=== PATIENT | female | born 1945 | race Hispanic/Latino ===

== ENCOUNTER 2017-04-05 05:56 | Inpatient (IN) | payer MEDICARE ==
[2017-04-05 05:56] VITALS: BMI 33.2
--- NOTE | 2017-04-05 06:31 | ED PDOC ---
Arrival/HPI - General Chief Complaint: Psychiatric Evaluation Time Seen by Provider: 04/05/17 06:03 Historian: Patient - History of Present Illness Narrative History of Present Illness (Text): 04/05/17 06:25 Jeni Roca is a 71 year old female, whose past medical history includes schizophrenia, anxiety, and depression, who presents to the Emergency department brought in by EMS for bizarre behavior today. As per EMS, found the patient wandering outside the street outside their home behaving oddly. Patient states she was "waiting to be picked up by the police." Patient denies any suicidal ideation, homicidal ideation, fever, chills, chest pain, shortness of breath, nausea, vomiting, diarrhea, urinary symptoms, back pain, neck pain, headache, dizziness, or any other complaints. Time/Duration: Other (tonight) Symptom Onset: Gradual Symptom Course: Unchanged Activities at Onset: Light Context: Standing, Street Past Medical History - Provider Review Nursing Documentation Reviewed: Yes - Cardiac Hx Cardiac Disorders: No Hx Hypertension: No - Pulmonary Hx Tuberculosis: No - Neurological HX Cerebrovascular Accident: No Hx Seizures: No - Hematological/Oncological Hx Cancer: No - Musculoskeletal/Rheumatological Hx Arthritis: Yes (Right knee) - Genitourinary/Gynecological Hx Sexually Transmitted Diseases: No - Psychiatric Hx Depression: Yes Hx Substance Use: No - Surgical History Other/Comment: "ovary" - Anesthesia Hx Anesthesia: Yes Hx Anesthesia Reactions: No Family/Social History - Physician Review Nursing Documentation Reviewed: Yes Family/Social History: Unknown Family HX Smoking Status: Never Smoked Hx Alcohol Use: No Hx Substance Use: No Allergies/Home Meds Allergies/Adverse Reactions: Allergies phenytoin sodium [From Dilantin] Allergy (Intermediate, Verified 01/06/16 20:53) RASH phenytoin sodium extended [From Dilantin] Allergy (Intermediate, Verified 20:53) RASH Review of Systems - Physician Review All systems were reviewed & negative as marked: Yes - Review of Systems Constitutional: Normal. absent: Fevers Eyes: Normal ENT: Normal Respiratory: Normal. absent: SOB, Cough Cardiovascular: Normal. absent: Chest Pain Gastrointestinal: Normal. absent: Abdominal Pain, Diarrhea, Nausea, Vomiting Genitourinary Female: Normal. absent: Dysuria, Frequency, Hematuria, Urine Output Changes Musculoskeletal: Normal. absent: Back Pain, Neck Pain Skin: Normal. absent: Rash Neurological: Normal. absent: Headache, Dizziness Endocrine: Normal Hemo/Lymphatic: Normal Psychiatric: Other (+bizarre behavior) Physical Exam Vital Signs Reviewed: Yes Vital Signs Temp Pulse Resp BP Pulse Ox 04/05/17 06:25 98.8 F 74 18 130/81 99 Temperature: Afebrile Blood Pressure: Normal Pulse: Regular Respiratory Rate: Normal Appearance: Positive for: Well-Appearing, Non-Toxic, Comfortable Pain Distress: None Mental Status: Positive for: Alert and Oriented X 3 - Systems Exam Head: Present: Atraumatic, Normocephalic Pupils: Present: PERRL Extroacular Muscles: Present: EOMI Conjunctiva: Present: Normal Mouth: Present: Moist Mucous Membranes Neck: Present: Normal Range of Motion Respiratory/Chest: Present: Clear to Auscultation, Good Air Exchange. No: Respiratory Distress, Accessory Muscle Use Cardiovascular: Present: Regular Rate and Rhythm, Normal S1, S2. No: Murmurs Abdomen: Present: Normal Bowel Sounds. No: Tenderness, Distention, Peritoneal Signs Back: Present: Normal Inspection Upper Extremity: Present: Normal Inspection. No: Cyanosis, Edema Lower Extremity: Present: Normal Inspection. No: Edema Neurological: Present: GCS=15, CN II-XII Intact, Speech Normal Skin: Present: Warm, Dry, Normal Color. No: Rashes Psychiatric: Present: Alert, Oriented x 3, Normal Insight, Normal Concentration Medical Decision Making ED Course and Treatment: 04/05/17 06:25 Impression: 71 year old female brought in by EMS for bizarre behavior today. Plan: -- EKG -- Chest X-ray -- Labs, alcohol level -- Urinalysis, urine drug screen -- Reassess and disposition Prior Visits: Notes and results from previous visits were reviewed. On 01/06/2016, pt was seen in the Emergency department for psychiatric evaluation and admitted to the hospital. Progress Notes: 04/05/17 07:[address] Draper, pending medical clearance, PES evaluation, and final disposition. - RAD Interpretation Radiology Orders: 04/05/17 06:27 CHEST PORTABLE [RAD] Stat - Scribe Statement The provider has reviewed the documentation as recorded by the Bhargav Roman Provider Scribe Attestation: All medical record entries made by the Scribe were at my direction and personally dictated by me. I have reviewed the chart and agree that the record accurately reflects my personal performance of the history, physical exam, medical decision making, and the department course for this patient. I have also personally directed, reviewed, and agree with the discharge instructions and disposition. Disposition/Present on Arrival - Present on Arrival Any Indicators Present on Arrival: No History of DVT/PE: No History of Uncontrolled Diabetes: No Urinary Catheter: No History of Decub. Ulcer: No History Surgical Site Infection Following: None - Disposition Have Diagnosis and Disposition been Completed?: No Diagnosis: Schizophrenia Disposition Time: 07:00 Condition: STABLE Forms: [employer] (Portuguese)
--- NOTE | 2017-04-05 07:07 | ED PDOC ---
Physical Exam Vital Signs Reviewed: Yes (WNL) Vital Signs Temp Pulse Resp BP Pulse Ox 04/05/17 07:51 98.6 F 94 H 18 127/78 96 04/05/17 06:25 98.8 F 74 18 130/81 99 Temperature: Afebrile Blood Pressure: Normal Pulse: Regular Respiratory Rate: Normal Appearance: Positive for: Well-Appearing, Non-Toxic, Comfortable, Other (NAD, resting in bed, alert/awake, cooperative) Pain Distress: None Mental Status: Positive for: Alert and Oriented X 3 - Systems Exam Head: Present: Atraumatic, Normocephalic Pupils: Present: PERRL Extroacular Muscles: Present: EOMI Conjunctiva: Present: Normal Ears: Present: Normal Mouth: Present: Other (mild dry oral mucosa, fair dentitions, uvula/tongue are midline, no drooling/stridor) Pharnyx: Present: Normal Neck: Present: Normal Range of Motion, Trachea Midline. No: MIDLINE TENDERNESS Respiratory/Chest: Present: Clear to Auscultation, Good Air Exchange. No: Respiratory Distress, Accessory Muscle Use Cardiovascular: Present: Regular Rate and Rhythm, Normal S1, S2. No: Murmurs Abdomen: Present: Normal Bowel Sounds, Other (well nourished female, no focal tenderness, no jeff's sign, no mcburney's point tenderness). No: Tenderness, Distention, Peritoneal Signs Back: Present: Normal Inspection Upper Extremity: Present: Normal Inspection, Normal ROM, NORMAL PULSES, Neurovascularly Intact, Capillary Refill < 2s. No: Cyanosis, Edema Lower Extremity: Present: Normal Inspection, NORMAL PULSES, Normal ROM, Neurovascularly Intact, Capillary Refill < 2 s. No: Edema Neurological: Present: GCS=15, CN II-XII Intact, Speech Normal Skin: Present: Warm, Dry, Normal Color. No: Rashes Psychiatric: Present: Alert, Oriented x 3, Normal Concentration, Other (flat affect) Medical Decision Making ED Course and Treatment: 04/05/17 07:00 Case was signed out to me by Dr. Eagle. 71 year old female who was brought in after found the patient wandering outside the street outside their home behaving oddly. Patient is awaiting medical clearance and disposition will be provided accordingly. 04/05/17 09:32 per , pt has been non-compliant with her medications since JAN 2017; pt also had missed her Psych appointment, pt states she is afraid to leave her house; per pt's paranoid behavior is becoming more obvious over the last few weeks and he is concerned for her safety; pt also states her depression is worse and at times she doesnt want to live but no plans of actions PT IS MEDICALLY CLEARED FOR PSYCH EVAL 04/05/17 10:16 pt evaluated by PES/[employer] social media and crm at bedside, and recommended patient for inpatient psych admission with Dr Essence Sotomayor pt/family are made aware of pt's medical results agrees with admission Re-evaluation Time: 09:36 Reassessment Condition: Improving,but remains with symptoms - Lab Interpretations Lab Results: 04/05/17 06:57 04/05/17 06:57 Lab Results 04/05/17 06:57: Urine Opiates Screen Negative, Urine Methadone Screen Negative, Ur Barbiturates Screen Negative, Ur Phencyclidine Scrn Negative, Ur Amphetamines Screen Negative, U Benzodiazepines Scrn Negative, U Oth Cocaine Metabols Negative, U Cannabinoids Screen Negative 04/05/17 06:57: WBC 9.6 D, RBC 4.73, Hgb 13.5, Hct 42.5, MCV 89.9, MCH 28.5, MCHC 31.8, RDW 14.0, Plt Count 340, MPV 10.3 04/05/17 06:57: Alcohol, Quantitative < 10 04/05/17 06:57: Sodium 141, Potassium 4.1, Chloride 102, Carbon Dioxide 26, Anion Gap 17, BUN 14, Creatinine 0.6 L, Est GFR ( Amer) > 60, Est GFR ( Non-Af Amer) > 60, Random Glucose 129 H, Calcium 9.8, Total Bilirubin 0.4, AST 25, ALT 30, Alkaline Phosphatase 108, Total Protein 7.9, Albumin 4.5, Globulin 3.4, Albumin/Globulin Ratio 1.3 04/05/17 06:57: Urine Color Yellow, Urine Appearance Clear, Urine pH 6.0, Ur Specific [place] >= 1.030, Urine Protein Trace H, Urine Glucose (UA) Negative, Urine Ketones Trace H, Urine Blood Negative, Urine Nitrate Negative, Urine Bilirubin Small H, Urine Urobilinogen 0.2, Ur Leukocyte Esterase Negative, Urine RBC Negative, Urine WBC 0 - 2, Ur Epithelial Cells 6 - 8, Urine Bacteria Small I have reviewed the lab results: Yes Interpretation: All labs normal - RAD Interpretation Narrative RAD Interpretations (Text): 04/05/17 08:50 Chest X-ray: Creator : Radha Gilliam MD COMPARISON:01/06/2016. FINDINGS: LUNGS: The lungs are well inflated and clear. PLEURA: No significant pleural effusion identified, no pneumothorax apparent. CARDIOVASCULAR: Normal. OSSEOUS STRUCTURES: No significant abnormalities. VISUALIZED UPPER ABDOMEN: Normal. OTHER FINDINGS: None. IMPRESSION: No active pulmonary disease. Radiology Orders: 04/05/17 06:27 CHEST PORTABLE [RAD] Stat Copper Tapper: Radiologist - EKG Interpretation EKG Interpretation (Text): 04/05/17 09:37 Sinus tach at 105 bpm, normal axis, no ectopy, diffuse low voltage inf leads, no st-t changes, borderline EKG; no changes compare with old ekg 01/2016 Interpreted by ED Physician: Yes Type: 12 lead EKG Comparison: Similar to previous EKG - Scribe Statement The provider has reviewed the documentation as recorded by the Bhargav Mann Provider Scribe Attestation: All medical record entries made by the Scribe were at my direction and personally dictated by me. I have reviewed the chart and agree that the record accurately reflects my personal performance of the history, physical exam, medical decision making, and the department course for this patient. I have also personally directed, reviewed, and agree with the discharge instructions and disposition. Disposition/Present on Arrival - Present on Arrival Any Indicators Present on Arrival: No History of DVT/PE: No History of Uncontrolled Diabetes: No Urinary Catheter: No History of Decub. Ulcer: No History Surgical Site Infection Following: None - Disposition Have Diagnosis and Disposition been Completed?: Yes Diagnosis: Schizophrenia, Paranoid behavior, Medical clearance for psychiatric admission Disposition: HOSPITALIZED Disposition Time: 10:14 Patient Plan: Admission Patient Problems: Current Active Problems Problem Status Onset Schizophrenia Acute Paranoid behavior Acute Medical clearance for psychiatric admission Acute Condition: STABLE Forms: [employer] ([place])
[2017-04-05 07:40] LABS: HEMOGLOBIN 13.5 g/dL (12.0-16.0); MEAN CELL VOLUME 89.9 fl (80.0-105.0); MEAN CORPUSCULAR HEMOGLOBIN 28.5 pg (25.0-35.0); MEAN CORPUSCULAR HGB CONC 31.8 g/dl (31.0-37.0); MEAN PLATELET VOLUME 10.3 fl (7.0-11.0); RBC 4.73 10^6/uL (3.5-6.1); URINE BILIRUBIN SMALL (NEGATIVE); URINE BLOOD NEGATIVE (NEGATIVE); URINE GLUCOSE (UA) NEGATIVE (NEGATIVE); URINE LEUKOCYTE ESTERASE NEGATIVE Leu/uL (NEGATIVE); URINE NITRATE NEGATIVE (NEGATIVE); URINE PROTEIN TRACE mg/dL (<30 mg/dL); URINE UROBILINOGEN 0.2 E.U./dL (<1 E.U./dL); WHITE BLOOD COUNT 9.6 10^3/ul (4.5-11.0)
[2017-04-05 07:42] LABS: URINE APPEARANCE CLEAR (CLEAR); URINE COLOR YELLOW (YELLOW)
[2017-04-05 07:53] LABS: URINE BACTERIA SMALL (NEG); URINE RBC NEGATIVE /hpf (0-2); URINE WBC 0 - 2 /hpf (0-6)
[2017-04-05 08:07] LABS: ALB/GLOB RATIO 1.3 (1.1-1.8); ALBUMIN 4.5 g/dL (3.0-4.8); ALT/SGPT 30 U/L (7-56); AST/SGOT 25 U/L (14-36); BLOOD UREA NITROGEN 14 mg/dL (7-21); CALCIUM 9.8 mg/dL (8.4-10.5); GFR AFRICAN-AMERICAN > 60; GFR NON-AFRICAN AMERICAN > 60
[2017-04-05 08:25] LABS: BARBITURATES, UR NEGATIVE (NEGATIVE)
[2017-04-05 08:31] LABS: BENZODIAZEPINES, UR NEGATIVE (NEGATIVE); OPIATES, UR NEGATIVE (NEGATIVE); PHENCYCLIDINE, UR NEGATIVE (NEGATIVE)
--- NOTE | 2017-04-05 08:51 | RAD ---
HISTORY: medical clearance COMPARISON: 01/06/2016. FINDINGS: LUNGS: The lungs are well inflated and clear. PLEURA: No significant pleural effusion identified, no pneumothorax apparent. CARDIOVASCULAR: Normal. OSSEOUS STRUCTURES: No significant abnormalities. VISUALIZED UPPER ABDOMEN: Normal. OTHER FINDINGS: None. IMPRESSION: No active pulmonary disease.
--- NOTE | 2017-04-05 09:43 | CARD ---
APPROVED REPORT EKG Measurement Heart [id number] <Conclusion> Sinus tachycardia Otherwise normal ECG
[2017-04-05] MEDS ORDERED: Alum-Mag Hydrox-Simethicone Susp (30 mL) PO PRN (14:16)
[2017-04-05] MEDS ORDERED: Magnesium Hydroxide Susp 30 ml UD PO PRN (14:16)
--- NOTE | 2017-04-05 15:07 | PCM.BM ---
<Michelle Alvarez - Last Filed: 04/05/17 15:04> Treatment Plan Problems - Problems identified on initial assessmt MEDICATION NON ADHERENCE Date Initiated: 04/05/17 Time Initiated: 15:00 Assessment reference: NA Status: Active Priority: 1 ALTERED THOUGHT PROCESS Date Initiated: 04/05/17 Time Initiated: 15:00 Assessment reference: NA Status: Active Priority: 2 SOCIAL ISOLATION Date Initiated: 04/05/17 Time Initiated: 15:00 Assessment reference: NA Status: Active Priority: 3 Treatment assets and liabiliti Patient Assests: adapts well, cooperative, ADL independent, good support system , negotiates basic needs, good past tx response, cognitively intact - Milieu Protocol Maintain good personal hygiene: daily Encourage regular showers, every shift Remind patient to perform daily oral care, every shift Assist patient to perform ADL's Maintain personal safety: every shift Educate patient to report safety concerns to staff, every shift Monitor environment for contraband/sharps Medication safety: Monitor for expected outcome, potential side effects: every shift, Assess barriers to learning: every shift, Assess readiness for medication education: every shift Discharge/Continuing Care - Education Needs Education Needs: Patient Medication, Patient Diagnosis/Disease Process, Patient Coping Skills, Patient Anger Management skills, Patient Placement options, Patient Community resources, Patient Activities of Daily Living, Patient Pain, Patient Nutrition, Patient Uses of Medical Equipment, Patient Health Practices/ Safety, Patient Personal Hygiene/Grooming, Patient Aftercare Safety Plan - Discharge Discharge Criteria: Tolerates medication w/o severe side effects, Free of paranoid thoughts, Free of agitation, Normal sleep pattern, Ability to care for self, Reduction of target symptoms Discharge to:: Home <Damaris Stewart - Last Filed: 04/06/17 14:28> Family Contact Family involvement: Family/SO is involved Family contact: Patient agrees to contact, Patient declines to allow family contact at present - Outside Agency Dr. Ball Care involvment: Not involved <Essence Mulligan - Last Filed: 04/06/17 17:04> - Diagnosis (1) Schizophrenia Status: Acute Interventions: 04/06/17 17:03 Psychoeducation/psychotherapy Psychopharmacology/adjustment of medications as needed/ monitoring possible side effects Evaluate pt on daily basis Compliance with medications and follow up appointments Long acting medication if pt is noncompliant with pill form Suicide and homicide risk assessment and prevention, coping strategies, safety plan Relapse prevention Reduction of symptoms Improve functional status Possible assertive community treatment Cognitive behavioral therapy Family involvement Possible social skill training as outpatient
--- NOTE | 2017-04-06 03:45 | CON ---
DATE: HISTORY OF PRESENT ILLNESS: I know Jeni very well from the office and for many years. She comes into the emergency room and ends up in the psych floor. I am having a consult for bizarre behavior on the outpatient, wandering in streets, waiting to be picked up by the police. No suicidal or homicidal thoughts. PAST MEDICAL HISTORY: She has had a past medical history of schizophrenia, anxiety, depression. She has had right knee arthritis, ovarian surgery. FAMILY HISTORY: No known family history. SOCIAL HISTORY: Never smoked, no drugs, no alcohol. ALLERGIES: SHE IS ALLERGIC TO PHENYTOIN. REVIEW OF SYSTEMS: No acute vision or hearing changes. No sore throat, no shortness of breath, no cough. She was having a sore throat and a little bit of a cough but not productive. No nausea, vomiting, constipation, or diarrhea. No chest pain. No palpitations. No problems urinating. No back pain. No rashes or ulcers. No headaches or dizziness. No swelling, but there is bizarre behavior that she is presenting with. PHYSICAL EXAMINATION GENERAL: Alert and oriented x3. Right now, talking to me well. She is telling me she has a sore throat. VITAL SIGNS: She has 98.8 temp, 74 pulse, 18 respiratory rate, 130/81 blood pressure, 99% O2 saturation on room air. HEENT: She is atraumatic and normocephalic. Extraocular muscles intact. Pupils are reactive to light and accommodation. Throat is moist. Throat is red. NECK: Supple. HEART: Regular rate. LUNGS: Clear to auscultation. ABDOMEN: Soft, nontender. Positive bowel sounds. No guarding, rebound, or CVA tenderness. EXTREMITIES: Have no edema. NEURO: GCS is 15. Cranial nerves II through XII grossly intact. She could smile. She could close her eyes tight. She could stick her out tongue midline. She could put her arms over her head. Not anxious. SKIN: Warm and dry. No apparent rashes or ulcers. LYMPH: Thyroid midline. No appreciable palpable lymphadenopathy. She had tests done. She has a negative urine drug screen, trace urine, small bacteria. Sodium 141, potassium 4.1, BUN 14, creatinine 0.64, GFR is greater than 60, sugar is 129, calcium is 9.8, total bilirubin is 0.4, AST is 25, ALT is 30, alkaline phosphatase is 108, total protein is 7.9, albumin is 4.5, globulin is 3.4. White count is 9.6, hemoglobin 13.5, hematocrit 42.5, platelets of 340. Chest x-ray, no active disease. EKG with sinus tachycardia. She was given amoxicillin 500 mg 3 times a day. We are going to check a hemoglobin A1c for the one high blood pressure. She is here for bizarre behavior, schizophrenia. I will watch closely with you medically. Manolo tMz DO
[2017-04-06 07:12] LABS: HEMOGLOBIN 13.4 g/dL (12.0-16.0); MEAN CELL VOLUME 89.6 fl (80.0-105.0); MEAN CORPUSCULAR HEMOGLOBIN 28.3 pg (25.0-35.0); MEAN CORPUSCULAR HGB CONC 31.6 g/dl (31.0-37.0); MEAN PLATELET VOLUME 10.2 fl (7.0-11.0); RBC 4.73 10^6/uL (3.5-6.1); RED CELL DISTRIBUTION WIDTH 14.2 % (11.5-14.5); WHITE BLOOD COUNT 7.6 10^3/ul (4.5-11.0)
[2017-04-06 07:34] LABS: FREE T4 1.21 ng/dL (0.78-2.19)
[2017-04-06 07:50] LABS: LDL CHOLESTEROL 112 mg/dL (0-129)
[2017-04-06 07:58] LABS: ALB/GLOB RATIO 1.2 (1.1-1.8); ALT/SGPT 27 U/L (7-56); AST/SGOT 19 U/L (14-36); BLOOD UREA NITROGEN 12 mg/dL (7-21); CALCIUM 9.3 mg/dL (8.4-10.5); GFR AFRICAN-AMERICAN > 60; GFR NON-AFRICAN AMERICAN > 60; HDL CHOLESTEROL 44 mg/dL (29-60)
--- NOTE | 2017-04-06 10:24 | PN ---
DATE: SUBJECTIVE: She is sitting on bed to chair. She seems to be doing better today, mentally may be a little bit. She is asking for medications. She has not tried the Tylenol yet for arthritis pain, so will try that first. She is on amoxicillin for an upper respiratory infection. MEDICATIONS: She is on amoxicillin, Desyrel, Klonopin, Maalox, milk of magnesia, Prozac, Risperdal, Thorazine, and Tylenol. PHYSICAL EXAMINATION: VITAL SIGNS: She has temperature 98.6, pulse 105, blood pressure 142/65, respiratory rate 22, and O2 saturation 100% on room air. HEENT: Head is atraumatic and normocephalic. HEART: Regular rate. LUNGS: Clear to auscultation. GASTROINTESTINAL: Abdomen is soft. She is eating well. EXTREMITIES: No edema. LABORATORY DATA: She has a white count of 7.6, hemoglobin 13.4, hematocrit 42.4 with a 337 platelets. Sodium 142, potassium is 4.5, BUN 12, and creatinine 0.6. GFR is greater than 60, sugar is 124, calcium is 9.3. Total bilirubin is 0.4, AST is 19, ALT is 27, alkaline phosphatase 96, total protein 7.2, albumin is 4, and globulin 3.3. Cholesterol is 193. TSH is 0.95. Urine was small and toxicology was negative. ASSESSMENT AND PLAN: We will continue with treatment and care as per Psychiatry. Chest x-ray shows no active disease. We will watch her very closely. She will get some Tylenol. she is here for behavior, upper respiratory infection, schizophrenia, high blood sugars, and arthritis. Manolo Mtz DO OSMAN
--- NOTE | 2017-04-06 17:02 | PCM.PSYCH ---
Initial Psychiatric Evaluation - Initial Psychiatric Evaluation Type of Admission: Voluntary Legal Status: Capacity (patient has capacity to sign consent for treatment) Chief Complaint (in patient's own words): "I communicate with Chandler Kang in a very special way, if I will tell you, you will think that I am nuts" Patient's Reaction to Hospitalization: pt was admitted to the psych unit for evaluation of disorganized thoughts and behavior, was not able to function History of Present Illness and Precipitating Events: of note, pt was seen at the morning time, but due to the busy schedule and administrative duties, note was postponed to this time. Shortly pt is 71 year old female, with reporte h/o schizophrenia, four previous psych admissions, most recent was about a year ago to this unit, currently under care of , pt has h/o noncompliance with medications and f/u appts, was admitted to the psychiatric inpatient unit for disorganized thoughts and behavior, pt was not sleeping for the past two nights, pt was wondering on streets, pt also was feeling anxious because pt had impression that police is going to arrest her (pt denied h/o arrests, denied committed any crime), pt also was depressed, was not able to function, was noncompliant with her medications and follow up appts, last appt with psychiatrist was in January 2017. Pt was brought in by her because of disorganized and risky behavior. Pt needs further evaluation and stabilization, observation medication resumption and titration. Pt was seen at the morning, and later on at treatment team, poor personal hygiene, pt wears baggy clothes, long, uncombed, ortega, greasy hair pulled up to the fragile ponytail, fare ADLs. pt presented to be guarded, pt is delusional abut famous leahy Chandler Kang, pt was saying "last time you said I was delusional, but it is true...", pt said that she communicates with him "in a very special way, if I will tell you, you will think that I am nuts". pt refused to give any information at this time, from the previous interaction with pt, pt needs some time to opened up. pt seems to have good report with this conventional mortgage underwriter, willing to discuss the medications, acknowledged that she needs to be on medications, but not for psychosis but for "depression, I was feeling very sad inside" was also was not able to function, had poor appetite and sleep. from the last admission pt had dangerous behavior, was running towards random cars for find a Chandler Jorge Luis. pt reported that she was feeling more anxious, she was worried abut her health, abut future, also had impression that she will be arrested by police, even though pt did not commit any crime. pt said she was not taking her medications as prescribed and she did not see her psychiatrist since January, when was asked why, pt said she was afraid to leave the house. no manic symptoms were elicited. pt denied using drugs, denied smoking. Past psych h/o: four hospitalizations, first was five years ago for depression to [facility], most recent was about a year ago for psychosis in this unit. pt also had h/o involuntary admission to [facility], pt denied h/o suicidal attempts. Family h/o: denied. Social: pt lives in with , h/o working at [employer] for 22 years , was retired. medical issues: arthritis r knee, chest pain due to anxiety pt gave permission to speak to her Trip Roca [phone], spoke to briefly yesterday, collaterals obtained, but no information disclosed, back then pt did not have consent, today pt said that this conventional mortgage underwriter could disclose info about her to her . pt was not taking meds, was refusing to leave the house, med list from January: Risperdal consta 25mg IM q2 weeks last dose was in January Risperdal 2mg po amhs Prozac 30mg po daily Trazodone 100mg po hs goals for treatment: "I want to feel wonderful". pt does not have access to guns. 04/06/17 06:30 04/06/17 06:30 Lab Results 04/06/17 06:30: Hemoglobin A1c 6.2 04/06/17 06:30: WBC 7.6 D, RBC 4.73, Hgb 13.4, Hct 42.4, MCV 89.6, MCH 28.3, MCHC 31.6, RDW 14.2, Plt Count 337, MPV 10.2 04/06/17 06:30: Sodium 142, Potassium 4.5, Chloride 106, Carbon Dioxide 26, Anion Gap 15, BUN 12, Creatinine 0.6 L, Est GFR ( Amer) > 60, Est GFR ( Non-Af Amer) > 60, Random Glucose 124 H, Calcium 9.3, Total Bilirubin 0.4, AST 19, ALT 27, Alkaline Phosphatase 96, Total Protein 7.2, Albumin 4.0, Globulin 3.3, Albumin/Globulin Ratio 1.2, Triglycerides 118, Cholesterol 193, LDL Cholesterol Direct 112, HDL Cholesterol 44 04/06/17 06:30: Free T4 1.21, TSH 3rd Generation 0.95 04/05/17 06:57: Urine Opiates Screen Negative, Urine Methadone Screen Negative, Ur Barbiturates Screen Negative, Ur Phencyclidine Scrn Negative, Ur Amphetamines Screen Negative, U Benzodiazepines Scrn Negative, U Oth Cocaine Metabols Negative, U Cannabinoids Screen Negative 04/05/17 06:57: WBC 9.6 D, RBC 4.73, Hgb 13.5, Hct 42.5, MCV 89.9, MCH 28.5, MCHC 31.8, RDW 14.0, Plt Count 340, MPV 10.3 04/05/17 06:57: Alcohol, Quantitative < 10 04/05/17 06:57: Sodium 141, Potassium 4.1, Chloride 102, Carbon Dioxide 26, Anion Gap 17, BUN 14, Creatinine 0.6 L, Est GFR ( Amer) > 60, Est GFR ( Non-Af Amer) > 60, Random Glucose 129 H, Calcium 9.8, Total Bilirubin 0.4, AST 25, ALT 30, Alkaline Phosphatase 108, Total Protein 7.9, Albumin 4.5, Globulin 3.4, Albumin/Globulin Ratio 1.3 04/05/17 06:57: Urine Color Yellow, Urine Appearance Clear, Urine pH 6.0, Ur Specific [place] >= 1.030, Urine Protein Trace H, Urine Glucose (UA) Negative, Urine Ketones Trace H, Urine Blood Negative, Urine Nitrate Negative, Urine Bilirubin Small H, Urine Urobilinogen 0.2, Ur Leukocyte Esterase Negative, Urine RBC Negative, Urine WBC 0 - 2, Ur Epithelial Cells 6 - 8, Urine Bacteria Small Vital Signs Temp Pulse Resp BP Pulse Ox 04/06/17 07:17 98.6 F 105 H 22 142/65 04/05/17 16:00 116 H 178/84 H 04/05/17 12:32 98.8 F 104 H 140/78 04/05/17 11:00 98.6 F 103 H 19 130/75 100 04/05/17 07:51 98.6 F 94 H 18 127/78 96 04/05/17 06:25 98.8 F 74 18 130/81 99 Current Medications: Active Medications Generic Name Dose Route Start Last Admin Trade Name Freq PRN Reason Stop Dose Admin Acetaminophen 650 mg 04/05/17 14:16 Tylenol 325mg Tab PO Q4 PRN Pain, Mild (1-3) Al Hydrox/Mg Hydrox/Simethicone 30 ml 04/05/17 14:16 Maalox Plus 30 Ml PO DAILY PRN Upset Stomach Amoxicillin 500 mg 04/05/17 17:00 04/06/17 13:04 Amoxil 500 Mg Cap PO 500 mg Q8 WHITNEY Administration Protocol Chlorpromazine 25 mg 04/05/17 14:40 Thorazine PO TID PRN Agitation Protocol Chlorpromazine 25 mg 04/05/17 14:42 Thorazine IM TID PRN Agitation Protocol Clonazepam 0.5 mg 04/05/17 14:39 Klonopin PO BID PRN Anxiety Protocol Fluoxetine HCl 20 mg 04/05/17 14:30 04/06/17 08:52 Prozac PO 20 mg DAILY WHITNEY Administration Magnesium Hydroxide 30 ml 04/05/17 14:16 Milk Of Magnesia PO DAILY PRN Constipation Risperidone 1 mg 04/05/17 16:00 04/06/17 09:07 Risperdal Tab PO 1 mg BID WHITNEY Administration Protocol Risperidone 1 mg 04/05/17 22:00 04/05/17 21:34 Risperdal Tab PO 1 mg HS WHITNEY Administration Protocol Trazodone HCl 50 mg 04/05/17 22:00 04/05/17 21:33 Desyrel PO 50 mg HS WHITNEY Administration Past Psychiatric History - Past Psychiatric History Previous Treatment History: Inpatient Prior Professional Help: see HPI Prior Psychiatric Treatment: see HPI At what hospital: see HPI Duration: see HPI Nature of Treatment: see HPI Explanation of prior treatment: see HPI History of Abuse: denied History of Family Illness: denied Pertinent Medical Hx (Current Medical&Sleep Prob, Allergies): Allergies Allergy/AdvReac Type Severity Reaction Status Date / Time phenytoin sodium Allergy Intermediate RASH Verified 04/05/17 14:44 [From Dilantin] phenytoin sodium extended Allergy Intermediate RASH Verified 01/06/16 20:53 [From Dilantin] FLUoxetine [Fluoxetine HCl] 20 mg PO DAILY #14 cap 01/22/16 FLUoxetine [Prozac] 10 mg PO DAILY #14 cap 01/22/16 Fluticasone Nasal [Flonase] 1 actuation NS DAILY #1 spr 01/22/16 traZODone [Desyrel] 50 mg PO HS #14 tab 01/22/16 Risperidone [RisperDAL Consta] 25 mg INJ Q30D 04/05/17 Risperidone [Risperdal] 2 mg PO BID 04/05/17 Review of Systems - Review of Systems Systems not reviewed;Unavailable: Acuity of Condition - EENT Eyes: As Per HPI Ears: As Per HPI Nose/Mouth/Throat: As Per HPI - Breasts Breasts: As Per HPI - Cardiovascular Cardiovascular: As Per HPI - Respiratory Respiratory: As Per HPI - Gastrointestinal Gastrointestinal: As Per HPI - Genitourinary Genitourinary: As Per HPI - Reproductive: Female Reproductive:Female: As Per HPI - Menstruation Menstruation: As Per HPI - Musculoskeletal Musculoskeletal: As Par HPI - Integumentary Integumentary: As Per HPI - Neurological Neurological: As Per HPI - Psychiatric Psychiatric: As Per HPI - Endocrine Endocrine: As Per HPI - Hematologic/Lymphatic Hematologic: As Per HPI Mental Status Examination - Personal Presentation Personal Presentation: Looks older than stated age - Affect Affect: Other (inapropriate, at times giggling) - Motor Activity Motor Activity: Psychomotor Retardation - Reliability in Providing Information Reliability in Providing Information: Poor, due to alteration in thoughts, Poor , due to altered mood, Poor, due to cognitve impairment - Speech Speech: Disorganized, Tangential - Mood Mood: Depressed - Formal Thought Process Formal Thought Process: Delusions, Paranoia - Hallucinations/Delusions Delusions: Persecution - Obsessions/Compulsions Obsessions: Yes (pt is obsessed with famous signer) Compulsions: None - Cognitive Functions Orientation: Person, Place Sensorium: Alert Attention/Concentration: Easily distracted Abstract Thinking: [place] Estimate of Intelligence: Average Judgement: Intact, as evidence by: Insight regarding need for hospitalization - Risk Risk: Self-mutilation (dangerous behavior), Diminished functioning - Strength & Assets Inventory Strength & Assets Inventory: Cooperative - Limitations Limitations: Other (chronic noncompliance with meds and f/u appts) DSM 5 DX - DSM 5 DSM 5 Diagnosis: schizophrenia r/o schizoaffective disorder - Recommended/Plan of Treatment Treatment Recommendations and Plan of Treatment: Milieu/structure/supportive therapy FLUoxetine 20 mg PO DAILY will be resumed for depression traZODone [Desyrel] 50 mg PO HS prn for insomnia/depression seroquel 100mg po hs for psychosis risperdal pt did not want to continued pt is not interested to have injectable form of meds will educate pt more about injectable form of meds Medical consult was called SW consultation for discharge plan and social issues Family involvement, pt gave consent for pt's involvement Follow up on labs Will monitor closely Pt was educated about risk/benefits and alternatives of medications, coping strategies (safety plan, suicide prevention), relapse prevention, importance of follow up with psychiatrist and therapist, stay away from drugs/alcohol/smoking Projected ELOS: 10days Prognosis: guarded Discharge Plan and Discharge Criteria: Pt will be not depressed or manic, will be more hopeful, will be not psychotic or anxious, will be not having thoughts of harming self or others, will be tolerating medications well, will not have major side effects, will be able to function, will not pose threat to self or others. - Smoking Cessation Smoking Cessation Initiated: No Reason for not providing: pt denies smoking
--- NOTE | 2017-04-07 12:02 | PN ---
DATE: SUBJECTIVE: I saw Jeni in the breakfast room this morning. She is doing well, slept well. She told me, she is having some back pain. We discussed meds. We are going to give her Lidoderm patch. She tells me she is doing a little bit better with the sore throat and a cold. MEDICATIONS: She is on amoxicillin, Desyrel, Klonopin, Maalox, milk of magnesia, Prozac, Risperdal, Thorazine, and I gave her Lidoderm patch, and she has Tylenol. PHYSICAL EXAMINATION: VITAL SIGNS: Temperature 97.1, 86 pulse, 144/70 blood pressure, and 20 respiratory rate. HEENT: Head is atraumatic and normocephalic. Throat is moist. NECK: Supple. HEART: Regular rate. LUNGS: Decreased breath sounds, but clear to auscultation. ABDOMEN: Soft. EXTREMITIES: No edema. Mild mid back pain, lower back pain she wants a patch for it that will help her. LABORATORY DATA: Last labs on , CBC was very good so was the SMA 20. She had 124 blood sugar with hemoglobin A1c of 6.2. She is prediabetic ASSESSMENT AND PLAN: Overall, I think she is doing a little better. She has a lot of issues. She had bizarre behavior, upper respiratory infection, schizophrenia, high blood sugar, arthritis, and back pain. I added the Lidoderm patch. I am hoping that it will give her some relief. I encouraged her to participate with the groups and take the medications and eat well. Manolo Mtz DO MTDD
[2017-04-07] MEDS: Lidocaine 5% Patch TD SCH (12:07)
--- NOTE | 2017-04-07 14:07 | PCM.PYCHPN ---
Psychiatric Progress Note - Psychiatric Progress Note Patient seen today, length of contact: 30min Patient Chief Complaint: "I am very depressed..." Problems Identified/Issues Discussed: Suicide/ homicide prevention, past psychiatric h/o, current psychiatric symptoms , medical problems, risk/benefits and alternatives of medications, medications compliance, coping strategies, substance abuse h/o, relapse prevention, importance of follow up with psychiatrist and therapist, discharge plan. Medical Problems: obesity pharyngitis, pt is on abx Diagnostic Results: 04/06/17 06:30 04/06/17 06:30 Lab Results 04/06/17 06:30: Hemoglobin A1c 6.2 04/06/17 06:30: WBC 7.6 D, RBC 4.73, Hgb 13.4, Hct 42.4, MCV 89.6, MCH 28.3, MCHC 31.6, RDW 14.2, Plt Count 337, MPV 10.2 04/06/17 06:30: Sodium 142, Potassium 4.5, Chloride 106, Carbon Dioxide 26, Anion Gap 15, BUN 12, Creatinine 0.6 L, Est GFR ( Amer) > 60, Est GFR ( Non-Af Amer) > 60, Random Glucose 124 H, Calcium 9.3, Total Bilirubin 0.4, AST 19, ALT 27, Alkaline Phosphatase 96, Total Protein 7.2, Albumin 4.0, Globulin 3.3, Albumin/Globulin Ratio 1.2, Triglycerides 118, Cholesterol 193, LDL Cholesterol Direct 112, HDL Cholesterol 44 04/06/17 06:30: Free T4 1.21, TSH 3rd Generation 0.95 04/06/17 06:30: RPR Nonreactive 04/05/17 06:57: Urine Opiates Screen Negative, Urine Methadone Screen Negative, Ur Barbiturates Screen Negative, Ur Phencyclidine Scrn Negative, Ur Amphetamines Screen Negative, U Benzodiazepines Scrn Negative, U Oth Cocaine Metabols Negative, U Cannabinoids Screen Negative 04/05/17 06:57: WBC 9.6 D, RBC 4.73, Hgb 13.5, Hct 42.5, MCV 89.9, MCH 28.5, MCHC 31.8, RDW 14.0, Plt Count 340, MPV 10.3 04/05/17 06:57: Alcohol, Quantitative < 10 04/05/17 06:57: Sodium 141, Potassium 4.1, Chloride 102, Carbon Dioxide 26, Anion Gap 17, BUN 14, Creatinine 0.6 L, Est GFR ( Amer) > 60, Est GFR ( Non-Af Amer) > 60, Random Glucose 129 H, Calcium 9.8, Total Bilirubin 0.4, AST 25, ALT 30, Alkaline Phosphatase 108, Total Protein 7.9, Albumin 4.5, Globulin 3.4, Albumin/Globulin Ratio 1.3 04/05/17 06:57: Urine Color Yellow, Urine Appearance Clear, Urine pH 6.0, Ur Specific [place] >= 1.030, Urine Protein Trace H, Urine Glucose (UA) Negative, Urine Ketones Trace H, Urine Blood Negative, Urine Nitrate Negative, Urine Bilirubin Small H, Urine Urobilinogen 0.2, Ur Leukocyte Esterase Negative, Urine RBC Negative, Urine WBC 0 - 2, Ur Epithelial Cells 6 - 8, Urine Bacteria Small Vital Signs Temp Pulse Resp BP Pulse Ox 04/07/17 07:15 97.1 F L 86 20 144/70 04/06/17 16:00 103 H 126/77 04/06/17 07:17 98.6 F 105 H 22 142/65 04/05/17 16:00 116 H 178/84 H 04/05/17 12:32 98.8 F 104 H 140/78 04/05/17 11:00 98.6 F 103 H 19 130/75 100 04/05/17 07:51 98.6 F 94 H 18 127/78 96 04/05/17 06:25 98.8 F 74 18 130/81 99 DSM 5 Symptoms Update: Shortly pt is 71 year old female, with reported h/o schizophrenia, four previous psych admissions, most recent was about a year ago to this unit, currently under care of , pt has h/o noncompliance with medications and f/u appts, was admitted to the psychiatric inpatient unit for disorganized thoughts and behavior, pt was not sleeping for the past two nights, pt was wondering on streets, pt also was feeling anxious because pt had impression that police is going to arrest her (pt denied h/o arrests, denied committed any crime), pt also was depressed, was not able to function, was noncompliant with her medications and follow up appts, last appt with psychiatrist was in January 2017. Pt was brought in by her because of disorganized and risky behavior. Pt needs further evaluation and stabilization, observation medication resumption and titration. Pt was seen at the morning with PLANNING DIVISION SUPERINTENDENT in pt's room, hygiene is improving, took a shower, pt still oddly related, at times smiles inappropriately, pt has concrete thought process, keep repeating she is "very depressed" and keep smiling, pt still presented to be guarded has erotomanic delusions that famous leahy Chandler Kang is in love with her and they have relationships, but did not want to disclose the way they communicate "you would think that I am a nuts". pt was paranoid that police is after her prior to come to the hospital, but now pt reported to feel comfortable in the unit. pt tolerated medications well, no side effects observed or reported, AIMS 0, no EPS. Impression: schizophrenia delusion erotomanic Medication Change: Yes (risperdal was increased) Medical Record Reviewed: Yes Consults ordered or reviewed: medical consult appreciated Mental Status Examination - Cognitive Function Orientation: Person, Place Memory: Impaired Attention: Poor Concentration: Poor Association: Loose Fund of Knowledge: WNL - Mood Mood: Depressed - Affect Affect: Other (inapropriate, at times giggling, smiling inappropriately) - Speech Speech: Appropriate (underproductive) - Formal Thought Process Formal Thought Process: Delusions, Paranoia - Suicidal Ideation Suicidal Ideation: No - Homicidal Ideation Homicidal Ideation: No Goal/Treatment Plan - Goal/Treatment Plan Need for Continued Stay: Remain at risks for inpatient hospitalization, Severe depression anxiety, Discharge may exacerbated symptoms, Severe functional impairment Progress Toward Problem(s) and Goals/Treatment Plan: Milieu/structure/supportive therapy FLUoxetine 20 mg PO DAILY resumed for depression, with the plan to increase it tomorrow traZODone [Desyrel] 50 mg PO HS prn for insomnia/depression correction to my previous note, pt did not want to be on seroquel, but riseprdal pt was resumed on risperdal 1mg po tid, today was increased to 2mg po bid for psychosis pt is not interested to have injectable form of meds, pt was educated about injectable form of Risperdal, but pt said "I do not like needles" Medical consult was called, pt is on abx for pharyngitis SW consultation for discharge plan and social issues Family involvement, pt gave consent for pt's involvement Follow up on labs Will monitor closely Pt was educated about risk/benefits and alternatives of medications, coping strategies (safety plan, suicide prevention), relapse prevention, importance of follow up with psychiatrist and therapist, stay away from drugs/alcohol/smoking Estimated Date of D/C: 04/15/17 (will monitor closely')
[2017-04-08] MEDS: Lidocaine 5% Patch TD SCH (08:34)
--- NOTE | 2017-04-08 10:35 | PCM.PYCHPN ---
Psychiatric Progress Note - Psychiatric Progress Note Patient seen today, length of contact: 25 min Patient Chief Complaint: "depressed, the same" Problems Identified/Issues Discussed: I reviewed assessment and recent notes. Patient was seen at bedside. She appears unkempt and preoccupied. Reports that she remains depressed and denies any improvement in symptoms. She is guarded and oddly related but superficially cooperative. Affect is constricted and flat. She denies hallucinations and she is not responding to internal stimuli. Delusions were not elicited though Dr. Mulligan's progress note indicates that patient remains fixated on Faustino Jorge Luis. Patient denies issues with her medications, specifically denies side effects, new discomfort or pain. Continues to complain of b/l leg and lower back pain, symptoms which she reported discussing with medicine on the unit. Staff notes indicate that patient has been in control. Visible on the unit and attends groups. Mostly keeps to herself but willing to interact with others when prompted. There were no behavioral issues overnight. 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 Medication Change: Yes (risperdal was increased) Medical Record Reviewed: Yes Mental Status Examination - Cognitive Function Orientation: Person, Place Memory: Impaired Attention: Poor Concentration: Poor Association: Loose Fund of Knowledge: WNL - Mood Mood: Depressed - Affect Affect: Other (inapropriate, at times giggling, smiling inappropriately) - Speech Speech: Appropriate (underproductive) - Formal Thought Process Formal Thought Process: Delusions, Paranoia - Suicidal Ideation Suicidal Ideation: No - Homicidal Ideation Homicidal Ideation: No Goal/Treatment Plan - Goal/Treatment Plan Need for Continued Stay: Remain at risks for inpatient hospitalization, Severe depression anxiety, Discharge may exacerbated symptoms, Severe functional impairment Progress Toward Problem(s) and Goals/Treatment Plan: * c/w current tx and plan * No new labs thus far * Vitals reviewed and noted below: 04/06/17 04/06/17 04/07/17 07:17 16:00 07:15 Temperature 98.6 F 97.1 F L Pulse Rate 105 H 103 H 86 Respiratory 22 20 Rate Blood Pressure 142/65 126/77 144/70 04/07/17 16:00 Temperature Pulse Rate 107 H Respiratory Rate Blood Pressure 127/69 Estimated Date of D/C: 04/15/17 (will monitor closely')
--- NOTE | 2017-04-08 15:01 | PN ---
DATE: SUBJECTIVE: I saw her on the psych unit in her room, she was sleeping quietly, she woke up and she said she is having back pain and waiting for the Lidoderm patch to be placed. MEDICATIONS: She is on amoxicillin for upper respiratory infection, Desyrel, Klonopin, Lidoderm patch also placed this morning, milk of magnesia, Prozac, Risperdal, Thorazine, and Tylenol. PHYSICAL EXAMINATION: VITAL SIGNS: Temperature 97.2, 101 pulse, 160/74 blood pressure, and 21 respiratory rate. HEENT: Head is atraumatic, normocephalic. HEART: Regular rate. LUNGS: Clear to auscultation. ABDOMEN: Soft. EXTREMITIES: No edema. She can move, she can walk, she is having some back pain, hopefully the medicines will help her. LABORATORY DATA: Labs from the 3rd were very good. ASSESSMENT AND PLAN: We will continue as per Psychiatry. She had interesting diagnosis. She has bizarre behavior, schizophrenia, arthritis, and back pain, upper respiratory tract infection. Hopefully, the patch will help her back. We will continue with aggressive treatment and care as per Psychiatry. Manolo Mtz DO MTDD
[2017-04-09] MEDS: Lidocaine 5% Patch TD SCH (09:17)
[2017-04-09] MEDS ORDERED: Menthol/Methyl Salicylate Ointment(1 oz) TOP PRN (14:08)
--- NOTE | 2017-04-09 20:11 | PN ---
DATE: SUBJECTIVE: I saw Jeni in her room, resting comfortably in bed. She is telling me that her knees are now bothering her and the Lidoderm patch is helping her low back. So, she want something for the knees. I discussed with pharmacy, we will put her on analgesic balm that will help both knees, they can do that 4 times a day. She is also getting amoxycillin for upper respiratory infection, Desyrel, Klonopin, Lidoderm patch for low back, Maalox, milk of magnesia, Prozac, Risperdal, Thorazine, and Tylenol. PHYSICAL EXAMINATION: VITAL SIGNS: 97.2 temperature, 90 pulse, 144/68 blood pressure and 20 respiratory rate. HEENT: Head is atraumatic and normocephalic. HEART: Regular rate. LUNGS: Clear to auscultation. ABDOMEN: Soft. EXTREMITIES: No edema. The reason but it is bothering her. We will try the balm. LABORATORY DATA: She has 7.6 white count, 30.4 hemoglobin and 377 platelets. Sodium 142, potassium 4.5, BUN is 12.8, creatinine 0.6, GFR greater than 60 and sugar is 124. Hemoglobin A1c was 6.2, calcium is 9.3. Total bili is 0.4, AST is 19, ALT 27, alk phos 96, total protein 7.2, albumin 4, globulin 3.3 and TSH is 0.95. ASSESSMENT AND PLAN: I think she is improving mentally overall. She is here for bizarre behavior. I have not seen anything which has been in also knee arthritis, schizophrenia, low back pain, upper respiratory infection, and arthritis. I also had a long discussion with her who I know well and he is happy because she is improving. We will continue doing as per Psychiatry. Manolo Mtz DO MTDD
[2017-04-10] MEDS: Lidocaine 5% Patch TD SCH (09:05)
--- NOTE | 2017-04-10 09:22 | PCM.PYCHPN ---
Psychiatric Progress Note - Psychiatric Progress Note Patient seen today, length of contact: 25 min Patient Chief Complaint: "depressed" Problems Identified/Issues Discussed: I reviewed recent notes and patient was seen at bedside. She still appears unkempt and preoccupied. Oriented x3. Reports that she remains depressed and denies any improvement in symptoms. Feels a little hopeless and has little energy. She is guarded and oddly related but superficially cooperative. Responses are brief and affect is constricted and flat. She denies hallucinations and she is not responding to internal stimuli. Delusions were not elicited though Dr. Mulligan's progress note indicates that patient remained fixated on Faustino Jorge Luis. Patient denies issues with her medications except for the side effect of dry mouth. Continues to complain of b/l leg and lower back pain-unchanged, symptoms which she reported discussing with medicine on the unit. Staff notes indicate that patient has been in control. Visible on the unit and attends groups. Mostly keeps to herself but willing to interact with others when prompted. There were no behavioral issues overnight. 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 Medication Change: Yes (risperdal was increased) Medical Record Reviewed: Yes Mental Status Examination - Cognitive Function Orientation: Person, Place Memory: Impaired Attention: Poor Concentration: Poor Association: Loose Fund of Knowledge: WNL - Mood Mood: Depressed - Affect Affect: Constricted, Other (oddly related) - Speech Speech: Appropriate (underproductive) - Formal Thought Process Formal Thought Process: Delusions, Paranoia - Suicidal Ideation Suicidal Ideation: No - Homicidal Ideation Homicidal Ideation: No Goal/Treatment Plan - Goal/Treatment Plan Need for Continued Stay: Remain at risks for inpatient hospitalization, Severe depression anxiety, Discharge may exacerbated symptoms, Severe functional impairment Progress Toward Problem(s) and Goals/Treatment Plan: * c/w current tx and plan * Appreciate f/u by Dr. Mtz on 04/08/17 * No new labs thus far * Vitals reviewed and noted below: Selected Entries 04/07/17 04/07/17 04/08/17 07:15 16:00 07:18 Temperature 97.1 F L 97.2 F L Pulse Rate 86 107 H 101 H Respiratory 20 20 Rate Blood Pressure 144/70 127/69 160/74 H 04/08/17 07:25 Temperature 97.2 F L Pulse Rate 101 H Respiratory 21 Rate Blood Pressure 160/74 H Estimated Date of D/C: 04/15/17 (will monitor closely')
--- NOTE | 2017-04-10 09:23 | PCM.PYCHPN ---
Psychiatric Progress Note - Psychiatric Progress Note Patient seen today, length of contact: 25 min Patient Chief Complaint: "depressed" Problems Identified/Issues Discussed: I reviewed recent notes and patient was seen at bedside. She still appears unkempt and preoccupied. Oriented x3. Reports that she remains depressed and a little hopeless. She has little energy and remains guarded but superficially cooperative. Responses are brief and affect is constricted and flat. She denies hallucinations and she is not responding to internal stimuli. Delusions were not elicited though progress notes last week indicate that patient remained fixated on Faustino Jorge Luis. Patient denies issues with her medications except for the side effect of dry mouth. Continues to complain of b/l leg and lower back pain-unchanged, symptoms which she reported discussing with medicine and nursing on the unit. Staff notes indicate that patient has been in control. Visible on the unit and attends groups. Mostly keeps to herself but willing to interact with others when prompted. There were no behavioral issues over the weekend. 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 Medication Change: Yes (risperdal was increased) Medical Record Reviewed: Yes Mental Status Examination - Cognitive Function Orientation: Person, Place Memory: Impaired Attention: Poor Concentration: Poor Association: Loose Fund of Knowledge: WNL - Mood Mood: Depressed - Affect Affect: Constricted, Other (oddly related) - Speech Speech: Appropriate (underproductive) - Formal Thought Process Formal Thought Process: Delusions, Paranoia - Suicidal Ideation Suicidal Ideation: No - Homicidal Ideation Homicidal Ideation: No Goal/Treatment Plan - Goal/Treatment Plan Need for Continued Stay: Remain at risks for inpatient hospitalization, Severe depression anxiety, Discharge may exacerbated symptoms, Severe functional impairment Progress Toward Problem(s) and Goals/Treatment Plan: * c/w current tx and plan * Appreciate f/u by Dr. Mtz on 04/08/17 & 04/09/17 * No new weekend labs thus far * Vitals reviewed and noted below: 04/08/17 04/08/17 04/09/17 07:18 07:25 07:00 Temperature 97.2 F L 97.2 F L 97.2 F L Pulse Rate 101 H 101 H 90 Respiratory 20 21 20 Rate Blood Pressure 160/74 H 160/74 H 144/68 Estimated Date of D/C: 04/15/17 (will monitor closely')
--- NOTE | 2017-04-10 11:46 | PN ---
DATE: SUBJECTIVE: I saw Jeni in the Psychiatric Unit. She is comfortable, but she is now telling me that she needs a pill for the arthritis and that the patch and the creams are not helping. MEDICATIONS: She took Advil at home. I will give her some ibuprofen or Motrin 200 mg q.6 hours p.r.n. She is also on Augmentin, which is helping her upper respiratory infection. Desyrel, Klonopin, Lidoderm patch, ibuprofen, Prozac, Risperdal, and Thorazine. PHYSICAL EXAMINATION: GENERAL: She is walking in the halls nicely. She is eating well and going to the bathroom well. Some knee and joints pains could be from the weather, but it is arthritis for her. She is 71 years old and I have known her for years. VITAL SIGNS: She has vital signs of 97.2 temperature, 90 pulse, 144/68 blood pressure, and 20 respiratory rate. HEENT: Head is atraumatic, normocephalic. Throat is moist. NECK: Supple. HEART: Regular rate. LUNGS: Clear to auscultation. ABDOMEN: Soft, nontender, and positive bowel sounds. EXTREMITIES: No edema. I am not really clearly much of the knees for arthritis, but she tells me it hurts her, I will give her some Advil. She has analgesic balm. She has Lidoderm patch for the low back arthritis. LABORATORY DATA: Last labs on 04/06/2017, CBC was good. Chemistry was very good. Urine was small bacteria. Toxicology was negative. RPR was nonreactive. ASSESSMENT AND PLAN: She is being seen by Psychiatry. We will continue with aggressive treatment and care. She is here for knee arthritis, bizarre behavior, schizophrenia, low back pain, upper respiratory infection, which is improving, and arthritis. I will add ibuprofen 200 mg q.6 hours as needed and she will let me know tomorrow if she needs anything else. As per Psychiatry, we will follow. Manolo Mtz DO
[2017-04-11] MEDS: Lidocaine 5% Patch TD SCH (08:04)
--- NOTE | 2017-04-11 09:02 | PN ---
DATE: SUBJECTIVE: I saw her resting comfortably in bed. She slept fairly well last night. She is doing little bit better with her medications for arthritis and pain. MEDICATIONS: She is on amoxicillin for upper respiratory infection, which is improving; Bengay for the knee; Desyrel, Klonopin, Lidoderm for the low back; Maalox, milk of magnesia, Motrin for the joint pains and arthritis; Prozac, Risperdal, Thorazine, and Tylenol. PHYSICAL EXAMINATION: VITAL SIGNS: Temperature 98.2, pulse 111 down to 90 pulse, blood pressure 127/69, and respiratory rate 16. HEENT: Head is atraumatic and normocephalic. HEART: Regular rate. LUNGS: Clear to auscultation. ABDOMEN: Soft. EXTREMITIES: No edema. joint pain, so we will keep an eye on that. LABORATORY DATA: Last labs on 04/06/2017, the CBC was good. SMA-20 was good with a sugar of 124. Urine is small. ASSESSMENT AND PLAN: Overall, she is doing I think fairly well. She is being seen by Psychiatry and we are following her treatment. She comes in with bizarre behavior, osteoarthritis of the knees, low back pain, which has been chronic, upper respiratory infection, and schizophrenia. I encouraged her to walk, eat her breakfast, take to the medications. We will continue with aggressive treatment and care on Jeni Roca. We will follow. Manolo Mtz DO MTDD
--- NOTE | 2017-04-11 17:09 | PCM.PYCHPN ---
Psychiatric Progress Note - Psychiatric Progress Note Patient seen today, length of contact: 30 minutes Patient Chief Complaint: "I m just depressed" Problems Identified/Issues Discussed: Suicide/ homicide prevention, past psychiatric h/o, current psychiatric symptoms , medical problems, risk/benefits and alternatives of medications, medications compliance, coping strategies, substance abuse h/o, relapse prevention, importance of follow up with psychiatrist and therapist, discharge plan. Medical Problems: obesity pharyngitis, pt is on abx Diagnostic Results: 04/06/17 06:30 04/06/17 06:30 Lab Results 04/06/17 06:30: Hemoglobin A1c 6.2 04/06/17 06:30: WBC 7.6 D, RBC 4.73, Hgb 13.4, Hct 42.4, MCV 89.6, MCH 28.3, MCHC 31.6, RDW 14.2, Plt Count 337, MPV 10.2 04/06/17 06:30: Sodium 142, Potassium 4.5, Chloride 106, Carbon Dioxide 26, Anion Gap 15, BUN 12, Creatinine 0.6 L, Est GFR ( Amer) > 60, Est GFR ( Non-Af Amer) > 60, Random Glucose 124 H, Calcium 9.3, Total Bilirubin 0.4, AST 19, ALT 27, Alkaline Phosphatase 96, Total Protein 7.2, Albumin 4.0, Globulin 3.3, Albumin/Globulin Ratio 1.2, Triglycerides 118, Cholesterol 193, LDL Cholesterol Direct 112, HDL Cholesterol 44 04/06/17 06:30: Free T4 1.21, TSH 3rd Generation 0.95 04/06/17 06:30: RPR Nonreactive 04/05/17 06:57: Urine Opiates Screen Negative, Urine Methadone Screen Negative, Ur Barbiturates Screen Negative, Ur Phencyclidine Scrn Negative, Ur Amphetamines Screen Negative, U Benzodiazepines Scrn Negative, U Oth Cocaine Metabols Negative, U Cannabinoids Screen Negative 04/05/17 06:57: WBC 9.6 D, RBC 4.73, Hgb 13.5, Hct 42.5, MCV 89.9, MCH 28.5, MCHC 31.8, RDW 14.0, Plt Count 340, MPV 10.3 04/05/17 06:57: Alcohol, Quantitative < 10 04/05/17 06:57: Sodium 141, Potassium 4.1, Chloride 102, Carbon Dioxide 26, Anion Gap 17, BUN 14, Creatinine 0.6 L, Est GFR ( Amer) > 60, Est GFR ( Non-Af Amer) > 60, Random Glucose 129 H, Calcium 9.8, Total Bilirubin 0.4, AST 25, ALT 30, Alkaline Phosphatase 108, Total Protein 7.9, Albumin 4.5, Globulin 3.4, Albumin/Globulin Ratio 1.3 04/05/17 06:57: Urine Color Yellow, Urine Appearance Clear, Urine pH 6.0, Ur Specific [place] >= 1.030, Urine Protein Trace H, Urine Glucose (UA) Negative, Urine Ketones Trace H, Urine Blood Negative, Urine Nitrate Negative, Urine Bilirubin Small H, Urine Urobilinogen 0.2, Ur Leukocyte Esterase Negative, Urine RBC Negative, Urine WBC 0 - 2, Ur Epithelial Cells 6 - 8, Urine Bacteria Small Vital Signs Temp Pulse Resp BP Pulse Ox 04/07/17 07:15 97.1 F L 86 20 144/70 04/06/17 16:00 103 H 126/77 04/06/17 07:17 98.6 F 105 H 22 142/65 04/05/17 16:00 116 H 178/84 H 04/05/17 12:32 98.8 F 104 H 140/78 04/05/17 11:00 98.6 F 103 H 19 130/75 100 04/05/17 07:51 98.6 F 94 H 18 127/78 96 04/05/17 06:25 98.8 F 74 18 130/81 99 Temp Pulse Resp BP Pulse Ox 98.2 F 111 H 16 144/92 H 100 04/11/17 06:52 04/11/17 06:52 04/11/17 06:52 04/11/17 06:52 04/05/17 11:00 DSM 5 Symptoms Update: Shortly pt is 71 year old female, with reported h/o schizophrenia, four previous psych admissions, most recent was about a year ago to this unit, currently under care of , pt has h/o noncompliance with medications and f/u appts, was admitted to the psychiatric inpatient unit for disorganized thoughts and behavior, pt was not sleeping for the past two nights, pt was wondering on streets, pt also was feeling anxious because pt had impression that police is going to arrest her (pt denied h/o arrests, denied committed any crime), pt also was depressed, was not able to function, was noncompliant with her medications and follow up appts, last appt with psychiatrist was in January 2017. Pt was brought in by her because of disorganized and risky behavior. Pt needs further evaluation and stabilization, observation medication resumption and titration. Pt was seen at the morning at the dining area, poor personal hygiene, a lot of stains on her clothing, greasy, uncombed long hair, flat affect, poverty of speech and thoughts. pt has concrete thought process, keep repeating she is "very depressed" and keep smiling, pt still presented to be guarded has erotomanic delusions that famous lehay Chandler Kang is in love with her and they have relationships, but did not want to disclose the way they communicate "you would think that I am a nuts". pt was paranoid that police is after her prior to come to the hospital, but now pt reported to feel comfortable in the unit. pt tolerated medications well, no side effects observed or reported, AIMS 0, no EPS. Impression: schizophrenia delusion erotomanic Medication Change: Yes (Prozac was increased) Medical Record Reviewed: Yes Consults ordered or reviewed: medical consult appreciated see notes for more detailed information Mental Status Examination - Cognitive Function Orientation: Person, Place Memory: Impaired Attention: Poor Concentration: Poor Association: Loose Fund of Knowledge: WNL - Mood Mood: Depressed - Affect Affect: Constricted, Other (oddly related) - Speech Speech: Appropriate (underproductive) - Formal Thought Process Formal Thought Process: Delusions, Paranoia - Suicidal Ideation Suicidal Ideation: No - Homicidal Ideation Homicidal Ideation: No Goal/Treatment Plan - Goal/Treatment Plan Need for Continued Stay: Remain at risks for inpatient hospitalization, Severe depression anxiety, Discharge may exacerbated symptoms, Severe functional impairment Progress Toward Problem(s) and Goals/Treatment Plan: Milieu/structure/supportive therapy FLUoxetine 30 mg PO DAILY resumed for depression, with the plan to increase it tomorrow traZODone [Desyrel] 50 mg PO HS prn for insomnia/depression risperdal 2mg po bid for psychosis pt is not interested to have injectable form of meds, pt was educated about injectable form of Risperdal, but pt said "I do not like needles" Medical consult was called, pt is on abx for pharyngitis SW consultation for discharge plan and social issues Family involvement, pt gave consent for pt's involvement Follow up on labs Will monitor closely Pt was educated about risk/benefits and alternatives of medications, coping strategies (safety plan, suicide prevention), relapse prevention, importance of follow up with psychiatrist and therapist, stay away from drugs/alcohol/smoking Estimated Date of D/C: 04/15/17 (will monitor closely')
[2017-04-12] MEDS: Lidocaine 5% Patch TD SCH (08:56)
--- NOTE | 2017-04-12 11:42 | PN ---
SUBJECTIVE: I saw her resting comfortably in the psychiatric unit. She slept well last night. She is in good spirits. She has no complaints this morning. MEDICATIONS: She is on amoxicillin, Bengay, Desyrel, Klonopin, Lidoderm patch, Maalox, milk of magnesia, Motrin Prozac, Risperdal, Thorazine, and Tylenol. PHYSICAL EXAMINATION VITAL SIGNS: She has 98.7 temp, 110 pulse down to 96 pulse, 124/72 blood pressure, and 20 respiratory rate. HEENT: Head is atraumatic, normocephalic. Throat is moist. NECK: Supple. HEART: Regular rate. LUNGS: Decreased breath sounds, but clear to auscultation. ABDOMEN: Soft, nontender, positive bowel sounds. EXTREMITIES: No edema. LABORATORY DATA: She has worked fairly well. Last labs on the , CBC was good. SMA-20 was good. ASSESSMENT AND PLAN: She has been seen by psychiatry. She is slowly improving. She has osteoarthritis of the knees, low back pain, joint pain. She has bizarre behavior, schizophrenia. She has an upper respiratory infection and arthritis; overall she is improving some. Continue with aggressive treatment and care as per psychiatry. Manolo Mtz DO
--- NOTE | 2017-04-12 16:19 | PCM.PYCHPN ---
Psychiatric Progress Note - Psychiatric Progress Note Patient seen today, length of contact: 30 minutes Patient Chief Complaint: "My life will be good and bad, bad is because I will be arrested by police, they are harassing me, I did not commit a crime or something but I know for sure I will be arrested, I don't want to tell you about good thing what might happened....." Problems Identified/Issues Discussed: Suicide/ homicide prevention, past psychiatric h/o, current psychiatric symptoms , medical problems, risk/benefits and alternatives of medications, medications compliance, coping strategies, substance abuse h/o, relapse prevention, importance of follow up with psychiatrist and therapist, discharge plan. Medical Problems: obesity pharyngitis, pt is on abx Diagnostic Results: 04/06/17 06:30 04/06/17 06:30 Lab Results 04/06/17 06:30: Hemoglobin A1c 6.2 04/06/17 06:30: WBC 7.6 D, RBC 4.73, Hgb 13.4, Hct 42.4, MCV 89.6, MCH 28.3, MCHC 31.6, RDW 14.2, Plt Count 337, MPV 10.2 04/06/17 06:30: Sodium 142, Potassium 4.5, Chloride 106, Carbon Dioxide 26, Anion Gap 15, BUN 12, Creatinine 0.6 L, Est GFR ( Amer) > 60, Est GFR ( Non-Af Amer) > 60, Random Glucose 124 H, Calcium 9.3, Total Bilirubin 0.4, AST 19, ALT 27, Alkaline Phosphatase 96, Total Protein 7.2, Albumin 4.0, Globulin 3.3, Albumin/Globulin Ratio 1.2, Triglycerides 118, Cholesterol 193, LDL Cholesterol Direct 112, HDL Cholesterol 44 04/06/17 06:30: Free T4 1.21, TSH 3rd Generation 0.95 04/06/17 06:30: RPR Nonreactive 04/05/17 06:57: Urine Opiates Screen Negative, Urine Methadone Screen Negative, Ur Barbiturates Screen Negative, Ur Phencyclidine Scrn Negative, Ur Amphetamines Screen Negative, U Benzodiazepines Scrn Negative, U Oth Cocaine Metabols Negative, U Cannabinoids Screen Negative 04/05/17 06:57: WBC 9.6 D, RBC 4.73, Hgb 13.5, Hct 42.5, MCV 89.9, MCH 28.5, MCHC 31.8, RDW 14.0, Plt Count 340, MPV 10.3 04/05/17 06:57: Alcohol, Quantitative < 10 04/05/17 06:57: Sodium 141, Potassium 4.1, Chloride 102, Carbon Dioxide 26, Anion Gap 17, BUN 14, Creatinine 0.6 L, Est GFR ( Amer) > 60, Est GFR ( Non-Af Amer) > 60, Random Glucose 129 H, Calcium 9.8, Total Bilirubin 0.4, AST 25, ALT 30, Alkaline Phosphatase 108, Total Protein 7.9, Albumin 4.5, Globulin 3.4, Albumin/Globulin Ratio 1.3 04/05/17 06:57: Urine Color Yellow, Urine Appearance Clear, Urine pH 6.0, Ur Specific [place] >= 1.030, Urine Protein Trace H, Urine Glucose (UA) Negative, Urine Ketones Trace H, Urine Blood Negative, Urine Nitrate Negative, Urine Bilirubin Small H, Urine Urobilinogen 0.2, Ur Leukocyte Esterase Negative, Urine RBC Negative, Urine WBC 0 - 2, Ur Epithelial Cells 6 - 8, Urine Bacteria Small Vital Signs Temp Pulse Resp BP Pulse Ox 04/07/17 07:15 97.1 F L 86 20 144/70 04/06/17 16:00 103 H 126/77 04/06/17 07:17 98.6 F 105 H 22 142/65 04/05/17 16:00 116 H 178/84 H 04/05/17 12:32 98.8 F 104 H 140/78 04/05/17 11:00 98.6 F 103 H 19 130/75 100 04/05/17 07:51 98.6 F 94 H 18 127/78 96 04/05/17 06:25 98.8 F 74 18 130/81 99 Temp Pulse Resp BP Pulse Ox 98.2 F 111 H 16 144/92 H 100 04/11/17 06:52 04/11/17 06:52 04/11/17 06:52 04/11/17 06:52 04/05/17 11:00 DSM 5 Symptoms Update: Shortly pt is 71 year old female, with reported h/o schizophrenia, four previous psych admissions, most recent was about a year ago to this unit, currently under care of , pt has h/o noncompliance with medications and f/u appts, was admitted to the psychiatric inpatient unit for disorganized thoughts and behavior, pt was not sleeping for the past two nights, pt was wondering on streets, pt also was feeling anxious because pt had impression that police is going to arrest her (pt denied h/o arrests, denied committed any crime), pt also was depressed, was not able to function, was noncompliant with her medications and follow up appts, last appt with psychiatrist was in January 2017. Pt was brought in by her because of disorganized and risky behavior. Pt needs further evaluation and stabilization, observation medication resumption and titration. Pt was seen at the morning at the dining area, poor personal hygiene, a lot of stains on her clothing, greasy, uncombed long hair, flat affect, poverty of speech and thoughts. today pt presented to be more talkative, said that she was harassed by police and pt will be arrested after discharge, no evidence for that , pt is psychotic, delusional, paranoid. pt willing to increase meds, pt was offered zyprexa, "I feel more comfortable on risperdal. pt still has erotomanic delusions about Chandler Kang. pt tolerated medications well, no side effects observed or reported, AIMS 0, no EPS. Impression: schizophrenia delusion erotomanic Medication Change: Yes (risperdal was increased 2mg po tid) Medical Record Reviewed: Yes Consults ordered or reviewed: medical consult appreciated see notes for more detailed information Mental Status Examination - Cognitive Function Orientation: Person, Place Memory: Impaired Attention: Poor Concentration: Poor Association: Loose Fund of Knowledge: WNL - Mood Mood: Depressed - Affect Affect: Constricted, Other (oddly related) - Speech Speech: Appropriate (underproductive) - Formal Thought Process Formal Thought Process: Delusions, Paranoia - Suicidal Ideation Suicidal Ideation: No - Homicidal Ideation Homicidal Ideation: No Goal/Treatment Plan - Goal/Treatment Plan Need for Continued Stay: Remain at risks for inpatient hospitalization, Severe depression anxiety, Discharge may exacerbated symptoms, Severe functional impairment Progress Toward Problem(s) and Goals/Treatment Plan: Milieu/structure/supportive therapy FLUoxetine 30 mg PO DAILY resumed for depression, with the plan to increase it tomorrow traZODone [Desyrel] 50 mg PO HS prn for insomnia/depression risperdal 2mg po bid and HS for psychosis pt is not interested to have injectable form of meds, pt was educated about injectable form of Risperdal, but pt said "I do not like needles" Medical consult was called, pt is on abx for pharyngitis SW consultation for discharge plan and social issues Family involvement, pt gave consent for pt's involvement Follow up on labs Will monitor closely Pt was educated about risk/benefits and alternatives of medications, coping strategies (safety plan, suicide prevention), relapse prevention, importance of follow up with psychiatrist and therapist, stay away from drugs/alcohol/smoking Estimated Date of D/C: 04/15/17 (will monitor closely')
[2017-04-13] MEDS: Lidocaine 5% Patch TD SCH (08:52)
--- NOTE | 2017-04-13 11:57 | PN ---
DATE: SUBJECTIVE: I saw Jeni resting in bed. She slept well. She is telling me she feels very depressed, but she is trying to get better. She is eating some. No more complaints of arthritis pain. MEDICATIONS: She is on amoxicillin, most of the upper extremity infection is definitely improving, Bengay, Desyrel, Klonopin, Lidoderm patch, Maalox, milk of magnesia, Motrin, Prozac, Risperdal, Thorazine, and Tylenol. PHYSICAL EXAMINATION: VITAL SIGNS: She has a 97.7 temperature, 95 pulse, 146/70 blood pressure, and 20 respiratory rate. HEENT: Head is atraumatic, normocephalic. Throat is moist. NECK: Supple. HEART: Regular rate. LUNGS: Clear to auscultation. ABDOMEN: Soft. EXTREMITIES: No edema. ASSESSMENT AND PLAN: She is comfortable at this time. We will continue with aggressive treatment by Psychiatry and medication changes. I encouraged her to participate, eat the food to the best she can. Jeni Singh with knee osteoarthritis, bizarre behavior, schizophrenia, low back pain, arthritis, and urinary tract infection. Manolo Mtz DO
--- NOTE | 2017-04-13 15:25 | PCM.PYCHPN ---
Psychiatric Progress Note - Psychiatric Progress Note Patient seen today, length of contact: 30 minutes Patient Chief Complaint: "I know I will be arrested" Problems Identified/Issues Discussed: Suicide/ homicide prevention, past psychiatric h/o, current psychiatric symptoms , medical problems, risk/benefits and alternatives of medications, medications compliance, coping strategies, substance abuse h/o, relapse prevention, importance of follow up with psychiatrist and therapist, discharge plan. Medical Problems: obesity pharyngitis, pt is on abx Diagnostic Results: 04/06/17 06:30 04/06/17 06:30 Lab Results 04/06/17 06:30: Hemoglobin A1c 6.2 04/06/17 06:30: WBC 7.6 D, RBC 4.73, Hgb 13.4, Hct 42.4, MCV 89.6, MCH 28.3, MCHC 31.6, RDW 14.2, Plt Count 337, MPV 10.2 04/06/17 06:30: Sodium 142, Potassium 4.5, Chloride 106, Carbon Dioxide 26, Anion Gap 15, BUN 12, Creatinine 0.6 L, Est GFR ( Amer) > 60, Est GFR ( Non-Af Amer) > 60, Random Glucose 124 H, Calcium 9.3, Total Bilirubin 0.4, AST 19, ALT 27, Alkaline Phosphatase 96, Total Protein 7.2, Albumin 4.0, Globulin 3.3, Albumin/Globulin Ratio 1.2, Triglycerides 118, Cholesterol 193, LDL Cholesterol Direct 112, HDL Cholesterol 44 04/06/17 06:30: Free T4 1.21, TSH 3rd Generation 0.95 04/06/17 06:30: RPR Nonreactive 04/05/17 06:57: Urine Opiates Screen Negative, Urine Methadone Screen Negative, Ur Barbiturates Screen Negative, Ur Phencyclidine Scrn Negative, Ur Amphetamines Screen Negative, U Benzodiazepines Scrn Negative, U Oth Cocaine Metabols Negative, U Cannabinoids Screen Negative 04/05/17 06:57: WBC 9.6 D, RBC 4.73, Hgb 13.5, Hct 42.5, MCV 89.9, MCH 28.5, MCHC 31.8, RDW 14.0, Plt Count 340, MPV 10.3 04/05/17 06:57: Alcohol, Quantitative < 10 04/05/17 06:57: Sodium 141, Potassium 4.1, Chloride 102, Carbon Dioxide 26, Anion Gap 17, BUN 14, Creatinine 0.6 L, Est GFR ( Amer) > 60, Est GFR ( Non-Af Amer) > 60, Random Glucose 129 H, Calcium 9.8, Total Bilirubin 0.4, AST 25, ALT 30, Alkaline Phosphatase 108, Total Protein 7.9, Albumin 4.5, Globulin 3.4, Albumin/Globulin Ratio 1.3 04/05/17 06:57: Urine Color Yellow, Urine Appearance Clear, Urine pH 6.0, Ur Specific [place] >= 1.030, Urine Protein Trace H, Urine Glucose (UA) Negative, Urine Ketones Trace H, Urine Blood Negative, Urine Nitrate Negative, Urine Bilirubin Small H, Urine Urobilinogen 0.2, Ur Leukocyte Esterase Negative, Urine RBC Negative, Urine WBC 0 - 2, Ur Epithelial Cells 6 - 8, Urine Bacteria Small Vital Signs Temp Pulse Resp BP Pulse Ox 04/07/17 07:15 97.1 F L 86 20 144/70 04/06/17 16:00 103 H 126/77 04/06/17 07:17 98.6 F 105 H 22 142/65 04/05/17 16:00 116 H 178/84 H 04/05/17 12:32 98.8 F 104 H 140/78 04/05/17 11:00 98.6 F 103 H 19 130/75 100 04/05/17 07:51 98.6 F 94 H 18 127/78 96 04/05/17 06:25 98.8 F 74 18 130/81 99 Temp Pulse Resp BP Pulse Ox 98.2 F 111 H 16 144/92 H 100 04/11/17 06:52 04/11/17 06:52 04/11/17 06:52 04/11/17 06:52 04/05/17 11:00 DSM 5 Symptoms Update: Shortly pt is 71 year old female, with reported h/o schizophrenia, four previous psych admissions, most recent was about a year ago to this unit, currently under care of , pt has h/o noncompliance with medications and f/u appts, was admitted to the psychiatric inpatient unit for disorganized thoughts and behavior, pt was not sleeping for the past two nights, pt was wondering on streets, pt also was feeling anxious because pt had impression that police is going to arrest her (pt denied h/o arrests, denied committed any crime), pt also was depressed, was not able to function, was noncompliant with her medications and follow up appts, last appt with psychiatrist was in January 2017. Pt was brought in by her because of disorganized and risky behavior. Pt needs further evaluation and stabilization, observation medication resumption and titration. Pt was seen at the morning at the treatment team meeting, poor personal hygiene , a lot of stains on her clothing, greasy, uncombed long hair, flat affect, poverty of speech and thoughts. pt still convinced that she will be arrested without any obvious reasons, pt does not want to be on any other medication than risperdal, "I am not giving my permission to change medications", will keep educating pt. pt is still psychotic, delusional, paranoid. pt still has erotomanic delusions about Chandler Kang. pt tolerated medications well, no side effects observed or reported, AIMS 0, no EPS. pt does not have any behavioral disturbances, compliant with meds, visible in the unit. Impression: schizophrenia delusion erotomanic Medication Change: Yes (risperdal was increased 2mg po tid yesterday) Medical Record Reviewed: Yes Consults ordered or reviewed: medical consult appreciated see notes for more detailed information Mental Status Examination - Cognitive Function Orientation: Person, Place Memory: Impaired Attention: Poor Concentration: Poor Association: Loose Fund of Knowledge: WNL - Mood Mood: Depressed - Affect Affect: Constricted, Other (oddly related) - Speech Speech: Appropriate (underproductive) - Formal Thought Process Formal Thought Process: Delusions, Paranoia - Suicidal Ideation Suicidal Ideation: No - Homicidal Ideation Homicidal Ideation: No Goal/Treatment Plan - Goal/Treatment Plan Need for Continued Stay: Remain at risks for inpatient hospitalization, Severe depression anxiety, Discharge may exacerbated symptoms, Severe functional impairment Progress Toward Problem(s) and Goals/Treatment Plan: Milieu/structure/supportive therapy FLUoxetine 30 mg PO DAILY resumed for depression, with the plan to increase it tomorrow traZODone [Desyrel] 50 mg PO HS prn for insomnia/depression risperdal 2mg po tid and HS for psychosis pt is not interested to have injectable form of meds, pt was educated about injectable form of Risperdal, but pt said "I do not like needles" Medical consult was called, pt is on abx for pharyngitis SW consultation for discharge plan and social issues Family involvement, pt gave consent for pt's involvement Follow up on labs Will monitor closely Pt was educated about risk/benefits and alternatives of medications, coping strategies (safety plan, suicide prevention), relapse prevention, importance of follow up with psychiatrist and therapist, stay away from drugs/alcohol/smoking Estimated Date of D/C: 04/20/17 (will monitor closely')
--- NOTE | 2017-04-13 16:24 | PCM.BM ---
<Bentley Armstrong - Last Filed: 04/13/17 16:24> Treatment Plan Problems - Problems identified on initial assessmt MEDICATION NON ADHERENCE Date Initiated: 04/05/17 Time Initiated: 15:00 Assessment reference: NA Status: Active Priority: 1 ALTERED THOUGHT PROCESS Date Initiated: 04/05/17 Time Initiated: 15:00 Assessment reference: NA Status: Active Priority: 2 SOCIAL ISOLATION Date Initiated: 04/05/17 Time Initiated: 15:00 Assessment reference: NA Status: Active Priority: 3 Treatment assets and liabiliti Patient Assests: adapts well, cooperative, ADL independent, good support system , negotiates basic needs, good past tx response, cognitively intact - Milieu Protocol Maintain good personal hygiene: daily Encourage regular showers, every shift Remind patient to perform daily oral care, every shift Assist patient to perform ADL's Maintain personal safety: every shift Educate patient to report safety concerns to staff, every shift Monitor environment for contraband/sharps Medication safety: Monitor for expected outcome, potential side effects: every shift, Assess barriers to learning: every shift, Assess readiness for medication education: every shift Milieu Narrative: Milieu/structure/supportive therapy FLUoxetine 30 mg PO DAILY resumed for depression, with the plan to increase it tomorrow traZODone [Desyrel] 50 mg PO HS prn for insomnia/depression risperdal 2mg po tid and HS for psychosis pt is not interested to have injectable form of meds, pt was educated about injectable form of Risperdal, but pt said "I do not like needles" Medical consult was called, pt is on abx for pharyngitis SW consultation for discharge plan and social issues Family involvement, pt gave consent for pt's involvement Follow up on labs Will monitor closely Pt was educated about risk/benefits and alternatives of medications, coping strategies (safety plan, suicide prevention), relapse prevention, importance of follow up with psychiatrist and therapist, stay away from drugs/alcohol/smoking Family Contact Family involvement: Family/SO is involved Family contact: Patient agrees to contact, Patient declines to allow family contact at present - Outside Agency Dr. Ball Care involvment: Not involved Discharge/Continuing Care - Education Needs Education Needs: Patient Medication, Patient Diagnosis/Disease Process, Patient Coping Skills, Patient Anger Management skills, Patient Placement options, Patient Community resources, Patient Activities of Daily Living, Patient Pain, Patient Nutrition, Patient Uses of Medical Equipment, Patient Health Practices/ Safety, Patient Personal Hygiene/Grooming, Patient Aftercare Safety Plan - Discharge Discharge Criteria: Tolerates medication w/o severe side effects, Free of paranoid thoughts, Free of agitation, Normal sleep pattern, Ability to care for self, Reduction of target symptoms Discharge to:: Home - Treatment Team Participation Patient/Family/SO Statement: Milieu/structure/supportive therapy FLUoxetine 30 mg PO DAILY resumed for depression, with the plan to increase it tomorrow traZODone [Desyrel] 50 mg PO HS prn for insomnia/depression risperdal 2mg po tid and HS for psychosis pt is not interested to have injectable form of meds, pt was educated about injectable form of Risperdal, but pt said "I do not like needles" Medical consult was called, pt is on abx for pharyngitis SW consultation for discharge plan and social issues Family involvement, pt gave consent for pt's involvement Follow up on labs Will monitor closely Pt was educated about risk/benefits and alternatives of medications, coping strategies (safety plan, suicide prevention), relapse prevention, importance of follow up with psychiatrist and therapist, stay away from drugs/alcohol/smoking Treatment Plan Review - Problem MEDICATION NON ADHERENCE Time Initiated: 15:00 ALTERED THOUGHT PROCESS Time Initiated: 15:00 SOCIAL ISOLATION Time Initiated: 15:00 <Essence Mulligan - Last Filed: 04/14/17 16:00> - Diagnosis (1) Schizophrenia Status: Acute Interventions: 04/14/17 16:00 minimal improvement pt wants to be on risperdal only compliant with meds might benefit from injectable form, but refused no SI/HI family meeting next week with pt's <Damaris Stewart - Last Filed: 04/15/17 17:32>
[2017-04-14] MEDS: Lidocaine 5% Patch TD SCH (09:39)
--- NOTE | 2017-04-14 13:46 | PN ---
DATE: SUBJECTIVE: I saw her resting comfortably in bed. She slept well. She is in good spirits. She is eating. She is on amoxicillin, Bengay, Desyrel, Klonopin, Lidoderm, Maalox, milk of magnesia, Motrin, Prozac, Risperdal, Thorazine. She has no complaints to me this morning. No back pain. No knee pain. PHYSICAL EXAMINATION: VITAL SIGNS: She has a 98 temperature, 87 pulse, 137/56 blood pressure, and 20 respiratory rate. HEENT: Head is atraumatic and normocephalic. HEART: Regular rate. LUNGS: Clear to auscultation. ABDOMEN: Soft. EXTREMITIES: No edema. PLAN: For the most part, she is fairly stable. I don't know how much, she is improving overall with her thoughts, but medically I think she is as good as we are going to get her and we will see how she improves psychologically. I will continue to follow her. Manolo Mtz DO
--- NOTE | 2017-04-14 16:12 | PCM.PYCHPN ---
Psychiatric Progress Note - Psychiatric Progress Note Patient seen today, length of contact: 30 minutes Patient Chief Complaint: "I am alright, I think I am better" Problems Identified/Issues Discussed: Suicide/ homicide prevention, past psychiatric h/o, current psychiatric symptoms , medical problems, risk/benefits and alternatives of medications, medications compliance, coping strategies, substance abuse h/o, relapse prevention, importance of follow up with psychiatrist and therapist, discharge plan. Medical Problems: obesity pharyngitis, pt is on abx Diagnostic Results: 04/06/17 06:30 04/06/17 06:30 Lab Results 04/06/17 06:30: Hemoglobin A1c 6.2 04/06/17 06:30: WBC 7.6 D, RBC 4.73, Hgb 13.4, Hct 42.4, MCV 89.6, MCH 28.3, MCHC 31.6, RDW 14.2, Plt Count 337, MPV 10.2 04/06/17 06:30: Sodium 142, Potassium 4.5, Chloride 106, Carbon Dioxide 26, Anion Gap 15, BUN 12, Creatinine 0.6 L, Est GFR ( Amer) > 60, Est GFR ( Non-Af Amer) > 60, Random Glucose 124 H, Calcium 9.3, Total Bilirubin 0.4, AST 19, ALT 27, Alkaline Phosphatase 96, Total Protein 7.2, Albumin 4.0, Globulin 3.3, Albumin/Globulin Ratio 1.2, Triglycerides 118, Cholesterol 193, LDL Cholesterol Direct 112, HDL Cholesterol 44 04/06/17 06:30: Free T4 1.21, TSH 3rd Generation 0.95 04/06/17 06:30: RPR Nonreactive 04/05/17 06:57: Urine Opiates Screen Negative, Urine Methadone Screen Negative, Ur Barbiturates Screen Negative, Ur Phencyclidine Scrn Negative, Ur Amphetamines Screen Negative, U Benzodiazepines Scrn Negative, U Oth Cocaine Metabols Negative, U Cannabinoids Screen Negative 04/05/17 06:57: WBC 9.6 D, RBC 4.73, Hgb 13.5, Hct 42.5, MCV 89.9, MCH 28.5, MCHC 31.8, RDW 14.0, Plt Count 340, MPV 10.3 04/05/17 06:57: Alcohol, Quantitative < 10 04/05/17 06:57: Sodium 141, Potassium 4.1, Chloride 102, Carbon Dioxide 26, Anion Gap 17, BUN 14, Creatinine 0.6 L, Est GFR ( Amer) > 60, Est GFR ( Non-Af Amer) > 60, Random Glucose 129 H, Calcium 9.8, Total Bilirubin 0.4, AST 25, ALT 30, Alkaline Phosphatase 108, Total Protein 7.9, Albumin 4.5, Globulin 3.4, Albumin/Globulin Ratio 1.3 04/05/17 06:57: Urine Color Yellow, Urine Appearance Clear, Urine pH 6.0, Ur Specific [place] >= 1.030, Urine Protein Trace H, Urine Glucose (UA) Negative, Urine Ketones Trace H, Urine Blood Negative, Urine Nitrate Negative, Urine Bilirubin Small H, Urine Urobilinogen 0.2, Ur Leukocyte Esterase Negative, Urine RBC Negative, Urine WBC 0 - 2, Ur Epithelial Cells 6 - 8, Urine Bacteria Small Vital Signs Temp Pulse Resp BP Pulse Ox 04/07/17 07:15 97.1 F L 86 20 144/70 04/06/17 16:00 103 H 126/77 04/06/17 07:17 98.6 F 105 H 22 142/65 04/05/17 16:00 116 H 178/84 H 04/05/17 12:32 98.8 F 104 H 140/78 04/05/17 11:00 98.6 F 103 H 19 130/75 100 04/05/17 07:51 98.6 F 94 H 18 127/78 96 04/05/17 06:25 98.8 F 74 18 130/81 99 Temp Pulse Resp BP Pulse Ox 98.2 F 111 H 16 144/92 H 100 04/11/17 06:52 04/11/17 06:52 04/11/17 06:52 04/11/17 06:52 04/05/17 11:00 Temp Pulse Resp BP Pulse Ox 98.0 F 87 20 137/56 L 100 04/14/17 07:12 04/14/17 07:12 04/14/17 07:12 04/14/17 07:12 04/05/17 11:00 DSM 5 Symptoms Update: Shortly pt is 71 year old female, with reported h/o schizophrenia, four previous psych admissions, most recent was about a year ago to this unit, currently under care of , pt has h/o noncompliance with medications and f/u appts, was admitted to the psychiatric inpatient unit for disorganized thoughts and behavior, pt was not sleeping for the past two nights, pt was wondering on streets, pt also was feeling anxious because pt had impression that police is going to arrest her (pt denied h/o arrests, denied committed any crime), pt also was depressed, was not able to function, was noncompliant with her medications and follow up appts, last appt with psychiatrist was in January 2017. Pt was brought in by her because of disorganized and risky behavior. Pt needs further evaluation and stabilization, observation medication resumption and titration. Pt was seen at the morning next to the nursing station, pt said "I think I feel better", pt said that she does not feel that police is after her, but as per pt' s who visited pt yesterday, pt still presented to be psychotic, pt still has delusional perception, when ever pt hears word "beautiful" either on TV or radio pt percept as a signal to go outside and meet with famous signer Chandler Kang. pt's was concerned about safety. meeting will take place next week in the unit. pt is still psychotic, delusional, paranoid. pt still has erotomanic delusions about Chandler Kang. pt tolerated medications well, no side effects observed or reported, AIMS 0, no EPS. pt does not have any behavioral disturbances, compliant with meds, visible in the unit. Impression: schizophrenia delusion erotomanic Medication Change: Yes (risperdal was increased 3mg po hs) Medical Record Reviewed: Yes Consults ordered or reviewed: medical consult appreciated see notes for more detailed information Mental Status Examination - Cognitive Function Orientation: Person, Place Memory: Impaired Attention: Poor (some improvement) Concentration: Poor (some improvement) Association: Loose Fund of Knowledge: WNL - Mood Mood: Depressed - Affect Affect: Constricted, Other (oddly related) - Speech Speech: Appropriate (underproductive) - Formal Thought Process Formal Thought Process: Delusions, Paranoia - Suicidal Ideation Suicidal Ideation: No - Homicidal Ideation Homicidal Ideation: No Goal/Treatment Plan - Goal/Treatment Plan Need for Continued Stay: Remain at risks for inpatient hospitalization, Severe depression anxiety, Discharge may exacerbated symptoms, Severe functional impairment Progress Toward Problem(s) and Goals/Treatment Plan: Milieu/structure/supportive therapy FLUoxetine 30 mg PO DAILY resumed for depression, with the plan to increase it tomorrow traZODone [Desyrel] 50 mg PO HS prn for insomnia/depression risperdal 2mg po bid and 3mg HS for psychosis pt is not interested to have injectable form of meds, pt was educated about injectable form of Risperdal, but pt said "I do not like needles" Medical consult was called, pt is on abx for pharyngitis SW consultation for discharge plan and social issues Family involvement, pt gave consent for pt's involvement Follow up on labs Will monitor closely Pt was educated about risk/benefits and alternatives of medications, coping strategies (safety plan, suicide prevention), relapse prevention, importance of follow up with psychiatrist and therapist, stay away from drugs/alcohol/smoking Estimated Date of D/C: 04/20/17 (will monitor closely')
[2017-04-15] MEDS: Lidocaine 5% Patch TD SCH (07:57)
--- NOTE | 2017-04-15 14:09 | PN ---
DATE: 04/15/2017 She is sitting comfortably in the chair. She is doing much better. She is eating well. She is participating. No complaints. She is on amoxicillin, Bengay, Desyrel, Klonopin, Lidoderm, Maalox, milk of magnesia, Motrin, Prozac, Risperdal, Thorazine, and Tylenol. PHYSICAL EXAMINATION: VITAL SIGNS: 98 temp, 97 pulse, 126/79 blood pressure, 20 respiratory rate. HEENT: Head is atraumatic, normocephalic. Throat is moist. NECK: Supple. HEART: Regular rate. LUNGS: Clear to auscultation. ABDOMEN: Soft, nontender. Positive bowel sounds. EXTREMITIES: No edema. No complaints of pain. ASSESSMENT AND PLAN: We will continue as per Psychiatry. She has knee osteoarthritis, bizarre behavior, schizophrenia, low back pain, upper respiratory infection, arthritis. Continue with aggressive treatment and care as per Psychiatry. Manolo Mtz DO
--- NOTE | 2017-04-15 16:58 | PCM.PYCHPN ---
Psychiatric Progress Note - Psychiatric Progress Note Patient seen today, length of contact: 30 minutes Patient Chief Complaint: "I thought about police, now I feel that they are not after me, if I would commit a crime, police could easily find me, but they did not come to look for me..." Problems Identified/Issues Discussed: Suicide/ homicide prevention, past psychiatric h/o, current psychiatric symptoms , medical problems, risk/benefits and alternatives of medications, medications compliance, coping strategies, substance abuse h/o, relapse prevention, importance of follow up with psychiatrist and therapist, discharge plan. Medical Problems: obesity pharyngitis, pt is on abx Diagnostic Results: 04/06/17 06:30 04/06/17 06:30 Lab Results 04/06/17 06:30: Hemoglobin A1c 6.2 04/06/17 06:30: WBC 7.6 D, RBC 4.73, Hgb 13.4, Hct 42.4, MCV 89.6, MCH 28.3, MCHC 31.6, RDW 14.2, Plt Count 337, MPV 10.2 04/06/17 06:30: Sodium 142, Potassium 4.5, Chloride 106, Carbon Dioxide 26, Anion Gap 15, BUN 12, Creatinine 0.6 L, Est GFR ( Amer) > 60, Est GFR ( Non-Af Amer) > 60, Random Glucose 124 H, Calcium 9.3, Total Bilirubin 0.4, AST 19, ALT 27, Alkaline Phosphatase 96, Total Protein 7.2, Albumin 4.0, Globulin 3.3, Albumin/Globulin Ratio 1.2, Triglycerides 118, Cholesterol 193, LDL Cholesterol Direct 112, HDL Cholesterol 44 04/06/17 06:30: Free T4 1.21, TSH 3rd Generation 0.95 04/06/17 06:30: RPR Nonreactive 04/05/17 06:57: Urine Opiates Screen Negative, Urine Methadone Screen Negative, Ur Barbiturates Screen Negative, Ur Phencyclidine Scrn Negative, Ur Amphetamines Screen Negative, U Benzodiazepines Scrn Negative, U Oth Cocaine Metabols Negative, U Cannabinoids Screen Negative 04/05/17 06:57: WBC 9.6 D, RBC 4.73, Hgb 13.5, Hct 42.5, MCV 89.9, MCH 28.5, MCHC 31.8, RDW 14.0, Plt Count 340, MPV 10.3 04/05/17 06:57: Alcohol, Quantitative < 10 04/05/17 06:57: Sodium 141, Potassium 4.1, Chloride 102, Carbon Dioxide 26, Anion Gap 17, BUN 14, Creatinine 0.6 L, Est GFR ( Amer) > 60, Est GFR ( Non-Af Amer) > 60, Random Glucose 129 H, Calcium 9.8, Total Bilirubin 0.4, AST 25, ALT 30, Alkaline Phosphatase 108, Total Protein 7.9, Albumin 4.5, Globulin 3.4, Albumin/Globulin Ratio 1.3 04/05/17 06:57: Urine Color Yellow, Urine Appearance Clear, Urine pH 6.0, Ur Specific [place] >= 1.030, Urine Protein Trace H, Urine Glucose (UA) Negative, Urine Ketones Trace H, Urine Blood Negative, Urine Nitrate Negative, Urine Bilirubin Small H, Urine Urobilinogen 0.2, Ur Leukocyte Esterase Negative, Urine RBC Negative, Urine WBC 0 - 2, Ur Epithelial Cells 6 - 8, Urine Bacteria Small Vital Signs Temp Pulse Resp BP Pulse Ox 04/07/17 07:15 97.1 F L 86 20 144/70 04/06/17 16:00 103 H 126/77 04/06/17 07:17 98.6 F 105 H 22 142/65 04/05/17 16:00 116 H 178/84 H 04/05/17 12:32 98.8 F 104 H 140/78 04/05/17 11:00 98.6 F 103 H 19 130/75 100 04/05/17 07:51 98.6 F 94 H 18 127/78 96 04/05/17 06:25 98.8 F 74 18 130/81 99 Temp Pulse Resp BP Pulse Ox 98.2 F 111 H 16 144/92 H 100 04/11/17 06:52 04/11/17 06:52 04/11/17 06:52 04/11/17 06:52 04/05/17 11:00 Temp Pulse Resp BP Pulse Ox 98.0 F 87 20 137/56 L 100 04/14/17 07:12 04/14/17 07:12 04/14/17 07:12 04/14/17 07:12 04/05/17 11:00 DSM 5 Symptoms Update: Shortly pt is 71 year old female, with reported h/o schizophrenia, four previous psych admissions, most recent was about a year ago to this unit, currently under care of , pt has h/o noncompliance with medications and f/u appts, was admitted to the psychiatric inpatient unit for disorganized thoughts and behavior, pt was not sleeping for the past two nights, pt was wondering on streets, pt also was feeling anxious because pt had impression that police is going to arrest her (pt denied h/o arrests, denied committed any crime), pt also was depressed, was not able to function, was noncompliant with her medications and follow up appts, last appt with psychiatrist was in January 2017. Pt was brought in by her because of disorganized and risky behavior. Pt needs further evaluation and stabilization, observation medication resumption and titration. Pt was seen today at the TV area. pt presented to be better, said that she does not feel she will be arrested, when was asked about that change, pt said "I thought about it, if I would commit a crime, police could easily find me, but they did not come to look for me...", pt was educated about psychosis, about importance to be on medications, pt was very receptive. pt still delusional about Chandler Kang, when ever pt hears word "beautiful" either on TV or radio pt percept as a signal to go outside and meet with famous signer Chandler Kang. pt's was concerned about safety. meeting will take place next week in the unit. pt tolerated medications well, no side effects observed or reported, AIMS 0, no EPS. , pt c/o anxiety, add small dose of klonopin and increase prozac. pt does not have any behavioral disturbances, compliant with meds, visible in the unit. Impression: schizophrenia delusion erotomanic Medication Change: Yes (klonopin added, prozac increased) Medical Record Reviewed: Yes Consults ordered or reviewed: medical consult appreciated see notes for more detailed information Mental Status Examination - Cognitive Function Orientation: Person, Place Memory: Impaired Attention: Poor (some improvement) Concentration: Poor (some improvement) Association: Loose Fund of Knowledge: WNL - Mood Mood: Depressed - Affect Affect: Constricted, Other (oddly related) - Speech Speech: Appropriate (underproductive) - Formal Thought Process Formal Thought Process: Delusions (less), Paranoia (less) - Suicidal Ideation Suicidal Ideation: No - Homicidal Ideation Homicidal Ideation: No Goal/Treatment Plan - Goal/Treatment Plan Need for Continued Stay: Remain at risks for inpatient hospitalization, Severe depression anxiety, Discharge may exacerbated symptoms, Severe functional impairment Progress Toward Problem(s) and Goals/Treatment Plan: Milieu/structure/supportive therapy FLUoxetine 40 mg PO DAILY resumed for depression klonopin bid 0.125mg for anxiety traZODone [Desyrel] 50 mg PO HS prn for insomnia/depression risperdal 2mg po bid and 3mg HS for psychosis pt is not interested to have injectable form of meds, pt was educated about injectable form of Risperdal, but pt said "I do not like needles" Medical consult was called, pt is on abx for pharyngitis SW consultation for discharge plan and social issues Family involvement, pt gave consent for pt's involvement Follow up on labs Will monitor closely Pt was educated about risk/benefits and alternatives of medications, coping strategies (safety plan, suicide prevention), relapse prevention, importance of follow up with psychiatrist and therapist, stay away from drugs/alcohol/smoking Estimated Date of D/C: 04/20/17 (will monitor closely')
--- NOTE | 2017-04-16 07:15 | PN ---
DATE: SUBJECTIVE: I saw mark on her bed. She has slept well. She is in good spirits. She is trying to do well in groups. She tells me she is feeling better mentally. She is here for knee osteoarthritis, back pain, schizophrenia and bizarre behavior, upper respiratory infection. She is on amoxycillin, Bengay, Desyrel, Klonopin, Lidoderm, Maalox, milk of magnesia, Motrin, Prozac, Risperdal, Thorazine. PHYSICAL EXAMINATION: VITAL SIGNS: 98 temps, 87 pulse, 126/79 blood pressure, 20 respiratory rate. HEENT: Head is atraumatic, normocephalic. HEART: Regular rate. LUNGS: Clear to auscultation. ABDOMEN: Soft. EXTREMITIES: No edema. ASSESSMENT AND PLAN: Overall, I do think she is starting to improve. We will continue as per Psychiatry. We will follow. Encouragement on groups and diet and medications. Manolo Mtz DO
[2017-04-16] MEDS: clonazePAM 0.125 mg Disinteg Tab PO SCH ×2 (08:00→16:28)
--- NOTE | 2017-04-16 09:26 | PCM.PYCHPN ---
Psychiatric Progress Note - Psychiatric Progress Note Patient seen today, length of contact: 25 minutes Patient Chief Complaint: depressed but has been feeling better Problems Identified/Issues Discussed: I reviewed recent notes and patient was seen on the hallway. She still appears unkempt and preoccupied. She doesn't remember me from our prior interviews though she remains oriented x3. Reports that she is depressed but has been feeling better, anxiety is improving. Slept well last night. Responses are brief and affect is constricted but more reactive than last weekend. She denies hallucinations and she is not responding to internal stimuli. Delusions were not elicited. Patient denies issues with her medications today, feels they are beneficial. Staff notes indicate that patient has been in control. Visible on the unit and attends groups but still appears to have low motivation and interest in activities. Mostly keeps to herself but willing to interact with others when prompted. There were no behavioral issues overnight. 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 Medication Change: Yes (klonopin added, prozac increased) Medical Record Reviewed: Yes Mental Status Examination - Cognitive Function Orientation: Person, Place Memory: Impaired Attention: Poor (some improvement) Concentration: Poor (some improvement) Association: Loose Fund of Knowledge: WNL - Mood Mood: Depressed (depressed but has been feeling better) - Affect Affect: Constricted, Other (more reactive and related than last weekend) - Speech Speech: Appropriate (underproductive) - Formal Thought Process Formal Thought Process: Delusions (none elicited today), Paranoia (less) - Suicidal Ideation Suicidal Ideation: No - Homicidal Ideation Homicidal Ideation: No Goal/Treatment Plan - Goal/Treatment Plan Need for Continued Stay: Remain at risks for inpatient hospitalization, Severe depression anxiety, Discharge may exacerbated symptoms, Severe functional impairment Progress Toward Problem(s) and Goals/Treatment Plan: * c/w current tx and plan * No new weekend labs thus far * Vitals reviewed and noted below: Selected Entries 04/14/17 04/14/17 07:12 16:00 Temperature 98.0 F Pulse Rate 87 97 H Respiratory 20 Rate Blood Pressure 137/56 L 126/79 Estimated Date of D/C: 04/20/17 (will monitor closely')
[2017-04-16] MEDS: Lidocaine 5% Patch TD SCH (09:28)
[2017-04-17] MEDS: clonazePAM 0.125 mg Disinteg Tab PO SCH ×2 (07:59→17:34)
[2017-04-17] MEDS: Lidocaine 5% Patch TD SCH (09:03)
--- NOTE | 2017-04-17 09:04 | PCM.PYCHPN ---
Psychiatric Progress Note - Psychiatric Progress Note Patient seen today, length of contact: 25 minutes Patient Chief Complaint: "I am hopeful...I guess" Problems Identified/Issues Discussed: I reviewed recent notes and patient was interviewed in her room. She still appears unkempt and preoccupied. She remembers me from our interview yesterday but not from prior weekends. She is oriented x3. Reports that she remains depressed but has been feeling better, anxiety is improving. When asked about hope, she responds "I am hopeful...I guess". Patient slept well again last night. Responses are brief and affect is constricted but more reactive than last weekend. She denies hallucinations and she is not responding to internal stimuli. Delusions were not elicited. Patient denies issues with her medications today, feels they are beneficial. Staff notes indicate that patient has been in control and can be pleasant. Visible on the unit and attends groups but still appears to have low motivation and interest in activities. Mostly keeps to herself but willing to interact with others when prompted. There were no behavioral issues over the weekend. 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 Medication Change: Yes (klonopin added, prozac increased) Medical Record Reviewed: Yes Mental Status Examination - Cognitive Function Orientation: Person, Place Memory: Impaired Attention: Poor (some improvement) Concentration: Poor (some improvement) Association: Loose Fund of Knowledge: WNL - Mood Mood: Depressed ( "I am hopeful...I guess") - Affect Affect: Constricted, Other (more reactive and related than last weekend) - Speech Speech: Appropriate (underproductive) - Formal Thought Process Formal Thought Process: Delusions (none elicited today), Paranoia (less) - Suicidal Ideation Suicidal Ideation: No - Homicidal Ideation Homicidal Ideation: No Goal/Treatment Plan - Goal/Treatment Plan Need for Continued Stay: Remain at risks for inpatient hospitalization, Severe depression anxiety, Discharge may exacerbated symptoms, Severe functional impairment Progress Toward Problem(s) and Goals/Treatment Plan: * c/w current tx and plan * Appreciate f/u by Dr. Mtz on 04/16/17 * No new weekend labs thus far * Vitals reviewed and noted below: 04/14/17 04/14/17 04/16/17 07:12 16:00 08:18 Temperature 98.0 F 97.2 F L Pulse Rate 87 97 H Respiratory 20 Rate Blood Pressure 137/56 L 126/79 04/16/17 08:41 Temperature 98.3 F Pulse Rate 116 H Respiratory 20 Rate Blood Pressure 118/70 Estimated Date of D/C: 04/20/17 (will monitor closely')
--- NOTE | 2017-04-17 16:03 | PN ---
DATE: SUBJECTIVE: I saw Jeni sitting out of bed to chair. She was sleeping in the chair. She is comfortable though. No acute distress. She is eating, she is participating and feeling better. She is on amoxicillin for an upper respiratory infection, Bengay, Desyrel, Klonopin, Lidoderm, Maalox, milk of magnesia, Motrin for arthritis pains, Prozac, Risperdal, Thorazine. PHYSICAL EXAMINATION VITAL SIGNS: Temp 97.2 , 88 pulse, 131/77 blood pressure, 20 respiratory rate. HEENT: Head is atraumatic, normocephalic. HEART: Regular rate. LUNGS: Clear to auscultation. ABDOMEN: Soft. EXTREMITIES: No edema. ASSESSMENT AND PLAN: Overall, patient is doing fairly well. She is to continue following psychiatry treatment and plan, participate in groups, eat food, and encouraged to follow directions. She has severe depression, anxiety, severe functional impairment, arthritis pain, bizarre behavior, urinary tract infections, schizophrenia, back pain and knee pain. Manolo Mtz DO
[2017-04-18] MEDS: clonazePAM 0.125 mg Disinteg Tab PO SCH ×2 (08:58→17:16)
[2017-04-18] MEDS: Lidocaine 5% Patch TD SCH (09:00)
--- NOTE | 2017-04-18 11:32 | PN ---
DATE: SUBJECTIVE: I saw her in the Psychiatric Unit. She slept well. She is comfortable. She is on amoxicillin, Bengay, Desyrel, Klonopin, Lidoderm, Maalox, milk of magnesia, Motrin, Prozac, risperidone, and Thorazine. PHYSICAL EXAMINATION: VITAL SIGNS: She has 97.9 temperature, 79 pulse, 136/92 and 131/77 blood pressure and 20 respiratory rate. HEENT: Head is atraumatic and normocephalic. CARDIOVASCULAR: Heart is regular rate. LUNGS: Clear to auscultation. GASTROINTESTINAL: Abdomen is soft. EXTREMITIES: No edema. No true complaints this time. ASSESSMENT AND PLAN: She is on no medications at this time for her blood pressure as the highest it has been mostly with an I asked her to eat a low-salt diet. I will order labs for tomorrow. We will continue with aggressive treatment and care for her as per Psychiatry. She has had multiple issues, knee arthritis, back pain, schizophrenia, bizarre behavior, and upper respiratory infection. I do think she is slowly improving. We will recheck her labs tomorrow. Manolo Mtz DO [email or web address]
--- NOTE | 2017-04-18 14:54 | PCM.PYCHPN ---
Psychiatric Progress Note - Psychiatric Progress Note Patient seen today, length of contact: 30min Patient Chief Complaint: "I am better" Problems Identified/Issues Discussed: Suicide/ homicide prevention, past psychiatric h/o, current psychiatric symptoms , medical problems, risk/benefits and alternatives of medications, medications compliance, coping strategies, substance abuse h/o, relapse prevention, importance of follow up with psychiatrist and therapist, discharge plan. Medical Problems: obesity pharyngitis, pt is on abx Diagnostic Results: 04/06/17 06:30 04/06/17 06:30 Lab Results 04/06/17 06:30: Hemoglobin A1c 6.2 04/06/17 06:30: WBC 7.6 D, RBC 4.73, Hgb 13.4, Hct 42.4, MCV 89.6, MCH 28.3, MCHC 31.6, RDW 14.2, Plt Count 337, MPV 10.2 04/06/17 06:30: Sodium 142, Potassium 4.5, Chloride 106, Carbon Dioxide 26, Anion Gap 15, BUN 12, Creatinine 0.6 L, Est GFR ( Amer) > 60, Est GFR ( Non-Af Amer) > 60, Random Glucose 124 H, Calcium 9.3, Total Bilirubin 0.4, AST 19, ALT 27, Alkaline Phosphatase 96, Total Protein 7.2, Albumin 4.0, Globulin 3.3, Albumin/Globulin Ratio 1.2, Triglycerides 118, Cholesterol 193, LDL Cholesterol Direct 112, HDL Cholesterol 44 04/06/17 06:30: Free T4 1.21, TSH 3rd Generation 0.95 04/06/17 06:30: RPR Nonreactive 04/05/17 06:57: Urine Opiates Screen Negative, Urine Methadone Screen Negative, Ur Barbiturates Screen Negative, Ur Phencyclidine Scrn Negative, Ur Amphetamines Screen Negative, U Benzodiazepines Scrn Negative, U Oth Cocaine Metabols Negative, U Cannabinoids Screen Negative 04/05/17 06:57: WBC 9.6 D, RBC 4.73, Hgb 13.5, Hct 42.5, MCV 89.9, MCH 28.5, MCHC 31.8, RDW 14.0, Plt Count 340, MPV 10.3 04/05/17 06:57: Alcohol, Quantitative < 10 04/05/17 06:57: Sodium 141, Potassium 4.1, Chloride 102, Carbon Dioxide 26, Anion Gap 17, BUN 14, Creatinine 0.6 L, Est GFR ( Amer) > 60, Est GFR ( Non-Af Amer) > 60, Random Glucose 129 H, Calcium 9.8, Total Bilirubin 0.4, AST 25, ALT 30, Alkaline Phosphatase 108, Total Protein 7.9, Albumin 4.5, Globulin 3.4, Albumin/Globulin Ratio 1.3 04/05/17 06:57: Urine Color Yellow, Urine Appearance Clear, Urine pH 6.0, Ur Specific [place] >= 1.030, Urine Protein Trace H, Urine Glucose (UA) Negative, Urine Ketones Trace H, Urine Blood Negative, Urine Nitrate Negative, Urine Bilirubin Small H, Urine Urobilinogen 0.2, Ur Leukocyte Esterase Negative, Urine RBC Negative, Urine WBC 0 - 2, Ur Epithelial Cells 6 - 8, Urine Bacteria Small Vital Signs Temp Pulse Resp BP Pulse Ox 04/07/17 07:15 97.1 F L 86 20 144/70 04/06/17 16:00 103 H 126/77 04/06/17 07:17 98.6 F 105 H 22 142/65 04/05/17 16:00 116 H 178/84 H 04/05/17 12:32 98.8 F 104 H 140/78 04/05/17 11:00 98.6 F 103 H 19 130/75 100 04/05/17 07:51 98.6 F 94 H 18 127/78 96 04/05/17 06:25 98.8 F 74 18 130/81 99 Temp Pulse Resp BP Pulse Ox 98.2 F 111 H 16 144/92 H 100 04/11/17 06:52 04/11/17 06:52 04/11/17 06:52 04/11/17 06:52 04/05/17 11:00 Temp Pulse Resp BP Pulse Ox 98.0 F 87 20 137/56 L 100 04/14/17 07:12 04/14/17 07:12 04/14/17 07:12 04/14/17 07:12 04/05/17 11:00 DSM 5 Symptoms Update: Shortly pt is 71 year old female, with reported h/o schizophrenia, four previous psych admissions, most recent was about a year ago to this unit, currently under care of , pt has h/o noncompliance with medications and f/u appts, was admitted to the psychiatric inpatient unit for disorganized thoughts and behavior, pt was not sleeping for the past two nights, pt was wondering on streets, pt also was feeling anxious because pt had impression that police is going to arrest her (pt denied h/o arrests, denied committed any crime), pt also was depressed, was not able to function, was noncompliant with her medications and follow up appts, last appt with psychiatrist was in January 2017. Pt was brought in by her because of disorganized and risky behavior. Pt needs further evaluation and stabilization, observation medication resumption and titration. Pt was seen today at the TV area. pt presented to be better, said that she does not feel she will be arrested, when was asked about that change, pt said "I thought about it, if I would commit a crime, police could easily find me, but they did not come to look for me...", pt was educated about psychosis, about importance to be on medications, pt was very receptive. pt still delusional about [place] Kang, but now is somewhat better, pt said that she does not communicate with him. pt's was concerned about safety. meeting will take place tomorrow, pt pt tolerated medications well, no side effects observed or reported, AIMS 0, no EPS. , pt c/o anxiety, add small dose of klonopin and increase prozac. pt does not have any behavioral disturbances, compliant with meds, visible in the unit. Impression: schizophrenia delusion erotomanic Medication Change: No Medical Record Reviewed: Yes Consults ordered or reviewed: medical consult appreciated see notes for more detailed information Mental Status Examination - Cognitive Function Orientation: Person, Place Memory: Impaired Attention: Poor (some improvement) Concentration: Poor (some improvement) Association: Loose Fund of Knowledge: WNL - Mood Mood: Depressed ( "I am hopeful...I guess") - Affect Affect: Constricted, Other (more reactive and related than last weekend) - Speech Speech: Appropriate (underproductive) - Formal Thought Process Formal Thought Process: Delusions (none elicited today), Paranoia (less) - Suicidal Ideation Suicidal Ideation: No - Homicidal Ideation Homicidal Ideation: No Goal/Treatment Plan - Goal/Treatment Plan Need for Continued Stay: Remain at risks for inpatient hospitalization, Severe depression anxiety, Discharge may exacerbated symptoms, Severe functional impairment Progress Toward Problem(s) and Goals/Treatment Plan: Milieu/structure/supportive therapy FLUoxetine 40 mg PO DAILY resumed for depression klonopin bid 0.125mg for anxiety traZODone [Desyrel] 50 mg PO HS prn for insomnia/depression risperdal 2mg po bid and 3mg HS for psychosis pt is not interested to have injectable form of meds, pt was educated about injectable form of Risperdal, but pt said "I do not like needles" Medical consult was called, pt is on abx for pharyngitis SW consultation for discharge plan and social issues Family involvement, pt gave consent for pt's involvement Follow up on labs Will monitor closely Pt was educated about risk/benefits and alternatives of medications, coping strategies (safety plan, suicide prevention), relapse prevention, importance of follow up with psychiatrist and therapist, stay away from drugs/alcohol/smoking Estimated Date of D/C: 04/20/17 (will monitor closely')
[2017-04-19 08:27] LABS: MEAN CELL VOLUME 90.6 fl (80.0-105.0); MEAN CORPUSCULAR HEMOGLOBIN 28.1 pg (25.0-35.0); MEAN PLATELET VOLUME 9.9 fl (7.0-11.0); RBC 4.06 10^6/uL (3.5-6.1)
[2017-04-19 08:32] LABS: HEMOGLOBIN 11.4 g/dL (12.0-16.0)
[2017-04-19 08:46] LABS: ALB/GLOB RATIO 1.2 (1.1-1.8); ALBUMIN 3.5 g/dL (3.0-4.8); ALT/SGPT 31 U/L (7-56); AST/SGOT 20 U/L (14-36); BLOOD UREA NITROGEN 19 mg/dL (7-21); GFR AFRICAN-AMERICAN > 60; GFR NON-AFRICAN AMERICAN > 60
[2017-04-19] MEDS: clonazePAM 0.125 mg Disinteg Tab PO SCH ×2 (09:40→17:47)
[2017-04-19] MEDS: Lidocaine 5% Patch TD SCH (09:41)
--- NOTE | 2017-04-19 12:56 | PN ---
DATE: SUBJECTIVE: I saw her resting in bed. She slept fairly well last night. No complaints to tell me this morning. She is trying in groups. She has no new complaints to me. She was here with knee pain from osteoarthritis, back pain, bizarre behavior, schizophrenia and URI. MEDICATIONS: She is on amoxicillin, Bengay, Desyrel, Klonopin, Lidoderm, Maalox, milk of magnesia, Motrin, Prozac, Risperdal, Thorazine. PHYSICAL EXAMINATION: VITAL SIGNS: Temperature 97.8, 100 pulse, 148/67 blood pressure, 18 respiratory rate. HEENT: Head is atraumatic, normocephalic. HEART: Regular rate. LUNGS: Clear to auscultation. ABDOMEN: Soft, obese. EXTREMITIES: No edema. LABORATORY DATA: She had a 10 white count, 11.4 hemoglobin, 36.8 hematocrit, with 320 platelets. Sodium 139, potassium 4.5, BUN 19, creatinine 0.6, GFR greater than 60, sugar is 94, calcium is 9, hemoglobin A1c is 6.2, total bilirubin 0.3, AST is 20, ALT is 31, alkaline phosphatase 86, total protein 6.3, albumin is 3.5. ASSESSMENT AND PLAN: I discussed this with her, encouraged to go in groups, take the medications, eat well. I will see her tomorrow. I do think she is improved. Manolo Mtz DO
--- NOTE | 2017-04-19 14:32 | PCM.PYCHPN ---
Psychiatric Progress Note - Psychiatric Progress Note Patient seen today, length of contact: 30min Patient Chief Complaint: "I do not want to be on any injections, I promise to take my medications, my house is in surveillance, I don't know why" Problems Identified/Issues Discussed: Suicide/ homicide prevention, past psychiatric h/o, current psychiatric symptoms , medical problems, risk/benefits and alternatives of medications, medications compliance, coping strategies, substance abuse h/o, relapse prevention, importance of follow up with psychiatrist and therapist, discharge plan. Medical Problems: obesity pharyngitis, pt is on abx Diagnostic Results: 04/06/17 06:30 04/06/17 06:30 Lab Results 04/06/17 06:30: Hemoglobin A1c 6.2 04/06/17 06:30: WBC 7.6 D, RBC 4.73, Hgb 13.4, Hct 42.4, MCV 89.6, MCH 28.3, MCHC 31.6, RDW 14.2, Plt Count 337, MPV 10.2 04/06/17 06:30: Sodium 142, Potassium 4.5, Chloride 106, Carbon Dioxide 26, Anion Gap 15, BUN 12, Creatinine 0.6 L, Est GFR ( Amer) > 60, Est GFR ( Non-Af Amer) > 60, Random Glucose 124 H, Calcium 9.3, Total Bilirubin 0.4, AST 19, ALT 27, Alkaline Phosphatase 96, Total Protein 7.2, Albumin 4.0, Globulin 3.3, Albumin/Globulin Ratio 1.2, Triglycerides 118, Cholesterol 193, LDL Cholesterol Direct 112, HDL Cholesterol 44 04/06/17 06:30: Free T4 1.21, TSH 3rd Generation 0.95 04/06/17 06:30: RPR Nonreactive 04/05/17 06:57: Urine Opiates Screen Negative, Urine Methadone Screen Negative, Ur Barbiturates Screen Negative, Ur Phencyclidine Scrn Negative, Ur Amphetamines Screen Negative, U Benzodiazepines Scrn Negative, U Oth Cocaine Metabols Negative, U Cannabinoids Screen Negative 04/05/17 06:57: WBC 9.6 D, RBC 4.73, Hgb 13.5, Hct 42.5, MCV 89.9, MCH 28.5, MCHC 31.8, RDW 14.0, Plt Count 340, MPV 10.3 04/05/17 06:57: Alcohol, Quantitative < 10 04/05/17 06:57: Sodium 141, Potassium 4.1, Chloride 102, Carbon Dioxide 26, Anion Gap 17, BUN 14, Creatinine 0.6 L, Est GFR ( Amer) > 60, Est GFR ( Non-Af Amer) > 60, Random Glucose 129 H, Calcium 9.8, Total Bilirubin 0.4, AST 25, ALT 30, Alkaline Phosphatase 108, Total Protein 7.9, Albumin 4.5, Globulin 3.4, Albumin/Globulin Ratio 1.3 04/05/17 06:57: Urine Color Yellow, Urine Appearance Clear, Urine pH 6.0, Ur Specific [place] >= 1.030, Urine Protein Trace H, Urine Glucose (UA) Negative, Urine Ketones Trace H, Urine Blood Negative, Urine Nitrate Negative, Urine Bilirubin Small H, Urine Urobilinogen 0.2, Ur Leukocyte Esterase Negative, Urine RBC Negative, Urine WBC 0 - 2, Ur Epithelial Cells 6 - 8, Urine Bacteria Small Vital Signs Temp Pulse Resp BP Pulse Ox 04/07/17 07:15 97.1 F L 86 20 144/70 04/06/17 16:00 103 H 126/77 04/06/17 07:17 98.6 F 105 H 22 142/65 04/05/17 16:00 116 H 178/84 H 04/05/17 12:32 98.8 F 104 H 140/78 04/05/17 11:00 98.6 F 103 H 19 130/75 100 04/05/17 07:51 98.6 F 94 H 18 127/78 96 04/05/17 06:25 98.8 F 74 18 130/81 99 Temp Pulse Resp BP Pulse Ox 98.2 F 111 H 16 144/92 H 100 04/11/17 06:52 04/11/17 06:52 04/11/17 06:52 04/11/17 06:52 04/05/17 11:00 Temp Pulse Resp BP Pulse Ox 98.0 F 87 20 137/56 L 100 04/14/17 07:12 04/14/17 07:12 04/14/17 07:12 04/14/17 07:12 04/05/17 11:00 Temp Pulse Resp BP Pulse Ox 97.8 F 100 H 18 148/67 100 04/19/17 07:02 04/19/17 07:02 04/19/17 07:02 04/19/17 07:02 04/05/17 11:00 DSM 5 Symptoms Update: Shortly pt is 71 year old female, with reported h/o schizophrenia, four previous psych admissions, most recent was about a year ago to this unit, currently under care of , pt has h/o noncompliance with medications and f/u appts, was admitted to the psychiatric inpatient unit for disorganized thoughts and behavior, pt was not sleeping for the past two nights, pt was wondering on streets, pt also was feeling anxious because pt had impression that police is going to arrest her (pt denied h/o arrests, denied committed any crime), pt also was depressed, was not able to function, was noncompliant with her medications and follow up appts, last appt with psychiatrist was in January 2017. Pt was brought in by her because of disorganized and risky behavior. Pt needs further evaluation and stabilization, observation medication resumption and titration. Pt was seen today at the family meeting with pt's . pt's expressed his highest concerns about pt's noncompliance with meds in the past, option of IM of Risperdal consta discussed, but pt was not willing to have Consta, pt said she will be compliant with medications, pt willing to go to outpatient program, option for family sessions discussed, pt was willing to have it. Pt's sounded to be overwhelmed, said that he is willing to have a family therapy, pt reluctantly agreed. over the meeting pt's reported pt is "presents better", at the same time during the conversation pt said that their house is under surveillance "I don't know why, I just have a feelings", pt also said that she is going to [place] "I just know it, I know it for sure". pt was oriented to the reality. will increase Risperdal. all questions asked, but pt's was concentrating on his "life like a prisoner", then pt's said to pt "your stupid ideas about surveillance, your stupid brother brought it to your attention", got offended by this ticket writer when was redirected. overall meeting was productive, but intense. from this ticket writer opinion pt might benefit from: IOP program, but pt refused injectable form of meds, Pt refused, but willing to take meds by mouth family therapy, pt and her agreed. pt tolerated medications well, no side effects observed or reported, AIMS 0, no EPS. , pt c/o anxiety, add small dose of klonopin and increase prozac. pt does not have any behavioral disturbances, compliant with meds, visible in the unit. Impression: schizophrenia delusion erotomanic Medication Change: Yes (risperdal increased) Medical Record Reviewed: Yes Consults ordered or reviewed: medical consult appreciated see notes for more detailed information Mental Status Examination - Cognitive Function Orientation: Person, Place Memory: Impaired Attention: Poor (some improvement) Concentration: Poor (some improvement) Association: Loose Fund of Knowledge: WNL - Mood Mood: Depressed ( "I am hopeful...I guess") - Affect Affect: Constricted, Other (more reactive and related than last weekend) - Speech Speech: Appropriate (underproductive) - Formal Thought Process Formal Thought Process: Delusions ("my house is under surveiliance, I don't know why..."), Paranoia (less) - Suicidal Ideation Suicidal Ideation: No - Homicidal Ideation Homicidal Ideation: No Goal/Treatment Plan - Goal/Treatment Plan Need for Continued Stay: Remain at risks for inpatient hospitalization, Severe depression anxiety, Discharge may exacerbated symptoms, Severe functional impairment Progress Toward Problem(s) and Goals/Treatment Plan: Milieu/structure/supportive therapy FLUoxetine 40 mg PO DAILY resumed for depression klonopin bid 0.125mg for anxiety traZODone [Desyrel] 50 mg PO HS prn for insomnia/depression risperdal 3mg po bid and 3mg HS for psychosis pt is not interested to have injectable form of meds, pt was educated about injectable form of Risperdal, but pt said "I do not like needles" Medical consult was called, pt is on abx for pharyngitis SW consultation for discharge plan and social issues Family involvement, pt gave consent for pt's involvement Follow up on labs Will monitor closely Pt was educated about risk/benefits and alternatives of medications, coping strategies (safety plan, suicide prevention), relapse prevention, importance of follow up with psychiatrist and therapist, stay away from drugs/alcohol/smoking Estimated Date of D/C: 04/26/17 (will monitor closely')
[2017-04-20 08:13] LABS: BASO # 0.04 K/mm3 (0.0-2.0); BASO % 0.4 % (0.0-3.0); EOS # 0.3 (0.0-0.7); EOS % 2.8 % (1.5-5.0); GRAN # 6.15 (1.4-6.5); GRAN % 66.4 % (50.0-68.0); HEMOGLOBIN 13.1 g/dL (12.0-16.0); LYMPH # 2.2 (1.2-3.4); LYMPH % 23.7 % (22.0-35.0); MEAN CORPUSCULAR HEMOGLOBIN 28.1 pg (25.0-35.0); MEAN CORPUSCULAR HGB CONC 30.9 g/dl (31.0-37.0); MONO # 0.6 (0.1-0.6); MONO % 6.7 % (1.0-6.0); RBC 4.66 10^6/uL (3.5-6.1); RED CELL DISTRIBUTION WIDTH 14.1 % (11.5-14.5); WHITE BLOOD COUNT 9.3 10^3/ul (4.5-11.0)
--- NOTE | 2017-04-20 08:47 | PN ---
DATE: SUBJECTIVE: I saw Ms. Ngo walking in her room this morning. She is comfortable. She slept fairly well. She is trying to get better. MEDICATIONS: She is taking the medications. She is on amoxicillin, Bengay, Desyrel, Klonopin, Lidoderm, Maalox, milk of magnesia, Motrin, Prozac, Risperdal, Thorazine, Tylenol. PHYSICAL EXAMINATION: VITAL SIGNS: She has a 97.9 temperature, 82 pulse, 132/93 blood pressure 132/75 blood pressure, 20 respiratory rate. HEENT: Head is atraumatic, normocephalic. HEART: Regular rate. LUNGS: Clear to auscultation. ABDOMEN: Soft, obese, nontender. EXTREMITIES: No edema. LABORATORY DATA: She has a 10 white count, 11.4 hemoglobin, 320 platelets on the 16th. 139 sodium, potassium 4.5, BUN 90, creatinine 0.6, GFR is greater than 60, sugar is 94, AST is 20, ALT is 31, alkaline phosphatase is 86. ASSESSMENT AND PLAN: She did well. She is being seen by Psychiatry. She had multiple issues, knee osteoarthritis, back pain, bizarre behavior, upper respiratory infection, schizophrenia. As per Psychiatry, will continue to follow, encourage her to participate in groups and eat the food, take the medicines and I will follow. Manolo Mtz DO
[2017-04-20 08:58] LABS: ALBUMIN 3.9 g/dL (3.0-4.8)
[2017-04-20 08:59] LABS: ALB/GLOB RATIO 1.2 (1.1-1.8)
[2017-04-20 09:00] LABS: ALT/SGPT 28 U/L (7-56); AST/SGOT 26 U/L (14-36); BLOOD UREA NITROGEN 12 mg/dL (7-21); CALCIUM 9.3 mg/dL (8.4-10.5); GFR AFRICAN-AMERICAN > 60; GFR NON-AFRICAN AMERICAN > 60
[2017-04-20] MEDS: clonazePAM 0.125 mg Disinteg Tab PO SCH ×2 (09:21→18:08)
[2017-04-20] MEDS: Lidocaine 5% Patch TD SCH (09:22)
--- NOTE | 2017-04-20 14:26 | PCM.BM ---
<Kal Khan - Last Filed: 04/20/17 14:25> Treatment Plan Problems - Problems identified on initial assessmt MEDICATION NON ADHERENCE Date Initiated: 04/05/17 Time Initiated: 15:00 Assessment reference: NA Status: Active Priority: 1 ALTERED THOUGHT PROCESS Date Initiated: 04/05/17 Time Initiated: 15:00 Assessment reference: NA Status: Active Priority: 2 SOCIAL ISOLATION Date Initiated: 04/05/17 Time Initiated: 15:00 Assessment reference: NA Status: Active Priority: 3 Treatment assets and liabiliti Patient Assests: adapts well, cooperative, ADL independent, good support system , negotiates basic needs, good past tx response, cognitively intact - Milieu Protocol Maintain good personal hygiene: daily Encourage regular showers, every shift Remind patient to perform daily oral care, every shift Assist patient to perform ADL's Maintain personal safety: every shift Educate patient to report safety concerns to staff, every shift Monitor environment for contraband/sharps Medication safety: Monitor for expected outcome, potential side effects: every shift, Assess barriers to learning: every shift, Assess readiness for medication education: every shift Milieu Narrative: Milieu/structure/supportive therapy FLUoxetine 40 mg PO DAILY resumed for depression klonopin bid 0.125mg for anxiety traZODone [Desyrel] 50 mg PO HS prn for insomnia/depression risperdal 3mg po bid and 3mg HS for psychosis pt is not interested to have injectable form of meds, pt was educated about injectable form of Risperdal, but pt said "I do not like needles" Medical consult was called, pt is on abx for pharyngitis SW consultation for discharge plan and social issues Family involvement, pt gave consent for pt's involvement Follow up on labs Will monitor closely Pt was educated about risk/benefits and alternatives of medications, coping strategies (safety plan, suicide prevention), relapse prevention, importance of follow up with psychiatrist and therapist, stay away from drugs/alcohol/smoking Family Contact Family involvement: Family/SO is involved Family contact: Patient agrees to contact, Patient declines to allow family contact at present - Outside Agency Dr. Ball Care involvment: Not involved Discharge/Continuing Care - Education Needs Education Needs: Patient Medication, Patient Diagnosis/Disease Process, Patient Coping Skills, Patient Anger Management skills, Patient Placement options, Patient Community resources, Patient Activities of Daily Living, Patient Pain, Patient Nutrition, Patient Uses of Medical Equipment, Patient Health Practices/ Safety, Patient Personal Hygiene/Grooming, Patient Aftercare Safety Plan - Discharge Discharge Criteria: Tolerates medication w/o severe side effects, Free of paranoid thoughts, Free of agitation, Normal sleep pattern, Ability to care for self, Reduction of target symptoms Discharge to:: Home - Treatment Team Participation Patient/Family/SO Statement: Milieu/structure/supportive therapy FLUoxetine 40 mg PO DAILY resumed for depression klonopin bid 0.125mg for anxiety traZODone [Desyrel] 50 mg PO HS prn for insomnia/depression risperdal 3mg po bid and 3mg HS for psychosis pt is not interested to have injectable form of meds, pt was educated about injectable form of Risperdal, but pt said "I do not like needles" Medical consult was called, pt is on abx for pharyngitis SW consultation for discharge plan and social issues Family involvement, pt gave consent for pt's involvement Follow up on labs Will monitor closely Pt was educated about risk/benefits and alternatives of medications, coping strategies (safety plan, suicide prevention), relapse prevention, importance of follow up with psychiatrist and therapist, stay away from drugs/alcohol/smoking Treatment Plan Review - Problem MEDICATION NON ADHERENCE Time Initiated: 15:00 ALTERED THOUGHT PROCESS Time Initiated: 15:00 SOCIAL ISOLATION Time Initiated: 15:00 <Essence Mulligan A - Last Filed: 04/20/17 16:33> - Diagnosis (1) Schizophrenia Status: Acute Interventions: 04/20/17 16:31 pt is improving minimally pt still psychotic, delusional pt does not want to take any other meds other than Risperdal pt is not aggressive or agitated pt does not want to be on consta pt's family involved
--- NOTE | 2017-04-20 16:47 | PCM.PYCHPN ---
Psychiatric Progress Note - Psychiatric Progress Note Patient seen today, length of contact: 30min Patient Chief Complaint: "I do not want to be on any injections, TV is sending me messages, my house is in surveillance, I don't know why" Problems Identified/Issues Discussed: Suicide/ homicide prevention, past psychiatric h/o, current psychiatric symptoms , medical problems, risk/benefits and alternatives of medications, medications compliance, coping strategies, substance abuse h/o, relapse prevention, importance of follow up with psychiatrist and therapist, discharge plan. Medical Problems: obesity pharyngitis, pt is on abx Diagnostic Results: 04/06/17 06:30 04/06/17 06:30 Lab Results 04/06/17 06:30: Hemoglobin A1c 6.2 04/06/17 06:30: WBC 7.6 D, RBC 4.73, Hgb 13.4, Hct 42.4, MCV 89.6, MCH 28.3, MCHC 31.6, RDW 14.2, Plt Count 337, MPV 10.2 04/06/17 06:30: Sodium 142, Potassium 4.5, Chloride 106, Carbon Dioxide 26, Anion Gap 15, BUN 12, Creatinine 0.6 L, Est GFR ( Amer) > 60, Est GFR ( Non-Af Amer) > 60, Random Glucose 124 H, Calcium 9.3, Total Bilirubin 0.4, AST 19, ALT 27, Alkaline Phosphatase 96, Total Protein 7.2, Albumin 4.0, Globulin 3.3, Albumin/Globulin Ratio 1.2, Triglycerides 118, Cholesterol 193, LDL Cholesterol Direct 112, HDL Cholesterol 44 04/06/17 06:30: Free T4 1.21, TSH 3rd Generation 0.95 04/06/17 06:30: RPR Nonreactive 04/05/17 06:57: Urine Opiates Screen Negative, Urine Methadone Screen Negative, Ur Barbiturates Screen Negative, Ur Phencyclidine Scrn Negative, Ur Amphetamines Screen Negative, U Benzodiazepines Scrn Negative, U Oth Cocaine Metabols Negative, U Cannabinoids Screen Negative 04/05/17 06:57: WBC 9.6 D, RBC 4.73, Hgb 13.5, Hct 42.5, MCV 89.9, MCH 28.5, MCHC 31.8, RDW 14.0, Plt Count 340, MPV 10.3 04/05/17 06:57: Alcohol, Quantitative < 10 04/05/17 06:57: Sodium 141, Potassium 4.1, Chloride 102, Carbon Dioxide 26, Anion Gap 17, BUN 14, Creatinine 0.6 L, Est GFR ( Amer) > 60, Est GFR ( Non-Af Amer) > 60, Random Glucose 129 H, Calcium 9.8, Total Bilirubin 0.4, AST 25, ALT 30, Alkaline Phosphatase 108, Total Protein 7.9, Albumin 4.5, Globulin 3.4, Albumin/Globulin Ratio 1.3 04/05/17 06:57: Urine Color Yellow, Urine Appearance Clear, Urine pH 6.0, Ur Specific [place] >= 1.030, Urine Protein Trace H, Urine Glucose (UA) Negative, Urine Ketones Trace H, Urine Blood Negative, Urine Nitrate Negative, Urine Bilirubin Small H, Urine Urobilinogen 0.2, Ur Leukocyte Esterase Negative, Urine RBC Negative, Urine WBC 0 - 2, Ur Epithelial Cells 6 - 8, Urine Bacteria Small Vital Signs Temp Pulse Resp BP Pulse Ox 04/07/17 07:15 97.1 F L 86 20 144/70 04/06/17 16:00 103 H 126/77 04/06/17 07:17 98.6 F 105 H 22 142/65 04/05/17 16:00 116 H 178/84 H 04/05/17 12:32 98.8 F 104 H 140/78 04/05/17 11:00 98.6 F 103 H 19 130/75 100 04/05/17 07:51 98.6 F 94 H 18 127/78 96 04/05/17 06:25 98.8 F 74 18 130/81 99 Temp Pulse Resp BP Pulse Ox 98.2 F 111 H 16 144/92 H 100 04/11/17 06:52 04/11/17 06:52 04/11/17 06:52 04/11/17 06:52 04/05/17 11:00 Temp Pulse Resp BP Pulse Ox 98.0 F 87 20 137/56 L 100 04/14/17 07:12 04/14/17 07:12 04/14/17 07:12 04/14/17 07:12 04/05/17 11:00 Temp Pulse Resp BP Pulse Ox 97.8 F 100 H 18 148/67 100 04/19/17 07:02 04/19/17 07:02 04/19/17 07:02 04/19/17 07:02 04/05/17 11:00 DSM 5 Symptoms Update: Shortly pt is 71 year old female, with reported h/o schizophrenia, four previous psych admissions, most recent was about a year ago to this unit, currently under care of , pt has h/o noncompliance with medications and f/u appts, was admitted to the psychiatric inpatient unit for disorganized thoughts and behavior, pt was not sleeping for the past two nights, pt was wondering on streets, pt also was feeling anxious because pt had impression that police is going to arrest her (pt denied h/o arrests, denied committed any crime), pt also was depressed, was not able to function, was noncompliant with her medications and follow up appts, last appt with psychiatrist was in January 2017. Pt was brought in by her because of disorganized and risky behavior. Pt needs further evaluation and stabilization, observation medication resumption and titration. pt was seen at tx team meeting, pt said she was hiding her true feelings that TV is sending messages to her, pt also said she hid that she still feels that police is going to arrest her, pt also said that her house under surveillance. pt has poor insight, has no explanation or evidence for that, pt said "I just feel it", pt was educated about psychotic, reality testing, when pt was asked what is the reason why she was withholding info, pt said "you would think I am schizophrenic, but I am not". poor personal hygiene, pt said that she does not feel comfortable to take a shower in the unit. from this singer songwriter opinion pt might benefit from: IOP program, but pt refused injectable form of meds, Pt refused, but willing to take meds by mouth family therapy, pt and her agreed. pt was educated about other meds, but pt said "I don't want to try any other medications, you can increase my risperdal, it is calming me down". pt tolerated medications well, no side effects observed or reported, AIMS 0, no EPS. , pt c/o anxiety, add small dose of klonopin and increase prozac. pt does not have any behavioral disturbances, compliant with meds, visible in the unit. Impression: schizophrenia delusion erotomanic Medication Change: Yes (risperdal increased, cogentin added) Medical Record Reviewed: Yes Mental Status Examination - Cognitive Function Orientation: Person, Place Memory: Impaired Attention: Poor (some improvement) Concentration: Poor (some improvement) Association: Loose Fund of Knowledge: WNL - Mood Mood: Depressed ( "I am hopeful...I guess") - Affect Affect: Constricted, Other (more reactive and related than last weekend) - Speech Speech: Appropriate (underproductive) - Formal Thought Process Formal Thought Process: Delusions (TV sending messages, my house under survelliance), Paranoia (pt was guarded and withholding info) - Suicidal Ideation Suicidal Ideation: No - Homicidal Ideation Homicidal Ideation: No Goal/Treatment Plan - Goal/Treatment Plan Need for Continued Stay: Remain at risks for inpatient hospitalization, Severe depression anxiety, Discharge may exacerbated symptoms, Severe functional impairment Progress Toward Problem(s) and Goals/Treatment Plan: Milieu/structure/supportive therapy FLUoxetine 40 mg PO DAILY resumed for depression klonopin bid 0.125mg for anxiety traZODone [Desyrel] 50 mg PO HS prn for insomnia/depression risperdal 3mg po bid and 4mg HS for psychosis cogentin 0.5mg po amhs for EPS pt is not interested to have injectable form of meds, pt was educated about injectable form of Risperdal, but pt said "I do not like needles" Medical team will follow pt SW consultation for discharge plan and social issues Family involvement, pt gave consent for pt's involvement family meeting took place 04/19/17 Follow up on labs Will monitor closely Pt was educated about risk/benefits and alternatives of medications, coping strategies (safety plan, suicide prevention), relapse prevention, importance of follow up with psychiatrist and therapist, stay away from drugs/alcohol/smoking Estimated Date of D/C: 04/26/17 (will monitor closely')
[2017-04-21] MEDS: clonazePAM 0.125 mg Disinteg Tab PO SCH ×2 (10:19→16:44)
[2017-04-21] MEDS: Lidocaine 5% Patch TD SCH (10:22)
--- NOTE | 2017-04-21 12:26 | PN ---
DATE: SUBJECTIVE: She is resting comfortably in bed. She slept fairly well. She is on Bengay, Cogentin, Desyrel, Klonopin, Lidoderm, Maalox, milk of magnesia, Motrin, Prozac, Risperdal, Thorazine. She is eating well. She is walking fairly well. She does get back pain from time to time. PHYSICAL EXAMINATION: VITAL SIGNS: She has 97.2 temperature, 86 pulse, 131/69 blood pressure, 20 respiratory rate. HEENT: Head is atraumatic, normocephalic. HEART: Regular rate. LUNGS: Clear to auscultation. ABDOMEN: Soft, nontender. Positive bowel sounds. EXTREMITIES: No edema. LABORATORY DATA: She has 9.3 white count, 30.1 hemoglobin, 42.4 hematocrit with 339 platelets. 140 sodium, potassium 4.4, BUN is 12, creatinine 0.5, GFR is greater than 60, sugars 104, calcium is 9.3, total bili is 0.3, AST is 26, ALT is 28, alk phos 103, total protein 7.2. TSH is 0.95. ASSESSMENT AND PLAN: We will continue with aggressive treatment and care. She is here for multiple reasons. She has osteoarthritis of the knee, low-back pain which has been chronic, schizophrenia, bizarre behavior and upper respiratory infection which is resolved. Manolo Mtz DO
--- NOTE | 2017-04-21 16:31 | PCM.PYCHPN ---
Psychiatric Progress Note - Psychiatric Progress Note Patient seen today, length of contact: 30min Patient Chief Complaint: "you sound logical, may be you are right, but I am not sure..." Problems Identified/Issues Discussed: Suicide/ homicide prevention, past psychiatric h/o, current psychiatric symptoms , medical problems, risk/benefits and alternatives of medications, medications compliance, coping strategies, substance abuse h/o, relapse prevention, importance of follow up with psychiatrist and therapist, discharge plan. Medical Problems: obesity pharyngitis, pt was on abx, was d/c 04/20/17 Diagnostic Results: 04/06/17 06:30 04/06/17 06:30 Lab Results 04/06/17 06:30: Hemoglobin A1c 6.2 04/06/17 06:30: WBC 7.6 D, RBC 4.73, Hgb 13.4, Hct 42.4, MCV 89.6, MCH 28.3, MCHC 31.6, RDW 14.2, Plt Count 337, MPV 10.2 04/06/17 06:30: Sodium 142, Potassium 4.5, Chloride 106, Carbon Dioxide 26, Anion Gap 15, BUN 12, Creatinine 0.6 L, Est GFR ( Amer) > 60, Est GFR ( Non-Af Amer) > 60, Random Glucose 124 H, Calcium 9.3, Total Bilirubin 0.4, AST 19, ALT 27, Alkaline Phosphatase 96, Total Protein 7.2, Albumin 4.0, Globulin 3.3, Albumin/Globulin Ratio 1.2, Triglycerides 118, Cholesterol 193, LDL Cholesterol Direct 112, HDL Cholesterol 44 04/06/17 06:30: Free T4 1.21, TSH 3rd Generation 0.95 04/06/17 06:30: RPR Nonreactive 04/05/17 06:57: Urine Opiates Screen Negative, Urine Methadone Screen Negative, Ur Barbiturates Screen Negative, Ur Phencyclidine Scrn Negative, Ur Amphetamines Screen Negative, U Benzodiazepines Scrn Negative, U Oth Cocaine Metabols Negative, U Cannabinoids Screen Negative 04/05/17 06:57: WBC 9.6 D, RBC 4.73, Hgb 13.5, Hct 42.5, MCV 89.9, MCH 28.5, MCHC 31.8, RDW 14.0, Plt Count 340, MPV 10.3 04/05/17 06:57: Alcohol, Quantitative < 10 04/05/17 06:57: Sodium 141, Potassium 4.1, Chloride 102, Carbon Dioxide 26, Anion Gap 17, BUN 14, Creatinine 0.6 L, Est GFR ( Amer) > 60, Est GFR ( Non-Af Amer) > 60, Random Glucose 129 H, Calcium 9.8, Total Bilirubin 0.4, AST 25, ALT 30, Alkaline Phosphatase 108, Total Protein 7.9, Albumin 4.5, Globulin 3.4, Albumin/Globulin Ratio 1.3 04/05/17 06:57: Urine Color Yellow, Urine Appearance Clear, Urine pH 6.0, Ur Specific [place] >= 1.030, Urine Protein Trace H, Urine Glucose (UA) Negative, Urine Ketones Trace H, Urine Blood Negative, Urine Nitrate Negative, Urine Bilirubin Small H, Urine Urobilinogen 0.2, Ur Leukocyte Esterase Negative, Urine RBC Negative, Urine WBC 0 - 2, Ur Epithelial Cells 6 - 8, Urine Bacteria Small Vital Signs Temp Pulse Resp BP Pulse Ox 04/07/17 07:15 97.1 F L 86 20 144/70 04/06/17 16:00 103 H 126/77 04/06/17 07:17 98.6 F 105 H 22 142/65 04/05/17 16:00 116 H 178/84 H 04/05/17 12:32 98.8 F 104 H 140/78 04/05/17 11:00 98.6 F 103 H 19 130/75 100 04/05/17 07:51 98.6 F 94 H 18 127/78 96 04/05/17 06:25 98.8 F 74 18 130/81 99 Temp Pulse Resp BP Pulse Ox 98.2 F 111 H 16 144/92 H 100 04/11/17 06:52 04/11/17 06:52 04/11/17 06:52 04/11/17 06:52 04/05/17 11:00 Temp Pulse Resp BP Pulse Ox 98.0 F 87 20 137/56 L 100 04/14/17 07:12 04/14/17 07:12 04/14/17 07:12 04/14/17 07:12 04/05/17 11:00 Temp Pulse Resp BP Pulse Ox 97.8 F 100 H 18 148/67 100 04/19/17 07:02 04/19/17 07:02 04/19/17 07:02 04/19/17 07:02 04/05/17 11:00 Temp Pulse Resp BP Pulse Ox 97.2 F L 86 20 131/69 100 04/21/17 07:40 04/21/17 07:40 04/21/17 07:40 04/21/17 07:40 04/05/17 11:00 DSM 5 Symptoms Update: Shortly pt is 71 year old female, with reported h/o schizophrenia, four previous psych admissions, most recent was about a year ago to this unit, currently under care of , pt has h/o noncompliance with medications and f/u appts, was admitted to the psychiatric inpatient unit for disorganized thoughts and behavior, pt was not sleeping for the past two nights, pt was wondering on streets, pt also was feeling anxious because pt had impression that police is going to arrest her (pt denied h/o arrests, denied committed any crime), pt also was depressed, was not able to function, was noncompliant with her medications and follow up appts, last appt with psychiatrist was in January 2017. Pt was brought in by her because of disorganized and risky behavior. Pt needs further evaluation and stabilization, observation medication resumption and titration. pt was seen in her room, this abstract writer spent more than 40min of talking to the pt and educating pt about psychosis, pt was receptive, pt said "you sound logical...", then pt said "if you sound logical, it means you are logical but I am not", then pt smiled and said that "most likely you are right because I have no reasonable explanations for my feelings...". pt was offered to change risperdal for zyprexa or clozaril, pt said that she likes risperdal because it "is calming me", pt said that she received messages from TV yesterday "it was negative that I am worthy", pt was given assignment for reality testing. from this abstract writer opinion pt might benefit from: IOP program, but pt refused injectable form of meds, Pt refused, but willing to take meds by mouth family therapy, pt and her agreed. pt tolerated medications well, no side effects observed or reported, AIMS 0, no EPS. pt does not have any behavioral disturbances, compliant with meds, visible in the unit. Impression: schizophrenia delusion erotomanic Medication Change: No Medical Record Reviewed: Yes Consults ordered or reviewed: medical consult appreciated see notes for more detailed information Mental Status Examination - Cognitive Function Orientation: Person, Place Memory: Impaired Attention: Poor (some improvement) Concentration: Poor (some improvement) Association: Loose Fund of Knowledge: WNL - Mood Mood: Depressed ( "I am hopeful...I guess") - Affect Affect: Constricted, Other (more reactive and related than last weekend) - Speech Speech: Appropriate (underproductive) - Formal Thought Process Formal Thought Process: Delusions (TV sending messages, my house under survelliance), Paranoia (pt was guarded and withholding info) - Suicidal Ideation Suicidal Ideation: No - Homicidal Ideation Homicidal Ideation: No Goal/Treatment Plan - Goal/Treatment Plan Need for Continued Stay: Remain at risks for inpatient hospitalization, Severe depression anxiety, Discharge may exacerbated symptoms, Severe functional impairment Progress Toward Problem(s) and Goals/Treatment Plan: Milieu/structure/supportive therapy FLUoxetine 40 mg PO DAILY resumed for depression klonopin bid 0.125mg for anxiety traZODone [Desyrel] 50 mg PO HS prn for insomnia/depression risperdal 3mg po bid and 4mg HS for psychosis cogentin 0.5mg po amhs for EPS pt is not interested to have injectable form of meds, pt was educated about injectable form of Risperdal, but pt said "I do not like needles" Medical team will follow pt SW consultation for discharge plan and social issues Family involvement, pt gave consent for pt's involvement family meeting took place 04/19/17 Follow up on labs Will monitor closely Pt was educated about risk/benefits and alternatives of medications, coping strategies (safety plan, suicide prevention), relapse prevention, importance of follow up with psychiatrist and therapist, stay away from drugs/alcohol/smoking Estimated Date of D/C: 04/26/17 (will monitor closely')
[2017-04-22 07:58] LABS: BASO # 0.04 K/mm3 (0.0-2.0); BASO % 0.4 % (0.0-3.0); EOS # 0.1 (0.0-0.7); EOS % 1.3 % (1.5-5.0); GRAN # 7.39 (1.4-6.5); GRAN % 74.4 % (50.0-68.0); HEMOGLOBIN 12.8 g/dL (12.0-16.0); LYMPH # 1.7 (1.2-3.4); LYMPH % 16.7 % (22.0-35.0); MEAN CELL VOLUME 90.4 fl (80.0-105.0); MEAN CORPUSCULAR HEMOGLOBIN 28.5 pg (25.0-35.0); MEAN CORPUSCULAR HGB CONC 31.5 g/dl (31.0-37.0); MEAN PLATELET VOLUME 10.1 fl (7.0-11.0); MONO # 0.7 (0.1-0.6); MONO % 7.2 % (1.0-6.0); RBC 4.49 10^6/uL (3.5-6.1); RED CELL DISTRIBUTION WIDTH 13.9 % (11.5-14.5); WHITE BLOOD COUNT 9.9 10^3/ul (4.5-11.0)
[2017-04-22] MEDS: clonazePAM 0.125 mg Disinteg Tab PO SCH ×2 (09:25→16:41)
[2017-04-22] MEDS: Lidocaine 5% Patch TD SCH (09:26)
[2017-04-22] MEDS ORDERED: Promethazine DM 6.25 mg-15 mg/5 ml Syrup PO PRN ×2 (10:00→10:05)
--- NOTE | 2017-04-22 12:48 | PN ---
DATE: SUBJECTIVE: I saw her in her room today. She is coughing and congested. She did do well after being on some penicillin and now it is back and it is worse she tells me. She is also on Bengay, Cogentin, Desyrel, Klonopin, Lidoderm, milk of magnesia, Maalox, Motrin, Prozac, Risperdal, Thorazine, I added Phenergan DM and Zithromax this time. PHYSICAL EXAMINATION: VITAL SIGNS: 97.2 temperature, 86 pulse, 131/69 blood pressure, 20 respiratory rate. HEENT: Head is atraumatic, normocephalic. Throat is mildly red. NECK: Supple. HEART: Regular rate. LUNGS: Decreased breath sounds from congestion, changes with cough, it sounds like she started an upper respiratory infection, worse when I last time I heard her a week ago. ABDOMEN: Soft. EXTREMITIES: No edema. She is complaining of back pain from time to time. LABORATORY DATA: She has 9.9 white count, 12.8 hemoglobin, 40.6 hematocrit with 323 platelets. 140 sodium, potassium 4.4, BUN is 12, creatinine 0.5, GFR is greater than 60, sugar is 104, calcium is 9.3, total bili is 0.3, AST is 26, ALT is 28, alk phos 103, total protein 7.2. Thyroid was good at 0.95. ASSESSMENT AND PLAN: So she is sick again with an upper respiratory infection. I put her on Z-Jun and Phenergan DM. She also has other issues going on, arthritis, low back pain, schizophrenia, bizarre behavior. As per Psychiatry, she needs to follow up. Went over the meds and labs with her. Manolo Mtz DO
--- NOTE | 2017-04-22 14:10 | PCM.PYCHPN ---
Psychiatric Progress Note - Psychiatric Progress Note Patient seen today, length of contact: 30min Patient Chief Complaint: "I forgot about your assignment..." Problems Identified/Issues Discussed: Suicide/ homicide prevention, past psychiatric h/o, current psychiatric symptoms , medical problems, risk/benefits and alternatives of medications, medications compliance, coping strategies, substance abuse h/o, relapse prevention, importance of follow up with psychiatrist and therapist, discharge plan. Medical Problems: obesity pharyngitis, pt was on abx, was d/c 04/20/17 Diagnostic Results: 04/06/17 06:30 04/06/17 06:30 Lab Results 04/06/17 06:30: Hemoglobin A1c 6.2 04/06/17 06:30: WBC 7.6 D, RBC 4.73, Hgb 13.4, Hct 42.4, MCV 89.6, MCH 28.3, MCHC 31.6, RDW 14.2, Plt Count 337, MPV 10.2 04/06/17 06:30: Sodium 142, Potassium 4.5, Chloride 106, Carbon Dioxide 26, Anion Gap 15, BUN 12, Creatinine 0.6 L, Est GFR ( Amer) > 60, Est GFR ( Non-Af Amer) > 60, Random Glucose 124 H, Calcium 9.3, Total Bilirubin 0.4, AST 19, ALT 27, Alkaline Phosphatase 96, Total Protein 7.2, Albumin 4.0, Globulin 3.3, Albumin/Globulin Ratio 1.2, Triglycerides 118, Cholesterol 193, LDL Cholesterol Direct 112, HDL Cholesterol 44 04/06/17 06:30: Free T4 1.21, TSH 3rd Generation 0.95 04/06/17 06:30: RPR Nonreactive 04/05/17 06:57: Urine Opiates Screen Negative, Urine Methadone Screen Negative, Ur Barbiturates Screen Negative, Ur Phencyclidine Scrn Negative, Ur Amphetamines Screen Negative, U Benzodiazepines Scrn Negative, U Oth Cocaine Metabols Negative, U Cannabinoids Screen Negative 04/05/17 06:57: WBC 9.6 D, RBC 4.73, Hgb 13.5, Hct 42.5, MCV 89.9, MCH 28.5, MCHC 31.8, RDW 14.0, Plt Count 340, MPV 10.3 04/05/17 06:57: Alcohol, Quantitative < 10 01/02/18 06:57: Sodium 141, Potassium 4.1, Chloride 102, Carbon Dioxide 26, Anion Gap 17, BUN 14, Creatinine 0.6 L, Est GFR ( Amer) > 60, Est GFR ( Non-Af Amer) > 60, Random Glucose 129 H, Calcium 9.8, Total Bilirubin 0.4, AST 25, ALT 30, Alkaline Phosphatase 108, Total Protein 7.9, Albumin 4.5, Globulin 3.4, Albumin/Globulin Ratio 1.3 04/05/17 06:57: Urine Color Yellow, Urine Appearance Clear, Urine pH 6.0, Ur Specific [place] >= 1.030, Urine Protein Trace H, Urine Glucose (UA) Negative, Urine Ketones Trace H, Urine Blood Negative, Urine Nitrate Negative, Urine Bilirubin Small H, Urine Urobilinogen 0.2, Ur Leukocyte Esterase Negative, Urine RBC Negative, Urine WBC 0 - 2, Ur Epithelial Cells 6 - 8, Urine Bacteria Small Vital Signs Temp Pulse Resp BP Pulse Ox 04/07/17 07:15 97.1 F L 86 20 144/70 04/06/17 16:00 103 H 126/77 04/06/17 07:17 98.6 F 105 H 22 142/65 04/05/17 16:00 116 H 178/84 H 04/05/17 12:32 98.8 F 104 H 140/78 04/05/17 11:00 98.6 F 103 H 19 130/75 100 04/05/17 07:51 98.6 F 94 H 18 127/78 96 04/05/17 06:25 98.8 F 74 18 130/81 99 Temp Pulse Resp BP Pulse Ox 98.2 F 111 H 16 144/92 H 100 04/11/17 06:52 04/11/17 06:52 04/11/17 06:52 04/11/17 06:52 04/05/17 11:00 Temp Pulse Resp BP Pulse Ox 98.0 F 87 20 137/56 L 100 04/14/17 07:12 04/14/17 07:12 04/14/17 07:12 04/14/17 07:12 04/05/17 11:00 Temp Pulse Resp BP Pulse Ox 97.8 F 100 H 18 148/67 100 04/19/17 07:02 04/19/17 07:02 04/19/17 07:02 04/19/17 07:02 04/05/17 11:00 Temp Pulse Resp BP Pulse Ox 97.2 F L 86 20 131/69 100 04/21/17 07:40 04/21/17 07:40 04/21/17 07:40 04/21/17 07:40 04/05/17 11:00 Temp Pulse Resp BP Pulse Ox 97.2 F L 103 H 20 130/70 100 04/21/17 07:40 04/21/17 16:00 04/21/17 07:40 04/21/17 16:00 04/05/17 11:00 DSM 5 Symptoms Update: Shortly pt is 71 year old female, with reported h/o schizophrenia, four previous psych admissions, most recent was about a year ago to this unit, currently under care of , pt has h/o noncompliance with medications and f/u appts, was admitted to the psychiatric inpatient unit for disorganized thoughts and behavior, pt was not sleeping for the past two nights, pt was wondering on streets, pt also was feeling anxious because pt had impression that police is going to arrest her (pt denied h/o arrests, denied committed any crime), pt also was depressed, was not able to function, was noncompliant with her medications and follow up appts, last appt with psychiatrist was in January 2017. Pt was brought in by her because of disorganized and risky behavior. Pt needs further evaluation and stabilization, observation medication resumption and titration. pt was seen at the TV room, pt is low profile, pt is superficially cooperative, pt said she forgot about her assignments, pt said that TV was not sending her messages anymore, pt also said "I feel the same", pt has tendency of withholding information, giving answers what staff and this contract technical writer might like "what is the point of telling you the truth?, you would think that I am crazy... ". pt still has erotomanic delusions, pt also paranoid about police, pt also does not take a shower because pt feels there are cameras in the unit. from this contract technical writer opinion pt might benefit from: IOP program, but pt refused injectable form of meds, Pt refused, but willing to take meds by mouth family therapy, pt and her agreed. pt tolerated medications well, no side effects observed or reported, AIMS 0, no EPS. pt does not have any behavioral disturbances, compliant with meds, visible in the unit. Impression: schizophrenia erotomanic delusions Medication Change: Yes (risperdal incrased) Medical Record Reviewed: Yes Consults ordered or reviewed: medical consult appreciated see notes for more detailed information Mental Status Examination - Cognitive Function Orientation: Person, Place Memory: Impaired Attention: Poor (some improvement) Concentration: Poor (some improvement) Association: Loose Fund of Knowledge: WNL - Mood Mood: Depressed ( "I am hopeful...I guess") - Affect Affect: Constricted, Other (more reactive and related than last weekend) - Speech Speech: Appropriate (underproductive) - Formal Thought Process Formal Thought Process: Delusions (TV sending messages, my house under survelliance), Paranoia (pt was guarded and withholding info) - Suicidal Ideation Suicidal Ideation: No - Homicidal Ideation Homicidal Ideation: No Goal/Treatment Plan - Goal/Treatment Plan Need for Continued Stay: Remain at risks for inpatient hospitalization, Severe depression anxiety, Discharge may exacerbated symptoms, Severe functional impairment Progress Toward Problem(s) and Goals/Treatment Plan: Milieu/structure/supportive therapy FLUoxetine 40 mg PO DAILY resumed for depression klonopin bid 0.125mg for anxiety traZODone [Desyrel] 50 mg PO HS prn for insomnia/depression risperdal 3mg po am 4mg at 4pm and 4mg HS for psychosis cogentin 0.5mg po amhs for EPS pt is not interested to have injectable form of meds, pt was educated about injectable form of Risperdal, but pt said "I do not like needles" Medical team will follow pt SW consultation for discharge plan and social issues Family involvement, pt gave consent for pt's involvement, family meeting took place 04/19/17 Follow up on labs Will monitor closely Pt was educated about risk/benefits and alternatives of medications, coping strategies (safety plan, suicide prevention), relapse prevention, importance of follow up with psychiatrist and therapist, stay away from drugs/alcohol/smoking Estimated Date of D/C: 04/26/17 (will monitor closely')
[2017-04-23] MEDS: clonazePAM 0.125 mg Disinteg Tab PO SCH ×2 (08:47→15:58)
[2017-04-23] MEDS: Lidocaine 5% Patch TD SCH (08:47)
--- NOTE | 2017-04-23 09:06 | PCM.PYCHPN ---
Psychiatric Progress Note - Psychiatric Progress Note Patient seen today, length of contact: 25 min Patient Chief Complaint: "feeling all right just tired and sleepy". Problems Identified/Issues Discussed: I reviewed recent notes and patient was seen at bedside. She still appears unkempt and preoccupied. She vaguely remembers me from our prior interviews though she remains oriented x3. Reports that she is "feeling all right just tired and sleepy". Slept well last night and was heard loudly snoring by this inspector automatic typewriter. Responses are brief and consistent. Her affect is constricted. She denies hallucinations and she is not responding to internal stimuli. Delusions were not elicited. Patient denies issues with her medications or any new discomfort or pain. Staff notes indicate that patient has been in control. Visible on the unit and attends groups but still appears to have low motivation and interest in activities. Mostly keeps to herself but willing to interact with others when prompted. There were no behavioral issues overnight. 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 Medication Change: Yes (risperdal incrased) Medical Record Reviewed: Yes Mental Status Examination - Cognitive Function Orientation: Person, Place Memory: Impaired Attention: Poor (some improvement) Concentration: Poor (some improvement) Association: Loose Fund of Knowledge: WNL - Mood Mood: Depressed ( "feeling all right just tired and sleepy".) - Affect Affect: Constricted, Other (more reactive and related than last weekend) - Speech Speech: Appropriate (underproductive) - Formal Thought Process Formal Thought Process: Delusions (TV sending messages, my house under survelliance), Paranoia (pt was guarded and withholding info) - Suicidal Ideation Suicidal Ideation: No - Homicidal Ideation Homicidal Ideation: No Goal/Treatment Plan - Goal/Treatment Plan Need for Continued Stay: Remain at risks for inpatient hospitalization, Severe depression anxiety, Discharge may exacerbated symptoms, Severe functional impairment Progress Toward Problem(s) and Goals/Treatment Plan: * c/w current tx and plan * No new weekend labs thus far * Vitals reviewed and noted below: 04/21/17 04/21/17 04/22/17 07:40 16:00 18:25 Temperature 97.2 F L Pulse Rate 86 103 H 107 H Respiratory 20 Rate Blood Pressure 131/69 130/70 144/71 Estimated Date of D/C: 04/26/17 (will monitor closely')
--- NOTE | 2017-04-23 17:25 | PN ---
DATE: SUBJECTIVE: I saw Jeni resting comfortably in her room. She just got out of the shower. She feels refreshed. No complaints at this time, but at times, she has had back pain. She does feel little bit better when she got there. She is on Bengay, Cogentin, Desyrel, Klonopin, Lidoderm, Maalox, milk of magnesia, Motrin, Phenergan, Prozac, Risperdal, Thorazine, Tylenol, and Zithromax, and the cough is also starting to improve. OBJECTIVE: VITAL SIGNS: She is 97.9 temperature, 94 pulse, 111/62 blood pressure, 20 respiratory rate. HEAD: Atraumatic, normocephalic. HEART: Regular rate. THROAT: Moist. NECK: Supple. LUNGS: Decreased breath sounds, but clear to auscultation. No wheezes, no rhonchi, no rales. ABDOMEN: Soft. EXTREMITIES: No edema. MEDICATIONS: She is currently on Bengay, Cogentin, Desyrel, Klonopin, Lidoderm, Maalox, milk of magnesia, Motrin, Phenergan DM, Prozac, Risperdal, Thorazine, and Tylenol. LABORATORY DATA: She also had lab work as a 9.9 white count, 12.8 hemoglobin, and 323 platelets, 140 sodium, potassium 4.4, BUN 12, creatinine 0.5, GFR is greater than 60, calcium is 9.3, total bili is 0.3, AST is 26, ALT is 28, alk phos 103. As per Psychiatry, continue aggressive treatment and care on this young lady, Jeni Roca. She had some arthritis pains, low back pain, pursestring infection, bizarre behavior, schizophrenia. We will follow. Manolo Mtz DO MTDD
--- NOTE | 2017-04-24 09:02 | PCM.PYCHPN ---
Psychiatric Progress Note - Psychiatric Progress Note Patient seen today, length of contact: 25 min Patient Chief Complaint: "depressed and tired". Problems Identified/Issues Discussed: I reviewed recent notes and patient was seen at bedside. She still appears unkempt and preoccupied. Reports that she is still depressed and tired. Slept well last night and was heard loudly snoring again by this marketing copywriter. Responses are brief and consistent. Her affect is constricted and withdrawn. She denies hallucinations and she is not responding to internal stimuli. Delusions were not elicited. Patient denies issues with her medications or any new discomfort or pain. Staff notes indicate that patient has been in control. Visible on the unit and attends groups but still appears to have slowed reactions, low motivation and interest in activities. Mostly keeps to herself but willing to interact with others when prompted. There were no behavioral issues overnight. 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 Medication Change: Yes (risperdal incrased) Medical Record Reviewed: Yes Mental Status Examination - Cognitive Function Orientation: Person, Place Memory: Impaired Attention: Poor (some improvement) Concentration: Poor (some improvement) Association: Loose Fund of Knowledge: WNL - Mood Mood: Depressed ("depressed and tired") - Affect Affect: Constricted, Other (more reactive and related than last weekend) - Speech Speech: Appropriate (underproductive) - Formal Thought Process Formal Thought Process: Delusions (TV sending messages, my house under survelliance), Paranoia (pt was guarded and withholding info) - Suicidal Ideation Suicidal Ideation: No - Homicidal Ideation Homicidal Ideation: No Goal/Treatment Plan - Goal/Treatment Plan Need for Continued Stay: Remain at risks for inpatient hospitalization, Severe depression anxiety, Discharge may exacerbated symptoms, Severe functional impairment Progress Toward Problem(s) and Goals/Treatment Plan: * c/w current tx and plan * Appreciate f/u by Dr. Mtz on 04/23/17 * No new weekend labs * Vitals reviewed and noted below: 04/23/17 04/23/17 07:17 16:00 Temperature 97.9 F Pulse Rate 94 H 90 Respiratory 20 Rate Blood Pressure 111/62 114/61 Estimated Date of D/C: 04/26/17 (will monitor closely')
[2017-04-24] MEDS: clonazePAM 0.125 mg Disinteg Tab PO SCH ×2 (09:48→16:02)
[2017-04-24] MEDS: Lidocaine 5% Patch TD SCH (09:48)
--- NOTE | 2017-04-24 19:43 | PN ---
DATE: SUBJECTIVE: I saw her resting comfortably in bed. She is sleeping well. She had her breakfast well. She is in good spirits. MEDICATIONS: She is on Bengay, Cogentin, Desyrel, Klonopin, Lidoderm, Maalox, milk of magnesia, Motrin, Phenergan, Prozac, Risperdal, Thorazine, Tylenol and Zithromax. Overall, I do think she is improving a little bit. Medically she does have a cold, but I think that is slowly improving. She has knee arthritis, low back pain, bizarre behavior, schizophrenia. PHYSICAL EXAMINATION VITAL SIGNS: 97.9 temperature and 90 pulse, 114/61 blood pressure and 20 respiratory rate. HEENT: Head is atraumatic and normocephalic. HEART: Regular rate. LUNGS: Clear to auscultation. ABDOMEN: Soft and obese. EXTREMITIES: No edema. LABORATORY DATA: She has a 9.9 white count, 12.8 hemoglobin and 323 platelets. An 140 sodium, potassium 4.4, BUN is 12, creatinine 0.5, GFR is greater than 60, sugar is 104, calcium is 9.3, total bili is 0.3, AST is 26, ALT is 20 and alk phos 103. ASSESSMENT AND PLAN: As per Psychiatry, continue with aggressive treatment and care, encourage her to go to groups and take the medication and hopefully the she is little bit better with the Z-Jun. Thank you and we will follow. Manolo Mtz DO MTDD
[2017-04-25 07:04] VITALS: O2SAT 95
[2017-04-25] MEDS: Lidocaine 5% Patch TD SCH (09:23)
[2017-04-25] MEDS: clonazePAM 0.125 mg Disinteg Tab PO SCH ×2 (09:23→15:16)
--- NOTE | 2017-04-25 10:52 | PN ---
DATE: SUBJECTIVE: I saw Jeni in the Psychiatric Floor. She slept very well last night. She has no complaints this morning. She is just waking up. She has an appetite and she is in fair spirits. MEDICATIONS: She is on Bengay, Cogentin, Desyrel, Klonopin, Lidoderm, Maalox, milk of magnesia, Motrin, Phenergan DM, Prozac, Risperdal, Thorazine, Tylenol, and Zithromax. She was not congested and she was breathing well. PHYSICAL EXAMINATION: VITAL SIGNS: She has a 98.3 temperature, 85 pulse, 135/67 blood pressure, 18 respiratory rate, and 95% O2 saturation on room air. HEENT: Head is atraumatic, normocephalic. HEART: Regular rate. LUNGS: Clear to auscultation. ABDOMEN: Soft and obese. EXTREMITIES: No edema. LABORATORY DATA: Last labs on the 04/22/2017, CBC was good. SMA-20 was good. Continue with aggressive treatment and care as per Psychiatry. She has arthritis of the knees, low back pain, upper respiratory infection borderline, bizarre behavior, and schizophrenia. Manolo Mtz DO
--- NOTE | 2017-04-25 15:47 | PCM.PYCHPN ---
Psychiatric Progress Note - Psychiatric Progress Note Patient seen today, length of contact: 30min Patient Chief Complaint: "I am ramon okay..." Problems Identified/Issues Discussed: Suicide/ homicide prevention, past psychiatric h/o, current psychiatric symptoms , medical problems, risk/benefits and alternatives of medications, medications compliance, coping strategies, substance abuse h/o, relapse prevention, importance of follow up with psychiatrist and therapist, discharge plan. Medical Problems: obesity pharyngitis, pt was on abx, was d/c 04/20/17 pt was started on abx again for cough and sorethroat Diagnostic Results: 04/06/17 06:30 04/06/17 06:30 Lab Results 04/06/17 06:30: Hemoglobin A1c 6.2 04/06/17 06:30: WBC 7.6 D, RBC 4.73, Hgb 13.4, Hct 42.4, MCV 89.6, MCH 28.3, MCHC 31.6, RDW 14.2, Plt Count 337, MPV 10.2 04/06/17 06:30: Sodium 142, Potassium 4.5, Chloride 106, Carbon Dioxide 26, Anion Gap 15, BUN 12, Creatinine 0.6 L, Est GFR ( Amer) > 60, Est GFR ( Non-Af Amer) > 60, Random Glucose 124 H, Calcium 9.3, Total Bilirubin 0.4, AST 19, ALT 27, Alkaline Phosphatase 96, Total Protein 7.2, Albumin 4.0, Globulin 3.3, Albumin/Globulin Ratio 1.2, Triglycerides 118, Cholesterol 193, LDL Cholesterol Direct 112, HDL Cholesterol 44 04/06/17 06:30: Free T4 1.21, TSH 3rd Generation 0.95 04/06/17 06:30: RPR Nonreactive 04/05/17 06:57: Urine Opiates Screen Negative, Urine Methadone Screen Negative, Ur Barbiturates Screen Negative, Ur Phencyclidine Scrn Negative, Ur Amphetamines Screen Negative, U Benzodiazepines Scrn Negative, U Oth Cocaine Metabols Negative, U Cannabinoids Screen Negative 04/05/17 06:57: WBC 9.6 D, RBC 4.73, Hgb 13.5, Hct 42.5, MCV 89.9, MCH 28.5, MCHC 31.8, RDW 14.0, Plt Count 340, MPV 10.3 04/05/17 06:57: Alcohol, Quantitative < 10 04/05/17 06:57: Sodium 141, Potassium 4.1, Chloride 102, Carbon Dioxide 26, Anion Gap 17, BUN 14, Creatinine 0.6 L, Est GFR ( Amer) > 60, Est GFR ( Non-Af Amer) > 60, Random Glucose 129 H, Calcium 9.8, Total Bilirubin 0.4, AST 25, ALT 30, Alkaline Phosphatase 108, Total Protein 7.9, Albumin 4.5, Globulin 3.4, Albumin/Globulin Ratio 1.3 04/05/17 06:57: Urine Color Yellow, Urine Appearance Clear, Urine pH 6.0, Ur Specific [place] >= 1.030, Urine Protein Trace H, Urine Glucose (UA) Negative, Urine Ketones Trace H, Urine Blood Negative, Urine Nitrate Negative, Urine Bilirubin Small H, Urine Urobilinogen 0.2, Ur Leukocyte Esterase Negative, Urine RBC Negative, Urine WBC 0 - 2, Ur Epithelial Cells 6 - 8, Urine Bacteria Small Vital Signs Temp Pulse Resp BP Pulse Ox 04/07/17 07:15 97.1 F L 86 20 144/70 04/06/17 16:00 103 H 126/77 04/06/17 07:17 98.6 F 105 H 22 142/65 04/05/17 16:00 116 H 178/84 H 04/05/17 12:32 98.8 F 104 H 140/78 04/05/17 11:00 98.6 F 103 H 19 130/75 100 04/05/17 07:51 98.6 F 94 H 18 127/78 96 04/05/17 06:25 98.8 F 74 18 130/81 99 Temp Pulse Resp BP Pulse Ox 98.2 F 111 H 16 144/92 H 100 04/11/17 06:52 04/11/17 06:52 04/11/17 06:52 04/11/17 06:52 04/05/17 11:00 Temp Pulse Resp BP Pulse Ox 98.0 F 87 20 137/56 L 100 04/14/17 07:12 04/14/17 07:12 04/14/17 07:12 04/14/17 07:12 04/05/17 11:00 Temp Pulse Resp BP Pulse Ox 97.8 F 100 H 18 148/67 100 04/19/17 07:02 04/19/17 07:02 04/19/17 07:02 04/19/17 07:02 04/05/17 11:00 Temp Pulse Resp BP Pulse Ox 97.2 F L 86 20 131/69 100 04/21/17 07:40 04/21/17 07:40 04/21/17 07:40 04/21/17 07:40 04/05/17 11:00 Temp Pulse Resp BP Pulse Ox 97.2 F L 103 H 20 130/70 100 04/21/17 07:40 04/21/17 16:00 04/21/17 07:40 04/21/17 16:00 04/05/17 11:00 Temp Pulse Resp BP Pulse Ox 98.3 F 85 18 135/67 95 04/25/17 07:03 04/25/17 07:03 04/25/17 07:03 04/25/17 07:03 04/25/17 07:03 DSM 5 Symptoms Update: Shortly pt is 71 year old female, with reported h/o schizophrenia, four previous psych admissions, most recent was about a year ago to this unit, currently under care of , pt has h/o noncompliance with medications and f/u appts, was admitted to the psychiatric inpatient unit for disorganized thoughts and behavior, pt was not sleeping for the past two nights, pt was wondering on streets, pt also was feeling anxious because pt had impression that police is going to arrest her (pt denied h/o arrests, denied committed any crime), pt also was depressed, was not able to function, was noncompliant with her medications and follow up appts, last appt with psychiatrist was in January 2017. Pt was brought in by her because of disorganized and risky behavior. Pt needs further evaluation and stabilization, observation medication resumption and titration. pt was seen in her room, pt is low profile, pt is superficially cooperative, disengaged, withdrawn, smiling, giving only one word answer. pt said she feels sleepy, did not want to talk much today. pt tolerates meds well, no side effects observed or reported, AIMS 0, no EPS. as per staff over the weekend pt seems to be happy to see her and pt was smiling and enjoying his visit. from this data analyst report writer opinion pt might benefit from: this data analyst report writer thinks that pt might benefit from supervised setting like [facility], will d/w pt's . IOP program, but pt refused injectable form of meds, Pt refused, but willing to take meds by mouth family therapy, pt and her agreed. pt tolerated medications well, no side effects observed or reported, AIMS 0, no EPS. pt does not have any behavioral disturbances, compliant with meds, visible in the unit. Impression: schizophrenia erotomanic delusions Medication Change: No Medical Record Reviewed: Yes Consults ordered or reviewed: medical consult/follow up appreciated see notes for more detailed information Mental Status Examination - Cognitive Function Orientation: Person, Place Memory: Impaired Attention: Poor (some improvement) Concentration: Poor (some improvement) Association: Loose Fund of Knowledge: WNL - Mood Mood: Depressed ("depressed and tired") - Affect Affect: Constricted, Other (more reactive and related than last weekend) - Speech Speech: Appropriate (underproductive) - Formal Thought Process Formal Thought Process: Delusions (TV sending messages, my house under survelliance), Paranoia (pt was guarded and withholding info) - Suicidal Ideation Suicidal Ideation: No - Homicidal Ideation Homicidal Ideation: No Goal/Treatment Plan - Goal/Treatment Plan Need for Continued Stay: Remain at risks for inpatient hospitalization, Severe depression anxiety, Discharge may exacerbated symptoms, Severe functional impairment Progress Toward Problem(s) and Goals/Treatment Plan: Milieu/structure/supportive therapy FLUoxetine 40 mg PO DAILY resumed for depression klonopin bid 0.125mg for anxiety traZODone [Desyrel] 50 mg PO HS prn for insomnia/depression risperdal 3mg po am 4mg at 4pm and 4mg HS for psychosis cogentin 0.5mg po amhs for EPS pt is not interested to have injectable form of meds, pt was educated about injectable form of Risperdal, but pt said "I do not like needles" Medical team will follow pt SW consultation for discharge plan and social issues Family involvement, pt gave consent for pt's involvement, family meeting took place 04/19/17 ? NH or assisted living Follow up on labs Will monitor closely Pt was educated about risk/benefits and alternatives of medications, coping strategies (safety plan, suicide prevention), relapse prevention, importance of follow up with psychiatrist and therapist, stay away from drugs/alcohol/smoking Estimated Date of D/C: 04/28/17 (will monitor closely')
[2017-04-26 07:27] VITALS: RESP 20
[2017-04-26] MEDS: Lidocaine 5% Patch TD SCH (08:58)
[2017-04-26] MEDS: clonazePAM 0.125 mg Disinteg Tab PO SCH ×2 (08:59→18:16)
--- NOTE | 2017-04-26 15:28 | PCM.PYCHPN ---
Psychiatric Progress Note - Psychiatric Progress Note Patient seen today, length of contact: 30min Patient Chief Complaint: "I DO NOT WANT TO BE ON INJECTION...". Problems Identified/Issues Discussed: Suicide/ homicide prevention, past psychiatric h/o, current psychiatric symptoms , medical problems, risk/benefits and alternatives of medications, medications compliance, coping strategies, substance abuse h/o, relapse prevention, importance of follow up with psychiatrist and therapist, discharge plan. Medical Problems: obesity pharyngitis, pt was on abx, was d/c 04/20/17 pt was started on abx again for cough and sorethroat Diagnostic Results: 04/06/17 06:30 04/06/17 06:30 Lab Results 04/06/17 06:30: Hemoglobin A1c 6.2 04/06/17 06:30: WBC 7.6 D, RBC 4.73, Hgb 13.4, Hct 42.4, MCV 89.6, MCH 28.3, MCHC 31.6, RDW 14.2, Plt Count 337, MPV 10.2 04/06/17 06:30: Sodium 142, Potassium 4.5, Chloride 106, Carbon Dioxide 26, Anion Gap 15, BUN 12, Creatinine 0.6 L, Est GFR ( Amer) > 60, Est GFR ( Non-Af Amer) > 60, Random Glucose 124 H, Calcium 9.3, Total Bilirubin 0.4, AST 19, ALT 27, Alkaline Phosphatase 96, Total Protein 7.2, Albumin 4.0, Globulin 3.3, Albumin/Globulin Ratio 1.2, Triglycerides 118, Cholesterol 193, LDL Cholesterol Direct 112, HDL Cholesterol 44 04/06/17 06:30: Free T4 1.21, TSH 3rd Generation 0.95 04/06/17 06:30: RPR Nonreactive 04/05/17 06:57: Urine Opiates Screen Negative, Urine Methadone Screen Negative, Ur Barbiturates Screen Negative, Ur Phencyclidine Scrn Negative, Ur Amphetamines Screen Negative, U Benzodiazepines Scrn Negative, U Oth Cocaine Metabols Negative, U Cannabinoids Screen Negative 04/05/17 06:57: WBC 9.6 D, RBC 4.73, Hgb 13.5, Hct 42.5, MCV 89.9, MCH 28.5, MCHC 31.8, RDW 14.0, Plt Count 340, MPV 10.3 04/05/17 06:57: Alcohol, Quantitative < 10 04/05/17 06:57: Sodium 141, Potassium 4.1, Chloride 102, Carbon Dioxide 26, Anion Gap 17, BUN 14, Creatinine 0.6 L, Est GFR ( Amer) > 60, Est GFR ( Non-Af Amer) > 60, Random Glucose 129 H, Calcium 9.8, Total Bilirubin 0.4, AST 25, ALT 30, Alkaline Phosphatase 108, Total Protein 7.9, Albumin 4.5, Globulin 3.4, Albumin/Globulin Ratio 1.3 04/05/17 06:57: Urine Color Yellow, Urine Appearance Clear, Urine pH 6.0, Ur Specific [place] >= 1.030, Urine Protein Trace H, Urine Glucose (UA) Negative, Urine Ketones Trace H, Urine Blood Negative, Urine Nitrate Negative, Urine Bilirubin Small H, Urine Urobilinogen 0.2, Ur Leukocyte Esterase Negative, Urine RBC Negative, Urine WBC 0 - 2, Ur Epithelial Cells 6 - 8, Urine Bacteria Small Vital Signs Temp Pulse Resp BP Pulse Ox 04/07/17 07:15 97.1 F L 86 20 144/70 04/06/17 16:00 103 H 126/77 04/06/17 07:17 98.6 F 105 H 22 142/65 04/05/17 16:00 116 H 178/84 H 04/05/17 12:32 98.8 F 104 H 140/78 04/05/17 11:00 98.6 F 103 H 19 130/75 100 04/05/17 07:51 98.6 F 94 H 18 127/78 96 04/05/17 06:25 98.8 F 74 18 130/81 99 Temp Pulse Resp BP Pulse Ox 98.2 F 111 H 16 144/92 H 100 04/11/17 06:52 04/11/17 06:52 04/11/17 06:52 04/11/17 06:52 04/05/17 11:00 Temp Pulse Resp BP Pulse Ox 98.0 F 87 20 137/56 L 100 04/14/17 07:12 04/14/17 07:12 04/14/17 07:12 04/14/17 07:12 04/05/17 11:00 Temp Pulse Resp BP Pulse Ox 97.8 F 100 H 18 148/67 100 04/19/17 07:02 04/19/17 07:02 04/19/17 07:02 04/19/17 07:02 04/05/17 11:00 Temp Pulse Resp BP Pulse Ox 97.2 F L 86 20 131/69 100 04/21/17 07:40 04/21/17 07:40 04/21/17 07:40 04/21/17 07:40 04/05/17 11:00 Temp Pulse Resp BP Pulse Ox 97.2 F L 103 H 20 130/70 100 04/21/17 07:40 04/21/17 16:00 04/21/17 07:40 04/21/17 16:00 04/05/17 11:00 Temp Pulse Resp BP Pulse Ox 98.3 F 85 18 135/67 95 04/25/17 07:03 04/25/17 07:03 04/25/17 07:03 04/25/17 07:03 04/25/17 07:03 DSM 5 Symptoms Update: Shortly pt is 71 year old female, with reported h/o schizophrenia, four previous psych admissions, most recent was about a year ago to this unit, currently under care of , pt has h/o noncompliance with medications and f/u appts, was admitted to the psychiatric inpatient unit for disorganized thoughts and behavior, pt was not sleeping for the past two nights, pt was wondering on streets, pt also was feeling anxious because pt had impression that police is going to arrest her (pt denied h/o arrests, denied committed any crime), pt also was depressed, was not able to function, was noncompliant with her medications and follow up appts, last appt with psychiatrist was in January 2017. Pt was brought in by her because of disorganized and risky behavior. Pt needs further evaluation and stabilization, observation medication resumption and titration. pt was seen at the dinning area with medical students. as per staff report pt took a shower seems to be in good mood and has a bright affect. during the conversation pt presented to be mildly irritable and annoyed with all questions. Obviously hygiene is much better, pt washed her hair, wears clean clothes. pt said that she is doing "okay, I guess", pt said "overall I am much calmer". pt said that she does not feel she might be arrested by police because "it does not make sense". pt said that she is not sure if her house is under surveillance (it is improvement, before pt was convinced that it is true) , when was asked what made that change pt said that "I am not there, I don't know". pt acknowledged that her behavior to go outside in the middle of the night was "irrational and very dangerous", pt assured this automatic typewriter inspector that it will not happen again, when was asked if pt still believes that she will Faustino Vilchis pt said "it is closer to nonexistence..." when was asked why pt said " it is not happening it is not true fact". pt was educated about psychosis, importance to be on meds, pt is willing to continue on meds but "I DO NOT WANT TO BE ON INJECTION...". SW contacted pt's and as per "Jeni is doing better but she has old delusions about singer Faustino Kang" (chronic erotomanic delusions) from this automatic typewriter inspector opinion pt might benefit from: this automatic typewriter inspector thinks that pt might benefit from supervised setting like [facility], will d/w pt's . IOP program, but pt refused injectable form of meds, Pt refused, but willing to take meds by mouth family therapy, pt and her agreed during the tx team meeting, but today pt refused to go. pt tolerated medications well, no side effects observed or reported, AIMS 0, no EPS. pt does not have any behavioral disturbances, compliant with meds, visible in the unit, took a shower. Impression: schizophrenia erotomanic delusions Medication Change: Yes (cogentin incrased, riseprdal maximized) Medical Record Reviewed: Yes Consults ordered or reviewed: medical consult/follow up appreciated see notes for more detailed information Mental Status Examination - Cognitive Function Orientation: Person, Place Memory: Impaired Attention: Poor (some improvement) Concentration: Poor (some improvement) Association: Loose Fund of Knowledge: WNL - Mood Mood: Depressed ("I am better") - Affect Affect: Constricted (but more reactive), Other - Speech Speech: Appropriate (underproductive) - Formal Thought Process Formal Thought Process: Delusions (erotomanic delusions about famous singer Faustino Kang), Paranoia (guarded) - Suicidal Ideation Suicidal Ideation: No - Homicidal Ideation Homicidal Ideation: No Goal/Treatment Plan - Goal/Treatment Plan Need for Continued Stay: Remain at risks for inpatient hospitalization, Severe depression anxiety, Discharge may exacerbated symptoms, Severe functional impairment Progress Toward Problem(s) and Goals/Treatment Plan: Milieu/structure/supportive therapy FLUoxetine 40 mg PO DAILY resumed for depression klonopin bid 0.125mg for anxiety traZODone [Desyrel] 50 mg PO HS prn for insomnia/depression risperdal 4mg po am 4mg at 4pm and 4mg HS for psychosis cogentin 1mg po amhs for EPS pt is not interested to have injectable form of meds, pt was educated about injectable form of Risperdal, but pt said "I do not like needles" Medical team will follow pt SW consultation for discharge plan and social issues Family involvement, pt gave consent for pt's involvement, family meeting took place 04/19/17 ? NH or assisted living Follow up on labs Will monitor closely Pt was educated about risk/benefits and alternatives of medications, coping strategies (safety plan, suicide prevention), relapse prevention, importance of follow up with psychiatrist and therapist, stay away from drugs/alcohol/smoking Estimated Date of D/C: 04/28/17 (will monitor closely')
--- NOTE | 2017-04-26 19:53 | PN ---
DATE: SUBJECTIVE: I saw her in the psychiatric floor. She is telling me that she is urinating while she is sleeping. She has not done that before, it is very possible she is having urinary tract infection. She is eating better. He is trying to participate. MEDICATIONS: She is on Bengay, Cogentin, Desyrel, Klonopin, Lidoderm, Maalox, milk of magnesia, Motrin, Phenergan DM, Prozac, Risperdal, Thorazine, Tylenol and Zithromax. OBJECTIVE: VITAL SIGNS: Temperature 98.2, 120 pulse down to 85 pulse, 116/64 blood pressure, 20 respiratory rate, 95% sat on room air. HEENT: Head is atraumatic, normocephalic. Throat is moist. NECK: Supple. HEART: Regular rate. LUNGS: Clear to auscultation with decreased breath sounds. ABDOMEN: Soft, nontender. Positive bowel sounds. No guarding, no rebound, no CVA tenderness. She is mildly obese. BACK: No back pain. No pressure on the bladder to cause urination. EXTREMITIES: Legs have no edema. IMPRESSION AND PLAN: She is telling me she has been urinating while she is sleeping and that is new for her. Last labs on the 04/22/2017 and repeat labs for tomorrow. Also we will do urinalysis, culture and sensitivity. Her last urine with small bacteria. She has been on Zithromax. We are going to continue with the medications. I encourage her to participate in groups who will do urine and a blood test. She might need antibiotics . Manolo Mtz DO MTDMelanie
[2017-04-27 08:12] LABS: HEMOGLOBIN 11.4 g/dL (12.0-16.0); MEAN CELL VOLUME 89.2 fl (80.0-105.0); MEAN CORPUSCULAR HEMOGLOBIN 28.1 pg (25.0-35.0); MEAN CORPUSCULAR HGB CONC 31.5 g/dl (31.0-37.0); MEAN PLATELET VOLUME 9.7 fl (7.0-11.0); RBC 4.06 10^6/uL (3.5-6.1); RED CELL DISTRIBUTION WIDTH 13.9 % (11.5-14.5); WHITE BLOOD COUNT 6.2 10^3/ul (4.5-11.0)
[2017-04-27 08:34] LABS: ALB/GLOB RATIO 1.1 (1.1-1.8); ALBUMIN 3.4 g/dL (3.0-4.8); ALT/SGPT 29 U/L (7-56); AST/SGOT 17 U/L (14-36); BLOOD UREA NITROGEN 11 mg/dL (7-21); GFR AFRICAN-AMERICAN > 60; GFR NON-AFRICAN AMERICAN > 60
[2017-04-27] MEDS: clonazePAM 0.125 mg Disinteg Tab PO SCH ×2 (10:08→17:42)
[2017-04-27] MEDS: Lidocaine 5% Patch TD SCH (10:10)
--- NOTE | 2017-04-27 13:41 | PN ---
DATE: 04/27/2017 SUBJECTIVE: I saw her this morning resting in bed. She tells me again that she urinated in middle of the night, so three nights in a row she has been losing control of her urine, I ordered UAC and that has not been done yet, I ordered it again. I talked to the nurses, otherwise, she is doing fairly well. MEDICATIONS: She is on Bengay, Cogentin, Desyrel, Klonopin, Lidoderm, Maalox, milk of magnesia, Motrin, Phenergan, Prozac, Risperdal, Thorazine, Tylenol, and Zithromax. PHYSICAL EXAMINATION: VITAL SIGNS: Temperature 97.4, 89 pulse, 135/79 blood pressure, 20 respiratory rate, and 95% O2 sat on room air. HEENT: Head is atraumatic, normocephalic. HEART: Regular rate. LUNGS: Clear to auscultation. ABDOMEN: Soft and nontender. Positive bowel sounds. EXTREMITIES: No edema. LABORATORY DATA: She has 6.2 white count, 11.4 hemoglobin, and 36.2 hematocrit with 330 platelets. Sodium 141, potassium 4.1, BUN 11, creatinine 0.6, GFR is greater than 60, sugar is 91, calcium is 9, total bilirubin is 0.3, AST is 17, ALT is 29, alkaline phosphatase is 82, and total protein is 6.5. Ordered labs, waiting for another urine to be done, I ordered it again. ASSESSMENT AND PLAN: I encouraged that we are going to find that she might need an antibiotic. We will see how she does. Continue with aggressive treatment and care as per Psychiatry and the back pain, arthritis pain are also bad at this time. is improving. She has bizarre behavior and schizophrenia. Manolo Mtz DO MTDMelanie
--- NOTE | 2017-04-27 15:18 | PCM.PYCHPN ---
Psychiatric Progress Note - Psychiatric Progress Note Patient seen today, length of contact: 30min Patient Chief Complaint: "I am better" Problems Identified/Issues Discussed: Suicide/ homicide prevention, past psychiatric h/o, current psychiatric symptoms , medical problems, risk/benefits and alternatives of medications, medications compliance, coping strategies, substance abuse h/o, relapse prevention, importance of follow up with psychiatrist and therapist, discharge plan. Medical Problems: obesity pharyngitis, pt was on abx, was d/c 04/20/17 pt was started on abx again for cough and sorethroat Diagnostic Results: 04/06/17 06:30 04/06/17 06:30 Lab Results 04/06/17 06:30: Hemoglobin A1c 6.2 04/06/17 06:30: WBC 7.6 D, RBC 4.73, Hgb 13.4, Hct 42.4, MCV 89.6, MCH 28.3, MCHC 31.6, RDW 14.2, Plt Count 337, MPV 10.2 04/06/17 06:30: Sodium 142, Potassium 4.5, Chloride 106, Carbon Dioxide 26, Anion Gap 15, BUN 12, Creatinine 0.6 L, Est GFR ( Amer) > 60, Est GFR ( Non-Af Amer) > 60, Random Glucose 124 H, Calcium 9.3, Total Bilirubin 0.4, AST 19, ALT 27, Alkaline Phosphatase 96, Total Protein 7.2, Albumin 4.0, Globulin 3.3, Albumin/Globulin Ratio 1.2, Triglycerides 118, Cholesterol 193, LDL Cholesterol Direct 112, HDL Cholesterol 44 04/06/17 06:30: Free T4 1.21, TSH 3rd Generation 0.95 04/06/17 06:30: RPR Nonreactive 04/05/17 06:57: Urine Opiates Screen Negative, Urine Methadone Screen Negative, Ur Barbiturates Screen Negative, Ur Phencyclidine Scrn Negative, Ur Amphetamines Screen Negative, U Benzodiazepines Scrn Negative, U Oth Cocaine Metabols Negative, U Cannabinoids Screen Negative 04/05/17 06:57: WBC 9.6 D, RBC 4.73, Hgb 13.5, Hct 42.5, MCV 89.9, MCH 28.5, MCHC 31.8, RDW 14.0, Plt Count 340, MPV 10.3 04/05/17 06:57: Alcohol, Quantitative < 10 04/05/17 06:57: Sodium 141, Potassium 4.1, Chloride 102, Carbon Dioxide 26, Anion Gap 17, BUN 14, Creatinine 0.6 L, Est GFR ( Amer) > 60, Est GFR ( Non-Af Amer) > 60, Random Glucose 129 H, Calcium 9.8, Total Bilirubin 0.4, AST 25, ALT 30, Alkaline Phosphatase 108, Total Protein 7.9, Albumin 4.5, Globulin 3.4, Albumin/Globulin Ratio 1.3 04/05/17 06:57: Urine Color Yellow, Urine Appearance Clear, Urine pH 6.0, Ur Specific [place] >= 1.030, Urine Protein Trace H, Urine Glucose (UA) Negative, Urine Ketones Trace H, Urine Blood Negative, Urine Nitrate Negative, Urine Bilirubin Small H, Urine Urobilinogen 0.2, Ur Leukocyte Esterase Negative, Urine RBC Negative, Urine WBC 0 - 2, Ur Epithelial Cells 6 - 8, Urine Bacteria Small Vital Signs Temp Pulse Resp BP Pulse Ox 04/07/17 07:15 97.1 F L 86 20 144/70 04/06/17 16:00 103 H 126/77 04/06/17 07:17 98.6 F 105 H 22 142/65 04/05/17 16:00 116 H 178/84 H 04/05/17 12:32 98.8 F 104 H 140/78 04/05/17 11:00 98.6 F 103 H 19 130/75 100 04/05/17 07:51 98.6 F 94 H 18 127/78 96 04/05/17 06:25 98.8 F 74 18 130/81 99 Temp Pulse Resp BP Pulse Ox 98.2 F 111 H 16 144/92 H 100 04/11/17 06:52 04/11/17 06:52 04/11/17 06:52 04/11/17 06:52 04/05/17 11:00 Temp Pulse Resp BP Pulse Ox 98.0 F 87 20 137/56 L 100 04/14/17 07:12 04/14/17 07:12 04/14/17 07:12 04/14/17 07:12 04/05/17 11:00 Temp Pulse Resp BP Pulse Ox 97.8 F 100 H 18 148/67 100 04/19/17 07:02 04/19/17 07:02 04/19/17 07:02 04/19/17 07:02 04/05/17 11:00 Temp Pulse Resp BP Pulse Ox 97.2 F L 86 20 131/69 100 04/21/17 07:40 04/21/17 07:40 04/21/17 07:40 04/21/17 07:40 04/05/17 11:00 Temp Pulse Resp BP Pulse Ox 97.2 F L 103 H 20 130/70 100 04/21/17 07:40 04/21/17 16:00 04/21/17 07:40 04/21/17 16:00 04/05/17 11:00 Temp Pulse Resp BP Pulse Ox 98.3 F 85 18 135/67 95 04/25/17 07:03 04/25/17 07:03 04/25/17 07:03 04/25/17 07:03 04/25/17 07:03 DSM 5 Symptoms Update: Shortly pt is 71 year old female, with reported h/o schizophrenia, four previous psych admissions, most recent was about a year ago to this unit, currently under care of , pt has h/o noncompliance with medications and f/u appts, was admitted to the psychiatric inpatient unit for disorganized thoughts and behavior, pt was not sleeping for the past two nights, pt was wondering on streets, pt also was feeling anxious because pt had impression that police is going to arrest her (pt denied h/o arrests, denied committed any crime), pt also was depressed, was not able to function, was noncompliant with her medications and follow up appts, last appt with psychiatrist was in January 2017. Pt was brought in by her because of disorganized and risky behavior. Pt needs further evaluation and stabilization, observation medication resumption and titration. pt was seen at the dinning area with medical students. as per staff report pt took a shower seems to be in good mood and has a bright affect. pt deems improving, pt compliant with medications. pt scheduled for d/c tomorrow. pt has chronic delusions, but pt is not acting on them, less psychotic, less paranoid, not fixated on Faustino Kang. SW contacted pt's and as per "Jeni is doing better but she has old delusions about leahy Faustino Jorge Luis" (chronic erotomanic delusions) from this specification writer opinion pt might benefit from: this specification writer thinks that pt might benefit from supervised setting like [facility] facility, will d/w pt's . IOP program, but pt refused injectable form of meds, Pt refused, but willing to take meds by mouth family therapy, pt and her agreed during the tx team meeting, but today pt refused to go. pt tolerated medications well, no side effects observed or reported, AIMS 0, no EPS. pt does not have any behavioral disturbances, compliant with meds, more visible in the unit, socializing with pts. Impression: schizophrenia erotomanic delusions Medication Change: Yes (cogentin incrased, riseprdal maximized) Medical Record Reviewed: Yes Mental Status Examination - Cognitive Function Orientation: Person, Place Memory: Impaired Attention: Poor (improvement) Concentration: Poor (improvement) Association: Loose Fund of Knowledge: WNL - Mood Mood: Depressed ("I am better") - Affect Affect: Constricted (but more reactive), Other - Speech Speech: Appropriate (underproductive) - Formal Thought Process Formal Thought Process: Delusions (erotomanic delusions about famous singer Faustino Kang), Paranoia (guarded) - Suicidal Ideation Suicidal Ideation: No - Homicidal Ideation Homicidal Ideation: No Goal/Treatment Plan - Goal/Treatment Plan Need for Continued Stay: Remain at risks for inpatient hospitalization, Severe depression anxiety, Discharge may exacerbated symptoms, Severe functional impairment Progress Toward Problem(s) and Goals/Treatment Plan: Milieu/structure/supportive therapy FLUoxetine 40 mg PO DAILY resumed for depression klonopin bid 0.125mg for anxiety traZODone [Desyrel] 50 mg PO HS prn for insomnia/depression risperdal 4mg po am 4mg at 4pm and 4mg HS for psychosis cogentin 1mg po amhs for EPS pt is not interested to have injectable form of meds, pt was educated about injectable form of Risperdal, but pt said "I do not like needles" Medical team will follow pt SW consultation for discharge plan and social issues Family involvement, pt gave consent for pt's involvement, family meeting took place 04/19/17 ? NH or assisted living Follow up on labs Will monitor closely Pt was educated about risk/benefits and alternatives of medications, coping strategies (safety plan, suicide prevention), relapse prevention, importance of follow up with psychiatrist and therapist, stay away from drugs/alcohol/smoking Estimated Date of D/C: 04/28/17 (will monitor closely')
[2017-04-28 07:41] VITALS: BP 118/88; PULSE 84; TEMP 98.2
[2017-04-28] MEDS: clonazePAM 0.125 mg Disinteg Tab PO SCH (09:01)
[2017-04-28] MEDS: Lidocaine 5% Patch TD SCH (09:02)
--- NOTE | 2017-04-28 10:06 | PN ---
DATE: SUBJECTIVE: I saw her resting comfortably in bed. She slept very well. She has no complaints, getting ready for breakfast. MEDICATIONS: She is on [place], Cogentin, Desyrel, Klonopin, Lidoderm, Maalox, milk of magnesia, Motrin, Phenergan DM, Prozac, Risperdal, Thorazine, Tylenol and Zithromax. PHYSICAL EXAMINATION: VITAL SIGNS: She has a 98.2 temperature, 84 pulse, 118/88 blood pressure, 20 respiratory rate. HEENT: Head is atraumatic, normocephalic. HEART: Regular rate. LUNGS: Clear to auscultation. ABDOMEN: Soft. EXTREMITIES: No edema. LABORATORY DATA: She has blood work done on , the CBC was good. Chemistry on the was good. ASSESSMENT AND PLAN: She is being seen by Psychiatry. I encouraged her to participate in groups, take her medication and as per Psychiatry, she has multiple issues, arthritis, low back pain, upper respiratory infection which I think has improved. She has bizarre behavior, schizophrenia and bed wetting. Awaiting for UA and C&S to come back. Manolo Mtz DO
--- NOTE | 2017-04-29 11:59 | PCM.PYCHDC ---
Mental Status Examination - Mental Status Examination Orientation: Person, Place, Situation, Time Memory: Intact Mood: Neutral Affect: Constricted (but reactive, mood congruent) Speech: Soft Attention: Poor (much better) Concentration: Poor (much better) Association: Loose (chronic, but much better) Fund of Knowledge: WNL Formal Thought Process: Delusions (erotomanic delusions about famous leahy, pt feels that her house under survelliance, but it is chronic) Description of patient's judgement and insight: Pt has improved insight into mental and medical illness, pt was compliant with medications and unit rules and regulations, pt was going to groups, was calm, cooperative, socially appropriate, no behavioral incidents, no agitation, no aggression. Psychotic Thoughts and Behaviors: pt has chronic erotomanic delusions abut Faustino Vilchis, but much improved, pt has impression that her house under surveillance but improved and pt said "it is not bothering me so much" Suicidal Ideation: No Current Homicidal Ideation?: No Plan: pt adamantly denied thoughts of harming self or others denied intent or plan. Discharge Summary - Discharge Note Reason for Hospitalization: pt was admitted to the psych unit for evaluation of disorganized thoughts and behavior, was not able to function Psychiatric History (includes Medical, Family, Personal Hx): see HPI Laboratory Data: 04/27/17 07:45 04/27/17 07:45 Lab Results 04/27/17 07:45: Sodium 141, Potassium 4.1, Chloride 103, Carbon Dioxide 30, Anion Gap 12, BUN 11, Creatinine 0.6 L, Est GFR ( Amer) > 60, Est GFR ( Non-Af Amer) > 60, Random Glucose 91, Calcium 9.0, Total Bilirubin 0.3, AST 17, ALT 29, Alkaline Phosphatase 82, Total Protein 6.5, Albumin 3.4, Globulin 3.1, Albumin/Globulin Ratio 1.1 04/27/17 07:45: WBC 6.2 D, RBC 4.06, Hgb 11.4 L, Hct 36.2, MCV 89.2, MCH 28.1, MCHC 31.5, RDW 13.9, Plt Count 330, MPV 9.7 04/22/17 07:30: WBC 9.9, RBC 4.49, Hgb 12.8, Hct 40.6, MCV 90.4, MCH 28.5, MCHC 31.5, RDW 13.9, Plt Count 323, MPV 10.1, Gran % 74.4 H, Lymph % (Auto) 16.7 L, Cocke % (Auto) 7.2 H, Eos % (Auto) 1.3 L, Baso % (Auto) 0.4, Gran # 7.39 H, Lymph # 1.7, Cocke # 0.7 H, Eos # 0.1, Baso # 0.04 04/20/17 07:30: Sodium 140, Potassium 4.4, Chloride 101, Carbon Dioxide 28, Anion Gap 15, BUN 12, Creatinine 0.5 L, Est GFR ( Amer) > 60, Est GFR ( Non-Af Amer) > 60, Random Glucose 104, Calcium 9.3, Total Bilirubin 0.3, AST 26 , ALT 28, Alkaline Phosphatase 103, Total Protein 7.2, Albumin 3.9, Globulin 3.3 , Albumin/Globulin Ratio 1.2 04/20/17 07:30: WBC 9.3, RBC 4.66, Hgb 13.1, Hct 42.4, MCV 91.0, MCH 28.1, MCHC 30.9 L, RDW 14.1, Plt Count 339, MPV 10.0, Gran % 66.4, Lymph % (Auto) 23.7, Cocke % (Auto) 6.7 H, Eos % (Auto) 2.8, Baso % (Auto) 0.4, Gran # 6.15, Lymph # 2.2, Cocke # 0.6, Eos # 0.3, Baso # 0.04 04/19/17 08:00: Sodium 139, Potassium 4.5, Chloride 101, Carbon Dioxide 30, Anion Gap 12, BUN 19, Creatinine 0.6 L, Est GFR ( Amer) > 60, Est GFR ( Non-Af Amer) > 60, Random Glucose 94, Calcium 9.0, Total Bilirubin 0.3, AST 20, ALT 31, Alkaline Phosphatase 86, Total Protein 6.3, Albumin 3.5, Globulin 2.9, Albumin/Globulin Ratio 1.2 04/19/17 08:00: WBC 10.0 D, RBC 4.06, Hgb 11.4 L D, Hct 36.8, MCV 90.6, MCH 28.1, MCHC 31.0, RDW 14.0, Plt Count 320, MPV 9.9 04/06/17 06:30: Hemoglobin A1c 6.2 04/06/17 06:30: WBC 7.6 D, RBC 4.73, Hgb 13.4, Hct 42.4, MCV 89.6, MCH 28.3, MCHC 31.6, RDW 14.2, Plt Count 337, MPV 10.2 04/06/17 06:30: Sodium 142, Potassium 4.5, Chloride 106, Carbon Dioxide 26, Anion Gap 15, BUN 12, Creatinine 0.6 L, Est GFR ( Amer) > 60, Est GFR ( Non-Af Amer) > 60, Random Glucose 124 H, Calcium 9.3, Total Bilirubin 0.4, AST 19, ALT 27, Alkaline Phosphatase 96, Total Protein 7.2, Albumin 4.0, Globulin 3.3, Albumin/Globulin Ratio 1.2, Triglycerides 118, Cholesterol 193, LDL Cholesterol Direct 112, HDL Cholesterol 44 04/06/17 06:30: Free T4 1.21, TSH 3rd Generation 0.95 04/06/17 06:30: RPR Nonreactive 04/05/17 06:57: Urine Opiates Screen Negative, Urine Methadone Screen Negative, Ur Barbiturates Screen Negative, Ur Phencyclidine Scrn Negative, Ur Amphetamines Screen Negative, U Benzodiazepines Scrn Negative, U Oth Cocaine Metabols Negative, U Cannabinoids Screen Negative 04/05/17 06:57: WBC 9.6 D, RBC 4.73, Hgb 13.5, Hct 42.5, MCV 89.9, MCH 28.5, MCHC 31.8, RDW 14.0, Plt Count 340, MPV 10.3 04/05/17 06:57: Alcohol, Quantitative < 10 04/05/17 06:57: Sodium 141, Potassium 4.1, Chloride 102, Carbon Dioxide 26, Anion Gap 17, BUN 14, Creatinine 0.6 L, Est GFR ( Amer) > 60, Est GFR ( Non-Af Amer) > 60, Random Glucose 129 H, Calcium 9.8, Total Bilirubin 0.4, AST 25, ALT 30, Alkaline Phosphatase 108, Total Protein 7.9, Albumin 4.5, Globulin 3.4, Albumin/Globulin Ratio 1.3 04/05/17 06:57: Urine Color Yellow, Urine Appearance Clear, Urine pH 6.0, Ur Specific Clyo >= 1.030, Urine Protein Trace H, Urine Glucose (UA) Negative, Urine Ketones Trace H, Urine Blood Negative, Urine Nitrate Negative, Urine Bilirubin Small H, Urine Urobilinogen 0.2, Ur Leukocyte Esterase Negative, Urine RBC Negative, Urine WBC 0 - 2, Ur Epithelial Cells 6 - 8, Urine Bacteria Small Vital Signs Temp Pulse Resp BP Pulse Ox 04/28/17 07:40 98.2 F 84 20 118/88 04/27/17 16:00 77 126/70 04/27/17 07:32 97.4 F L 89 20 135/79 04/26/17 16:00 85 121/64 04/26/17 07:26 98.2 F 120 H 20 116/64 04/25/17 07:03 98.3 F 85 18 135/67 95 04/23/17 16:00 90 114/61 04/23/17 07:17 97.9 F 94 H 20 111/62 04/22/17 18:25 107 H 144/71 04/21/17 16:00 103 H 130/70 04/21/17 07:40 97.2 F L 86 20 131/69 04/20/17 16:13 86 140/78 04/20/17 07:41 97.9 F 82 20 132/93 H 04/19/17 15:55 98 H 132/75 04/19/17 07:02 97.8 F 100 H 18 148/67 04/18/17 06:57 97.9 F 79 20 136/92 H 04/17/17 07:39 97.2 F L 88 20 131/77 04/16/17 08:41 98.3 F 116 H 20 118/70 04/16/17 08:18 97.2 F L 04/14/17 16:00 97 H 126/79 04/14/17 07:12 98.0 F 87 20 137/56 L 04/13/17 07:31 97.7 F 95 H 20 146/73 04/12/17 16:00 90 128/79 04/12/17 11:15 97.2 F L 04/12/17 07:11 98.7 F 110 H 20 124/72 04/11/17 15:00 96 H 129/61 04/11/17 06:52 98.2 F 111 H 16 144/92 H 04/09/17 07:00 97.2 F L 90 20 144/68 04/08/17 07:25 97.2 F L 101 H 21 160/74 H 04/08/17 07:18 97.2 F L 101 H 20 160/74 H 04/07/17 16:00 107 H 127/69 04/07/17 07:15 97.1 F L 86 20 144/70 04/06/17 16:00 103 H 126/77 04/06/17 07:17 98.6 F 105 H 22 142/65 04/05/17 16:00 116 H 178/84 H 04/05/17 12:32 98.8 F 104 H 140/78 04/05/17 11:00 98.6 F 103 H 19 130/75 100 04/05/17 07:51 98.6 F 94 H 18 127/78 96 04/05/17 06:25 98.8 F 74 18 130/81 99 Consultations:: List each consultation separately and include: 1. Reason for request. 2. Findings. 3. Follow-up Consultations: medical consult/follow up appreciated see notes for more detailed information Summary of Hospital Course include:: 1. Description of specific treatment plan utilized for patients during their course of treatmen. 2. Summarize the time- course for resolution of acute symptoms and/or regressed behaviors. 3. Describe issues identified and worked on during hospitalization. 4. Describe medication utilized. 5. Describe medical problems identified and treated. 6. Reassessment of suicide risk Summary of Hospital Course: Shortly pt is 71 year old female, with reporte h/o schizophrenia, four previous psych admissions, most recent was about a year ago to this unit, currently under care of , pt has h/o noncompliance with medications and f/u appts, was admitted to the psychiatric inpatient unit for disorganized thoughts and behavior, pt was not sleeping for the past two nights, pt was wondering on streets, pt also was feeling anxious because pt had impression that police is going to arrest her (pt denied h/o arrests, denied committed any crime), pt also was depressed, was not able to function, was noncompliant with her medications and follow up appts, last appt with psychiatrist was in January 2017. Pt was brought in by her because of disorganized and risky behavior. Pt needs further evaluation and stabilization, observation medication resumption and titration. Pt was seen at the morning, and later on at treatment team, poor personal hygiene, pt wears baggy clothes, long, uncombed, ortega, greasy hair pulled up to the fragile ponytail, fare ADLs. pt presented to be guarded, pt is delusional abut famous leahy Faustino Kang, pt was saying "last time you said I was delusional, but it is true...", pt said that she communicates with him "in a very special way, if I will tell you, you will think that I am nuts". pt refused to give any information at this time, from the previous interaction with pt, pt needs some time to opened up. pt seems to have good report with this automobile service writer, willing to discuss the medications, acknowledged that she needs to be on medications, but not for psychosis but for "depression, I was feeling very sad inside" was also was not able to function, had poor appetite and sleep. from the last admission pt had dangerous behavior, was running towards random cars for find a Chandler Jorge Luis. pt reported that she was feeling more anxious, she was worried abut her health, abut future, also had impression that she will be arrested by police, even though pt did not commit any crime. pt said she was not taking her medications as prescribed and she did not see her psychiatrist since January, when was asked why, pt said she was afraid to leave the house. no manic symptoms were elicited. pt denied using drugs, denied smoking. Past psych h/o: four hospitalizations, first was five years ago for depression to [facility], most recent was about a year ago for psychosis in this unit. pt also had h/o involuntary admission to [facility], pt denied h/o suicidal attempts. Family h/o: denied. Social: pt lives in with , h/o working at [employer] for 22 years , was retired. medical issues: arthritis r knee, chest pain due to anxiety pt gave permission to speak to her Trip Roca [phone], spoke to briefly yesterday, collaterals obtained, but no information disclosed, back then pt did not have consent, today pt said that this automobile service writer could disclose info about her to her . pt was not taking meds, was refusing to leave the house, med list from January: Risperdal consta 25mg IM q2 weeks last dose was in January Risperdal 2mg po amhs Prozac 30mg po daily Trazodone 100mg po hs goals for treatment: "I want to feel wonderful". pt does not have access to guns. 04/06/17 06:30 04/06/17 06:30 Lab Results 04/06/17 06:30: Hemoglobin A1c 6.2 04/06/17 06:30: WBC 7.6 D, RBC 4.73, Hgb 13.4, Hct 42.4, MCV 89.6, MCH 28.3, MCHC 31.6, RDW 14.2, Plt Count 337, MPV 10.2 04/06/17 06:30: Sodium 142, Potassium 4.5, Chloride 106, Carbon Dioxide 26, Anion Gap 15, BUN 12, Creatinine 0.6 L, Est GFR ( Amer) > 60, Est GFR ( Non-Af Amer) > 60, Random Glucose 124 H, Calcium 9.3, Total Bilirubin 0.4, AST 19, ALT 27, Alkaline Phosphatase 96, Total Protein 7.2, Albumin 4.0, Globulin 3.3, Albumin/Globulin Ratio 1.2, Triglycerides 118, Cholesterol 193, LDL Cholesterol Direct 112, HDL Cholesterol 44 04/06/17 06:30: Free T4 1.21, TSH 3rd Generation 0.95 04/05/17 06:57: Urine Opiates Screen Negative, Urine Methadone Screen Negative, Ur Barbiturates Screen Negative, Ur Phencyclidine Scrn Negative, Ur Amphetamines Screen Negative, U Benzodiazepines Scrn Negative, U Oth Cocaine Metabols Negative, U Cannabinoids Screen Negative 04/05/17 06:57: WBC 9.6 D, RBC 4.73, Hgb 13.5, Hct 42.5, MCV 89.9, MCH 28.5, MCHC 31.8, RDW 14.0, Plt Count 340, MPV 10.3 04/05/17 06:57: Alcohol, Quantitative < 10 04/05/17 06:57: Sodium 141, Potassium 4.1, Chloride 102, Carbon Dioxide 26, Anion Gap 17, BUN 14, Creatinine 0.6 L, Est GFR ( Amer) > 60, Est GFR ( Non-Af Amer) > 60, Random Glucose 129 H, Calcium 9.8, Total Bilirubin 0.4, AST 25, ALT 30, Alkaline Phosphatase 108, Total Protein 7.9, Albumin 4.5, Globulin 3.4, Albumin/Globulin Ratio 1.3 04/05/17 06:57: Urine Color Yellow, Urine Appearance Clear, Urine pH 6.0, Ur Specific Clyo >= 1.030, Urine Protein Trace H, Urine Glucose (UA) Negative, Urine Ketones Trace H, Urine Blood Negative, Urine Nitrate Negative, Urine Bilirubin Small H, Urine Urobilinogen 0.2, Ur Leukocyte Esterase Negative, Urine RBC Negative, Urine WBC 0 - 2, Ur Epithelial Cells 6 - 8, Urine Bacteria Small Vital Signs Temp Pulse Resp BP Pulse Ox 04/06/17 07:17 98.6 F 105 H 22 142/65 04/05/17 16:00 116 H 178/84 H 04/05/17 12:32 98.8 F 104 H 140/78 04/05/17 11:00 98.6 F 103 H 19 130/75 100 04/05/17 07:51 98.6 F 94 H 18 127/78 96 04/05/17 06:25 98.8 F 74 18 130/81 99 during this hospitalization pt was not willing to start any new medications, pt was willing to continue ONLY on risperdal and prozac which were slowly titrated: pt was stabilized on the following meds: FLUoxetine 40 mg PO DAILY for depression and anxiety klonopin bid 0.125mg for anxiety traZODone [Desyrel] 50 mg PO HS prn for insomnia/depression risperdal 4mg po am 4mg at 4pm and 4mg HS for psychosis cogentin 1mg po amhs for EPS pt is not interested to have injectable form of meds, pt was educated about injectable form of Risperdal, but pt said "I do not like needles" family meeting took place with pt's Chanelle Monroy during meeting discussed: IOP program, but pt refused injectable form of meds, Pt refused, but willing to take meds by mouth family therapy, pt and her agreed during the tx team meeting, initially pt agreed but later on does not want to this automobile service writer thinks that pt might benefit from supervised setting like [facility] living facility, discussed with , dialog initiated pt's seems to be unsatisfied, was concentrating on his problems, at times was telling pt that she has "stupid ideas", was upset when was redirected. Pt denied any abuse from his side. at the beginning of this admission pt refused to take a shower, refused to participate in groups, but by the end, pt was taking shower, was participating in groups, was more visible in the unit. pt tolerated medications well, no side effects observed or reported, AIMS 0, no EPS. pt was seen by medical team for pharyngitis, had two courses of antibiotics, felt better, see medical team notes for more information. overall pt improved: pt does not feel that she will Faustino Kang "it is close to nonexistence" pt acknowledged her dangerous behavior to go outside in the middle of the night looking for Faustino Kang, "I know it is dangerous, I do not feel urge to go in anyway, what is this for?, I will never him". pt also feels that police is not after her "it is not bothering me, moreover I didn't commit a crime, if they wanted to arrest me, they know where I live". pt reached maximum effect from acute psychiatric unit, this time pt deems ready for discharge: At the time of the discharge pt denied been depressed, denied thoughts of harming self or others, denied psychotic symptoms, and pt does not appeared to be psychotic, denied been anxious, pt is not in imminent danger to self or others, will be following up at Dr. Ball at [facility]. information about follow up appointment, time and address provided to the pt, it is patient responsibility to follow up with outpatient clinic, PMD as well as specialists (see SW note for more detailed information). In case pt will need to obtain results of studies pending at discharge pt was provided with contact information of Psychiatric Inpatient unit [phone] as well as Medical Record Department [phone]. pt is not smoking or using drugs. pt was provided with prescriptions for all of medications (please see medication reconciliation form) Pt was educated about safety plan in case of worsening of symptoms or in case of suicidal or homicidal ideation call 911 or go to the nearest ER, also was educated to take meds as prescribed and stay away from drugs, pt verbalized understanding. - Diagnosis (1) Delusional disorder, erotomanic type, continuous Status: Chronic Priority: High - Final Diagnosis (DSM 5) Condition upon Discharge: IMPROVED Disposition: HOME/ ROUTINE Follow-up Treatment Plan: At the time of the discharge pt denied been depressed, denied thoughts of harming self or others, denied psychotic symptoms, and pt does not appeared to be psychotic, denied been anxious, pt is not in imminent danger to self or others, will be following up at Dr. Ball at [facility]. information about follow up appointment, time and address provided to the pt, it is patient responsibility to follow up with outpatient clinic, PMD as well as specialists (see SW note for more detailed information). In case pt will need to obtain results of studies pending at discharge pt was provided with contact information of Psychiatric Inpatient unit [phone] as well as Medical Record Department [phone]. pt is not smoking or using drugs. pt was provided with prescriptions for all of medications (please see medication reconciliation form) Pt was educated about safety plan in case of worsening of symptoms or in case of suicidal or homicidal ideation call 911 or go to the nearest ER, also was educated to take meds as prescribed and stay away from drugs, pt verbalized understanding. Prescriptions/Medication Reconciliation: Benztropine [Cogentin] 1 mg PO AMHS #30 tab clonazePAM [klonopin Wafers] 0.125 mg PO BID #30 odt Fluoxetine HCl [Prozac] 40 mg PO DAILY #14 capsule risperiDONE [RisperDAL Tab] 4 mg PO TID #45 tab traZODone [Desyrel] 50 mg PO HS #14 tab - Smoking Cessation Smoking Cessation Medication prescribed: No Reason for not providing: pt does not smoke - Antipsychotic Medications Pt discharged on 2 or more routine antipsychotic medications: No
== END 2017-04-28 14:24 | disposition home or self-care (01) | DRG 885 ==
LOC: ED 05:56 → ERH 10:14 → PSYC 12:06
PROVIDERS: ADMIT Psychiatry & Neurology Psychiatry; ATTEND Psychiatry & Neurology Psychiatry
DX: F20.9 Schizophrenia, unspecified (principal); F22 Delusional disorders; N39.0 Urinary tract infection, site not specified; J02.9 Acute pharyngitis, unspecified; F41.9 Anxiety disorder, unspecified; F32.9 Major depressive disorder, single episode, unspecified; M17.0 Bilateral primary osteoarthritis of knee; M54.5 Low back pain; N39.44 Nocturnal enuresis; E66.9 Obesity, unspecified; F52.8 Other sexual dysfunction not due to a substance or known physiological condition; Z91.14 Patient's other noncompliance with medication regimen; Z68.33 Body mass index [BMI] 33.0-33.9, adult

== ENCOUNTER 2018-01-04 20:38 | Inpatient (IN) | payer MEDICARE ==
[2018-01-04 21:01] VITALS: BMI 32.6
[2018-01-04 22:13] LABS: PH,URINE 6.5 (4.7-8.0); URINE BILIRUBIN NEGATIVE (NEGATIVE); URINE BLOOD NEGATIVE (NEGATIVE); URINE GLUCOSE (UA) NEGATIVE (NEGATIVE); URINE LEUKOCYTE ESTERASE NEGATIVE Leu/uL (NEGATIVE); URINE PROTEIN NEGATIVE mg/dL (<30 mg/dL); URINE UROBILINOGEN 0.2 E.U./dL (<1 E.U./dL)
[2018-01-04 22:14] LABS: BASO # 0.03 K/mm3 (0.0-2.0); BASO % 0.3 % (0.0-3.0); EOS # 0.2 (0.0-0.7); EOS % 1.5 % (1.5-5.0); GRAN # 7.81 (1.4-6.5); HEMOGLOBIN 11.8 g/dL (12.0-16.0); LYMPH # 2.2 (1.2-3.4); LYMPH % 19.8 % (22.0-35.0); MEAN CELL VOLUME 89.8 fl (80.0-105.0); MEAN CORPUSCULAR HEMOGLOBIN 28.6 pg (25.0-35.0); MEAN CORPUSCULAR HGB CONC 31.9 g/dl (31.0-37.0); MONO # 0.8 (0.1-0.6); MONO % 7.4 % (1.0-6.0); RBC 4.12 10^6/uL (3.5-6.1); RED CELL DISTRIBUTION WIDTH 13.9 % (11.5-14.5)
[2018-01-04 22:15] LABS: URINE APPEARANCE CLEAR (CLEAR); URINE COLOR STRAW (YELLOW)
[2018-01-04 22:23] LABS: ACETAMINOPHEN < 10.0 ug/ml (10.0-20.0); ALB/GLOB RATIO 1.4 (1.1-1.8); ALBUMIN 3.8 g/dL (3.0-4.8); ALT/SGPT 20 U/L (7-56); AST/SGOT 17 U/L (14-36); BLOOD UREA NITROGEN 13 mg/dL (7-21); CALCIUM 8.8 mg/dL (8.4-10.5); GFR NON-AFRICAN AMERICAN > 60; SALICYLATE < 1 mg/dL (2.0-20.0)
[2018-01-04 22:39] LABS: BARBITURATES, UR NEGATIVE (NEGATIVE); BENZODIAZEPINES, UR NEGATIVE (NEGATIVE); OPIATES, UR NEGATIVE (NEGATIVE); PHENCYCLIDINE, UR NEGATIVE (NEGATIVE)
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
[2018-01-05 01:49] VITALS: O2SAT 100
[2018-01-05] MEDS ORDERED: Magnesium Hydroxide Susp 30 ml UD PO PRN (02:18)
[2018-01-05] MEDS ORDERED: Alum-Mag Hydrox-Simethicone Susp (30 mL) PO PRN (02:18)
--- NOTE | 2018-01-05 02:51 | PCM.BM ---
<Olu Hart - Last Filed: 01/05/18 02:48> Treatment Plan Problems - Problems identified on initial assessmt Anxiety Date Initiated: 01/05/18 Time Initiated: 02:00 Assessment reference: NA Status: Active Priority: 1 Delusions Date Initiated: 01/05/18 Time Initiated: 02:00 Assessment reference: NA Status: Active Priority: 2 Social Isolation Date Initiated: 01/05/18 Time Initiated: 02:00 Assessment reference: NA Status: Active Priority: 3 Ineffective Coping Date Initiated: 01/05/18 Time Initiated: 02:00 Assessment reference: NA Status: Active Priority: 4 Altered Sleep Patterns Date Initiated: 01/05/18 Time Initiated: 02:00 Assessment reference: NA Status: Active Priority: 5 Treatment assets and liabiliti Patient Assests: adapts well, cooperative, ADL independent, good support system, negotiates basic needs Patient Liabilities: other (paranoia/delusions) - Milieu Protocol Maintain good personal hygiene: daily Encourage regular showers, daily Remind patient to perform daily oral care, daily Assist patient to perform ADL's Conduct patient checks and document Observation sheet: Q15 minutes Maintain personal safety: every shift Educate patient to report safety concerns to staff, every shift Monitor environment for contraband/sharps Medication safety: Monitor for expected outcome, potential side effects: every shift, Assess barriers to learning: every shift, Assess readiness for medication education: every shift Discharge/Continuing Care - Education Needs Education Needs: Family Medication, Family Diagnosis/Disease Process, Family Coping Skills, Family Health Practices/Safety, Patient Medication, Patient Diagnosis/Disease Process, Patient Coping Skills, Patient Health Practices/Safety - Discharge Discharge Criteria: Free of paranoid thoughts, Normal sleep pattern <Essence Mulligan - Last Filed: 01/05/18 08:30> - Diagnosis (1) Delusional disorder, erotomanic type, continuous Status: Chronic Interventions: 01/05/18 08:30 Psychoeducation/psychotherapy Psychopharmacology/adjustment of medications as needed/ monitoring possible side effects Evaluate pt on daily basis Compliance with medications and follow up appointments Long acting medication if pt is noncompliant with pill form Suicide and homicide risk assessment and prevention, coping strategies, safety plan Relapse prevention Reduction of symptoms Improve functional status Possible assertive community treatment Cognitive behavioral therapy Family involvement Possible social skill training as outpatient <Sharon Andino - Last Filed: 01/06/18 16:35> Family Contact - Outside Agency Dr. Ball Care involvment: Information-sharing Agency contact name: Dr. Ball at [facility]
[2018-01-05 08:06] LABS: GLUCOSE,FASTING 100 mg/dL (65-110); HDL CHOLESTEROL 51 mg/dL (29-60)
[2018-01-05 08:16] LABS: LDL CHOLESTEROL 56 mg/dL (0-129)
--- NOTE | 2018-01-05 08:47 | RAD ---
Date of service: 01/05/2018 HISTORY: clear COMPARISON: 10/12/2017 FINDINGS: LUNGS: The lungs are clear. PLEURA: No significant pleural effusion identified, no pneumothorax apparent. CARDIOVASCULAR: Normal. OSSEOUS STRUCTURES: No significant abnormalities. VISUALIZED UPPER ABDOMEN: Normal. OTHER FINDINGS: None. IMPRESSION: No active pulmonary disease.
--- NOTE | 2018-01-05 15:21 | PCM.PSYCH ---
Initial Psychiatric Evaluation - Initial Psychiatric Evaluation Type of Admission: Voluntary Legal Status: Capacity (patient has capacity to sign consent for treatment) Chief Complaint (in patient's own words): "I was afraid to be arrested, I note that they did not commit the crime, but steal I was afraid that police is after me" Patient's Reaction to Hospitalization: patient was hospitalized for evaluation and stabilization of paranoia, delusions, inability to function, patient was not leaving the house for past 3 months. History of Present Illness and Precipitating Events: Shortly pt is 72 year old female, with reported h/o schizophrenia v/s delusional disorder, five previous psych admissions, most recent was 04/05/2017 to this unit, currently under care of , pt has h/o noncompliance with medications and f/u appts, but this time claimed that she was compliant, was admitted to the psychiatric inpatient unit for disorganized thoughts and behavior, paranoia, feeling that police is going to arrest her, even thought pt did not commit a crime pt was feeling unease and anxious as a result for the past week pt became very depressed, unable to function, requested her to bring her to the hospital. even though that patient was compliant with the medications and follow-up appointment (pt has scheduled appt for today 01/05/18, but could not wait), obviously patient failed outpatient treatment and pt requires further evaluation and stabilization, medication adjustment and titrat ion, observation. Pt was seen at the morning at the treatment team room, poor personal hygiene, seems lost a lot of weight, pt wears baggy clothes, long, uncombed, ortega, greasy hair, flat affect, dirty eyeglasses, long/dirty nails, fair ADLs. pt presented to be guarded, patient presented to be paranoid, patient said that she was afraid that she will be arrested by police, patient knows that she did not commit the crime but could not control her paranoia, patient reported that she is monitored by cameras which are implanted into her apartment, patient reported that she was feeling that people are talking about her, patient reported that she is afraid that olice will arrest her and place her in long term, patient reported that she also has feelings that herthoughts are stolen from her as well as somebody is inserting foreign thoughts into her mind. 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 pt reported that she was feeling more anxious, she was worried abut her health, about future. pt said she was compliant with meds and f/u appts. no manic symptoms were elicited. pt denied using drugs, denied smoking. Past psych h/o: five hospitalizations, first was six years ago for depression to [facility], most recent was 04/2017 for psychosis in this unit. pt also had [place] [facility] [place] pt denied h/o suicidal attempts. Family h/o: denied. Social: pt lives in with , h/o working at [employer] for 22 years, was retired. medical issues: arthritis r knee, pt c/o hands numbness. pt gave permission to speak to her Trip Roca [phone], will call for collaterals. Prozac 40 mg daily field in December 18 Risperdal 2 mg twice a day filled in December 08 Trazodone 50 mg at the nighttime filled in December 06 Benztropine 1 mg twice a day filled in August 1999 donepezil 10 mg daily as per staff pt said that she was not seeing her psychiatrist for three months because pt was afraid to leave the house. 01/04/18 22:07 01/04/18 22:07 Lab Results 01/05/18 07:45: TSH 3rd Generation 1.35 01/05/18 07:45: Fasting Glucose 100, Triglycerides 76, Cholesterol 131, LDL Cholesterol Direct 56, HDL Cholesterol 51 01/04/18 22:07: Alcohol, Quantitative < 10 01/04/18 22:07: Salicylates < 1 L, Acetaminophen < 10.0 L 01/04/18 22:07: Urine Opiates Screen Negative, Urine Methadone Screen Negative, Ur Barbiturates Screen Negative, Ur Phencyclidine Scrn Negative, Ur Amphetamines Screen Negative, U Benzodiazepines Scrn Negative, U Oth Cocaine Metabols Negative, U Cannabinoids Screen Negative 01/04/18 22:07: Sodium 137, Potassium 4.1, Chloride 100, Carbon Dioxide 29, Anio n Gap 12, BUN 13, Creatinine 0.6 L, Est GFR ( Amer) > 60, Est GFR (Non-Af Amer) > 60, Random Glucose 112 H, Calcium 8.8, Magnesium 2.0, Total Bilirubin 0.3, AST 17, ALT 20, Alkaline Phosphatase 76, Total Protein 6.5, Albumin 3.8, Globulin 2.8, Albumin/Globulin Ratio 1.4 01/04/18 22:07: Urine Color Straw, Urine Appearance Clear, Urine pH 6.5, Ur Specific [place] <= 1.005, Urine Protein Negative, Urine Glucose (UA) Negative, Urine Ketones Negative, Urine Blood Negative, Urine Nitrate Negative, Urine Bilirubin Negative, Urine Urobilinogen 0.2, Ur Leukocyte Esterase Negative 01/04/18 22:07: WBC 11.0 D, RBC 4.12, Hgb 11.8 L, Hct 37.0, MCV 89.8, MCH 28.6, MCHC 31.9, RDW 13.9, Plt Count 269, MPV 10.0, Gran % 71.0 H, Lymph % (Auto) 19.8 L, [place] % (Auto) 7.4 H, Eos % (Auto) 1.5, Baso % (Auto) 0.3, Gran # 7.81 H, Lymph # (Auto) 2.2, [place] # (Auto) 0.8 H, Eos # (Auto) 0.2, Baso # (Auto) 0.03 Vital Signs Temp Pulse Resp BP Pulse Ox 01/05/18 07:18 97.1 F L 80 20 156/79 H 01/05/18 01:38 97.9 F 74 18 136/71 01/05/18 01:15 85 18 128/74 100 01/04/18 21:08 98.1 F 88 18 124/76 95 Current Medications: Active Medications Generic Name Dose Route Start Last Admin Trade Name Freq PRN Reason Stop Dose Admin Acetaminophen 650 mg 01/05/18 02:18 Tylenol 325mg Tab PO Q4 PRN Pain, moderate (4-7) Al Hydrox/Mg Hydrox/Simethicone 30 ml 01/05/18 02:18 Maalox Plus 30 Ml PO DAILY PRN Upset Stomach Atorvastatin Calcium 20 mg 01/05/18 08:00 Lipitor PO DAILY WHITNEY Fluoxetine HCl 40 mg 01/05/18 08:00 Prozac PO DAILY WHITNEY Magnesium Hydroxide 30 ml 01/05/18 02:18 Milk Of Magnesia PO DAILY PRN Constipation Risperidone 2 mg 01/05/18 10:00 Risperdal Tab PO [facility] Protocol Trazodone HCl 50 mg 01/05/18 02:00 01/05/18 02:04 Desyrel PO 50 mg HS WHITNEY Administration Past Psychiatric History - Past Psychiatric History Previous Treatment History: Inpatient Prior Professional Help: see HPI Prior Psychiatric Treatment: see HPI At what hospital: see HPI Duration: see HPI Nature of Treatment: see HPI Explanation of prior treatment: see HPI History of Abuse: see HPI History of ETOH/Drug Use: denied using drugs denied smoking cigarettes, denied alcohol consumption History of Family Illness: unknown Pertinent Medical Hx (Current Medical&Sleep Prob, Allergies): Allergies Allergy/AdvReac Type Severity Reaction Status Date / Time phenytoin sodium Allergy Intermediate RASH Verified 01/05/18 01:55 [From Dilantin] phenytoin sodium extended Allergy Intermediate RASH Verified 01/05/18 01:55 [From Dilantin] Fluoxetine HCl [Prozac] 40 mg PO DAILY #14 capsule 04/27/17 traZODone [Desyrel] 50 mg PO HS #14 tab 04/27/17 Atorvastatin [Lipitor] 1 tab PO DAILY 01/04/18 Pregabalin [Lyrica] 50 mg PO BID 01/04/18 risperiDONE [RisperDAL Tab] 2 mg PO BID 01/04/18 Review of Systems - Review of Systems Systems not reviewed;Unavailable: Acuity of Condition - EENT Eyes: As Per HPI Ears: As Per HPI Nose/Mouth/Throat: As Per HPI - Breasts Breasts: As Per HPI - Cardiovascular Cardiovascular: As Per HPI - Respiratory Respiratory: As Per HPI - Gastrointestinal Gastrointestinal: As Per HPI - Genitourinary Genitourinary: As Per HPI - Reproductive: Female Reproductive:Female: As Per HPI - Menstruation Menstruation: As Per HPI - Musculoskeletal Musculoskeletal: As Par HPI - Integumentary Integumentary: As Per HPI - Neurological Neurological: As Per HPI - Psychiatric Psychiatric: As Per HPI - Endocrine Endocrine: As Per HPI - Hematologic/Lymphatic Hematologic: As Per HPI Mental Status Examination - Personal Presentation Personal Presentation: Looks older than stated age - Affect Affect: Constricted, Flat - Motor Activity Motor Activity: Psychomotor Retardation - Reliability in Providing Information Reliability in Providing Information: Fair - Speech Speech: Disorganized - Mood Mood: Depressed, Anxious - Formal Thought Process Formal Thought Process: Hallucinations, Delusions, Paranoia, Loosening of associations, Circumstantial, Thought Broadcasting - Hallucinations/Delusions Delusions: Persecution - Obsessions/Compulsions Obsessions: None Compulsions: None - Cognitive Functions Orientation: Person, Place, Situation Sensorium: Alert Attention/Concentration: Easily distracted Abstract Thinking: [place] Estimate of Intelligence: Average Judgement: Intact, as evidence by: Insight regarding need for hospitalization - Risk Risk: Self-mutilation, Diminished functioning - Strength & Assets Inventory Strength & Assets Inventory: Family support, Cooperative, Other (elatively good physical health, no drugs involved) - Limitations Limitations: Other (history of noncompliance, severe symptoms) DSM 5 DX - DSM 5 DSM 5 Diagnosis: schizophrenia as per history Delusional disorder - Recommended/Plan of Treatment Treatment Recommendations and Plan of Treatment: Milieu/structure/supportive therapy Medical consult will be called Patient complained of left knee arthritis we'll pull orthopedists consultation Patient complain of numbness in her upper extremities will call for neurology c onsultation consultation for discharge plan and social issues Med management prozac 40 mg daily for depression and anxiety Trazodone 50 mg at the nighttime for insomnia and depression Risperdal 2 mg twice a day for mood stabilization and psychosis Off note patient has been on Risperdal Consta in the past Family involvement Follow up on labs Will monitor closely Pt was educated about risk/benefits and alternatives of medications, coping strategies (safety plan, suicide prevention), relapse prevention, importance of follow up with psychiatrist and therapist, stay away from drugs/alcohol/smoking Projected ELOS: 10 days Prognosis: guarded Discharge Plan and Discharge Criteria: Pt will be not depressed or manic, will be more hopeful, will be not psychotic or anxious, will be not having thoughts of harming self or others, will be tolerating medications well, will not have major side effects, will be able to function, will not pose threat to self or others. - Smoking Cessation Smoking Cessation Initiated: No Reason for not providing: denied smoking
--- NOTE | 2018-01-05 16:07 | CARD ---
APPROVED REPORT Date of service: 01/04/2018 EKG Measurement Heart [id number] <Conclusion> Normal sinus rhythm Normal ECG
--- NOTE | 2018-01-05 20:12 | CON ---
DATE: 01/05/2018 HISTORY OF PRESENT ILLNESS: I know Jeni very well from the office and also from seeing her in the psychiatric floor for multiple other times she has been there. She is a 72-year-old white female who presents with complaints of anxiety, depression for about a month. Her brings her in. He kind of takes care of her, but got very worse over the past week. She is compliant with the medication that is just not working. She has a psychiatrist appointment for tomorrow, but they could not wait and she also has a history of high cholesterol, schizophrenia, anxiety, depression. She has arthritis of the right knee. She had surgery of an ovary. FAMILY HISTORY: Unknown. SOCIAL HISTORY: No smoking, no drinking, no drugs. ALLERGIES: PHENYTOIN. MEDICATIONS: She is on Lipitor, Lyrica, and Risperdal. REVIEW OF SYSTEMS: No acute vision or hearing changes. No sore throat. No shortness of breath or cough. No chest pain or palpitations. No nausea, vomiting, constipation, or diarrhea. No problems urinating. No skin issues. No numbness or tingling. She is very anxious and depressed, very worried. PHYSICAL EXAMINATION: VITAL SIGNS: She has a 98.1 temperature, 88 pulse, 18 respiratory rate, 124/76 blood pressure, 95% O2 sat on room air. GENERAL: She is well-appearing, nontoxic, little bit stressed. HEENT: Head is atraumatic and normocephalic. Extraocular muscles are intact. Pupils are equal and reactive to light. Throat is moist. NECK: Supple. HEART: Regular rate. Normal S1 and S2. LUNGS: Decreased breath sounds, but clear to auscultation bilaterally. No wheezes, no rhonchi, no rales. ABDOMEN: Soft and nontender. Positive bowel sounds. No guarding, no rebound, no CVA tenderness. EXTREMITIES: No edema. She moves all four extremities. NEUROLOGIC: GCS is 15. Cranial nerves II through XII grossly intact. Normal speech. Tongue is midline. She could close her eyes tight. She could follow my finger with an H sign. She could put her arms over her head. No apparent neurological issues. SKIN: Warm and dry. No apparent rashes or ulcers. NODES: Thyroid midline. No palpable or appreciable lymphadenopathy. LABORATORY DATA: She had multiple tests done. Chest x-ray was okay. She has a urine drug screen which is okay. She had a urine test which is okay. She has a sodium 137, potassium of 4.1. BUN 13, creatinine 0.6. GFR is greater than 60. Sugar is 112. Calcium is 8.8, magnesium of 2. Total bilirubin is 0.3, AST is 17, ALT is 20, alkaline phosphatase 76. Total protein 6.5, albumin 3.8, globulin 2.8. Triglycerides 76, cholesterol is 131, LDL is 56, HDL 51. TSH is 1.35. White count is 11, hemoglobin of 11.8, hematocrit 37, and platelets of 269. IMPRESSION AND PLAN: We will check her labs tomorrow. We will continue with her regular medications. She is on Aricept, Cogentin, Desyrel, Lipitor, Milk of Magnesia, Maalox, Prozac, Risperdal, Tylenol; and as per Psychiatry, I will follow medically and hopefully, she will get better quickly. She is here for anxiety, depression, and schizophrenia. Thank you very much for allowing me to participate in her care. Manolo Mtz DO
--- NOTE | 2018-01-05 21:34 | CON ---
DATE: 01/05/2018 NEUROLOGY CONSULTATION CHIEF COMPLAINT: Evaluation for paraesthesia, tingling and numbness in both arms, especially the left hand and feet. Dr. Aburto, Sr. as an outpatient for neuropathy and cognitive impairment. HISTORY OF PRESENT ILLNESS: This is a 72-year-old woman with history of hyperlipidemia, schizophrenia, presenting with the complaints of anxiety and depression, worsening for the past few months, found wandering around but denies any hallucinations, is currently in Psychiatric Department, undergoing medical management for underlying depression, anxiety. She does have this cognitive impairment, does complain of tingling, numbness ongoing in the arms, especially in the left hand as well as the feet. She was on Lyrica in the past but has not taken Lyrica for a while but it did help in the past. No focal neurological deficits at this time. He is wandering around without any difficulties. PAST MEDICAL HISTORY: As above. SOCIAL HISTORY: No illicit drug use, smoking, or EtOH abuse. ALLERGIES: ALLERGIC TO PHENYTOIN AND PHENYTOIN SODIUM EXTENDED RELEASE. MEDICATIONS: Reviewed by nurses' reconciliation sheet. FAMILY HISTORY: Noncontributory. REVIEW OF SYSTEMS: Fourteen-point review of systems is negative except as per the HPI. LABORATORY DATA: Fasting glucose is 100. PHYSICAL EXAMINATION: VITAL SIGNS: Temperature 97.9, pulse rate of 74, blood pressure 136/71, respiratory rate of 18, O2 saturation 100% by room air. GENERAL: Patient is sitting up in bed, in no acute distress. HEENT: Atraumatic, normocephalic. PERRLA. Extraocular muscles intact. NECK: Supple. No JVD. No adenopathy noted. LUNGS: Clear to auscultation. No adventitious sounds. HEART: S1, S2. Normal rate and rhythm. No murmurs, rubs, or gallops. ABDOMEN: Soft, nontender and nondistended. Bowel sounds are present. EXTREMITIES: No clubbing. No cyanosis. Peripheral pulses 2+ felt bilaterally. NEUROLOGIC: The patient has very flat affect, tangential speech and anxious. Otherwise speech is fluent without any errors. Patient is alert and oriented to person, place, month, and year. Cranial nerves II through XII intact. Motor: Moves all extremities equally. No pronator drift seen. Sensory: Light touch, pinprick, proprioception, and vibration are intact. DTRs are 2+ throughout and 1 at both knees and ankles. Coordination: [id number] intact. No dysmetria noted. Gait is slightly wide-based but not off balance. IMPRESSION AND PLAN: Paresthesias in the extremities, mostly in the feet as well as left arm, could be secondary to underlying peripheral neuropathy and she has some mild cognitive impairment, is on Aricept. At this time, we would recommended: 1. To continue with adjustment of her medications for her psychiatric depression, anxiety, and schizophrenia. 2. We will place her on Lyrica 50 mg p.o. b.i.d. for neuropathic relief and could follow up as an outpatient with Dr. Aburto, . for possible further repeat EMG to see the extent of neuropathy that she does have. At this time, she is clinically stable. Thank you for this consult. Fredi Aburto MD
[2018-01-06 07:58] LABS: HEMOGLOBIN 13.1 g/dL (12.0-16.0); MEAN CELL VOLUME 90.4 fl (80.0-105.0); MEAN CORPUSCULAR HEMOGLOBIN 28.7 pg (25.0-35.0); MEAN CORPUSCULAR HGB CONC 31.8 g/dl (31.0-37.0); MEAN PLATELET VOLUME 10.2 fl (7.0-11.0); RBC 4.56 10^6/uL (3.5-6.1); RED CELL DISTRIBUTION WIDTH 13.9 % (11.5-14.5); WHITE BLOOD COUNT 8.8 10^3/ul (4.5-11.0)
[2018-01-06 08:10] LABS: ALB/GLOB RATIO 1.3 (1.1-1.8); ALBUMIN 3.6 g/dL (3.0-4.8); ALT/SGPT 20 U/L (7-56); AST/SGOT 16 U/L (14-36); BLOOD UREA NITROGEN 14 mg/dL (7-21); GFR NON-AFRICAN AMERICAN > 60
--- NOTE | 2018-01-06 14:45 | PCM.PYCHPN ---
Psychiatric Progress Note - Psychiatric Progress Note Patient seen today, length of contact: 30 minutes Patient Chief Complaint: "I was afraid to be arrested, I know that I did not commit the crime, but still I was afraid that police is after me, yes, I was little confused, I was looking for Faustino Alejandro" Problems Identified/Issues Discussed: Suicide/ homicide prevention, past psychiatric h/o, current psychiatric symptoms, medical problems, risk/benefits and alternatives of medications, medications compliance, coping strategies, substance abuse h/o, relapse prevention, importance of follow up with psychiatrist and therapist, discharge plan. Medical Problems: history of arthritis, numbness in her upper extremities, dyslipidemia, HT, obesity Diagnostic Results: 01/06/18 07:40 01/06/18 07:40 Lab Results 01/06/18 07:40: Sodium 139, Potassium 4.6, Chloride 103, Carbon Dioxide 31, Anion Gap 10, BUN 14, Creatinine 0.7, Est GFR ( Amer) > 60, Est GFR (Non- Af Amer) > 60, Random Glucose 107, Calcium 9.0, Total Bilirubin 0.3, AST 16, ALT 20, Alkaline Phosphatase 65, Total Protein 6.4, Albumin 3.6, Globulin 2.8, Albumin/Globulin Ratio 1.3 01/06/18 07:40: WBC 8.8, RBC 4.56, Hgb 13.1, Hct 41.2, MCV 90.4, MCH 28.7, MCHC 31.8, RDW 13.9, Plt Count 266, MPV 10.2 01/05/18 07:45: RPR Nonreactive 01/05/18 07:45: TSH 3rd Generation 1.35 01/05/18 07:45: Fasting Glucose 100, Triglycerides 76, Cholesterol 131, LDL Cholesterol Direct 56, HDL Cholesterol 51 01/04/18 22:07: Alcohol, Quantitative < 10 01/04/18 22:07: Salicylates < 1 L, Acetaminophen < 10.0 L 01/04/18 22:07: Urine Opiates Screen Negative, Urine Methadone Screen Negative, Ur Barbiturates Screen Negative, Ur Phencyclidine Scrn Negative, Ur Amphetamines Screen Negative, U Benzodiazepines Scrn Negative, U Oth Cocaine Metabols Negative, U Cannabinoids Screen Negative 01/04/18 22:07: Sodium 137, Potassium 4.1, Chloride 100, Carbon Dioxide 29, An ion Gap 12, BUN 13, Creatinine 0.6 L, Est GFR ( Amer) > 60, Est GFR (Non- Af Amer) > 60, Random Glucose 112 H, Calcium 8.8, Magnesium 2.0, Total Bilirubin 0.3, AST 17, ALT 20, Alkaline Phosphatase 76, Total Protein 6.5, Albumin 3.8, Globulin 2.8, Albumin/Globulin Ratio 1.4 01/04/18 22:07: Urine Color Straw, Urine Appearance Clear, Urine pH 6.5, Ur Specific [place] <= 1.005, Urine Protein Negative, Urine Glucose (UA) Negative, Urine Ketones Negative, Urine Blood Negative, Urine Nitrate Negative, Urine Bilirubin Negative, Urine Urobilinogen 0.2, Ur Leukocyte Esterase Negative 01/04/18 22:07: WBC 11.0 D, RBC 4.12, Hgb 11.8 L, Hct 37.0, MCV 89.8, MCH 28.6, MCHC 31.9, RDW 13.9, Plt Count 269, MPV 10.0, Gran % 71.0 H, Lymph % (Auto) 19.8 L, [place] % (Auto) 7.4 H, Eos % (Auto) 1.5, Baso % (Auto) 0.3, Gran # 7.81 H, Lymph # (Auto) 2.2, [place] # (Auto) 0.8 H, Eos # (Auto) 0.2, Baso # (Auto) 0.03 Vital Signs Temp Pulse Resp BP Pulse Ox 01/06/18 07:15 97.8 F 91 H 20 122/73 01/05/18 15:00 89 131/68 01/05/18 07:18 97.1 F L 80 20 156/79 H 01/05/18 01:38 97.9 F 74 18 136/71 01/05/18 01:15 85 18 128/74 100 01/04/18 21:08 98.1 F 88 18 124/76 95 DSM 5 Symptoms Update: Shortly pt is 72 year old female, with reported h/o schizophrenia v/s delusional disorder, five previous psych admissions, most recent was 04/05/2017 to this unit, currently under care of , pt has h/o noncompliance with medications and f/u appts, but this time claimed that she was compliant, was admitted to the psychiatric inpatient unit for disorganized thoughts and behavior, paranoia, feeling that police is going to arrest her, even thought pt did not commit a crime pt was feeling unease and anxious as a result for the past week pt became very depressed, unable to function, requested her to bring her to the hospital. even though that patient was compliant with the medications and follow-up appointment (pt has scheduled appt for today 01/05/18, but could not wait), obviously patient failed outpatient treatment and pt requires further evaluation and stabilization, medication adjustment and titration, observation. Pt was seen at the morning at the treatment team, poor personal hygiene, pt wears baggy clothes, long, uncombed, ortega, greasy hair, flat affect, dirty eyeglasses, long/dirty nails, poor ADLs. staff patient was trying to find the exit from the unit, in order to go to police station to meet with Faustino Kang, patient still present to be psychotic, confused, disorganized. patient reported that she was compliant with the medications, patient reported that she missed her appointment with psychiatrist for past 3 months because she was afraid that she might be arrested, as per patient her Trip asked to call in for her prescriptions. pt was on risperdal 2mg po bid and no Risperdal consta, as per pharmacy report patient was prescribed Risperdal Consta 25 mg every [address] Jaramillo, last filled in January 2017. patient does not want to change her medications, but agreed to increase the dose of Risperdal. So far patient tolerates medications well, no side effects observed or reported, aims 0, no EPS. Impression: Schizophrenia Delusional disorder. Medication Change: Yes (Risperdal increased) Medical Record Reviewed: Yes Consults ordered or reviewed: history of arthritis, (ortho) is on vacation, will see pt next week Patient complain off numbness in her upper extremities, patient was seen by Dr. Aburto, Lyrica was started Patient also was seen by PMD Mental Status Examination - Cognitive Function Orientation: Person, Place, Situation Memory: Impaired Attention: Poor Concentration: Poor Association: Loose Fund of Knowledge: Poor - Mood Mood: Depressed, Anxious - Affect Affect: Constricted, Flat - Formal Thought Process Formal Thought Process: Hallucinations, Delusions (erotomanic delusions), Paranoia, Loosening of associations, Circumstantial, Thought Broadcasting - Homicidal Ideation Homicidal Ideation: No Goal/Treatment Plan - Goal/Treatment Plan Need for Continued Stay: Remain at risks for inpatient hospitalization, Severe depression anxiety, Discharge may exacerbated symptoms, Severe functional impairment Progress Toward Problem(s) and Goals/Treatment Plan: Milieu/structure/supportive therapy Medical consult will be called Patient complained of left knee arthritis we'll pull orthopedists consultation Patient complain of numbness in her upper extremities will call for neurology consultation SW consultation for discharge plan and social issues Med management prozac 40 mg daily for depression and anxiety Trazodone 50 mg at the nighttime for insomnia and depression Risperdal 2 mg twice a day for mood stabilization and psychosis Off note patient has been on Risperdal Consta in the past Family involvement, pt's usually very involved, will discuss NH placement options Follow up on labs Will monitor closely Pt was educated about risk/benefits and alternatives of medications, coping strategies (safety plan, suicide prevention), relapse prevention, importance of follow up with psychiatrist and therapist, stay away from drugs/alcohol/smoking Estimated Date of D/C: 01/13/18
--- NOTE | 2018-01-06 19:33 | PN ---
DATE: 01/06/2018 SUBJECTIVE: I saw her in the psychiatric floor in the room, lying in bed. She slept fairly well. She is currently on Aricept, Cogentin, Desyrel, Klonopin, Lipitor, Lyrica, Maalox, milk of magnesia, Prozac, Risperdal and Tylenol. So presently, she tells that she urinated on herself and she feels uncomfortable. PHYSICAL EXAMINATION VITAL SIGNS: 97.8 temperature, 91 pulse, 122/73 blood pressure, 20 respiratory rate, 100% O2 sat on room air. GENERAL: She is alert. She is not feeling well, she tells me. HEENT: Head: Atraumatic, normocephalic. HEART: Regular rate. LUNGS: Decreased breath sounds, but clear. ABDOMEN: Soft, nontender. Positive bowel sounds. EXTREMITIES: No edema. LABORATORY DATA: RPR is nonreactive. Toxicology was negative. The urine in the first one was completely clear. Chemistry; 139 sodium, potassium 4.6, BUN 40, creatinine 0.7, GFR is greater than 60. Sugar is 107, calcium is 9, total bili is 0.3, AST is 16, ALT is 20, alkaline phosphatase 65, total protein 6.4, albumin 3.6, triglycerides is 76, cholesterol is 131, TSH is 1.35 and the white count is 8.8, hemoglobin of 13.1, hematocrit of 41.2, platelets of 266. ASSESSMENT AND PLAN: I am going to repeat a urinalysis and culture and sensitivity just to make sure I am not missing anything on the urine. EKG was normal sinus rhythm. Dr. Aburto was consulted, neurologist. Continue with same medications, no change. Chest x-ray was no active disease. Lyrica was added and we will see how she does. We will follow. Make sure she is not having any urinary tract infection. Manolo Mtz DO
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
--- NOTE | 2018-01-07 13:32 | PCM.PYCHPN ---
Psychiatric Progress Note - Psychiatric Progress Note Patient seen today, length of contact: 30 minutes Patient Chief Complaint: "I am fine, little sleepy" Problems Identified/Issues Discussed: Suicide/ homicide prevention, past psychiatric h/o, current psychiatric symptoms , medical problems, risk/benefits and alternatives of medications, medications compliance, coping strategies, substance abuse h/o, relapse prevention, importance of follow up with psychiatrist and therapist, discharge plan. Medical Problems: history of arthritis, numbness in her upper extremities, dyslipidemia, HT, obesity Diagnostic Results: 01/06/18 07:40 01/06/18 07:40 Lab Results 01/06/18 07:40: Sodium 139, Potassium 4.6, Chloride 103, Carbon Dioxide 31, Anion Gap 10, BUN 14, Creatinine 0.7, Est GFR ( Amer) > 60, Est GFR (Non- Af Amer) > 60, Random Glucose 107, Calcium 9.0, Total Bilirubin 0.3, AST 16, ALT 20, Alkaline Phosphatase 65, Total Protein 6.4, Albumin 3.6, Globulin 2.8, Albumin/Globulin Ratio 1.3 01/06/18 07:40: WBC 8.8, RBC 4.56, Hgb 13.1, Hct 41.2, MCV 90.4, MCH 28.7, MCHC 31.8, RDW 13.9, Plt Count 266, MPV 10.2 01/05/18 07:45: RPR Nonreactive 01/05/18 07:45: TSH 3rd Generation 1.35 01/05/18 07:45: Fasting Glucose 100, Triglycerides 76, Cholesterol 131, LDL Cholesterol Direct 56, HDL Cholesterol 51 01/04/18 22:07: Alcohol, Quantitative < 10 01/04/18 22:07: Salicylates < 1 L, Acetaminophen < 10.0 L 01/04/18 22:07: Urine Opiates Screen Negative, Urine Methadone Screen Negative, Ur Barbiturates Screen Negative, Ur Phencyclidine Scrn Negative, Ur Amphetamines Screen Negative, U Benzodiazepines Scrn Negative, U Oth Cocaine Metabols Negative, U Cannabinoids Screen Negative 01/04/18 22:07: Sodium 137, Potassium 4.1, Chloride 100, Carbon Dioxide 29, Anion Gap 12, BUN 13, Creatinine 0.6 L, Est GFR ( Amer) > 60, Est GFR (Non-Af Amer) > 60, Random Glucose 112 H, Calcium 8.8, Magnesium 2.0, Total Bilirubin 0.3, AST 17, ALT 20, Alkaline Phosphatase 76, Total Protein 6.5, Albumin 3.8, Globulin 2.8, Albumin/Globulin Ratio 1.4 01/04/18 22:07: Urine Color Straw, Urine Appearance Clear, Urine pH 6.5, Ur Specific [place] <= 1.005, Urine Protein Negative, Urine Glucose (UA) Negative, Urine Ketones Negative, Urine Blood Negative, Urine Nitrate Negative, Urine Bilirubin Negative, Urine Urobilinogen 0.2, Ur Leukocyte Esterase Negative 01/04/18 22:07: WBC 11.0 D, RBC 4.12, Hgb 11.8 L, Hct 37.0, MCV 89.8, MCH 28.6, MCHC 31.9, RDW 13.9, Plt Count 269, MPV 10.0, Gran % 71.0 H, Lymph % (Auto) 19.8 L, [place] % (Auto) 7.4 H, Eos % (Auto) 1.5, Baso % (Auto) 0.3, Gran # 7.81 H, Lymph # (Auto) 2.2, [place] # (Auto) 0.8 H, Eos # (Auto) 0.2, Baso # (Auto) 0.03 Vital Signs Temp Pulse Resp BP Pulse Ox 01/06/18 07:15 97.8 F 91 H 20 122/73 01/05/18 15:00 89 131/68 01/05/18 07:18 97.1 F L 80 20 156/79 H 01/05/18 01:38 97.9 F 74 18 136/71 01/05/18 01:15 85 18 128/74 100 01/04/18 21:08 98.1 F 88 18 124/76 95 Temp Pulse Resp BP Pulse Ox 97.6 F 63 18 124/68 100 01/07/18 07:14 01/07/18 07:14 01/07/18 07:14 01/07/18 07:14 01/05/18 01:15 DSM 5 Symptoms Update: Shortly pt is 72 year old female, with reported h/o schizophrenia v/s delusional disorder, five previous psych admissions, most recent was 04/05/2017 to this unit, currently under care of , pt has h/o noncompliance with medications and f/u appts, but this time claimed that she was compliant, was admitted to the psychiatric inpatient unit for disorganized thoughts and behavior, paranoia, feeling that police is going to arrest her, even thought pt did not commit a crime pt was feeling unease and anxious as a result for the past week pt became very depressed, unable to function, requested her to bring her to the hospital. even though that patient was compliant with the medications and follow-up appointment (pt has scheduled appt for today 01/05/18, but could not wait), obviously patient failed outpatient treatment and pt requires further evaluation and stabilization, medication adjustment and titration, observation. Pt was seen in her room today, presented sleepy. pt still delusional, afraid that police is going to arrest her, but more comfortable and less anxious. pt took shower today, but hygiene is still far from being good. SW discussed d/c plan with pt's , discussed option of NH placement. yesterday staff reported patient was trying to find the exit from the unit, in order to go to police station to meet with Faustino Kang, patient still present to be psychotic, confused, disorganized. patient does not want to change her medications, but agreed to increase the dose of Risperdal, which was increased yesterday. So far patient tolerates medications well, no side effects observed or reported, aims 0, no EPS. Impression: Schizophrenia Delusional disorder. Medication Change: Yes (Risperdal increased) Medical Record Reviewed: Yes Consults ordered or reviewed: history of arthritis, (ortho) is on vacation, will see pt next week Patient complain off numbness in her upper extremities, patient was seen by Dr. Aburto, Lyrica was started Patient also was seen by PMD Mental Status Examination - Cognitive Function Orientation: Person, Place, Situation Memory: Impaired Attention: Poor Concentration: Poor Association: Loose Fund of Knowledge: Poor - Mood Mood: Depressed, Anxious - Affect Affect: Constricted, Flat - Formal Thought Process Formal Thought Process: Hallucinations, Delusions (erotomanic delusions), Paranoia, Loosening of associations, Circumstantial, Thought Broadcasting - Homicidal Ideation Homicidal Ideation: No Goal/Treatment Plan - Goal/Treatment Plan Need for Continued Stay: Remain at risks for inpatient hospitalization, Severe depression anxiety, Discharge may exacerbated symptoms, Severe functional impairment Progress Toward Problem(s) and Goals/Treatment Plan: Milieu/structure/supportive therapy Medical consult will be called Patient complained of left knee arthritis we'll pull orthopedists consultation Patient complain of numbness in her upper extremities will call for neurology consultation SW consultation for discharge plan and social issues Med management prozac 40 mg daily for depression and anxiety Trazodone 50 mg at the nighttime for insomnia and depression Risperdal 2 mg twice a day and night timefor mood stabilization and psychosis Off note patient has been on Risperdal Consta in the past Family involvement, pt's usually very involved, will discuss NH placement options Follow up on labs Will monitor closely Pt was educated about risk/benefits and alternatives of medications, coping strategies (safety plan, suicide prevention), relapse prevention, importance of follow up with psychiatrist and therapist, stay away from drugs/alcohol/smoking Estimated Date of D/C: 01/13/18
[2018-01-07 20:01] LABS: URINE BILIRUBIN NEGATIVE (NEGATIVE); URINE BLOOD NEGATIVE (NEGATIVE); URINE GLUCOSE (UA) NEGATIVE (NEGATIVE); URINE LEUKOCYTE ESTERASE TRACE Leu/uL (NEGATIVE); URINE PROTEIN NEGATIVE mg/dL (<30 mg/dL); URINE UROBILINOGEN 0.2 E.U./dL (<1 E.U./dL)
[2018-01-07 20:02] LABS: URINE APPEARANCE CLEAR (CLEAR); URINE COLOR LIGHT YELLOW (YELLOW)
[2018-01-07 20:05] LABS: URINE BACTERIA MOD (NEG); URINE RBC 0 - 2 /hpf (0-2)
--- NOTE | 2018-01-08 12:28 | PCM.PYCHPN ---
Psychiatric Progress Note - Psychiatric Progress Note Patient seen today, length of contact: 30 minutes Patient Chief Complaint: "I am fine, little sleepy" Problems Identified/Issues Discussed: Suicide/ homicide prevention, past psychiatric h/o, current psychiatric symptoms , medical problems, risk/benefits and alternatives of medications, medications compliance, coping strategies, substance abuse h/o, relapse prevention, importance of follow up with psychiatrist and therapist, discharge plan. Medical Problems: history of arthritis, numbness in her upper extremities, dyslipidemia, HT, obesity Diagnostic Results: 01/06/18 07:40 01/06/18 07:40 Lab Results 01/06/18 07:40: Sodium 139, Potassium 4.6, Chloride 103, Carbon Dioxide 31, Anion Gap 10, BUN 14, Creatinine 0.7, Est GFR ( Amer) > 60, Est GFR (Non- Af Amer) > 60, Random Glucose 107, Calcium 9.0, Total Bilirubin 0.3, AST 16, ALT 20, Alkaline Phosphatase 65, Total Protein 6.4, Albumin 3.6, Globulin 2.8, Albumin/Globulin Ratio 1.3 01/06/18 07:40: WBC 8.8, RBC 4.56, Hgb 13.1, Hct 41.2, MCV 90.4, MCH 28.7, MCHC 31.8, RDW 13.9, Plt Count 266, MPV 10.2 01/05/18 07:45: RPR Nonreactive 01/05/18 07:45: TSH 3rd Generation 1.35 01/05/18 07:45: Fasting Glucose 100, Triglycerides 76, Cholesterol 131, LDL Cholesterol Direct 56, HDL Cholesterol 51 01/04/18 22:07: Alcohol, Quantitative < 10 01/04/18 22:07: Salicylates < 1 L, Acetaminophen < 10.0 L 01/04/18 22:07: Urine Opiates Screen Negative, Urine Methadone Screen Negative, Ur Barbiturates Screen Negative, Ur Phencyclidine Scrn Negative, Ur Amphetamines Screen Negative, U Benzodiazepines Scrn Negative, U Oth Cocaine Metabols Negative, U Cannabinoids Screen Negative 01/04/18 22:07: Sodium 137, Potassium 4.1, Chloride 100, Carbon Dioxide 29, Anion Gap 12, BUN 13, Creatinine 0.6 L, Est GFR ( Amer) > 60, Est GFR (Non-Af Amer) > 60, Random Glucose 112 H, Calcium 8.8, Magnesium 2.0, Total Bilirubin 0.3, AST 17, ALT 20, Alkaline Phosphatase 76, Total Protein 6.5, Albumin 3.8, Globulin 2.8, Albumin/Globulin Ratio 1.4 01/04/18 22:07: Urine Color Straw, Urine Appearance Clear, Urine pH 6.5, Ur Specific [place] <= 1.005, Urine Protein Negative, Urine Glucose (UA) Negative, Urine Ketones Negative, Urine Blood Negative, Urine Nitrate Negative, Urine Bilirubin Negative, Urine Urobilinogen 0.2, Ur Leukocyte Esterase Negative 01/04/18 22:07: WBC 11.0 D, RBC 4.12, Hgb 11.8 L, Hct 37.0, MCV 89.8, MCH 28.6, MCHC 31.9, RDW 13.9, Plt Count 269, MPV 10.0, Gran % 71.0 H, Lymph % (Auto) 19.8 L, [place] % (Auto) 7.4 H, Eos % (Auto) 1.5, Baso % (Auto) 0.3, Gran # 7.81 H, Lymph # (Auto) 2.2, [place] # (Auto) 0.8 H, Eos # (Auto) 0.2, Baso # (Auto) 0.03 Vital Signs Temp Pulse Resp BP Pulse Ox 01/06/18 07:15 97.8 F 91 H 20 122/73 01/05/18 15:00 89 131/68 01/05/18 07:18 97.1 F L 80 20 156/79 H 01/05/18 01:38 97.9 F 74 18 136/71 01/05/18 01:15 85 18 128/74 100 01/04/18 21:08 98.1 F 88 18 124/76 95 Temp Pulse Resp BP Pulse Ox 97.6 F 63 18 124/68 100 01/07/18 07:14 01/07/18 07:14 01/07/18 07:14 01/07/18 07:14 01/05/18 01:15 DSM 5 Symptoms Update: Shortly pt is 72 year old female, with reported h/o schizophrenia v/s delusional disorder, five previous psych admissions, most recent was 04/05/2017 to this unit, currently under care of , pt has h/o noncompliance with medications and f/u appts, but this time claimed that she was compliant, was admitted to the psychiatric inpatient unit for disorganized thoughts and behavior, paranoia, feeling that police is going to arrest her, even thought pt did not commit a crime pt was feeling unease and anxious as a result for the past week pt became very depressed, unable to function, requested her to bring her to the hospital. even though that patient was compliant with the medications and follow-up appointment (pt has scheduled appt for today 01/05/18, but could not wait), obviously patient failed outpatient treatment and pt requires further evaluation and stabilization, medication adjustment and titration, observation. 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 patient still delusional, afraid that police is going to arrest her, still has at the morning delusions about Faustino Kang. but more comfortable and less anxious. pt took shower today, but hygiene is still far from being good. SW discussed d/c plan with pt's , discussed option of NH placement. So far patient tolerates medications well, no side effects observed or reported, aims 0, no EPS. Impression: Schizophrenia Delusional disorder. Medication Change: Yes (Klonopin decreased) Medical Record Reviewed: Yes Consults ordered or reviewed: history of arthritis, (ortho) is on vacation, will see pt next week Patient complain off numbness in her upper extremities, patient was seen by Dr. Aburto, Lyrica was started Patient also was seen by PMD Mental Status Examination - Cognitive Function Orientation: Person, Place, Situation Memory: Impaired Attention: Poor Concentration: Poor Association: Loose Fund of Knowledge: Poor - Mood Mood: Depressed, Anxious - Affect Affect: Constricted, Flat - Formal Thought Process Formal Thought Process: Hallucinations, Delusions (erotomanic delusions), Paranoia, Loosening of associations, Circumstantial, Thought Broadcasting - Homicidal Ideation Homicidal Ideation: No Goal/Treatment Plan - Goal/Treatment Plan Need for Continued Stay: Remain at risks for inpatient hospitalization, Severe depression anxiety, Discharge may exacerbated symptoms, Severe functional imp airment Progress Toward Problem(s) and Goals/Treatment Plan: Milieu/structure/supportive therapy Medical consult will be called Patient complained of left knee arthritis we'll pull orthopedists consultation Patient complain of numbness in her upper extremities will call for neurology consultation consultation for discharge plan and social issues Med management prozac 40 mg daily for depression and anxiety Klonopin 0.25 mg at the morning time at the nighttime for anxiety Trazodone 50 mg at the nighttime for insomnia and depression Risperdal 2 mg twice a day and night timefor mood stabilization and psychosis Off note patient has been on Risperdal Consta in the past Family involvement, pt's usually very involved, will discuss NH placement options Follow up on labs Will monitor closely Pt was educated about risk/benefits and alternatives of medications, coping strategies (safety plan, suicide prevention), relapse prevention, importance of follow up with psychiatrist and therapist, stay away from drugs/alcohol/smoking Estimated Date of D/C: 01/13/18
--- NOTE | 2018-01-09 22:35 | CP.PCM.PCO ---
<Teo Guan - Last Filed: 01/09/18 22:32> Physician Communication Note - Physician Communication Note Physician Communication Note: patient with chills and green sputum. recommend Z- halina Assessment & Plan - Assessment and Plan (Free Text) Assessment: Patient complaining of sore throat, congestion and yellow sputum production. First dose of Azithromycin to be administered tomorrow. If PMD feels patient may benefit from a course of this antibiotic, then would recommend 4 days of 250 mg with daily probiotic. Supportive care also with Duonebs q6h PRN. With Macrolides, QTc should be monitored. Case reviewed and discussed with attending physician, Dr. Imani Slade - Date & Time Date: 01/09/18 Time: 22:35 <Imani Slade R - Last Filed: 01/10/18 07:44> Attending/Attestation - Attestation I have personally seen and examined this patient.: Yes I have fully participated in the care of the patient.: Yes I have reviewed all pertinent clinical information: Yes Notes (Text): Agree with above. Discussed with Dr. Mtz. Patient to be seen by Dr. Mtz.
--- NOTE | 2018-01-10 02:10 | PN ---
DATE: 01/09/[address] Essence Mulligan. Chart reviewed and case discussed with Nursing. The patient is a 72-year-old white female with reported prior history of schizophrenia that has included the delusional thinking. The patient reportedly has 5 prior psychiatric admissions, the most recently having been this past 04/2017 at [facility]. She is currently under the care of Dr. Arrington in [place]. She has a history of medication noncompliance and with followup appointments. She was admitted in a disorganized state with paranoid ideation, feeling that the police were going to arrest her even though she did not commit crime. This was being too much anxiety and for the past week depression such that she could not function. She had requested to her that he bring her to the hospital. In the hospital, she has been isolating herself. She is still having delusions that the police are out to arrest her and has some delusion about the actor, Horacio Kang. She has, however, appeared to be less anxious. She has a history of arthritis and is under the care of Dr. Hal Aguilar. The patient appears to be alert, with a constricted affect, complains of feeling tired. She has been refusing her Klonopin, claiming it makes her dizzy. Her gait is steady and her performance of ADLs as fear. She is currently denying suicidal or homicidal ideation or auditory visual hallucinations. She is being maintained on Aricept 10 mg at bedtime, Cogentin 1 mg in the morning and at bedtime, trazodone 50 mg at bedtime, Klonopin 0.25 mg in morning and at bedtime, along with Lipitor 20 mg daily, Lyrica 50 mg b.i.d., Prozac 40 mg daily, Risperdal 2 mg b.i.d. and at bedtime and Zithromax 500 mg daily. Laboratory results were reviewed. Blood pressure 121/92, pulse 68, temperature 97.8, respiratory rate 19. Juan R Brar MD/ PhD
--- NOTE | 2018-01-10 11:29 | PN ---
DATE: 01/10/2018 SUBJECTIVE: I saw her in the Psychiatric floor. She is now with a upper respiratory infection, coughing, little sore throat. She is on Aricept, Cogentin, Desyrel, Klonopin, Lipitor, Lyrica, Maalox, milk of magnesia, Prozac, Risperdal, Tylenol and she had one dose of Zithromax yesterday. I will continue that. PHYSICAL EXAMINATION: VITAL SIGNS: She has a 98.2 temperature, 78 pulse, 138/68 blood pressure, 16 respiratory rate. HEENT: Head: Atraumatic, normocephalic. Throat is dry, mildly red. No cervical lymphadenopathy. HEART: Regular rate. LUNGS: Decreased breath sounds with congestion, mild changes with cough and clears. ABDOMEN: Soft, nontender. Positive bowel sounds. EXTREMITIES: No edema. LABORATORY DATA: She has a 8.8 white count on the 5th, 13.1 hemoglobin, 266 platelets. Sodium 139 on the 5th, 4.6 potassium, BUN 40, creatinine 0.7. GFR is greater than 60. I am going to do a blood test tomorrow to make sure we are not missing anything. She also had a UTI. Hopefully, the Zithromax will help that too. We will continue with aggressive treatment and care. She has no symptoms of urinary tract infection at this time. We will continue with aggressive treatment and care in the Psychiatric unit on Jeni Roca who has a URI. She has schizophrenia, bipolar. Manolo Mtz DO
--- NOTE | 2018-01-10 15:35 | PCM.PYCHPN ---
Psychiatric Progress Note - Psychiatric Progress Note Patient seen today, length of contact: 30 minutes Patient Chief Complaint: "I am fine, I am alright" Problems Identified/Issues Discussed: Suicide/ homicide prevention, past psychiatric h/o, current psychiatric symptoms, medical problems, risk/benefits and alternatives of medications, medications compliance, coping strategies, substance abuse h/o, relapse prevention, importance of follow up with psychiatrist and therapist, discharge plan. Medical Problems: history of arthritis, numbness in her upper extremities, dyslipidemia, HT, obesity Diagnostic Results: 01/06/18 07:40 01/06/18 07:40 Lab Results 01/06/18 07:40: Sodium 139, Potassium 4.6, Chloride 103, Carbon Dioxide 31, Anion Gap 10, BUN 14, Creatinine 0.7, Est GFR ( Amer) > 60, Est GFR (Non- Af Amer) > 60, Random Glucose 107, Calcium 9.0, Total Bilirubin 0.3, AST 16, ALT 20, Alkaline Phosphatase 65, Total Protein 6.4, Albumin 3.6, Globulin 2.8, Albumin/Globulin Ratio 1.3 01/06/18 07:40: WBC 8.8, RBC 4.56, Hgb 13.1, Hct 41.2, MCV 90.4, MCH 28.7, MCHC 31.8, RDW 13.9, Plt Count 266, MPV 10.2 01/05/18 07:45: RPR Nonreactive 01/05/18 07:45: TSH 3rd Generation 1.35 01/05/18 07:45: Fasting Glucose 100, Triglycerides 76, Cholesterol 131, LDL Cholesterol Direct 56, HDL Cholesterol 51 01/04/18 22:07: Alcohol, Quantitative < 10 01/04/18 22:07: Salicylates < 1 L, Acetaminophen < 10.0 L 01/04/18 22:07: Urine Opiates Screen Negative, Urine Methadone Screen Negative, Ur Barbiturates Screen Negative, Ur Phencyclidine Scrn Negative, Ur Amphetamines Screen Negative, U Benzodiazepines Scrn Negative, U Oth Cocaine Metabols Negative, U Cannabinoids Screen Negative 01/04/18 22:07: Sodium 137, Potassium 4.1, Chloride 100, Carbon Dioxide 29, Anion Gap 12, BUN 13, Creatinine 0.6 L, Est GFR ( Amer) > 60, Est GFR (Non-Af Amer) > 60, Random Glucose 112 H, Calcium 8.8, Magnesium 2.0, Total Bilirubin 0.3, AST 17, ALT 20, Alkaline Phosphatase 76, Total Protein 6.5, Albumin 3.8, Globulin 2.8, Albumin/Globulin Ratio 1.4 01/04/18 22:07: Urine Color Straw, Urine Appearance Clear, Urine pH 6.5, Ur Specific [place] <= 1.005, Urine Protein Negative, Urine Glucose (UA) Negative, Urine Ketones Negative, Urine Blood Negative, Urine Nitrate Negative, Urine Bilirubin Negative, Urine Urobilinogen 0.2, Ur Leukocyte Esterase Negative 01/04/18 22:07: WBC 11.0 D, RBC 4.12, Hgb 11.8 L, Hct 37.0, MCV 89.8, MCH 28.6, MCHC 31.9, RDW 13.9, Plt Count 269, MPV 10.0, Gran % 71.0 H, Lymph % (Auto) 19.8 L, [place] % (Auto) 7.4 H, Eos % (Auto) 1.5, Baso % (Auto) 0.3, Gran # 7.81 H, L ymph # (Auto) 2.2, [place] # (Auto) 0.8 H, Eos # (Auto) 0.2, Baso # (Auto) 0.03 Vital Signs Temp Pulse Resp BP Pulse Ox 01/06/18 07:15 97.8 F 91 H 20 122/73 01/05/18 15:00 89 131/68 01/05/18 07:18 97.1 F L 80 20 156/79 H 01/05/18 01:38 97.9 F 74 18 136/71 01/05/18 01:15 85 18 128/74 100 01/04/18 21:08 98.1 F 88 18 124/76 95 Temp Pulse Resp BP Pulse Ox 97.6 F 63 18 124/68 100 01/07/18 07:14 01/07/18 07:14 01/07/18 07:14 01/07/18 07:14 01/05/18 01:15 DSM 5 Symptoms Update: Shortly pt is 72 year old female, with reported h/o schizophrenia v/s delusional disorder, five previous psych admissions, most recent was 04/05/2017 to this unit, currently under care of , pt has h/o noncompliance with medications and f/u appts, but this time claimed that she was compliant, was admitted to the psychiatric inpatient unit for disorganized thoughts and behavior, paranoia, feeling that police is going to arrest her, even thought pt did not commit a crime pt was feeling unease and anxious as a result for the past week pt became very depressed, unable to function, requested her to bring her to the hospital. even though that patient was compliant with the medications and follow-up appointment (pt has scheduled appt for today 01/05/18, but could not wait), obviously patient failed outpatient treatment and pt requires further evaluation and stabilization, medication adjustment and titration, observation. Pt was seen at day treatment area, presented to be less sleepy, as per self patient is self isolating, but more visible in the unit.. will change Klonopin 0.25 mg at the morning time at the nighttime as needed, we will not increase dose of Risperdal as of now. patient still delusional, afraid that police is going to arrest her, still has at the morning delusions about Faustino Kang. but more comfortable and less anxious. pt took shower today, but hygiene is still far from being good. SW discussed d/c plan with pt's , discussed option of NH placement. So far patient tolerates medications well, no side effects observed or reported, aims 0, no EPS. Impression: Schizophrenia Delusional disorder. Medication Change: Yes (Klonopin decreased) Medical Record Reviewed: Yes Mental Status Examination - Cognitive Function Orientation: Person, Place, Situation Memory: Impaired Attention: Poor Concentration: Poor Association: Loose Fund of Knowledge: Poor - Mood Mood: Depressed, Anxious - Affect Affect: Constricted, Flat - Formal Thought Process Formal Thought Process: Hallucinations, Delusions (erotomanic delusions), Paranoia, Loosening of associations, Circumstantial, Thought Broadcasting - Homicidal Ideation Homicidal Ideation: No Goal/Treatment Plan - Goal/Treatment Plan Need for Continued Stay: Remain at risks for inpatient hospitalization, Severe depression anxiety, Discharge may exacerbated symptoms, Severe functional i mpairment Progress Toward Problem(s) and Goals/Treatment Plan: Milieu/structure/supportive therapy Medical consult will be called Patient complained of left knee arthritis we'll pull orthopedists consultation Patient complain of numbness in her upper extremities will call for neurology consultation SW consultation for discharge plan and social issues Med management prozac 40 mg daily for depression and anxiety Klonopin 0.25 mg at the morning time at the nighttime for anxiety Trazodone 50 mg at the nighttime for insomnia and depression Risperdal 2 mg twice a day and night timefor mood stabilization and psychosis Off note patient has been on Risperdal Consta in the past Family involvement, pt's usually very involved, will discuss NH placement options Follow up on labs Will monitor closely Pt was educated about risk/benefits and alternatives of medications, coping strategies (safety plan, suicide prevention), relapse prevention, importance of follow up with psychiatrist and therapist, stay away from drugs/alcohol/smoking Estimated Date of D/C: 01/13/18
[2018-01-11 08:02] LABS: HEMOGLOBIN 11.8 g/dL (12.0-16.0); MEAN CELL VOLUME 91.3 fl (80.0-105.0); MEAN CORPUSCULAR HEMOGLOBIN 28.6 pg (25.0-35.0); MEAN CORPUSCULAR HGB CONC 31.3 g/dl (31.0-37.0); MEAN PLATELET VOLUME 9.8 fl (7.0-11.0); RBC 4.13 10^6/uL (3.5-6.1); WHITE BLOOD COUNT 8.4 10^3/ul (4.5-11.0)
[2018-01-11 08:21] LABS: ALB/GLOB RATIO 1.2 (1.1-1.8); ALBUMIN 3.4 g/dL (3.0-4.8); ALT/SGPT 22 U/L (7-56); AST/SGOT 18 U/L (14-36); BLOOD UREA NITROGEN 15 mg/dL (7-21); CALCIUM 8.8 mg/dL (8.4-10.5); GFR NON-AFRICAN AMERICAN > 60
--- NOTE | 2018-01-11 13:52 | PN ---
DATE: 01/11/2018 SUBJECTIVE: I saw her resting comfortably in bed. She slept fairly well. She is without complaints to me this morning. No chest pain or shortness of breath. No abdominal pain. She is eating some. I read the Psychiatry note about her delusion to police. PHYSICAL EXAMINATION: VITAL SIGNS: Right now; 98.2 temp, 78 pulse, 138/68 blood pressure, 16 respiratory rate. HEENT: Head is atraumatic, normocephalic. HEART: Regular rate. LUNGS: Decreased breath sounds, but clear. ABDOMEN: Soft, nontender. Positive bowel sounds. EXTREMITIES: No edema. LABORATORY DATA: Last labs; RPR was nonreactive. Toxicology is okay. The urine showed moderate bacteria. Micro less than 1000 on the urine. Chemistry on 01/06/2018; 139 sodium, potassium 4.6, BUN 14, creatinine 0.7, GFR is greater than 60, sugar is 107. TSH is 1.35. White count is 8, hemoglobin 13.1, and platelets of 266. ASSESSMENT AND PLAN: I will check on the lab test tomorrow. I discussed with Jeni about participating in groups, taking her medications, doing some walking, eating, hopefully she will as per Psychiatry. We will continue to follow. Whereas few issues delusional, schizophrenia, depression; she is on Aricept, Cogentin, Desyrel, Klonopin, Lipitor for high cholesterol, Lyrica, Maalox, milk of magnesia, Prozac, Risperdal, Tylenol, and Zithromax for upper respiratory infection. Manolo Mtz DO
--- NOTE | 2018-01-11 17:02 | PCM.PYCHPN ---
Psychiatric Progress Note - Psychiatric Progress Note Patient seen today, length of contact: 30 minutes Patient Chief Complaint: "I am fine, I am alright" Problems Identified/Issues Discussed: Suicide/ homicide prevention, past psychiatric h/o, current psychiatric symptoms, medical problems, risk/benefits and alternatives of medications, medications compliance, coping strategies, substance abuse h/o, relapse prevention, importance of follow up with psychiatrist and therapist, discharge plan. Medical Problems: history of arthritis, numbness in her upper extremities, dyslipidemia, HT, obesity Diagnostic Results: 01/06/18 07:40 01/06/18 07:40 Lab Results 01/06/18 07:40: Sodium 139, Potassium 4.6, Chloride 103, Carbon Dioxide 31, Anion Gap 10, BUN 14, Creatinine 0.7, Est GFR ( Amer) > 60, Est GFR (Non- Af Amer) > 60, Random Glucose 107, Calcium 9.0, Total Bilirubin 0.3, AST 16, ALT 20, Alkaline Phosphatase 65, Total Protein 6.4, Albumin 3.6, Globulin 2.8, Albumin/Globulin Ratio 1.3 01/06/18 07:40: WBC 8.8, RBC 4.56, Hgb 13.1, Hct 41.2, MCV 90.4, MCH 28.7, MCHC 31.8, RDW 13.9, Plt Count 266, MPV 10.2 01/05/18 07:45: RPR Nonreactive 01/05/18 07:45: TSH 3rd Generation 1.35 01/05/18 07:45: Fasting Glucose 100, Triglycerides 76, Cholesterol 131, LDL Cholesterol Direct 56, HDL Cholesterol 51 01/04/18 22:07: Alcohol, Quantitative < 10 01/04/18 22:07: Salicylates < 1 L, Acetaminophen < 10.0 L 01/04/18 22:07: Urine Opiates Screen Negative, Urine Methadone Screen Negative, Ur Barbiturates Screen Negative, Ur Phencyclidine Scrn Negative, Ur Amphetamines Screen Negative, U Benzodiazepines Scrn Negative, U Oth Cocaine Metabols Negative, U Cannabinoids Screen Negative 01/04/18 22:07: Sodium 137, Potassium 4.1, Chloride 100, Carbon Dioxide 29, Anion Gap 12, BUN 13, Creatinine 0.6 L, Est GFR ( Amer) > 60, Est GFR (Non-Af Amer) > 60, Random Glucose 112 H, Calcium 8.8, Magnesium 2.0, Total Bilirubin 0.3, AST 17, ALT 20, Alkaline Phosphatase 76, Total Protein 6.5, Albumin 3.8, Globulin 2.8, Albumin/Globulin Ratio 1.4 01/04/18 22:07: Urine Color Straw, Urine Appearance Clear, Urine pH 6.5, Ur Specific [place] <= 1.005, Urine Protein Negative, Urine Glucose (UA) Negative, Urine Ketones Negative, Urine Blood Negative, Urine Nitrate Negative, Urine Bilirubin Negative, Urine Urobilinogen 0.2, Ur Leukocyte Esterase Negative 01/04/18 22:07: WBC 11.0 D, RBC 4.12, Hgb 11.8 L, Hct 37.0, MCV 89.8, MCH 28.6, MCHC 31.9, RDW 13.9, Plt Count 269, MPV 10.0, Gran % 71.0 H, Lymph % (Auto) 19.8 L, [place] % (Auto) 7.4 H, Eos % (Auto) 1.5, Baso % (Auto) 0.3, Gran # 7.81 H, L ymph # (Auto) 2.2, [place] # (Auto) 0.8 H, Eos # (Auto) 0.2, Baso # (Auto) 0.03 Vital Signs Temp Pulse Resp BP Pulse Ox 01/06/18 07:15 97.8 F 91 H 20 122/73 01/05/18 15:00 89 131/68 01/05/18 07:18 97.1 F L 80 20 156/79 H 01/05/18 01:38 97.9 F 74 18 136/71 01/05/18 01:15 85 18 128/74 100 01/04/18 21:08 98.1 F 88 18 124/76 95 Temp Pulse Resp BP Pulse Ox 97.6 F 63 18 124/68 100 01/07/18 07:14 01/07/18 07:14 01/07/18 07:14 01/07/18 07:14 01/05/18 01:15 DSM 5 Symptoms Update: Shortly pt is 72 year old female, with reported h/o schizophrenia v/s delusional disorder, five previous psych admissions, most recent was 04/05/2017 to this unit, currently under care of , pt has h/o noncompliance with medications and f/u appts, but this time claimed that she was compliant, was admitted to the psychiatric inpatient unit for disorganized thoughts and behavior, paranoia, feeling that police is going to arrest her, even thought pt did not commit a crime pt was feeling unease and anxious as a result for the past week pt became very depressed, unable to function, requested her to bring her to the hospital. even though that patient was compliant with the medications and follow-up appointment (pt has scheduled appt for today 01/05/18, but could not wait), obviously patient failed outpatient treatment and pt requires further evaluation and stabilization, medication adjustment and titration, observation. Pt was seen at day treatment area, presented to be less sleepy, as per staff pt is more visible in the unit, but prefer to be alone. Patient does not want to go to the [facility]. patient still delusional, afraid that police is going to arrest her, still has at the morning delusions about Faustino Kang. but more comfortable and less anxious. pt took shower today, as per staff patient did not know what to do in the shower, patient seems to have executive functioning problems. hygiene is still far from being good. So far patient tolerates medications well, no side effects observed or reported, aims 0, no EPS. Impression: Schizophrenia Delusional disorder. Medication Change: Yes (Klonopin decreased) Medical Record Reviewed: Yes Mental Status Examination - Cognitive Function Orientation: Person, Place, Situation Memory: Impaired Attention: Poor Concentration: Poor Association: Loose Fund of Knowledge: Poor - Mood Mood: Depressed, Anxious - Affect Affect: Constricted, Flat - Formal Thought Process Formal Thought Process: Hallucinations (denied), Delusions (erotomanic delusions), Paranoia, Loosening of associations, Circumstantial, Thought Broadcasting - Suicidal Ideation Suicidal Ideation: No - Homicidal Ideation Homicidal Ideation: No Goal/Treatment Plan - Goal/Treatment Plan Need for Continued Stay: Remain at risks for inpatient hospitalization, Severe depression anxiety, Discharge may exacerbated symptoms, Severe functional impairment Progress Toward Problem(s) and Goals/Treatment Plan: Milieu/structure/supportive therapy Medical consult will be called Patient complained of left knee arthritis we'll pull orthopedists consultation Patient complain of numbness in her upper extremities will call for neurology consultation SW consultation for discharge plan and social issues Med management prozac 40 mg daily for depression and anxiety Klonopin 0.25 mg at the morning time at the nighttime for anxiety Trazodone 50 mg at the nighttime for insomnia and depression Risperdal 2 mg twice a day and night time for mood stabilization and psychosis Off note patient has been on Risperdal Consta in the past Family involvement, pt's usually very involved, will discuss NH placement options Follow up on labs Will monitor closely Pt was educated about risk/benefits and alternatives of medications, coping strategies (safety plan, suicide prevention), relapse prevention, importance of follow up with psychiatrist and therapist, stay away from drugs/alcohol/smoking Estimated Date of D/C: 01/13/18
[2018-01-12] MEDS: Lidocaine 5% Patch TD SCH (09:41)
--- NOTE | 2018-01-12 14:21 | PCM.PYCHPN ---
Psychiatric Progress Note - Psychiatric Progress Note Patient seen today, length of contact: 30 minutes Patient Chief Complaint: "I feel that police is going to arrest me" Problems Identified/Issues Discussed: Suicide/ homicide prevention, past psychiatric h/o, current psychiatric symptoms, medical problems, risk/benefits and alternatives of medications, medications compliance, coping strategies, substance abuse h/o, relapse prevention, importance of follow up with psychiatrist and therapist, discharge plan. Medical Problems: history of arthritis, numbness in her upper extremities, dyslipidemia, HT, obesity will call podiatry consultation for ingrow toenails Diagnostic Results: 01/06/18 07:40 01/06/18 07:40 Lab Results 01/06/18 07:40: Sodium 139, Potassium 4.6, Chloride 103, Carbon Dioxide 31, Anion Gap 10, BUN 14, Creatinine 0.7, Est GFR ( Amer) > 60, Est GFR (Non- Af Amer) > 60, Random Glucose 107, Calcium 9.0, Total Bilirubin 0.3, AST 16, ALT 20, Alkaline Phosphatase 65, Total Protein 6.4, Albumin 3.6, Globulin 2.8, Albumin/Globulin Ratio 1.3 01/06/18 07:40: WBC 8.8, RBC 4.56, Hgb 13.1, Hct 41.2, MCV 90.4, MCH 28.7, MCHC 31.8, RDW 13.9, Plt Count 266, MPV 10.2 01/05/18 07:45: RPR Nonreactive 01/05/18 07:45: TSH 3rd Generation 1.35 01/05/18 07:45: Fasting Glucose 100, Triglycerides 76, Cholesterol 131, LDL Cholesterol Direct 56, HDL Cholesterol 51 01/04/18 22:07: Alcohol, Quantitative < 10 01/04/18 22:07: Salicylates < 1 L, Acetaminophen < 10.0 L 01/04/18 22:07: Urine Opiates Screen Negative, Urine Methadone Screen Negative, Ur Barbiturates Screen Negative, Ur Phencyclidine Scrn Negative, Ur Amphetamines Screen Negative, U Benzodiazepines Scrn Negative, U Oth Cocaine Metabols Negative, U Cannabinoids Screen Negative 01/04/18 22:07: Sodium 137, Potassium 4.1, Chloride 100, Carbon Dioxide 29, Anion Gap 12, BUN 13, Creatinine 0.6 L, Est GFR ( Amer) > 60, Est GFR (Non-Af Amer) > 60, Random Glucose 112 H, Calcium 8.8, Magnesium 2.0, Total Bilirubin 0.3, AST 17, ALT 20, Alkaline Phosphatase 76, Total Protein 6.5, Albumin 3.8, Globulin 2.8, Albumin/Globulin Ratio 1.4 01/04/18 22:07: Urine Color Straw, Urine Appearance Clear, Urine pH 6.5, Ur Specific [place] <= 1.005, Urine Protein Negative, Urine Glucose (UA) Negative, Urine Ketones Negative, Urine Blood Negative, Urine Nitrate Negative, Urine Bilirubin Negative, Urine Urobilinogen 0.2, Ur Leukocyte Esterase Negative 01/04/18 22:07: WBC 11.0 D, RBC 4.12, Hgb 11.8 L, Hct 37.0, MCV 89.8, MCH 28.6, MCHC 31.9, RDW 13.9, Plt Count 269, MPV 10.0, Gran % 71.0 H, Lymph % (Auto) 19.8 L, [place] % (Auto) 7.4 H, Eos % (Auto) 1.5, Baso % (Auto) 0.3, Gran # 7.81 H, Lymph # (Auto) 2.2, [place] # (Auto) 0.8 H, Eos # (Auto) 0.2, Baso # (Auto) 0.03 Vital Signs Temp Pulse Resp BP Pulse Ox 01/06/18 07:15 97.8 F 91 H 20 122/73 01/05/18 15:00 89 131/68 01/05/18 07:18 97.1 F L 80 20 156/79 H 01/05/18 01:38 97.9 F 74 18 136/71 01/05/18 01:15 85 18 128/74 100 01/04/18 21:08 98.1 F 88 18 124/76 95 Temp Pulse Resp BP Pulse Ox 97.6 F 63 18 124/68 100 01/07/18 07:14 01/07/18 07:14 01/07/18 07:14 01/07/18 07:14 01/05/18 01:15 DSM 5 Symptoms Update: Shortly pt is 72 year old female, with reported h/o schizophrenia v/s delusional disorder, five previous psych admissions, most recent was 04/05/2017 to this unit, currently under care of , pt has h/o noncompliance with medications and f/u appts, but this time claimed that she was compliant, was admitted to the psychiatric inpatient unit for disorganized thoughts and behavior, paranoia, feeling that police is going to arrest her, even thought pt did not commit a crime pt was feeling unease and anxious as a result for the past week pt became very depressed, unable to function, requested her to bring her to the hospital. even though that patient was compliant with the medications and follow-up appointment (pt has scheduled appt for today 01/05/18, but could not wait), obviously patient failed outpatient treatment and pt requires further evaluation and stabilization, medication adjustment and titration, observation. Pt was seen at day treatment area, presented to be less sleepy, as per staff pt is more visible in the unit, but prefer to be alone. Patient does not want to go to the skilled nursing. patient still delusional, afraid that police is going to arrest her, still has delusions about Faustino Kang "but it is not bothering me that much". pt took shower with assistance of the staff, as per staff patient did not know what to do in the shower, patient seems to have executive functioning problems. hygiene is still far from being good. So far patient tolerates medications well, no side effects observed or reported, aims 0, no EPS. Impression: Schizophrenia Delusional disorder. Medication Change: Yes (Klonopin d/c) Medical Record Reviewed: Yes Consults ordered or reviewed: history of arthritis, (ortho) is on vacation, will see pt next week Patient complain off numbness in her upper extremities, patient was seen by Dr. Aburto, Lyrica was started Patient also was seen by PMD Mental Status Examination - Cognitive Function Orientation: Person, Place, Situation Memory: Impaired Attention: Poor Concentration: Poor Association: Loose Fund of Knowledge: Poor - Mood Mood: Depressed, Anxious - Affect Affect: Constricted, Flat - Formal Thought Process Formal Thought Process: Hallucinations (denied), Delusions (erotomanic delusions), Paranoia, Loosening of associations, Circumstantial, Thought Broadcasting - Suicidal Ideation Suicidal Ideation: No - Homicidal Ideation Homicidal Ideation: No Goal/Treatment Plan - Goal/Treatment Plan Need for Continued Stay: Remain at risks for inpatient hospitalization, Severe depression anxiety, Discharge may exacerbated symptoms, Severe functional im pairment Progress Toward Problem(s) and Goals/Treatment Plan: Milieu/structure/supportive therapy Medical consult called Patient complained of left knee arthritis orthopedists consultation called podiatry consult neurology consultation appreciated consultation for discharge plan and social issues Med management prozac 40 mg daily for depression and anxiety Klonopin d/c Trazodone 50 mg at the nighttime for insomnia and depression Risperdal 2 mg twice a day and night time for mood stabilization and psychosis Off note patient has been on Risperdal Consta in the past Family involvement, pt's usually very involved, will discuss NH placement options Follow up on labs Will monitor closely Pt was educated about risk/benefits and alternatives of medications, coping strategies (safety plan, suicide prevention), relapse prevention, importance of follow up with psychiatrist and therapist, stay away from drugs/alcohol/smoking Estimated Date of D/C: 01/16/18
--- NOTE | 2018-01-12 14:29 | PN ---
DATE: 01/12/2018 SUBJECTIVE: I saw her resting comfortably in bed. Now, she is having low back pain. She wants something for it. MEDICATIONS: She is on Aricept, Cogentin, Desyrel, Klonopin, Lipitor, Lyrica, magnesium oxide, milk of magnesia, Prozac, Risperdal, Tylenol and Zithromax. I added Lidoderm patch to the low back. PHYSICAL EXAMINATION: VITAL SIGNS: She has a 97.1 temp, 73 pulse, 118/72 blood pressure, 20 respiratory rate. GENERAL: She is eating some. HEENT: Her head is atraumatic, normocephalic. HEART: Regular rate. LUNGS: Decreased breath sounds, but clear. ABDOMEN: Soft, obese, nontender. EXTREMITIES: No edema. BACK: Has some palpable back pain, probably from the bed she is not used to it. LABORATORY DATA: She has an 8.4 white count, 11.8 hemoglobin, 37.7 hematocrit with a 275 platelets. She has a 141 sodium, potassium is 4.6, BUN 15, creatinine 0.6, GFR is greater than 60, sugar is 91, calcium is 8.8, total bili is 0.3, AST is 18, ALT is 22, alk phos , total protein 6.2, TSH is 1.35. ASSESSMENT AND PLAN: She is being seen by Psychiatry. They are adjusting her medications. She has schizophrenia, bipolar, anxiety, high cholesterol, upper respiratory infection, depression and low back pain. I will add Lidoderm. We will follow. Manolo Mtz DO MTDMelanie
[2018-01-13] MEDS: Lidocaine 5% Patch TD SCH (09:49)
--- NOTE | 2018-01-13 11:38 | PN ---
DATE: 01/13/2018 SUBJECTIVE: I saw her resting comfortably in bed this morning. She slept fairly well. She told me that the patch on her back helped her. She is trying to eat better. She tells me she is feeling maybe a little bit better from the back pain and also mentally she is starting to improve. She has schizophrenia, anxiety, bipolar, low back pain, high cholesterol, depression. She is on Aricept, Cogentin, Desyrel, Lidoderm, Lipitor, Lyrica, Maalox, milk of magnesia, Prozac, Risperdal, Tylenol and Zithromax. PHYSICAL EXAMINATION: VITAL SIGNS: Her vital signs are 97.8 temperature, 84 pulse, 127/60 blood pressure, 20 respiratory rate. She also has an upper respiratory infection which is improving, that is why, she is on the Zithromax. HEAD: Atraumatic, normocephalic. Throat is moist. NECK: Supple. HEART: Regular rate. LUNGS: Clear to auscultation. No more congestion. ABDOMEN: Soft, obese, nontender. Positive bowel sounds. EXTREMITIES: No edema and low back is not painful with a patch on. LABORATORY DATA: Last labs on 01/11/2018, she did fairly well. We will continue with aggressive treatment as per Psychiatry. Besides the upper respiratory infection, she had a little bit of urinary tract infection and I think the Zithromax is helping that too. She has no symptoms. I will continue aggressive treatment and care on Jeni Roca. I encouraged her to participate in groups and in meetings and take her medications and when Psychiatry is ready, she will be discharged and have follow up in the outpatient, but we will continue to follow here. Manolo Mtz DO
--- NOTE | 2018-01-13 13:40 | PCM.BM ---
<Damaris Stewart Y - Last Filed: 01/13/18 13:40> Treatment Plan Problems - Problems identified on initial assessmt Anxiety Date Initiated: 01/05/18 Time Initiated: 02:00 Assessment reference: NA Status: Active Priority: 1 Delusions Date Initiated: 01/05/18 Time Initiated: 02:00 Assessment reference: NA Status: Active Priority: 2 Social Isolation Date Initiated: 01/05/18 Time Initiated: 02:00 Assessment reference: NA Status: Active Priority: 3 Ineffective Coping Date Initiated: 01/05/18 Time Initiated: 02:00 Assessment reference: NA Status: Active Priority: 4 Altered Sleep Patterns Date Initiated: 01/05/18 Time Initiated: 02:00 Assessment reference: NA Status: Active Priority: 5 Treatment assets and liabiliti Patient Assests: adapts well, cooperative, ADL independent, good support system, negotiates basic needs Patient Liabilities: other (paranoia/delusions) - Milieu Protocol Maintain good personal hygiene: daily Encourage regular showers, daily Remind patient to perform daily oral care, daily Assist patient to perform ADL's Conduct patient checks and document Observation sheet: Q15 minutes Maintain personal safety: every shift Educate patient to report safety concerns to staff, every shift Monitor environment for contraband/sharps Medication safety: Monitor for expected outcome, potential side effects: every shift, Assess barriers to learning: every shift, Assess readiness for medication education: every shift Milieu Narrative: Milieu/structure/supportive therapy Medical consult called Patient complained of left knee arthritis orthopedists consultation called podiatry consult neurology consultation appreciated SW consultation for discharge plan and social issues Med management prozac 40 mg daily for depression and anxiety Klonopin d/c Trazodone 50 mg at the nighttime for insomnia and depression Risperdal 2 mg twice a day and night time for mood stabilization and psychosis Off note patient has been on Risperdal Consta in the past Family involvement, pt's usually very involved, will discuss NH placement options Follow up on labs Will monitor closely Pt was educated about risk/benefits and alternatives of medications, coping strategies (safety plan, suicide prevention), relapse prevention, importance of follow up with psychiatrist and therapist, stay away from drugs/alcohol/smoking Family Contact Family contact: Patient agrees to contact Family contact name: Trip Roca() [phone] Family contacted how many times per week?: 2 Family contact comment: "My started wandering and gets triggered when she hears the word Faustino Kang." - Outside Agency Dr. Ball [facility] involent: Information-sharing Agency contact name: Dr. Ball at [facility] Discharge/Continuing Care - Education Needs Education Needs: Family Medication, Family Diagnosis/Disease Process, Family Coping Skills, Family Health Practices/Safety, Patient Medication, Patient Diagnosis/Disease Process, Patient Coping Skills, Patient Health Practices/Safety - Discharge Discharge Criteria: Free of paranoid thoughts, Normal sleep pattern - Treatment Team Participation Patient/Family/SO Statement: Milieu/structure/supportive therapy Medical consult called Patient complained of left knee arthritis orthopedists consultation called podiatry consult neurology consultation appreciated consultation for discharge plan and social issues Med management prozac 40 mg daily for depression and anxiety Klonopin d/c Trazodone 50 mg at the nighttime for insomnia and depression Risperdal 2 mg twice a day and night time for mood stabilization and psychosis Off note patient has been on Risperdal Consta in the past Family involvement, pt's usually very involved, will discuss NH placement options Follow up on labs Will monitor closely Pt was educated about risk/benefits and alternatives of medications, coping strategies (safety plan, suicide prevention), relapse prevention, importance of follow up with psychiatrist and therapist, stay away from drugs/alcohol/smoking Treatment Plan Review - Problem Anxiety Time Initiated: 02:00 Delusions Time Initiated: 02:00 Social Isolation Time Initiated: 02:00 Ineffective Coping Time Initiated: 02:00 Altered Sleep Patterns Time Initiated: 02:00 <Essence Mulligan - Last Filed: 01/13/18 14:03> - Diagnosis (1) Delusional disorder, erotomanic type, continuous Status: Chronic Interventions: 01/13/18 14:03 patient is not improving still psychotic, delusional pt presented to be on edge pt refused NH placement as well as ECT treatment <Sharon Andino - Last Filed: 01/13/18 16:26>
--- NOTE | 2018-01-13 14:33 | PCM.PYCHPN ---
Psychiatric Progress Note - Psychiatric Progress Note Patient seen today, length of contact: 30 minutes Patient Chief Complaint: "what is this meeting about?" Problems Identified/Issues Discussed: Suicide/ homicide prevention, past psychiatric h/o, current psychiatric sympt oms, medical problems, risk/benefits and alternatives of medications, medications compliance, coping strategies, substance abuse h/o, relapse prevention, importance of follow up with psychiatrist and therapist, discharge plan. Medical Problems: history of arthritis, numbness in her upper extremities, dyslipidemia, HT, obesity will call podiatry consultation for ingrow toenails Diagnostic Results: 01/06/18 07:40 01/06/18 07:40 Lab Results 01/06/18 07:40: Sodium 139, Potassium 4.6, Chloride 103, Carbon Dioxide 31, Anion Gap 10, BUN 14, Creatinine 0.7, Est GFR ( Amer) > 60, Est GFR (Non- Af Amer) > 60, Random Glucose 107, Calcium 9.0, Total Bilirubin 0.3, AST 16, ALT 20, Alkaline Phosphatase 65, Total Protein 6.4, Albumin 3.6, Globulin 2.8, Albumin/Globulin Ratio 1.3 01/06/18 07:40: WBC 8.8, RBC 4.56, Hgb 13.1, Hct 41.2, MCV 90.4, MCH 28.7, MCHC 31.8, RDW 13.9, Plt Count 266, MPV 10.2 01/05/18 07:45: RPR Nonreactive 01/05/18 07:45: TSH 3rd Generation 1.35 01/05/18 07:45: Fasting Glucose 100, Triglycerides 76, Cholesterol 131, LDL Cholesterol Direct 56, HDL Cholesterol 51 01/04/18 22:07: Alcohol, Quantitative < 10 01/04/18 22:07: Salicylates < 1 L, Acetaminophen < 10.0 L 01/04/18 22:07: Urine Opiates Screen Negative, Urine Methadone Screen Negative, Ur Barbiturates Screen Negative, Ur Phencyclidine Scrn Negative, Ur Amphetamines Screen Negative, U Benzodiazepines Scrn Negative, U Oth Cocaine Metabols Negative, U Cannabinoids Screen Negative 01/04/18 22:07: Sodium 137, Potassium 4.1, Chloride 100, Carbon Dioxide 29, Anion Gap 12, BUN 13, Creatinine 0.6 L, Est GFR ( Amer) > 60, Est GFR (Non-Af Amer) > 60, Random Glucose 112 H, Calcium 8.8, Magnesium 2.0, Total Bilirubin 0.3, AST 17, ALT 20, Alkaline Phosphatase 76, Total Protein 6.5, Albumin 3.8, Globulin 2.8, Albumin/Globulin Ratio 1.4 01/04/18 22:07: Urine Color Straw, Urine Appearance Clear, Urine pH 6.5, Ur Specific [place] <= 1.005, Urine Protein Negative, Urine Glucose (UA) Negative, Urine Ketones Negative, Urine Blood Negative, Urine Nitrate Negative, Urine Bilirubin Negative, Urine Urobilinogen 0.2, Ur Leukocyte Esterase Negative 01/04/18 22:07: WBC 11.0 D, RBC 4.12, Hgb 11.8 L, Hct 37.0, MCV 89.8, MCH 28.6, MCHC 31.9, RDW 13.9, Plt Count 269, MPV 10.0, Gran % 71.0 H, Lymph % (Auto) 19.8 L, [place] % (Auto) 7.4 H, Eos % (Auto) 1.5, Baso % (Auto) 0.3, Gran # 7.81 H, Lymph # (Auto) 2.2, [place] # (Auto) 0.8 H, Eos # (Auto) 0.2, Baso # (Auto) 0.03 Vital Signs Temp Pulse Resp BP Pulse Ox 01/06/18 07:15 97.8 F 91 H 20 122/73 01/05/18 15:00 89 131/68 01/05/18 07:18 97.1 F L 80 20 156/79 H 01/05/18 01:38 97.9 F 74 18 136/71 01/05/18 01:15 85 18 128/74 100 01/04/18 21:08 98.1 F 88 18 124/76 95 Temp Pulse Resp BP Pulse Ox 97.6 F 63 18 124/68 100 01/07/18 07:14 01/07/18 07:14 01/07/18 07:14 01/07/18 07:14 01/05/18 01:15 DSM 5 Symptoms Update: Shortly pt is 72 year old female, with reported h/o schizophrenia v/s delusional disorder, five previous psych admissions, most recent was 04/05/2017 to this unit, currently under care of , pt has h/o noncompliance with medications and f/u appts, but this time claimed that she was compliant, was admitted to the psychiatric inpatient unit for disorganized thoughts and behavior, paranoia, feeling that police is going to arrest her, even thought pt did not commit a crime pt was feeling unease and anxious as a result for the past week pt became very depressed, unable to function, requested her to bring her to the hospital. even though that patient was compliant with the medications and follow-up appointment (pt has scheduled appt for today 01/05/18, but could not wait), obviously patient failed outpatient treatment and pt requires further evaluation and stabilization, medication adjustment and titration, observation. Pt was seen at treatment team meeting, pt presented to be depressed, on edge, irritable, pt refused to have NH referral, pt seems to be annoyed with this question, pt's visited pt yesterday pt was feeling upset over his visit because also brought NH option to pt's attention. pt seems to be not improving so much, this wrier offered ECT treatment pt said strong NO. patient still delusional, afraid that police is going to arrest her, still has delusions about Faustino Kang "but it is not bothering me that much". pt needs assistance to take shower, with her ADLs. So far patient tolerates medications well, no side effects observed or reported, aims 0, no EPS. Impression: Schizophrenia Delusional disorder. Medication Change: Yes (xanax started, risperdal increased hs) Medical Record Reviewed: Yes Mental Status Examination - Cognitive Function Orientation: Person, Place, Situation Memory: Impaired Attention: Poor Concentration: Poor Association: Loose Fund of Knowledge: Poor - Mood Mood: Depressed, Anxious - Affect Affect: Constricted, Flat - Formal Thought Process Formal Thought Process: Hallucinations (denied), Delusions (erotomanic delusions), Paranoia, Loosening of associations, Circumstantial, Thought Broadcasting - Suicidal Ideation Suicidal Ideation: No - Homicidal Ideation Homicidal Ideation: No Goal/Treatment Plan - Goal/Treatment Plan Need for Continued Stay: Remain at risks for inpatient hospitalization, Severe depression anxiety, Discharge may exacerbated symptoms, Severe functional impairment Progress Toward Problem(s) and Goals/Treatment Plan: Milieu/structure/supportive therapy Medical consult called Patient complained of left knee arthritis orthopedists consultation called podiatry consult neurology consultation appreciated consultation for discharge plan and social issues Med management prozac 40 mg daily for depression and anxiety Klonopin d/c xanax 0.25mg po bid for anxiety Trazodone 50 mg at the nighttime for insomnia and depression Risperdal 2 mg twice a day and 3mg at night time for mood stabilization and psychosis Off note patient has been on Risperdal Consta in the past Family involvement, pt's usually very involved, will discuss NH placement options Follow up on labs Will monitor closely Pt was educated about risk/benefits and alternatives of medications, coping strategies (safety plan, suicide prevention), relapse prevention, importance of follow up with psychiatrist and therapist, stay away from drugs/alcohol/smoking Estimated Date of D/C: 01/16/18
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
[2018-01-14] MEDS ORDERED: Benzocaine/Menthol (Cepacol) Lozenge MT PRN (09:27)
[2018-01-14] MEDS: Lidocaine 5% Patch TD SCH (09:37)
--- NOTE | 2018-01-14 10:46 | PN ---
DATE: 01/14/2018 SUBJECTIVE: I saw her in the hallway actually. She is walking well. She is eating well. Her back pain is not as bad with the patch. She is in good spirits. No complaints to me this morning. She is on Aricept, Cepacol, Cogentin, Desyrel, Lidoderm, Lipitor, Lyrica, Maalox, milk of magnesia, Prozac, Risperdal, Tylenol, vitamin C, Xanax and Zithromax. Her cold is slowly improving. Occasional cough, not as bad. PHYSICAL EXAMINATION: VITAL SIGNS: 97.3 temp, 73 pulse, 159/78 blood pressure, 20 respiratory rate. HEENT: Head is atraumatic, normocephalic. HEART: Regular rate. LUNGS: Clear to auscultation. No wheezing. No rhonchi. No rales. ABDOMEN: Soft, nontender. Positive bowel sounds. EXTREMITIES: No edema. LABORATORY DATA: She has labs on 01/11/2018, which were very good. ASSESSMENT AND PLAN: I encouraged her to continue with her treatments and her groups and participate, for walks, eat the food and I do think she is starting to improve. We will continue to watch her. Jeni Roca who has low back pain, which the patch has helped; upper respiratory infection; high cholesterol; schizophrenia; bipolar; anxiety. Manolo Mtz DO
--- NOTE | 2018-01-14 12:13 | PCM.PYCHPN ---
Psychiatric Progress Note - Psychiatric Progress Note Patient seen today, length of contact: 30 minutes Patient Chief Complaint: I feel congested, I feel like my throat hurts". Problems Identified/Issues Discussed: Suicide/ homicide prevention, past psychiatric h/o, current psychiatric symptoms, medical problems, risk/benefits and alternatives of medications, medications compliance, coping strategies, substance abuse h/o, relapse prevention, importance of follow up with psychiatrist and therapist, discharge plan. Medical Problems: history of arthritis, numbness in her upper extremities, dyslipidemia, HT, obesity will call podiatry consultation for ingrow toenails Diagnostic Results: 01/06/18 07:40 01/06/18 07:40 Lab Results 01/06/18 07:40: Sodium 139, Potassium 4.6, Chloride 103, Carbon Dioxide 31, Anion Gap 10, BUN 14, Creatinine 0.7, Est GFR ( Amer) > 60, Est GFR (Non- Af Amer) > 60, Random Glucose 107, Calcium 9.0, Total Bilirubin 0.3, AST 16, ALT 20, Alkaline Phosphatase 65, Total Protein 6.4, Albumin 3.6, Globulin 2.8, Albumin/Globulin Ratio 1.3 01/06/18 07:40: WBC 8.8, RBC 4.56, Hgb 13.1, Hct 41.2, MCV 90.4, MCH 28.7, MCHC 31.8, RDW 13.9, Plt Count 266, MPV 10.2 01/05/18 07:45: RPR Nonreactive 01/05/18 07:45: TSH 3rd Generation 1.35 01/05/18 07:45: Fasting Glucose 100, Triglycerides 76, Cholesterol 131, LDL Cholesterol Direct 56, HDL Cholesterol 51 01/04/18 22:07: Alcohol, Quantitative < 10 01/04/18 22:07: Salicylates < 1 L, Acetaminophen < 10.0 L 01/04/18 22:07: Urine Opiates Screen Negative, Urine Methadone Screen Negative, Ur Barbiturates Screen Negative, Ur Phencyclidine Scrn Negative, Ur Amphetamines Screen Negative, U Benzodiazepines Scrn Negative, U Oth Cocaine Metabols Negative, U Cannabinoids Screen Negative 01/04/18 22:07: Sodium 137, Potassium 4.1, Chloride 100, Carbon Dioxide 29, Anion Gap 12, BUN 13, Creatinine 0.6 L, Est GFR ( Amer) > 60, Est GFR (Non-Af Amer) > 60, Random Glucose 112 H, Calcium 8.8, Magnesium 2.0, Total Bilirubin 0.3, AST 17, ALT 20, Alkaline Phosphatase 76, Total Protein 6.5, Al bumin 3.8, Globulin 2.8, Albumin/Globulin Ratio 1.4 01/04/18 22:07: Urine Color Straw, Urine Appearance Clear, Urine pH 6.5, Ur Specific [place] <= 1.005, Urine Protein Negative, Urine Glucose (UA) Negative, Urine Ketones Negative, Urine Blood Negative, Urine Nitrate Negative, Urine Bilirubin Negative, Urine Urobilinogen 0.2, Ur Leukocyte Esterase Negative 01/04/18 22:07: WBC 11.0 D, RBC 4.12, Hgb 11.8 L, Hct 37.0, MCV 89.8, MCH 28.6, MCHC 31.9, RDW 13.9, Plt Count 269, MPV 10.0, Gran % 71.0 H, Lymph % (Auto) 19.8 L, [place] % (Auto) 7.4 H, Eos % (Auto) 1.5, Baso % (Auto) 0.3, Gran # 7.81 H, Lymph # (Auto) 2.2, [place] # (Auto) 0.8 H, Eos # (Auto) 0.2, Baso # (Auto) 0.03 Vital Signs Temp Pulse Resp BP Pulse Ox 01/06/18 07:15 97.8 F 91 H 20 122/73 01/05/18 15:00 89 131/68 01/05/18 07:18 97.1 F L 80 20 156/79 H 01/05/18 01:38 97.9 F 74 18 136/71 01/05/18 01:15 85 18 128/74 100 01/04/18 21:08 98.1 F 88 18 124/76 95 Temp Pulse Resp BP Pulse Ox 97.6 F 63 18 124/68 100 01/07/18 07:14 01/07/18 07:14 01/07/18 07:14 01/07/18 07:14 01/05/18 01:15 DSM 5 Symptoms Update: Shortly pt is 72 year old female, with reported h/o schizophrenia v/s delusional disorder, five previous psych admissions, most recent was 04/05/2017 to this unit, currently under care of , pt has h/o noncompliance with medications and f/u appts, but this time claimed that she was compliant, was admitted to the psychiatric inpatient unit for disorganized thoughts and behavio r, paranoia, feeling that police is going to arrest her, even thought pt did not commit a crime pt was feeling unease and anxious as a result for the past week pt became very depressed, unable to function, requested her to bring her to the hospital. even though that patient was compliant with the medications and follow-up appointment (pt has scheduled appt for today 01/05/18, but could not wait), obviously patient failed outpatient treatment and pt requires further evaluation and stabilization, medication adjustment and titration, observation. Pt was seen at the dining area, patient observed eating breakfast, patient reported that she feels "little better", patient complains of the store throat, vitamin C as well as Cepacol started, medical team is following on this patient. As per staff reported patient was calmer after Xanax was started for the patient. patient still disorganized, delusional, hygiene is fall from being ood. patient refused penitentiary referral, refused ECT treatment. pt needs assistance to take shower, with her ADLs. So far patient tolerates medications well, no side effects observed or reported, aims 0, no EPS. As per staff patient is compliant with the medications, no agitation, no aggression. Impression: Schizophrenia Delusional disorder. Medication Change: No (adjusted yesterday) Medical Record Reviewed: Yes Consults ordered or reviewed: history of arthritis, (ortho) is on vacation, will see pt next week Patient complain off numbness in her upper extremities, patient was seen by Dr. Aburto, Lyrica was started Patient also was seen by PMD Mental Status Examination - Cognitive Function Orientation: Person, Place, Situation Memory: Impaired Attention: Poor Concentration: Poor Association: Loose Fund of Knowledge: Poor - Mood Mood: Depressed, Anxious - Affect Affect: Constricted, Flat - Formal Thought Process Formal Thought Process: Hallucinations (denied), Delusions (erotomanic delusions), Paranoia, Loosening of associations, Circumstantial, Thought Broadcasting - Suicidal Ideation Suicidal Ideation: No - Homicidal Ideation Homicidal Ideation: No Goal/Treatment Plan - Goal/Treatment Plan Need for Continued Stay: Remain at risks for inpatient hospitalization, Severe depression anxiety, Discharge may exacerbated symptoms, Severe functional impairment Progress Toward Problem(s) and Goals/Treatment Plan: Milieu/structure/supportive therapy Medical consult called Patient complained of left knee arthritis orthopedists consultation called podiatry consult neurology consultation appreciated consultation for discharge plan and social issues Med management prozac 40 mg daily for depression and anxiety Klonopin d/c xanax 0.25mg po bid for anxiety Trazodone 50 mg at the nighttime for insomnia and depression Risperdal 2 mg twice a day and 3mg at night time for mood stabilization and psychosis Family involvement, pt's usually very involved, will discuss NH placement options Follow up on labs Will monitor closely Pt was educated about risk/benefits and alternatives of medications, coping strategies (safety plan, suicide prevention), relapse prevention, importance of follow up with psychiatrist and therapist, stay away from drugs/alcohol/smoking Estimated Date of D/C: 01/16/18
[2018-01-15] MEDS: Lidocaine 5% Patch TD SCH (09:30)
--- NOTE | 2018-01-15 09:45 | PCM.PYCHPN ---
Psychiatric Progress Note - Psychiatric Progress Note Patient seen today, length of contact: 30 minutes Patient Chief Complaint: I am alright, I have a back pain" Problems Identified/Issues Discussed: Suicide/ homicide prevention, past psychiatric h/o, current psychiatric s ymptoms, medical problems, risk/benefits and alternatives of medications, medications compliance, coping strategies, substance abuse h/o, relapse prevention, importance of follow up with psychiatrist and therapist, discharge plan. Medical Problems: history of arthritis, numbness in her upper extremities, dyslipidemia, HT, obesity podiatry consultation for ingrow toenails appreciated Diagnostic Results: 01/06/18 07:40 01/06/18 07:40 Lab Results 01/06/18 07:40: Sodium 139, Potassium 4.6, Chloride 103, Carbon Dioxide 31, Anion Gap 10, BUN 14, Creatinine 0.7, Est GFR ( Amer) > 60, Est GFR (Non- Af Amer) > 60, Random Glucose 107, Calcium 9.0, Total Bilirubin 0.3, AST 16, ALT 20, Alkaline Phosphatase 65, Total Protein 6.4, Albumin 3.6, Globulin 2.8, Albumin/Globulin Ratio 1.3 01/06/18 07:40: WBC 8.8, RBC 4.56, Hgb 13.1, Hct 41.2, MCV 90.4, MCH 28.7, MCHC 31.8, RDW 13.9, Plt Count 266, MPV 10.2 01/05/18 07:45: RPR Nonreactive 01/05/18 07:45: TSH 3rd Generation 1.35 01/05/18 07:45: Fasting Glucose 100, Triglycerides 76, Cholesterol 131, LDL Cholesterol Direct 56, HDL Cholesterol 51 01/04/18 22:07: Alcohol, Quantitative < 10 01/04/18 22:07: Salicylates < 1 L, Acetaminophen < 10.0 L 01/04/18 22:07: Urine Opiates Screen Negative, Urine Methadone Screen Negative, Ur Barbiturates Screen Negative, Ur Phencyclidine Scrn Negative, Ur Amphetamines Screen Negative, U Benzodiazepines Scrn Negative, U Oth Cocaine Metabols Negative, U Cannabinoids Screen Negative 01/04/18 22:07: Sodium 137, Potassium 4.1, Chloride 100, Carbon Dioxide 29, Anion Gap 12, BUN 13, Creatinine 0.6 L, Est GFR ( Amer) > 60, Est GFR (Non-Af Amer) > 60, Random Glucose 112 H, Calcium 8.8, Magnesium 2.0, Total Bilirubin 0.3, AST 17, ALT 20, Alkaline Phosphatase 76, Total Protein 6.5, Albumin 3.8, Globulin 2.8, Albumin/Globulin Ratio 1.4 01/04/18 22:07: Urine Color Straw, Urine Appearance Clear, Urine pH 6.5, Ur Specific [place] <= 1.005, Urine Protein Negative, Urine Glucose (UA) Negative, Urine Ketones Negative, Urine Blood Negative, Urine Nitrate Negative, Urine Bi lirubin Negative, Urine Urobilinogen 0.2, Ur Leukocyte Esterase Negative 01/04/18 22:07: WBC 11.0 D, RBC 4.12, Hgb 11.8 L, Hct 37.0, MCV 89.8, MCH 28.6, MCHC 31.9, RDW 13.9, Plt Count 269, MPV 10.0, Gran % 71.0 H, Lymph % (Auto) 19.8 L, [place] % (Auto) 7.4 H, Eos % (Auto) 1.5, Baso % (Auto) 0.3, Gran # 7.81 H, Lymph # (Auto) 2.2, [place] # (Auto) 0.8 H, Eos # (Auto) 0.2, Baso # (Auto) 0.03 Vital Signs Temp Pulse Resp BP Pulse Ox 01/06/18 07:15 97.8 F 91 H 20 122/73 01/05/18 15:00 89 131/68 01/05/18 07:18 97.1 F L 80 20 156/79 H 01/05/18 01:38 97.9 F 74 18 136/71 01/05/18 01:15 85 18 128/74 100 01/04/18 21:08 98.1 F 88 18 124/76 95 Temp Pulse Resp BP Pulse Ox 97.6 F 63 18 124/68 100 01/07/18 07:14 01/07/18 07:14 01/07/18 07:14 01/07/18 07:14 01/05/18 01:15 Temp Pulse Resp BP Pulse Ox 97.7 F 76 18 136/72 100 01/15/18 07:04 01/15/18 07:04 01/15/18 07:04 01/15/18 07:04 01/05/18 01:15 DSM 5 Symptoms Update: Shortly pt is 72 year old female, with reported h/o schizophrenia v/s delusional disorder, five previous psych admissions, most recent was 04/05/2017 to this unit, currently under care of , pt has h/o noncompliance with medications and f/u appts, but this time claimed that she was compliant, was admitted to the psychiatric inpatient unit for disorganized thoughts and behavior, paranoia, feeling that police is going to arrest her, even thought pt did not commit a crime pt was feeling unease and anxious as a result for the past week pt became very depressed, unable to function, requested her to bring her to the hospital. even though that patient was compliant with the medications and follow-up appointment (pt has scheduled appt for today 01/05/18, but could not wait), obviously patient failed outpatient treatment and pt requires further evaluation and stabilization, medication adjustment and titration, observation. Pt was seen in her room pt still disheveled, flat affect, pt c/o back pain, pt was seen by . pt still did not want to have ECT and NH placement, still delusional, disorganized. pt's ADLs are poor, pt did not take a shower, needs assistance, wears same clothing, needs assistance. As per staff reported patient was calmer after Xanax was started for the patient. So far patient tolerates medications well, no side effects observed or reported, aims 0, no EPS. As per staff patient is compliant with the medications, no agitation, no aggression. Impression: Schizophrenia Delusional disorder. Medication Change: No Medical Record Reviewed: Yes Consults ordered or reviewed: history of arthritis, (ortho) is on vacation, will see pt next week Patient complain off numbness in her upper extremities, patient was seen by Dr. Aburto, Lyrica was started Patient also was seen by PMD Mental Status Examination - Cognitive Function Orientation: Person, Place, Situation Memory: Impaired Attention: Poor Concentration: Poor Association: Loose Fund of Knowledge: Poor - Mood Mood: Depressed, Anxious - Affect Affect: Constricted, Flat - Formal Thought Process Formal Thought Process: Hallucinations (denied), Delusions (erotomanic delusions, but pt is not fixated on them), Paranoia, Loosening of associations, Circumstantial, Thought Broadcasting - Suicidal Ideation Suicidal Ideation: No - Homicidal Ideation Homicidal Ideation: No Goal/Treatment Plan - Goal/Treatment Plan Need for Continued Stay: Remain at risks for inpatient hospitalization, Severe depression anxiety, Discharge may exacerbated symptoms, Severe functional impairment Progress Toward Problem(s) and Goals/Treatment Plan: Milieu/structure/supportive therapy Medical consult called Patient complained of left knee arthritis orthopedists consultation called podiatry consult neurology consultation appreciated SW consultation for discharge plan and social issues Med management prozac 40 mg daily for depression and anxiety xanax 0.25mg po bid for anxiety Trazodone 50 mg at the nighttime for insomnia and depression Risperdal 2 mg twice a day and 3mg at night time for mood stabilization and psychosis Family involvement, pt's usually very involved, will discuss NH placement options Follow up on labs Will monitor closely Pt was educated about risk/benefits and alternatives of medications, coping strategies (safety plan, suicide prevention), relapse prevention, importance of follow up with psychiatrist and therapist, stay away from drugs/alcohol/smoking Estimated Date of D/C: 01/19/18
--- NOTE | 2018-01-15 13:23 | PN ---
DATE: 01/15/2018 SUBJECTIVE: She is seen out of bed to chair. She is eating her breakfast well. She is still having back pain and she states that the Lidoderm patch alone is not helping the back. She is on Aricept, Cepacol, Cogentin, Desyrel, Lidoderm patch, Lipitor, Lyrica, Maalox, milk of magnesia, Prozac, Risperdal, Tylenol and I am going to add tramadol to help her back pain, vitamin C, Xanax and Zithromax. PHYSICAL EXAMINATION: VITAL SIGNS: Temperature 97.7, pulse 76, 136/72 blood pressure, 18 respiratory rate. HEAD: Atraumatic, normocephalic. HEART: Regular rate. LUNGS: Decreased breath sounds but clear. ABDOMEN: Soft, nontender. Positive bowel sounds. Obese. EXTREMITIES: No edema. I will see if tramadol might not help her low back pain. LABORATORY DATA: On 01/11/2018 showed an 8.4 white count, 11.8 hemoglobin, 275 platelets. Also on the 01/11/2018, 141 sodium, potassium 4.6, BUN 15, creatinine 0.6, GFR greater than 60. Sugar was 91. Hopefully, she will continue to improve mentally. Hope that the back will improve with her tramadol and the Lidoderm patch combination and I encouraged her to participate as per Psychiatry. Manolo Mtz DO
--- NOTE | 2018-01-16 09:35 | PN ---
DATE: 01/16/2018 SUBJECTIVE: I saw her in bed in the Psych Unit. She is resting comfortably, slept fairly. She is on stronger pain medication right now. MEDICATIONS: She is on Aricept, Cepacol, Cogentin, Desyrel, Lidoderm, Lipitor, Lyrica, Maalox, milk of magnesia, Prozac, Risperdal, Tylenol, Ultram, vitamin C, Xanax and Zithromax. PHYSICAL EXAMINATION: VITAL SIGNS: She has a 97.8 temp, 76 pulse, 124/68 blood pressure, 19 respiratory rate. HEENT: Her head is atraumatic, normocephalic. HEART: Regular rate. LUNGS: Decreased breath sounds, but clear. ABDOMEN: Soft. EXTREMITIES: No edema. LABORATORY DATA: Last labs on 01/11/2018 and she did fairly well. ASSESSMENT AND PLAN: I encouraged her to participate in groups and take the medication and eat the food and hopefully she will be dischargeable soon. She has multiple things going on, delusional, low back pain, depression, upper respiratory infection, urinary tract infection, schizophrenia. Hopefully, she will get better. We will follow as per psychiatry. Manolo Mtz DO
[2018-01-16] MEDS: Lidocaine 5% Patch TD SCH (10:18)
--- NOTE | 2018-01-16 14:31 | PCM.PYCHPN ---
Psychiatric Progress Note - Psychiatric Progress Note Patient seen today, length of contact: 30 minutes Patient Chief Complaint: I still feel that police is going to arrest me, it is kind of bothering me..." Problems Identified/Issues Discussed: Suicide/ homicide prevention, past psychiatric h/o, current psychiatric symptoms, medical problems, risk/benefits and alternatives of medications, medications compliance, coping strategies, substance abuse h/o, relapse prevention, importance of follow up with psychiatrist and therapist, discharge plan. Medical Problems: history of arthritis, numbness in her upper extremities, dyslipidemia, HT, obesity podiatry consultation for ingrow toenails appreciated Diagnostic Results: 01/06/18 07:40 01/06/18 07:40 Lab Results 01/06/18 07:40: Sodium 139, Potassium 4.6, Chloride 103, Carbon Dioxide 31, Anion Gap 10, BUN 14, Creatinine 0.7, Est GFR ( Amer) > 60, Est GFR (Non- Af Amer) > 60, Random Glucose 107, Calcium 9.0, Total Bilirubin 0.3, AST 16, ALT 20, Alkaline Phosphatase 65, Total Protein 6.4, Albumin 3.6, Globulin 2.8, Albumin/Globulin Ratio 1.3 01/06/18 07:40: WBC 8.8, RBC 4.56, Hgb 13.1, Hct 41.2, MCV 90.4, MCH 28.7, MCHC 31.8, RDW 13.9, Plt Count 266, MPV 10.2 01/05/18 07:45: RPR Nonreactive 01/05/18 07:45: TSH 3rd Generation 1.35 01/05/18 07:45: Fasting Glucose 100, Triglycerides 76, Cholesterol 131, LDL Cholesterol Direct 56, HDL Cholesterol 51 01/04/18 22:07: Alcohol, Quantitative < 10 01/04/18 22:07: Salicylates < 1 L, Acetaminophen < 10.0 L 01/04/18 22:07: Urine Opiates Screen Negative, Urine Methadone Screen Negative, Ur Barbiturates Screen Negative, Ur Phencyclidine Scrn Negative, Ur Amphetamines Screen Negative, U Benzodiazepines Scrn Negative, U Oth Cocaine Metabols Negative, U Cannabinoids Screen Negative 01/04/18 22:07: Sodium 137, Potassium 4.1, Chloride 100, Carbon Dioxide 29, Anion Gap 12, BUN 13, Creatinine 0.6 L, Est GFR ( Amer) > 60, Est GFR (Non-Af Amer) > 60, Random Glucose 112 H, Calcium 8.8, Magnesium 2.0, Total Bilirubin 0.3, AST 17, ALT 20, Alkaline Phosphatase 76, Total Protein 6.5, Albumin 3.8, Globulin 2.8, Albumin/Globulin Ratio 1.4 01/04/18 22:07: Urine Color Straw, Urine Appearance Clear, Urine pH 6.5, Ur Specific [place] <= 1.005, Urine Protein Negative, Urine Glucose (UA) Negative, Urine Ketones Negative, Urine Blood Negative, Urine Nitrate Negative, Urine Bilirubin Negative, Urine Urobilinogen 0.2, Ur Leukocyte Esterase Negative 01/04/18 22:07: WBC 11.0 D, RBC 4.12, Hgb 11.8 L, Hct 37.0, MCV 89.8, MCH 28.6, MCHC 31.9, RDW 13.9, Plt Count 269, MPV 10.0, Gran % 71.0 H, Lymph % (Auto) 19.8 L, [place] % (Auto) 7.4 H, Eos % (Auto) 1.5, Baso % (Auto) 0.3, Gran # 7.81 H, Lymph # (Auto) 2.2, [place] # (Auto) 0.8 H, Eos # (Auto) 0.2, Baso # (Auto) 0.03 Vital Signs Temp Pulse Resp BP Pulse Ox 01/06/18 07:15 97.8 F 91 H 20 122/73 01/05/18 15:00 89 131/68 01/05/18 07:18 97.1 F L 80 20 156/79 H 01/05/18 01:38 97.9 F 74 18 136/71 01/05/18 01:15 85 18 128/74 100 01/04/18 21:08 98.1 F 88 18 124/76 95 Temp Pulse Resp BP Pulse Ox 97.6 F 63 18 124/68 100 01/07/18 07:14 01/07/18 07:14 01/07/18 07:14 01/07/18 07:14 01/05/18 01:15 Temp Pulse Resp BP Pulse Ox 97.7 F 76 18 136/72 100 01/15/18 07:04 01/15/18 07:04 01/15/18 07:04 01/15/18 07:04 01/05/18 01:15 Temp Pulse Resp BP Pulse Ox 97.8 F 76 19 124/68 100 01/16/18 06:43 01/16/18 06:43 01/16/18 06:43 01/16/18 06:43 01/05/18 01:15 DSM 5 Symptoms Update: Shortly pt is 72 year old female, with reported h/o schizophrenia v/s delusional disorder, five previous psych admissions, most recent was 04/05/2017 to this unit, currently under care of , pt has h/o noncompliance with medications and f/u appts, but this time claimed that she was compliant, was admitted to the psychiatric inpatient unit for disorganized thoughts and behavior, paranoia, feeling that police is going to arrest her, even thought pt did not commit a crime pt was feeling unease and anxious as a result for the past week pt became very depressed, unable to function, requested her to bring her to the hospital. even though that patient was compliant with the medications and follow-up appointment (pt has scheduled appt for today 01/05/18, but could not wait), obviously patient failed outpatient treatment and pt requires further evaluation and stabilization, medication adjustment and titration, observation. Pt was seen in her room pt still disheveled, flat affect. pt appeared to be sleepy, pt then was seen at the dinning area, pt ate, pt said that she still feels that police is going to arrest her, "it is still bothering me". pt still did not want to have ECT and NH placement, still delusional, disorganized, family meeting should take place, discuss option with pt's . pt's ADLs are poor, pt did not take a shower, needs assistance, wears same clothing, needs assistance. As per staff reported patient was calmer after Xanax was started for the patient. So far patient tolerates medications well, no side effects observed or reported, aims 0, no EPS. As per staff patient is compliant with the medications, no agitation, no aggression. Impression: Schizophrenia Delusional disorder. Medication Change: No Medical Record Reviewed: Yes Mental Status Examination - Cognitive Function Orientation: Person, Place, Situation Memory: Impaired Attention: Poor Concentration: Poor Association: Loose Fund of Knowledge: Poor - Mood Mood: Depressed, Anxious - Affect Affect: Constricted, Flat - Formal Thought Process Formal Thought Process: Hallucinations (denied), Delusions (erotomanic delusions, but pt is not fixated on them), Paranoia (pt still feels that she is going to be arrested), Loosening of associations, Circumstantial, Thought Broadcasting - Suicidal Ideation Suicidal Ideation: No - Homicidal Ideation Homicidal Ideation: No Goal/Treatment Plan - Goal/Treatment Plan Need for Continued Stay: Remain at risks for inpatient hospitalization, Severe depression anxiety, Discharge may exacerbated symptoms, Severe functional impairment Progress Toward Problem(s) and Goals/Treatment Plan: Milieu/structure/supportive therapy Medical consult called Patient complained of left knee arthritis orthopedists consultation called podiatry consult neurology consultation appreciated SW consultation for discharge plan and social issues Med management prozac 40 mg daily for depression and anxiety xanax 0.25mg po bid for anxiety Trazodone 50 mg at the nighttime for insomnia and depression Risperdal 2 mg twice a day and 3mg at night time for mood stabilization and psychosis Family involvement, pt's usually very involved, will discuss NH placement options Follow up on labs Will monitor closely Pt was educated about risk/benefits and alternatives of medications, coping strategies (safety plan, suicide prevention), relapse prevention, importance of follow up with psychiatrist and therapist, stay away from drugs/alcohol/smoking family meeting should take place this week Estimated Date of D/C: 01/19/18
[2018-01-17 07:29] VITALS: RESP 20
--- NOTE | 2018-01-17 09:45 | PN ---
DATE: 01/17/2018 SUBJECTIVE: I saw her in bed in psychiatric floor. She slept very well last night and I woke her up and she tells me she does have back pain on and off but the medications helped her. She is on the patch and also she is on Ultram. She is also on Aricept, Cepacol, Cogentin, Desyrel, Lidoderm patch, Lipitor, Lyrica, Maalox, milk of magnesia, Prozac, Risperdal, Tylenol, vitamin C, Xanax, Zithromax and Ultram. PHYSICAL EXAMINATION: VITAL SIGNS: She has a 97.8 temperature, 76 pulse, 124/68 blood pressure, 19 respiratory rate. HEENT: Head is atraumatic, normocephalic. HEART: Regular rate. LUNGS: Clear to auscultation. No cough. No wheeze, no rhonchi. ABDOMEN: Soft, obese, nontender. EXTREMITIES: No edema. ASSESSMENT AND PLAN: She can walk. She gets up. She gets some back pain. She has had it for long time. I do believe that she is over her upper respiratory tract infection the urine. I will discontinue the antibiotics at this time. We will continue with aggressive treatment and care on Jeni Roca as per Psychiatry and I will adjust the medication. Manolo Mtz DO MTDMelanie
[2018-01-17] MEDS: Lidocaine 5% Patch TD SCH (09:54)
--- NOTE | 2018-01-17 10:29 | PCM.PYCHPN ---
Psychiatric Progress Note - Psychiatric Progress Note Patient seen today, length of contact: 30 minutes Problems Identified/Issues Discussed: I reviewed assessment and recent notes. Patient was seen at bedside. She appears unkempt, preoccupied and oriented x3. Reports that she feels anxious and tired. Slept well last night and denies any issues with her medications. Her responses are brief and disengaged. Her affect is flat and she seems aloof and oddly related. Patient denies hallucinations and she is not responding to internal stimuli. Delusions were not elicited though there are multiple staff reports describing her paranoia about being arrested. Patient has been calm and compliant with medications. She needs encouragement to attend groups and interact with others. There has been some improvement however patient requires further treatment and monitoring on the unit. Diagnostic Results: Schizophrenia Delusional disorder. Medication Change: No Medical Record Reviewed: Yes Mental Status Examination - Cognitive Function Orientation: Person, Place, Situation Memory: Impaired Attention: Poor Concentration: Poor Association: Loose Fund of Knowledge: Poor - Mood Mood: Depressed, Anxious - Affect Affect: Constricted, Flat - Formal Thought Process Formal Thought Process: Hallucinations (denied), Delusions (erotomanic delusions, but pt is not fixated on them), Paranoia (pt still feels that she is going to be arrested), Loosening of associations, Circumstantial, Thought Broadcasting - Suicidal Ideation Suicidal Ideation: No - Homicidal Ideation Homicidal Ideation: No Goal/Treatment Plan - Goal/Treatment Plan Need for Continued Stay: Remain at risks for inpatient hospitalization, Severe depression anxiety, Discharge may exacerbated symptoms, Severe functional impairment Progress Toward Problem(s) and Goals/Treatment Plan: * c/w current tx and plan * No new lab results thus far * Vitals reviewed and noted below: Selected Entries 01/16/18 01/16/18 06:43 15:37 Temperature 97.8 F Pulse Rate 76 90 Respiratory 19 Rate Blood Pressure 124/68 104/60 Estimated Date of D/C: 01/19/18
--- NOTE | 2018-01-18 09:38 | PN ---
DATE: 01/18/2018 SUBJECTIVE: I saw her resting comfortably in bed. She slept well last night. She has no complaints this morning to me. She is going to try to go to groups and eat her breakfast. She is on Aricept, Depakote, Cogentin, Desyrel, Lidoderm patch, Lipitor, Lyrica, Maalox, milk of magnesia, Prozac, Risperdal, Tylenol, Ultram, vitamin C and Xanax. She had no complaints to me this morning of back pain, which is surprising. PHYSICAL EXAMINATION: VITAL SIGNS: She has a 98 temp, 71 pulse, 135/72 blood pressure, 20 respiratory rate. HEENT: The head is atraumatic, normocephalic. HEART: Regular rate. LUNGS: Decreased breath sounds, but clear. ABDOMEN: Soft, obese, nontender. EXTREMITIES: No edema. ASSESSMENT AND PLAN: She will continue with her present treatment with Psychiatry, take her medication. She has medications for the back pain if it does arise again and hopefully we will continue aggressive treatment and care on her psychological issues. She has depression, high cholesterol, upper respiratory infection, low back pain, urinary tract infection, schizophrenia, bipolar and we will keep an eye on her. Manolo Mtz DO
[2018-01-18] MEDS: Lidocaine 5% Patch TD SCH (09:49)
--- NOTE | 2018-01-19 07:41 | PN ---
DATE: 01/18/[address] Mulligan. IDENTIFYING INFORMATION: The patient is a 72-year-old white female who appears somewhat unkempt. She is alert and oriented to 3 spheres. She appears withdrawn, with a flat affect. She denies auditory or visual hallucinations, but does appears to be withdrawn and needing prompting. She carries with her diagnosis of schizophrenia or delusional disorder. She is being maintained psychotropically on Aricept 10 mg at bedtime, Cogentin 1 mg b.i.d., trazodone 50 mg at bedtime, Prozac 40 mg, Risperdal 2 mg b.i.d. and 3 mg at bedtime (perhaps for flatness due to the dyskinetic effects of Risperdal). We will discuss with Dr. Mulligan on her return. Nursing considers her affect to be somewhat brighter, but she is still delusional about police and about an affinity for the [employer] whom she asks about. She does need encouragement to engage in activity. PHYSICAL EXAMINATION: VITAL SIGNS: Blood pressure 135/72, pulse 71, temperature 98, respiratory rate 20. Juan R Brar MD/ PhD
--- NOTE | 2018-01-19 09:17 | PCM.PYCHPN ---
Psychiatric Progress Note - Psychiatric Progress Note Patient seen today, length of contact: 30 minutes Patient Chief Complaint: "i feel little better, but I have a back pain" Problems Identified/Issues Discussed: Suicide/ homicide prevention, past psychiatric h/o, current psychiatric symptoms, medical problems, risk/benefits and alternatives of medications, medications compliance, coping strategies, substance abuse h/o, relapse prevention, importance of follow up with psychiatrist and therapist, discharge plan. Medical Problems: history of arthritis, numbness in her upper extremities, dyslipidemia, HT, obesity podiatry consultation for ingrow toenails appreciated Diagnostic Results: 01/06/18 07:40 01/06/18 07:40 Lab Results 01/06/18 07:40: Sodium 139, Potassium 4.6, Chloride 103, Carbon Dioxide 31, [place]i on Gap 10, BUN 14, Creatinine 0.7, Est GFR ( Amer) > 60, Est GFR (Non-Af Amer) > 60, Random Glucose 107, Calcium 9.0, Total Bilirubin 0.3, AST 16, ALT 20, Alkaline Phosphatase 65, Total Protein 6.4, Albumin 3.6, Globulin 2.8, Albumin/Globulin Ratio 1.3 01/06/18 07:40: WBC 8.8, RBC 4.56, Hgb 13.1, Hct 41.2, MCV 90.4, MCH 28.7, MCHC 31.8, RDW 13.9, Plt Count 266, MPV 10.2 01/05/18 07:45: RPR Nonreactive 01/05/18 07:45: TSH 3rd Generation 1.35 01/05/18 07:45: Fasting Glucose 100, Triglycerides 76, Cholesterol 131, LDL Cholesterol Direct 56, HDL Cholesterol 51 01/04/18 22:07: Alcohol, Quantitative < 10 01/04/18 22:07: Salicylates < 1 L, Acetaminophen < 10.0 L 01/04/18 22:07: Urine Opiates Screen Negative, Urine Methadone Screen Negative, Ur Barbiturates Screen Negative, Ur Phencyclidine Scrn Negative, Ur Amphetamines Screen Negative, U Benzodiazepines Scrn Negative, U Oth Cocaine Metabols Negative, U Cannabinoids Screen Negative 01/04/18 22:07: Sodium 137, Potassium 4.1, Chloride 100, Carbon Dioxide 29, Anion Gap 12, BUN 13, Creatinine 0.6 L, Est GFR ( Amer) > 60, Est GFR (Non-Af Amer) > 60, Random Glucose 112 H, Calcium 8.8, Magnesium 2.0, Total Bilirubin 0.3, AST 17, ALT 20, Alkaline Phosphatase 76, Total Protein 6.5, Albumin 3.8, Globulin 2.8, Albumin/Globulin Ratio 1.4 01/04/18 22:07: Urine Color Straw, Urine Appearance Clear, Urine pH 6.5, Ur Specific [place] <= 1.005, Urine Protein Negative, Urine Glucose (UA) Negative, Urine Ketones Negative, Urine Blood Negative, Urine Nitrate Negative, Urine Bilirubin Negative, Urine Urobilinogen 0.2, Ur Leukocyte Esterase Negative 01/04/18 22:07: WBC 11.0 D, RBC 4.12, Hgb 11.8 L, Hct 37.0, MCV 89.8, MCH 28.6, MCHC 31.9, RDW 13.9, Plt Count 269, MPV 10.0, Gran % 71.0 H, Lymph % (Auto) 19.8 L, [place] % (Auto) 7.4 H, Eos % (Auto) 1.5, Baso % (Auto) 0.3, Gran # 7.81 H, Lymph # (Auto) 2.2, [place] # (Auto) 0.8 H, Eos # (Auto) 0.2, Baso # (Auto) 0.03 Vital Signs Temp Pulse Resp BP Pulse Ox 01/06/18 07:15 97.8 F 91 H 20 122/73 01/05/18 15:00 89 131/68 01/05/18 07:18 97.1 F L 80 20 156/79 H 01/05/18 01:38 97.9 F 74 18 136/71 01/05/18 01:15 85 18 128/74 100 01/04/18 21:08 98.1 F 88 18 124/76 95 Temp Pulse Resp BP Pulse Ox 97.6 F 63 18 124/68 100 01/07/18 07:14 01/07/18 07:14 01/07/18 07:14 01/07/18 07:14 01/05/18 01:15 Temp Pulse Resp BP Pulse Ox 97.7 F 76 18 136/72 100 01/15/18 07:04 01/15/18 07:04 01/15/18 07:04 01/15/18 07:04 01/05/18 01:15 Temp Pulse Resp BP Pulse Ox 97.8 F 76 19 124/68 100 01/16/18 06:43 01/16/18 06:43 01/16/18 06:43 01/16/18 06:43 01/05/18 01:15 DSM 5 Symptoms Update: Shortly pt is 72 year old female, with reported h/o schizophrenia v/s delusional disorder, five previous psych admissions, most recent was 04/05/2017 to this unit, currently under care of , pt has h/o noncompliance with medications and f/u appts, but this time claimed that she was compliant, was admitted to the psychiatric inpatient unit for disorganized thoughts and behavior, paranoia, feeling that police is going to arrest her, even thought pt did not commit a crime pt was feeling unease and anxious as a result for the past week pt became very depressed, unable to function, requested her to bring her to the hospital. even though that patient was compliant with the medications and follow-up appointment (pt has scheduled appt for today 01/05/18, but could not wait), obviously patient failed outpatient treatment and pt requires further evaluation and stabilization, medication adjustment and titration, observation. Pt was seen in her room pt took a shower, pt presented with some improvements with her affect/hygiene, pt was able to smile appropriately today, family meeting scheduled today. pt reported that she still does not want to have ECt tr eatment, no NH placement, no Clozaril. pt's ADLs are little better, requires encouragement from staff and assistance. As per staff reported patient was calmer after Xanax was started for the patie nt. So far patient tolerates medications well, no side effects observed or reported, aims 0, no EPS. As per staff patient is compliant with the medications, no agitation, no aggression. Impression: Schizophrenia Delusional disorder. Medication Change: No Medical Record Reviewed: Yes Mental Status Examination - Cognitive Function Orientation: Person, Place, Situation Memory: Impaired Attention: Poor (some improvement) Concentration: Poor (some improvementq) Association: Loose (some improvement) Fund of Knowledge: WNL - Mood Mood: Depressed ("I am little better"), Anxious (" I am not anxious, just a lottle") - Affect Affect: Constricted, Flat - Formal Thought Process Formal Thought Process: Hallucinations (denied), Delusions (erotomanic delusions, but pt is not fixated on them), Paranoia (pt still feels that she is going to be arrested), Loosening of associations, Circumstantial, Thought Broadcasting - Suicidal Ideation Suicidal Ideation: No - Homicidal Ideation Homicidal Ideation: No Goal/Treatment Plan - Goal/Treatment Plan Need for Continued Stay: Remain at risks for inpatient hospitalization, Severe depression anxiety, Discharge may exacerbated symptoms, Severe functional im pairment Progress Toward Problem(s) and Goals/Treatment Plan: Milieu/structure/supportive therapy Medical consult called Patient complained of left knee arthritis orthopedists consultation called podiatry consult neurology consultation appreciated SW consultation for discharge plan and social issues Med management prozac 40 mg daily for depression and anxiety xanax 0.25mg po bid for anxiety Trazodone 50 mg at the nighttime for insomnia and depression Risperdal 2 mg twice a day and 3mg at night time for mood stabilization and psychosis Family involvement, pt's usually very involved, will discuss NH placement options Follow up on labs Will monitor closely Pt was educated about risk/benefits and alternatives of medications, coping strategies (safety plan, suicide prevention), relapse prevention, importance of follow up with psychiatrist and therapist, stay away from drugs/alcohol/smoking family meeting should take place this week Estimated Date of D/C: 01/19/18
[2018-01-19] MEDS: Lidocaine 5% Patch TD SCH (09:57)
[2018-01-19] MEDS ORDERED: MethylPREDNISolone Depo 40 mg/ml Inj IM ONE (16:48)
[2018-01-19] MEDS ORDERED: Bupivacaine 0.5% Inj(30mL) IJ ONE (16:48)
--- NOTE | 2018-01-19 23:29 | CON ---
DATE OF CONSULTATION: 01/19/2018 She is presently in Room 530/12. I have seen her for bilateral knee pain, right worse than left, which is mild genu varum, and mild back pain suspicious for sciatica, some radiating pain goes from her low back to the right thigh and leg, but she is not crying in pain and the pain is tolerable, and she has been having this for as early as 6 months, for both knee and back pain. She has obvious genu varum with range of motion, which lacks full flexion by 45 degrees, flexes to 95 degrees, and she has pain with ambulation. She does not have to walk her cane or walker. I am going to order bilateral standing x-rays for the knees to see how bad they are as far as decreased joint space medially because of the varus and we will just order lumbar spine x-ray to evaluate for the back pain. She does take mild anti-inflammatory medicines if need be, we likely always do a Depo-Medrol injection in the knees, and she comes to the office from a diagnosis of bilateral knee osteoarthritis, right worse than left, with mild genu varum and suspicion of lumbosacral arthritis. Hal Aguilar DO
[2018-01-20 07:21] VITALS: BP 111/69; PULSE 68; TEMP 97.6
[2018-01-20] MEDS: Lidocaine 5% Patch TD SCH (09:28)
--- NOTE | 2018-01-20 16:00 | PCM.PYCHDC ---
Mental Status Examination - Mental Status Examination Orientation: Person, Place, Situation, Time Memory: Intact Mood: Neutral Affect: Constricted (but more reactive and mood congruent) Speech: Appropriate (more fluid and) Attention: WNL (much improved) Concentration: WNL (much improved) Association: Loose (aseline) Fund of Knowledge: WNL Formal Thought Process: Delusions (chronic) Description of patient's judgement and insight: Pt has improved insight into mental and medical illness, pt was compliant with medications and unit rules and regulations, pt was going to groups, was calm, cooperative, socially appropriate, no behavioral incidents, no agitation, no aggression. Psychotic Thoughts and Behaviors: Pt denied v/a/t hallucinations, denied paranoid ideations, pt does not appear to be psychotic, and thought process is goal directed. Suicidal Ideation: No Current Homicidal Ideation?: No Plan: pt adamantly denied thoughts of harming self or others denied intent or plan. Discharge Summary - Discharge Note Reason for Hospitalization: patient was hospitalized for evaluation and stabilization of paranoia, delusions, inability to function, patient was not leaving the house for past 3 months. Psychiatric History (includes Medical, Family, Personal Hx): see HPI Laboratory Data: 01/11/18 07:40 01/11/18 07:40 Lab Results 01/11/18 07:40: Sodium 141, Potassium 4.6, Chloride 105, Carbon Dioxide 32, Anion Gap 8 L, BUN 15, Creatinine 0.6 L, Est GFR ( Amer) > 60, Est GFR (Non-Af Amer) > 60, Random Glucose 91, Calcium 8.8, Total Bilirubin 0.3, AST 18, ALT 22, Alkaline Phosphatase 64, Total Protein 6.2, Albumin 3.4, Globulin 2.8, Albumin/Globulin Ratio 1.2 01/11/18 07:40: WBC 8.4, RBC 4.13, Hgb 11.8 L, Hct 37.7, MCV 91.3, MCH 28.6, MCHC 31.3, RDW 14.0, Plt Count 275, MPV 9.8 01/07/18 19:35: Urine Color Light yellow, Urine Appearance Clear, Urine pH 6.0, Ur Specific [place] 1.010, Urine Protein Negative, Urine Glucose (UA) Negative, Urine Ketones Negative, Urine Blood Negative, Urine Nitrate Negative, Urine Bilirubin Negative, Urine Urobilinogen 0.2, Ur Leukocyte Esterase Trace H, Urine RBC 0 - 2, Urine WBC 2 - 5, Ur Epithelial Cells 4 - 5, Urine Bacteria Mod 01/06/18 07:40: Sodium 139, Potassium 4.6, Chloride 103, Carbon Dioxide 31, Anion Gap 10, BUN 14, Creatinine 0.7, Est GFR ( Amer) > 60, Est GFR (Non- Af Amer) > 60, Random Glucose 107, Calcium 9.0, Total Bilirubin 0.3, AST 16, ALT 20, Alkaline Phosphatase 65, Total Protein 6.4, Albumin 3.6, Globulin 2.8, Albumin/Globulin Ratio 1.3 01/06/18 07:40: WBC 8.8, RBC 4.56, Hgb 13.1, Hct 41.2, MCV 90.4, MCH 28.7, MCHC 31.8, RDW 13.9, Plt Count 266, MPV 10.2 01/05/18 07:45: RPR Nonreactive 01/05/18 07:45: TSH 3rd Generation 1.35 01/05/18 07:45: Fasting Glucose 100, Triglycerides 76, Cholesterol 131, LDL Cholesterol Direct 56, HDL Cholesterol 51 01/04/18 22:07: Alcohol, Quantitative < 10 01/04/18 22:07: Salicylates < 1 L, Acetaminophen < 10.0 L 01/04/18 22:07: Urine Opiates Screen Negative, Urine Methadone Screen Negative, Ur Barbiturates Screen Negative, Ur Phencyclidine Scrn Negative, Ur Amphetamines Screen Negative, U Benzodiazepines Scrn Negative, U Oth Cocaine Metabols Negative, U Cannabinoids Screen Negative 01/04/18 22:07: Sodium 137, Potassium 4.1, Chloride 100, Carbon Dioxide 29, Anion Gap 12, BUN 13, Creatinine 0.6 L, Est GFR ( Amer) > 60, Est GFR (Non-Af Amer) > 60, Random Glucose 112 H, Calcium 8.8, Magnesium 2.0, Total Bilirubin 0.3, AST 17, ALT 20, Alkaline Phosphatase 76, Total Protein 6.5, Albumin 3.8, Globulin 2.8, Albumin/Globulin Ratio 1.4 01/04/18 22:07: Urine Color Straw, Urine Appearance Clear, Urine pH 6.5, Ur Specific [place] <= 1.005, Urine Protein Negative, Urine Glucose (UA) Negative, Urine Ketones Negative, Urine Blood Negative, Urine Nitrate Negative, Urine Bilirubin Negative, Urine Urobilinogen 0.2, Ur Leukocyte Esterase Negative 01/04/18 22:07: WBC 11.0 D, RBC 4.12, Hgb 11.8 L, Hct 37.0, MCV 89.8, MCH 28.6, MCHC 31.9, RDW 13.9, Plt Count 269, MPV 10.0, Gran % 71.0 H, Lymph % (Auto) 19.8 L, [place] % (Auto) 7.4 H, Eos % (Auto) 1.5, Baso % (Auto) 0.3, Gran # 7.81 H, Lymph # (Auto) 2.2, [place] # (Auto) 0.8 H, Eos # (Auto) 0.2, Baso # (Auto) 0.03 Vital Signs Temp Pulse Resp BP Pulse Ox 01/20/18 07:19 97.6 F 68 20 111/69 01/19/18 15:00 85 104/63 01/19/18 07:22 97.5 F L 73 20 135/81 01/18/18 16:00 77 121/67 01/18/18 06:56 98.0 F 71 20 135/72 01/17/18 16:00 77 139/56 L 01/17/18 07:28 97.5 F L 70 20 119/69 01/16/18 15:37 90 104/60 01/16/18 06:43 97.8 F 76 19 124/68 01/15/18 16:00 88 120/68 01/15/18 07:04 97.7 F 76 18 136/72 01/14/18 16:00 79 120/60 01/14/18 07:23 97.3 F L 73 20 159/78 H 01/13/18 15:59 89 124/66 01/13/18 07:12 97.8 F 84 20 127/60 01/12/18 16:00 70 140/70 01/12/18 07:00 97.1 F L 73 20 118/72 01/11/18 16:00 97 H 117/68 01/11/18 07:06 96.8 F L 73 20 140/60 01/10/18 16:00 81 102/62 01/10/18 07:00 98.2 F 78 16 138/68 01/09/18 16:00 89 107/60 01/09/18 07:00 97.8 F 68 19 121/92 H 01/08/18 07:24 97.3 F L 75 20 122/66 01/07/18 15:00 73 115/46 L 01/07/18 07:14 97.6 F 63 18 124/68 01/06/18 16:00 80 146/64 01/06/18 07:15 97.8 F 91 H 20 122/73 01/05/18 15:00 89 131/68 01/05/18 07:18 97.1 F L 80 20 156/79 H 01/05/18 01:38 97.9 F 74 18 136/71 01/05/18 01:15 85 18 128/74 100 01/04/18 21:08 98.1 F 88 18 124/76 95 Consultations:: List each consultation separately and include: 1. Reason for request. 2. Findings. 3. Follow-up Consultations: history of arthritis, (ortho) is on vacation, will see pt next week Patient complain off numbness in her upper extremities, patient was seen by Dr. Aburto, Lyrohitha was started Patient also was seen by PMD pt was seen by Ortho Summary of Hospital Course include:: 1. Description of specific treatment plan utilized for patients during their course of treatmen. 2. Summarize the time- course for resolution of acute symptoms and/or regressed behaviors. 3. Describe issues identified and worked on during hospitalization. 4. Describe medication utilized. 5. Describe medical problems identified and treated. 6. Reassessment of suicide risk Summary of Hospital Course: Shortly pt is 72 year old female, with reported h/o schizophrenia v/s delusional disorder, five previous psych admissions, most recent was 04/05/2017 to this unit, currently under care of , pt has h/o noncompliance with medications and f/u appts, but this time claimed that she was compliant, was admitted to the psychiatric inpatient unit for disorganized thoughts and behavior, paranoia, feeling that police is going to arrest her, even thought pt did not commit a crime pt was feeling unease and anxious as a result for the past week pt became very depressed, unable to function, requested her to bring her to the hospital. even though that patient was compliant with the medications and follow-up appointment (pt has scheduled appt for today 01/05/18, but could not wait), obviously patient failed outpatient treatment and pt requires further evaluation and stabilization, medication adjustment and titration, observation. the time of admission patient presented to be disorganized, paranoid, had fears that she will be arrested, please see admission note for more detailed information. 01/04/18 22:07 01/04/18 22:07 Lab Results 01/05/18 07:45: TSH 3rd Generation 1.35 01/05/18 07:45: Fasting Glucose 100, Triglycerides 76, Cholesterol 131, LDL Cholesterol Direct 56, HDL Cholesterol 51 01/04/18 22:07: Alcohol, Quantitative < 10 01/04/18 22:07: Salicylates < 1 L, Acetaminophen < 10.0 L 01/04/18 22:07: Urine Opiates Screen Negative, Urine Methadone Screen Negative, Ur Barbiturates Screen Negative, Ur Phencyclidine Scrn Negative, Ur Amphetamines Screen Negative, U Benzodiazepines Scrn Negative, U Oth Cocaine Metabols Negative, U Cannabinoids Screen Negative 01/04/18 22:07: Sodium 137, Potassium 4.1, Chloride 100, Carbon Dioxide 29, Anion Gap 12, BUN 13, Creatinine 0.6 L, Est GFR ( Amer) > 60, Est GFR (Non-Af Amer) > 60, Random Glucose 112 H, Calcium 8.8, Magnesium 2.0, Total Bilirubin 0.3, AST 17, ALT 20, Alkaline Phosphatase 76, Total Protein 6.5, A lbumin 3.8, Globulin 2.8, Albumin/Globulin Ratio 1.4 01/04/18 22:07: Urine Color Straw, Urine Appearance Clear, Urine pH 6.5, Ur Specific [place] <= 1.005, Urine Protein Negative, Urine Glucose (UA) Negative, Urine Ketones Negative, Urine Blood Negative, Urine Nitrate Negative, Urine Bilirubin Negative, Urine Urobilinogen 0.2, Ur Leukocyte Esterase Negative 01/04/18 22:07: WBC 11.0 D, RBC 4.12, Hgb 11.8 L, Hct 37.0, MCV 89.8, MCH 28.6, MCHC 31.9, RDW 13.9, Plt Count 269, MPV 10.0, Gran % 71.0 H, Lymph % (Auto) 19.8 L, [place] % (Auto) 7.4 H, Eos % (Auto) 1.5, Baso % (Auto) 0.3, Gran # 7.81 H, Lymph # (Auto) 2.2, [place] # (Auto) 0.8 H, Eos # (Auto) 0.2, Baso # (Auto) 0.03 Vital Signs Temp Pulse Resp BP Pulse Ox 01/05/18 07:18 97.1 F L 80 20 156/79 H 01/05/18 01:38 97.9 F 74 18 136/71 01/05/18 01:15 85 18 128/74 100 01/04/18 21:08 98.1 F 88 18 124/76 95 over the course of this hospitalization this financial underwriter offered to change medication patient refused offered ECT treatment, patient refused offered Clozaril, patient refused. Patient preferred to be on Risperdal which she was stabilized on the following doses; prozac 40 mg daily for depression and anxiety xanax 0.25mg po bid for anxiety Trazodone 50 mg at the nighttime for insomnia and depression Risperdal 2 mg twice a day and 3mg at night time for mood stabilization and psychosis patient tolerated medications well, no side effects observed or reported, aims 0, no EPS. Patient reached maximum effect from this hospitalization, [facility] please see director of social work notes for more detailed information. 3 treatment course as well as discharge plan was discussed in details, patient was willing to accept patient back home. Over the course of this hospitalization patient improved significantly, psychosis is better, still has residual symptoms of paranoia, to be more specific patient was afraid that she will be arrested by police but did not act on her thoughts. At the time of the discharge pt denied been depressed, denied thoughts of harming self or others, has chronic delusions, denied been anxious, pt is not in imminent danger to self or others, pt was transferred to the inpatient rehab, information about follow up appointment, time and address provided to the pt, it is patient responsibility to follow up with outpatient clinic, PMD as well as specialists (contact info was given as a print out to the pt's at the time of d/c). In case pt will need to obtain results of studies pending at discharge pt was provided with contact information of Psychiatric Inpatient unit [phone] as well as Medical Record Department [phone]. patient does not have history of substance abuse pt was provided with prescriptions for all of medications (please see medication reconciliation form) Pt was educated about safety plan in case of worsening of symptoms or in case of suicidal or homicidal ideation call 911 or go to the nearest ER, also was educated to take meds as prescribed and stay away from drugs, pt verbalized understanding. - Diagnosis (1) Delusional disorder, erotomanic type, continuous Status: Chronic Priority: High - Final Diagnosis (DSM 5) Condition upon Discharge: IMPROVED Disposition: HOME/ ROUTINE Follow-up Treatment Plan: At the time of the discharge pt denied been depressed, denied thoughts of harming self or others, has chronic delusions, denied been anxious, pt is not in imminent danger to self or others, pt was transferred to the inpatient rehab, information about follow up appointment, time and address provided to the pt, it is patient responsibility to follow up with outpatient clinic, PMD as well as specialists (contact info was given as a print out to the pt's at the time of d/c). In case pt will need to obtain results of studies pending at discharge pt was provided with contact information of Psychiatric Inpatient unit [phone] as well as Medical Record Department [phone]. patient does not have history of substance abuse pt was provided with prescriptions for all of medications (please see medication reconciliation form) Pt was educated about safety plan in case of worsening of symptoms or in case of suicidal or homicidal ideation call 911 or go to the nearest ER, also was educated to take meds as prescribed and stay away from drugs, pt verbalized understanding. Prescriptions/Medication Reconciliation: ALPRAZolam [Xanax] 0.25 mg PO BID #30 tab Atorvastatin [Lipitor] 20 mg PO DAILY #7 tab Benztropine [Cogentin] 1 mg PO AMHS #30 tab Donepezil [Aricept] 10 mg PO HS #7 tab Fluoxetine HCl [Prozac] 40 mg PO DAILY #14 cap Lidocaine 5% [Lidoderm] 1 ea TD DAILY #7 patch Pregabalin [Lyrica] 50 mg PO BID #30 cap risperiDONE [RisperDAL Tab] 2 mg PO BID #30 tab Risperidone [Risperdal] 3 mg PO HS #14 tablet traZODone [Desyrel] 50 mg PO HS #14 tab - Smoking Cessation Smoking Cessation Medication prescribed: No Reason for not providing: patient does not smoke - Antipsychotic Medications Pt discharged on 2 or more routine antipsychotic medications: No
== END 2018-01-20 13:36 | disposition home or self-care (01) | DRG 885 ==
LOC: ED 20:38 → ERH 01-05 00:36 → PSYC 01-05 01:35
PROVIDERS: ADMIT Psychiatry & Neurology Psychiatry; ATTEND Psychiatry & Neurology Psychiatry
PROC: 0HBRXZZ Excision of Toe Nail, External Approach (ICD-10-PCS; principal; 2018-01-13)
PROC: 0HBRXZZ Excision of Toe Nail, External Approach (ICD-10-PCS; 2018-01-13)
PROC: 0HBRXZZ Excision of Toe Nail, External Approach (ICD-10-PCS; 2018-01-13)
PROC: 0HBRXZZ Excision of Toe Nail, External Approach (ICD-10-PCS; 2018-01-13)
PROC: 0HBRXZZ Excision of Toe Nail, External Approach (ICD-10-PCS; 2018-01-13)
PROC: 0HBRXZZ Excision of Toe Nail, External Approach (ICD-10-PCS; 2018-01-13)
PROC: 0HBRXZZ Excision of Toe Nail, External Approach (ICD-10-PCS; 2018-01-13)
PROC: 0HBRXZZ Excision of Toe Nail, External Approach (ICD-10-PCS; 2018-01-13)
PROC: 0HBRXZZ Excision of Toe Nail, External Approach (ICD-10-PCS; 2018-01-13)
PROC: 0HBRXZZ Excision of Toe Nail, External Approach (ICD-10-PCS; 2018-01-13)
DX: F22 Delusional disorders (principal); N39.0 Urinary tract infection, site not specified; E78.00 Pure hypercholesterolemia, unspecified; E78.5 Hyperlipidemia, unspecified; F20.9 Schizophrenia, unspecified; F32.9 Major depressive disorder, single episode, unspecified; F41.9 Anxiety disorder, unspecified; G47.00 Insomnia, unspecified; G62.9 Polyneuropathy, unspecified; M17.0 Bilateral primary osteoarthritis of knee; M21.169 Varus deformity, not elsewhere classified, unspecified knee; Z79.899 Other long term (current) drug therapy; Z91.14 Patient's other noncompliance with medication regimen; R40.2413 Glasgow coma scale score 13-15, at hospital admission; Z88.8 Allergy status to other drugs, medicaments and biological substances; M47.9 Spondylosis, unspecified; L60.8 Other nail disorders

== ENCOUNTER 2018-02-13 19:01 | Inpatient (IN) | payer MEDICARE ==
[2018-02-13 19:12] VITALS: BMI 32.4
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
[2018-02-13 20:40] LABS: ALB/GLOB RATIO 1.2 (1.1-1.8); ALBUMIN 3.8 g/dL (3.0-4.8); ALT/SGPT 38 U/L (7-56); AST/SGOT 70 U/L (14-36); BLOOD UREA NITROGEN 10 mg/dL (7-21); CALCIUM 8.9 mg/dL (8.4-10.5); GFR NON-AFRICAN AMERICAN > 60
[2018-02-13 20:41] LABS: ACETAMINOPHEN < 10.0 ug/ml (10.0-20.0); SALICYLATE < 1 mg/dL (2.0-20.0)
[2018-02-13 20:49] LABS: BASO # 0.01 K/mm3 (0.0-2.0); BASO % 0.1 % (0.0-3.0); EOS # 0.1 (0.0-0.7); EOS % 1.4 % (1.5-5.0); GRAN # 5.99 (1.4-6.5); GRAN % 70.1 % (50.0-68.0); HEMOGLOBIN 11.9 g/dL (12.0-16.0); LYMPH # 1.6 (1.2-3.4); LYMPH % 18.2 % (22.0-35.0); MEAN CORPUSCULAR HEMOGLOBIN 28.5 pg (25.0-35.0); MEAN CORPUSCULAR HGB CONC 31.6 g/dl (31.0-37.0); MEAN PLATELET VOLUME 10.9 fl (7.0-11.0); MONO # 0.9 (0.1-0.6); MONO % 10.2 % (1.0-6.0); RBC 4.18 10^6/uL (3.5-6.1); RED CELL DISTRIBUTION WIDTH 13.6 % (11.5-14.5); WHITE BLOOD COUNT 8.6 10^3/uL (4.5-11.0)
[2018-02-13] MEDS ORDERED: Sodium Chloride 0.9% 1,000 ML IV STA (21:12)
[2018-02-13] MEDS: Sodium Chloride 0.9% 1,000 ML IV SCH (22:33)
[2018-02-13 23:22] LABS: URINE BILIRUBIN NEGATIVE (NEGATIVE); URINE BLOOD NEGATIVE (NEGATIVE); URINE GLUCOSE (UA) NEGATIVE (NEGATIVE); URINE LEUKOCYTE ESTERASE NEGATIVE Leu/uL (NEGATIVE); URINE PROTEIN NEGATIVE mg/dL (<30 mg/dL); URINE UROBILINOGEN 0.2 E.U./dL (<1 E.U./dL)
[2018-02-13 23:24] LABS: BARBITURATES, UR NEGATIVE (NEGATIVE); BENZODIAZEPINES, UR POSITIVE (NEGATIVE); OPIATES, UR NEGATIVE (NEGATIVE); PHENCYCLIDINE, UR NEGATIVE (NEGATIVE)
[2018-02-13 23:28] LABS: URINE APPEARANCE CLEAR (CLEAR); URINE COLOR YELLOW (YELLOW)
[2018-02-14] MEDS: Sodium Chloride 0.9% 1,000 ML IV SCH ×3 (05:40→18:56)
--- NOTE | 2018-02-14 07:59 | RAD ---
Date of service: 02/13/2018 HISTORY: pneumonia COMPARISON: 01/05/2018 FINDINGS: LUNGS: No active pulmonary disease. PLEURA: No significant pleural effusion identified, no pneumothorax apparent. CARDIOVASCULAR: No aortic atherosclerotic calcification present. Normal cardiac size. No pulmonary vascular congestion. OSSEOUS STRUCTURES: No significant abnormalities. VISUALIZED UPPER ABDOMEN: Normal. OTHER FINDINGS: None. IMPRESSION: No active disease.
--- NOTE | 2018-02-14 08:07 | RAD ---
Date of service: 02/13/2018 PROCEDURE: Left Ankle Radiographs. HISTORY: injury? COMPARISON: None available. FINDINGS: BONES: Normal. No fracture. JOINTS: Normal. No osteoarthritis. Ankle mortise maintained. Talar dome intact SOFT TISSUES: Normal. OTHER FINDINGS: None. IMPRESSION: Normal left ankle radiographs.
--- NOTE | 2018-02-14 08:11 | CT ---
Date of service: 02/13/2018 PROCEDURE: CT HEAD WITHOUT CONTRAST. HISTORY: altered mentation COMPARISON: Noncontrast head CT 07/31/2017. TECHNIQUE: Axial computed tomography images were obtained through the head/brain without intravenous contrast. Radiation dose: Total exam DLP = 876.82 mGy-cm. This CT exam was performed using one or more of the following dose reduction techniques: Automated exposure control, adjustment of the mA and/or kV according to patient size, and/or use of iterative reconstruction technique. FINDINGS: HEMORRHAGE: No intracranial hemorrhage. BRAIN: Good corticomedullary differentiation is seen. Reiterated diffuse cerebral atrophy and chronic microangiopathy. No suspicious extra-axial fluid collection is identified and the midline brain anatomy appears grossly nonfocal as imaged. No mass effect identified. VENTRICLES: Unremarkable. No hydrocephalus. CALVARIUM: No destructive bony lesion or displaced fracture identified including through the skullbase. PARANASAL SINUSES: Bilateral ethmoid and sphenoid sinusitis as well as right maxillary sinus. MASTOID AIR CELLS: Unremarkable as visualized. No inflammatory changes. OTHER FINDINGS: Small left frontal scalp hematoma noted. IMPRESSION: Stable age related neuro degenerative changes as discussed above. No definite acute intracranial findings. Small left frontal scalp hematoma identified however. No fracture of the calvarium or skullbase appreciable. Incidental bilateral ethmoid and sphenoid sinusitis as well as right maxillary sinus. Concordant preliminary report from [facility], 02/13/2018.
--- NOTE | 2018-02-14 08:30 | RAD ---
Date of service: 02/13/2018 PROCEDURE: Left Foot Radiographs. HISTORY: injury COMPARISON: None. FINDINGS: BONES: Normal. No fracture. JOINTS: Normal. SOFT TISSUES: Normal. OTHER FINDINGS: None. IMPRESSION: Normal left foot radiographs.
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
--- NOTE | 2018-02-14 11:34 | CARD ---
APPROVED REPORT Date of service: 02/13/2018 EKG Measurement Heart [id number] <Conclusion> Normal sinus rhythm Poor R wave progression. Abnormal ECG
--- NOTE | 2018-02-14 13:19 | CP.PCM.PCO ---
Physician Communication Note - Physician Communication Note Physician Communication Note: ams is more of confusion from a delusion disorder. Psych eval
--- NOTE | 2018-02-14 15:08 | CON ---
DATE: 02/14/2018 HISTORY OF PRESENT ILLNESS: This is a 72-year-old female who came to the hospital with a history of schizophrenia, multiple admissions, patient became confused, and patient complained of pain in the left leg and had multiple falls at home, and the patient also has dementia and arthritis of the right knee, anxiety, depression, schizophrenia. Called to evaluate the patient. PAST MEDICAL HISTORY: Dementia, arthritis, schizophrenia. REVIEW OF SYSTEMS: Ten-point review of systems was negative and a neurology consult was called because of change in mental status and patient's CAT scan of the head was done, which showed a small scalp hematoma. PHYSICAL EXAMINATION HEENT: Normocephalic, atraumatic. NECK: Supple. NEUROLOGIC: Awake, orientated. No aphasia. Cranial nerves II-XII are tested. Pupils reactive. EOM intact. Visual sunshine are full. No facial asymmetry. Tongue midline. Motor examination, moves all the extremities equally. Tone normal. Deep tendon reflexes 1+. Both plantars are downgoing. Sensory appears intact. Cerebellar gait deferred. ASSESSMENT: The patient consulted for altered mental status, encephalopathy, possibly toxic metabolic. CAT scan of the head showed scalp hematoma. PLAN: Continue present management. No bleed in the head. We will follow up. Jean Carlos Aburto MD (Delete this signature block when dictator is a preceptor.) cc: MD Ganga (Delete if not dictated.)
--- NOTE | 2018-02-14 15:18 | CON ---
DATE: 02/14/2018 HISTORY OF PRESENT ILLNESS: The patient is a 72-year-old woman who presents with repeated falls. The patient has a history of schizophrenia and is unreliable historian. She was admitted to the hospital with elevated CPK. Her past medical history includes hypercholesterolemia for which she is taking Lipitor. Currently the patient is without distress. No shortness of breath. No chest pain. REVIEW OF SYSTEMS: Unreliable. PHYSICAL EXAMINATION: VITAL SIGNS: Blood pressure 124/63 and heart rates in the 80s. NECK: Negative JVD. LUNGS: Without rales. HEART: S1 and S2. EXTREMITIES: Without edema. LABORATORY DATA: EKG shows no acute changes. Hemoglobin is 11.9. Chemistries, BUN and creatinine are normal. CPK is 2077. Troponins are negative x1. IMPRESSION: 1. Status post repeated falls. 2. Questionable rhabdomyolysis. 3. History of schizophrenia. 4. Anemia. Given these findings, we will repeat the CPK in the morning. We will obtain an echocardiogram to rule out a cardiac cause of her repeated falls. Dangelo Dumont MD
--- NOTE | 2018-02-14 20:10 | CARD ---
APPROVED REPORT Date of service: 02/14/2018 EXAM: Two-dimensional and M-mode echocardiogram with Doppler and color Doppler. INDICATION NEAR SYNCOPE 2D DIMENSIONS Left Atrium (2D)4.0 (1.6-4.0cm)IVSd0.8 (0.7-1.1cm) LVDd4.6 (3.9-5.9cm)PWd1.0 (0.7-1.1cm) LVDs2.6 (2.5-4.0cm)FS (%) 44.1 % LVEF (%)75.4 (>50%) M-Mode DIMENSIONS Aortic Root2.60 (2.2-3.7cm)Aortic Cusp Exc.1.70 (1.5-2.0cm) Aortic Valve AoV Peak Rfnmbyik635.0cm/Yvan Peak GR.13mmHg Mitral Valve MV E Lglgwcfd52.3cm/sMV A Abpbyihk575.0cm/sE/A ratio0.9 TDI Lateral E' Peak V11.00cm/sMedial E' Peak V9.26cm/sE/Lateral E'8.7 E/Medial E'10.3 Pulmonary Valve PV Peak Jqkwrmui04.4cm/sPV Peak Grad.3mmHg Tricuspid Valve TR Peak Qzrqfgbn790dl/sRAP MCZMDQJK95fjJtZV Peak Gr.36mmHg MHYB64kfBw LEFT VENTRICLE The left ventricle is normal size. There is normal left ventricular wall thickness. The left ventricular function is normal. The left ventricular ejection fraction is within the normal range. There is normal LV segmental wall motion. Transmitral Doppler flow pattern is Grade I-abnormal relaxation pattern. RIGHT VENTRICLE The right ventricle is normal size. There is normal right ventricular wall thickness. The right ventricular systolic function is normal. ATRIA The left atrium is borderline dilated. The right atrium is borderline dilated. AORTIC VALVE The aortic valve is mildly sclerotic. No aortic regurgitation is present. There is no aortic valvular stenosis. MITRAL VALVE The mitral valve is mildly thickened. Mitral regurgitation is mild. There is no mitral valve stenosis. TRICUSPID VALVE There is mild tricuspid regurgitation. There is mild to moderate pulmonary hypertension. PULMONIC VALVE There is trace pulmonic valvular regurgitation. GREAT VESSELS The aortic root is normal in size. PERICARDIAL EFFUSION There is a trace pericardial effusion. <Conclusion> The left ventricle is normal size. There is normal left ventricular wall thickness. The left ventricular function is normal. The left ventricular ejection fraction is within the normal range. There is normal LV segmental wall motion. Transmitral Doppler flow pattern is Grade I-abnormal relaxation pattern. Mitral regurgitation is mild. There is mild tricuspid regurgitation. There is mild to moderate pulmonary hypertension.
--- NOTE | 2018-02-14 20:33 | CON ---
DATE: 02/14/2017 HISTORY OF PRESENT ILLNESS: In short, the patient is 72-year-old with history of schizophrenia. The patient was admitted on the medical side for rhabdomyolysis. Psych consult was called because the patient has history of mental illness, on top of that the patient has been on psychotropic medication. This bond writer is very familiar with this patient from the previous admission to the psychiatric inpatient unit, which took place here in [facility]. The patient was discharged from unit on 01/20/2018. The patient came back on 02/14/2018. The patient presented with poor personal hygiene. The patient is poor, unreliable historian. The patient reported that she came because she was arguing with her . The patient was not able to give any more details. The patient has chronic delusional symptoms. The patient did note that she has impression that she will be arrested. It is chronic delusions. The patient also has erotomanic delusions that Faustino Kang is going to her, but the patient did not present it this way at this point. The patient reported that she was compliant with the medication, but it is very questionable. This bond writer reviewed the previous discharge medications. The patient is on Xanax 0.25 mg twice a day, will be resumed. The patient was on Cogentin 1 mg twice a day, will be resumed. The patient was on Aricept, Prozac 40 mg, will be resumed. The patient is on Risperdal 2 mg twice a day and 3 mg at the nighttime. This bond writer will resume 2 mg twice a day and see if the patient needs 3 mg at the nighttime and trazodone was resumed. PHYSICAL EXAMINATION: VITAL SIGNS: Seemed to be stable. Temperature is 97.2, pulse is 92, blood pressure 124/64, respirations 20, and oxygen saturation is 95. MEDICATIONS: Reviewed. As this bond writer mentioned above, we will resume medications. LABORATORY DATA: Labs reviewed. Chemistries reviewed, CK-MB 20.0, which is high and total creatine kinase is 2077, creatinine is 0.5 which is low. Toxicology positive for benzodiazepines. The patient was discharged on Xanax. The patient reported that since the last admission, the patient never followed up with her outpatient psychiatrist. MENTAL STATUS EXAMINATION: The patient presented to be alert, oriented, somewhat annoyed and irritable. Intermittent eye contact. Speech, the patient was mumbling, very hard to understand, but overall, the patient was able to communicate her needs. The patient presented to be delusional and paranoid. The patient denied thoughts of harming herself or others. Of note, the patient has chronic delusions that she will be arrested, even though that she never committed a crime. Also, the patient has erotomanic delusions that Faustino Kang is going to her. Insight and judgment seemed to be limited, but improving. Impulses are well controlled. IMPRESSION: As per history, schizophrenia versus schizoaffective disorder. PLAN: Medications resumed. Family will be involved. We will follow up and advise accordingly. Should you have any questions, give me a call back. Thank you very much for letting me participate in care of your patient. Most likely, the patient would require psych admission, but it is hard to say now. Essence Mulligan MD
[2018-02-15] MEDS: Sodium Chloride 0.9% 1,000 ML IV SCH ×3 (00:45→19:46)
[2018-02-15 06:33] LABS: HEMOGLOBIN 11.1 g/dL (12.0-16.0); MEAN CORPUSCULAR HEMOGLOBIN 28.5 pg (25.0-35.0); MEAN CORPUSCULAR HGB CONC 31.6 g/dl (31.0-37.0); MEAN PLATELET VOLUME 10.3 fl (7.0-11.0); RBC 3.9 10^6/uL (3.5-6.1); RED CELL DISTRIBUTION WIDTH 13.5 % (11.5-14.5); WHITE BLOOD COUNT 6.6 10^3/uL (4.5-11.0)
[2018-02-15 06:54] LABS: ALB/GLOB RATIO 1.1 (1.1-1.8); ALBUMIN 3.1 g/dL (3.0-4.8); ALT/SGPT 44 U/L (7-56); AST/SGOT 64 U/L (14-36); BLOOD UREA NITROGEN 4 mg/dL (7-21); CALCIUM 8.1 mg/dL (8.4-10.5); GFR NON-AFRICAN AMERICAN > 60
[2018-02-15 07:10] LABS: CK MB% 0.5 % (2.5-3.0); CK-MB 5.7 ng/mL (0.0-3.6)
--- NOTE | 2018-02-15 08:41 | PN ---
DATE: 02/15/2018 SUBJECTIVE: She is resting comfortably in bed this morning. She is more alert, more comfortable, talking more appropriate than yesterday, which is good. She is also asking for food. MEDICATIONS: She is on Cogentin, Desyrel, Prozac, Risperdal, IV fluids and Xanax. PHYSICAL EXAMINATION: VITAL SIGNS: She has a 98 temp and 85 pulse, 140/76 blood pressure, 20 respiratory rate, 96% O2 sat on room air. HEENT: Head is atraumatic, normocephalic. HEART: Regular rate. LUNGS: Clear to auscultation. ABDOMEN: Soft, nontender. Positive bowel sounds. EXTREMITIES: No edema. LABORATORY DATA: She has a 6.6 white count, 11.1 hemoglobin, 35.1 hematocrit with 236 platelets. 140 sodium, potassium 3.2. She will get potassium replacement. BUN is 4, creatinine 0.4, GFR is greater than 60, sugar 63, calcium is 8.1, total bili is 0.6, AST is 64, ALT is 44, alk phos 73, the total creatine kinase dropped to 1232 from 2076. She is in the right direction. Troponin I is less than 0.01. Total protein is 5.7. ASSESSMENT AND PLAN: She is being seen by Psychiatry, Neurology for altered mental status and Cardiology for any heart involvement. I also ordered physical therapy, which recommended Transitional Care Unit, which I think would be a good place for her that she could be watched from Psychiatry point of view, also get physical therapy and watch her labs. She is only here for 24 hours, so she will need 2 more overnights and she is here for a rhabdomyolysis, change in mentation, schizophrenia. I do think she is starting to improve and she has low potassium, which I will replace. Out of bed to chair. Manolo Mtz DO
--- NOTE | 2018-02-15 17:21 | PN ---
DATE: 02/15/2018 SUBJECTIVE: In short, the patient is 72-year-old female with reported history of schizophrenia versus delusional disorder. The patient has multiple hospitalization to the Psychiatric Inpatient Unit, most recent was within last month to this facility. The patient was discharged from the [facility] psych unit on 01/20/2018. The patient was brought in to the emergency room because of argument with her . The patient was followed up today. The patient presented to be disengaged, but seems to be happy to see this keno writer / runner. The patient was able to smile couple of times during the interview. The patient describes her mood to be as alright. The patient denied hearing voices. Denied seeing things. Denied paranoid ideation. The patient had concrete thought process, but does not present to be acutely psychotic. Collaterals were obtained from the patient's . The patient gave permission to do so. As per Mr. Chanelle Gurrola, the patient was compliant with the medication, but had history of falling. The patient's is not sure if she hit her head or not, but from the psychiatric standpoint, the patient was doing fine. The patient as per does not require any psychiatric admission at this point. As per nursing staff's collateral information, the patient was confused over nighttime, but no agitation or aggression. VITAL SIGNS: Stable. Temperature 97.6, pulse is 84, blood pressure 140/69, respiration 20, oxygen saturation is 96. MEDICATIONS: Reviewed. The patient is on Xanax, Cogentin, Prozac, potassium chloride, Risperdal 2 mg twice a day, sodium chloride and trazodone as needed. LABORATORY DATA: Reviewed. Most recent was from today. Toxicology was positive for benzodiazepines, which is expected. MENTAL STATUS EXAMINATION: The patient presented to be alert and oriented, pleasant, somewhat disengaged. Mood described as alright. Affect was constricted, but reactive. Mood congruent. Thought process seems to be concrete. Thought content, the patient denied hearing voices, denied seeing things, paranoia is not prominent at this point. The patient has erotomanic delusions about obscured in the past, but not at this time. The patient also had history of paranoia that she will be arrested even without committing a crime, but not at this time. Insight and judgment seems to be improving. Impulses are well controlled. IMPRESSION: Most likely this time, the patient was admitted for medical issues and falling. The patient has long history of schizophrenia versus delusional disorder. PLAN: All medications confirmed and resumed. Discussed with the patient's . Please see social media marketing manager's note for more detailed information. Her input is really appreciated. The patient pose no imminent danger to self or others. We will continue monitoring the patient on the medical side. Neurology is involved. Medical staff will be advised to call PT eval to check the patient's gait. Maybe the patient needs to have subacute rehab. Should you have any questions give me a call back. Thank you very much for letting me participate in the care of your patient. Most likely the patient would not require psych admission, but we will continue following up and advise accordingly. Thank you very much. Essence Mulligan MD [facility]
--- NOTE | 2018-02-15 18:38 | PN ---
DATE: 02/15/2018 SUBJECTIVE: The patient is without complaints. PHYSICAL EXAMINATION: VITAL SIGNS: Blood pressure is 140/70, the heart rate is in the 80s. NECK: Negative JVD. LUNGS: Without rales. HEART: S1, S2. EXTREMITIES: Without edema. LABORATORY DATA: The CPK is on a decreasing trend from 1096-7571. Troponin is negative. Echocardiogram reveals a normal ejection fraction. The aortic valve shows no stenoses. IMPRESSION 1. Recurrent falls. 2. Decreasing trend in her CPKs. 3. No renal insufficiency. 4. No cardiac cause of her recurrent falls. 5. History of schizophrenia. Given these findings, we will continue on telemetry for 24 hours to rule out arrhythmias. Dangelo Dumont MD
[2018-02-16 06:37] LABS: HEMOGLOBIN 11.5 g/dL (12.0-16.0); MEAN CELL VOLUME 88.9 fl (80.0-105.0); MEAN CORPUSCULAR HEMOGLOBIN 27.8 pg (25.0-35.0); MEAN CORPUSCULAR HGB CONC 31.3 g/dl (31.0-37.0); MEAN PLATELET VOLUME 10.2 fl (7.0-11.0); RBC 4.14 10^6/uL (3.5-6.1); RED CELL DISTRIBUTION WIDTH 13.5 % (11.5-14.5); WHITE BLOOD COUNT 7.1 10^3/uL (4.5-11.0)
[2018-02-16 08:18] LABS: ALB/GLOB RATIO 1.2 (1.1-1.8); ALBUMIN 3.3 g/dL (3.0-4.8); ALT/SGPT 46 U/L (7-56); AST/SGOT 65 U/L (14-36); BLOOD UREA NITROGEN 3 mg/dL (7-21); CALCIUM 8.5 mg/dL (8.4-10.5); GFR NON-AFRICAN AMERICAN > 60
[2018-02-16] MEDS ORDERED: Potassium Chloride 20 mEq ER Tab PO ONE (09:12)
--- NOTE | 2018-02-16 09:29 | PN ---
DATE: 02/16/2018 SUBJECTIVE: She is resting comfortably in bed. She slept fairly well. She is actually more alert and more appropriate this morning. I think the IV fluids are making a big difference. She is on Cogentin, Desyrel, Prozac, Risperdal, IV fluids at 150 mL an hour and Xanax. Also, she had potassium replacement today. PHYSICAL EXAMINATION: VITAL SIGNS: She has a 98 temp, 84 pulse, 147/63 blood pressure, 20 respiratory rate, 96% O2 sat on room air. GENERAL: She is very appropriate and calm when you talk to her. She is eating some. She needs to get out of bed to chair, physical therapy, recommended TCU. I think, TCU would be a good place for her where we could watch her labs and also get some physical therapy. May be some mental health. HEENT: Her head is atraumatic, normocephalic. She is looking at me better today. More eye contact. HEART: Regular rate. LUNGS: Decreased breath sounds, but clear. ABDOMEN: Soft, nontender. Positive bowel sounds. EXTREMITIES: Have no edema. LABORATORY DATA: She has a 7.1 white count, 11.5 hemoglobin, 36.8 hematocrit with 252 platelets. 140 sodium, potassium 3.5. I gave her potassium this morning replacement. BUN 3, creatinine 0.5, GFR is greater than 60, sugar is 98, calcium is 8.5, total bili is 0.6, AST is 65, ALT is 46, alk phos 79. They did not do a total creatinine kinase this morning. No CPK. I will order that. Total protein 6.2. ASSESSMENT AND PLAN: She is being seen by Cardiology and recommended to watch her on telemetry for 24 hours that to be over this afternoon. Psychiatry saw her, said she is not in anybody's harm. Neurology is on the case. She is waking up mentally. I think it is all from possible rhabdomyolysis and hopefully she will improve. I am hoping to get her to TCU tomorrow for IV fluids, physical therapy and mental health care. Jeni Roca who had a rhabdomyolysis. Manolo Mtz DO
[2018-02-16] MEDS: Sodium Chloride 0.9% 1,000 ML IV SCH ×3 (09:35→23:05)
[2018-02-16 09:51] LABS: CK-MB 2.5 ng/mL (0.0-3.6)
--- NOTE | 2018-02-16 11:05 | PN ---
DATE: 02/16/2018 CARDIOLOGY FOLLOWUP SUBJECTIVE: The patient is without shortness of breath, without chest pain. PHYSICAL EXAMINATION: VITAL SIGNS: Blood pressure 147/63, heart rates in the 80s. NECK: Negative JVD. LUNGS: Without rales. HEART: S1 and S2. EXTREMITIES: Without edema. LABORATORY DATA: BUN and creatinine are unremarkable. CPK is on a descending trend. Hemoglobin is 11.5. IMPRESSION: 1. Status post multiple falls. 2. Low-level rhabdomyolysis. 3. No renal insufficiency. 4. History of schizophrenia. PLAN: Given these findings, the patient's cardiac status and renal function are stable. We will discontinue telemetry today. No further cardiac workup is necessary. Dangelo Dumont MD
--- NOTE | 2018-02-16 15:18 | PN ---
DATE: 02/16/2018 FOLLOWUP NOTE SUBJECTIVE: The patient was followed up today. The patient presented to be comfortable. Intermittent eye contact. Speech was somewhat underproductive. The patient expressed no concerns at this moment. The patient denied visual, auditory or tactile hallucinations. Denied paranoid ideation. The patient denied thoughts of harming herself or others. Denied intent or plan. Vital signs are stable. Temperature 98, pulse is 84, blood pressure 147, respiration 20, oxygen saturation is 96. Medications reviewed. The patient is on Xanax 0.25 mg twice a day, Cogentin 1 mg twice a day, Prozac 40 mg daily, Risperdal 2 mg twice a day, sodium chloride and trazodone 50 mg at the nighttime. The patient complained that she was overly medicated that is why night dose of 3 mg of Risperdal was discontinued. So far, the patient is doing well. Collaterals were obtained from the patient's yesterday by transition social worker, Ms. Stewart. The patient's does not believe that the patient needs to be psychiatrically admitted. This senior grant writer agree with that statement. MENTAL STATUS EXAMINATION: The patient presented to be alert, oriented, pleasant and cooperative. Socially appropriate. Intermittent eye contact. Mood described as I am feeling fine. Affect was constricted, but reactive. Mood congruent. Thought process was coherent and goal directed. Thought content, the patient denied visual, auditory or tactile hallucinations. Denied paranoid ideation. The patient denied thoughts of harming herself or others. Denied intents or plan. The patient has history of paranoia and feeling that police is after her, but not this admission. IMPRESSION: As per history is schizoaffective disorder versus schizophrenia. The patient also has delusions, which is erotomanic. PLAN: Continue current management. Continue current medication. The patient is not in any acute psychiatric distress. The patient is compliant with the medication. Family contacted. The patient is not aggressive or agitated. The patient pose no imminent danger to self or others. The patient has followup appointment with her outpatient psychiatrist, Dr. Ball. Should you have any questions, give me a call back. Meanwhile, this senior grant writer will sign off. Essence Mulligan MD [facility] # [id number] [facility]
[2018-02-17] MEDS: Sodium Chloride 0.9% 1,000 ML IV SCH (06:14)
[2018-02-17 06:22] LABS: HEMOGLOBIN 11.7 g/dL (12.0-16.0); MEAN CELL VOLUME 89.8 fl (80.0-105.0); MEAN CORPUSCULAR HEMOGLOBIN 28.3 pg (25.0-35.0); MEAN CORPUSCULAR HGB CONC 31.5 g/dl (31.0-37.0); MEAN PLATELET VOLUME 10.4 fl (7.0-11.0); RBC 4.13 10^6/uL (3.5-6.1); RED CELL DISTRIBUTION WIDTH 13.9 % (11.5-14.5); WHITE BLOOD COUNT 8.8 10^3/uL (4.5-11.0)
[2018-02-17 07:39] LABS: ALB/GLOB RATIO 1.1 (1.1-1.8); ALBUMIN 3.2 g/dL (3.0-4.8); ALT/SGPT 37 U/L (7-56); AST/SGOT 36 U/L (14-36); BLOOD UREA NITROGEN 4 mg/dL (7-21); CALCIUM 8.4 mg/dL (8.4-10.5); GFR NON-AFRICAN AMERICAN > 60
[2018-02-17 08:35] LABS: CK-MB 1.1 ng/mL (0.0-3.6)
[2018-02-17] MEDS ORDERED: Barium Sulfate Susp 2.1% w/v, 2.0% w/w 450 mL Bottle PO ONE (09:10)
[2018-02-17] MEDS ORDERED: Potassium Chloride 20 mEq ER Tab PO ONE (09:26)
--- NOTE | 2018-02-17 09:49 | DS ---
HISTORY OF PRESENT ILLNESS: I am hoping she can go to TCU today. I will try and see if she is accepted or not. There was a recommendations from physical therapy. She has rhabdo. She was change of mentation, schizophrenia. She is doing much better now; she is more with talking, eating and feeding herself. PHYSICAL EXAMINATION: VITAL SIGNS: 98.5 temperature, 90 pulse, 137/83 blood pressure, 18 respiratory rate, 96% O2 sat on room air. HEENT: Head is atraumatic, normocephalic. HEART: Regular rate. LUNGS: Clear to auscultation. ABDOMEN: Soft, but a little bit distended and has a swelling on the right side, so I am wanting a CT scan of the abdomen and pelvis this morning just to make sure I am not missing anything before she goes to TCU. EXTREMITIES: No edema. MEDICATIONS: She is currently on Cogentin, Desyrel, Prozac, Risperdal, IV fluids and Xanax. LABORATORY DATA: She has a 8.8 white count, 11.7 hemoglobin, 37.1 hematocrit with 269,000 platelets. 142 sodium, potassium 3.3, and I gave her some potassium today. BUN 4, creatinine 0.5, GFR is greater than 60, sugar is 85, calcium is 8.4, total bili is 0.8, AST is 36, ALT 37, alk phos is 80. Total creatinine kinase was up to 2000 ounces down to 241, big improvement and 6.1 total protein. Overall, she is doing well. I am hoping to get her to TCU today. She was seen by Psychiatry and Cardiology and Neurology. Multiple falls, rhabdomyolysis, history of schizophrenia, hoping to go to TCU today. We will check a CT scan of the abdomen and pelvis. Manolo Mtz DO
--- NOTE | 2018-02-17 13:48 | CT ---
Date of service: 02/17/2018 PROCEDURE: CT Abdomen and Pelvis without intravenous contrast HISTORY: abdomine feel hard with guarding COMPARISON: None. TECHNIQUE: Without contrast.. Contrast dose: Radiation dose: Total exam DLP = 978.83 mGy-cm. This CT exam was performed using one or more of the following dose reduction techniques: Automated exposure control, adjustment of the mA and/or kV according to patient size, and/or use of iterative reconstruction technique. FINDINGS: LOWER THORAX: Unremarkable. LIVER: Unremarkable. No gross lesion or ductal dilatation. GALLBLADDER AND BILE DUCTS: Multiple gallstones PANCREAS: Unremarkable. No gross lesion or ductal dilatation. SPLEEN: Unremarkable. ADRENALS: Unremarkable. No mass. KIDNEYS AND URETERS: Mild bilateral hydronephrosis. No evidence of renal or ureteral stone VASCULATURE: Unremarkable. No aortic aneurysm. No aortic atherosclerotic calcification or mural plaque present. BOWEL: Unremarkable. No obstruction. No gross mural thickening. APPENDIX: Unremarkable. Normal appendix. PERITONEUM: Unremarkable. No free fluid. No free air. LYMPH NODES: Unremarkable. No enlarged lymph nodes. BLADDER: Severe bladder distention REPRODUCTIVE: Unremarkable. BONES: No acute fracture. OTHER FINDINGS: None. IMPRESSION: Severe bladder distention with mild bilateral hydronephrosis. No evidence of urolithiasis. Multiple gallstones
[2018-02-18 06:32] LABS: HEMOGLOBIN 10.2 g/dL (12.0-16.0); MEAN CELL VOLUME 89.9 fl (80.0-105.0); MEAN CORPUSCULAR HEMOGLOBIN 27.8 pg (25.0-35.0); MEAN CORPUSCULAR HGB CONC 30.9 g/dl (31.0-37.0); MEAN PLATELET VOLUME 10.2 fl (7.0-11.0); RBC 3.67 10^6/uL (3.5-6.1); RED CELL DISTRIBUTION WIDTH 13.7 % (11.5-14.5); WHITE BLOOD COUNT 6.6 10^3/uL (4.5-11.0)
[2018-02-18 06:51] LABS: ALBUMIN 2.6 g/dL (3.0-4.8); ALT/SGPT 38 U/L (7-56); AST/SGOT 20 U/L (14-36); BLOOD UREA NITROGEN 3 mg/dL (7-21); CALCIUM 8.1 mg/dL (8.4-10.5); GFR NON-AFRICAN AMERICAN > 60
--- NOTE | 2018-02-18 08:20 | PN ---
DATE: 02/18/2018 SUBJECTIVE: I have hoping to discharge her yesterday, but on the CAT scan of the abdomen and pelvis came back with bilateral hydronephrosis with severe bladder distention. She has a Haley catheter in her and that is by Urology. We are going to keep that in there and let the bladder relax. She is on Cogentin, Desyrel, potassium replacement, Prozac, Risperdal, IV fluid mL an hour. She is alert, pleasant in bed. PHYSICAL EXAMINATION: VITAL SIGNS: She has a 99.8 temp, which worries me a little bit; 80 pulse, 135/66 blood pressure, 19 respiratory rate, 97% O2 sat on room air. HEENT: Head is atraumatic, normocephalic. HEART: Regular rate. LUNGS: Decreased breath sounds, but clear. ABDOMEN: Soft, nontender. Positive bowel sounds. EXTREMITIES: With no edema. LABORATORY DATA: She had a swelling in her abdomen that is why we did the CAT scan of the abdomen and pelvis and found a distended bladder and the bilateral hydronephrosis. She has a white count of 6.6, hemoglobin 10.2, hematocrit 33, platelets of 223. She has a 140 sodium; potassium of 3, I gave her 2 riders of 10 mEq; BUN is 3; creatinine 0.4; GFR is greater than 60. I will decrease her 150 mL an hour to 100. Sugar is 82, calcium is 8.1, total bili is 0.7, AST is 20, ALT is 38, alk phos 64, total protein is 5.3. ASSESSMENT AND PLAN: She has multiple issues. She is being seen by multiple doctors. She has got severely distended bladder with bilateral hydronephrosis. She has Psychiatry, Cardiology, Urology consults, Neurology consults. We will eventually get her to a subacute rehabilitation versus a Transitional Care Unit, but in the meantime, we will work on her bilateral hydronephrosis and I hope that improves over the next few days as per Dr. Jones. Manolo Mtz DO [facility]
[2018-02-18] MEDS: Sodium Chloride 0.9% 1,000 ML IV SCH ×2 (10:04→18:10)
[2018-02-19] MEDS: Sodium Chloride 0.9% 1,000 ML IV SCH ×2 (04:30→17:42)
[2018-02-19 06:32] LABS: HEMOGLOBIN 10.7 g/dL (12.0-16.0); MEAN CELL VOLUME 89.1 fl (80.0-105.0); MEAN CORPUSCULAR HEMOGLOBIN 27.9 pg (25.0-35.0); MEAN CORPUSCULAR HGB CONC 31.3 g/dl (31.0-37.0); MEAN PLATELET VOLUME 10.5 fl (7.0-11.0); RBC 3.84 10^6/uL (3.5-6.1); RED CELL DISTRIBUTION WIDTH 13.5 % (11.5-14.5); WHITE BLOOD COUNT 6.6 10^3/uL (4.5-11.0)
[2018-02-19 06:45] LABS: ALB/GLOB RATIO 1.1 (1.1-1.8); ALT/SGPT 37 U/L (7-56); AST/SGOT 22 U/L (14-36); BLOOD UREA NITROGEN 4 mg/dL (7-21); CALCIUM 8.6 mg/dL (8.4-10.5); GFR NON-AFRICAN AMERICAN > 60
--- NOTE | 2018-02-19 11:36 | PN ---
DATE: 02/19/2018 SUBJECTIVE: She is resting comfortably in bed. I am working on getting her to [facility] for physical therapy and continue with her medications of Xanax, IV fluids, Risperdal, Prozac, potassium replacement, Desyrel and Cogentin. PHYSICAL EXAMINATION: VITAL SIGNS: She has got a 98.2 temperature, 69 pulse, 137/76 blood pressure, 18 respiratory rate and 94% O2 sat on room air. HEENT: Head is atraumatic, normocephalic. GENERAL: She is alert, talking much better HEART: Regular rate. LUNGS: Decreased breath sounds but clear. ABDOMEN: Soft. EXTREMITIES: No edema but she is weak. LABORATORY DATA: She has a 6.6 white count, 10.7 hemoglobin, 34.2 hematocrit with 251,000 platelets. Sodium 141; potassium is 3.1, I gave her 2 potassium K-riders today; BUN 4; creatinine 0.4; GFR is greater than 60; sugar is 89. Calcium is 8.6, total bili is 0.4, AST is 22, ALT is 37, alk phos 68. Last total creatine kinase was 241. She is doing much better with her rhabdomyolysis. She needs physical therapy. As per physical therapy, we are hoping for [facility] tomorrow on Tuesday. We are going to give her more potassium, get out of bed to chair. Manolo Mtz DO [facility] MED[facility] CENTERMelanie
[2018-02-20 07:13] LABS: HEMOGLOBIN 10.6 g/dL (12.0-16.0); MEAN CELL VOLUME 89.4 fl (80.0-105.0); MEAN CORPUSCULAR HGB CONC 31.3 g/dl (31.0-37.0); MEAN PLATELET VOLUME 10.3 fl (7.0-11.0); RBC 3.79 10^6/uL (3.5-6.1); RED CELL DISTRIBUTION WIDTH 13.6 % (11.5-14.5); WHITE BLOOD COUNT 6.4 10^3/uL (4.5-11.0)
[2018-02-20 07:28] LABS: ALB/GLOB RATIO 1.2 (1.1-1.8); ALT/SGPT 29 U/L (7-56); AST/SGOT 17 U/L (14-36); BLOOD UREA NITROGEN 3 mg/dL (7-21); CALCIUM 8.4 mg/dL (8.4-10.5); GFR NON-AFRICAN AMERICAN > 60
[2018-02-20] MEDS ORDERED: Bupivacaine Liposomal Inj 20 ml ONE (10:34)
--- NOTE | 2018-02-20 10:54 | DS ---
HISTORY OF PRESENT ILLNESS: I am hoping she will be discharged today to [facility]. She is on Cogentin, Desyrel, Prozac, Risperdal, IV fluids and Xanax. She slept fairly well. She is hungry. PHYSICAL EXAMINATION: VITAL SIGNS: A 98.1 temperature, 62 pulse, 149/77 blood pressure, 20 respiratory rate and 90% sat on room air. HEENT: Head is atraumatic and normocephalic. HEART: Regular rate. LUNGS: Clear to auscultation. ABDOMEN: Soft, nontender and obese. EXTREMITIES: No edema. LABORATORY DATA: She has a 6.4 white count, 10.6 hemoglobin, 33.9 hematocrit with 251,000 platelets. Sodium 141, potassium 3.2, , BUN 3, creatinine 0.4, GFR is greater than 60, sugar is 89, calcium is 8.4, total bili is 0.3, AST is 17, ALT is 29 and alk phos 67. PLAN: Discharge her today to [facility] for subacute rehab before she goes home. Hopefully, that could be arranged today. Jeni Aguirreone Chanelle with rhabdomyolysis, change in mentation and schizophrenia. Manolo Mtz DO MTDD
--- NOTE | 2018-02-20 19:23 | CON ---
DATE OF CONSULTATION: 02/20/2018 CHIEF COMPLAINT: Urinary retention. HISTORY OF PRESENT ILLNESS: This is a 72-year-old female who was seen in her room at [facility]. The patient was originally brought into the emergency room by her as she was having questionable abdominal pain. She had fallen at home and remained on the floor for some time. The patient has a history of schizophrenia as well as dementia. She had an altered mental status and was confused on admission. During her evaluation, she had a CT scan showing a markedly distended urinary bladder with bilateral hydronephrosis and a Haley catheter was then inserted. The patient still has the Haley catheter in place. She is awake and answering questions, but does not understand about the Haley catheter and is not able to answer questions adequately. Most of the history is obtained from her chart. PAST MEDICAL HISTORY: Significant for schizophrenia, altered mental status, dementia, arthritis. PAST SURGICAL HISTORY: Pelvic surgery with possible oophorectomy. FAMILY HISTORY: Noncontributory towards this admission. SOCIAL HISTORY: No smoking. No history of EtOH or drug use. MEDICATIONS: The patient is on Cogentin trazodone, Prozac, Risperdal and Xanax. ALLERGIES: ALLERGIC TO DILANTIN. REVIEW OF SYSTEMS: Review of systems was asked of the patient; however, she reports she is feeling well with no current issues. She denies any current medical problems or complaints. PHYSICAL EXAMINATION: GENERAL: The patient is lying in bed. She is awake but somewhat somnolent. She is in no acute distress. She is afebrile. VITAL SIGNS: Temperature 98.1, pulse 62, BP 149/77, respirations 20. NECK: Supple. There is no thyromegaly or adenopathy. CHEST: Normal inspiratory effort. CARDIAC: Positive S1 and S2. There is no peripheral edema noted on abdominal exam. ABDOMEN: Soft, nontender, nondistended. There is no hepatosplenomegaly or costovertebral angle tenderness. : There is a Haley catheter in place, which is draining clear colored urine. LABORATORY EXAMINATION: Creatinine was 0.5 on admission with a GFR greater than 60. Urinalysis showed negative for blood, negative for nitrites, negative for leukocyte esterase. RADIOLOGIC EXAMINATION: The patient had a CT scan of the abdomen and pelvis done on 02/17/2018, which showed multiple gallstones. There was severe bladder distention with mild bilateral hydronephrosis. No renal or ureteral stone noted. Of note, reproductive was unremarkable. IMPRESSION AND PLAN: This is a 72-year-old female with urinary retention, likely caused by the anticholinergic side effects of her psychiatric medications. Haley catheter has been in place as the bladder was markedly distended. Plan would be to continue Haley catheter drainage for now. Although the patient did have some hydronephrosis, it is unclear if this was acute or chronic due to bladder distention. Possibly this is acute urinary retention caused by a fall at home and altered mental status. She did not have any evidence of obstructive uropathy and her creatinine and GFR were normal. The plan would be to remove the Haley catheter for a voiding trial. The patient is scheduled to go to a nursing facility for rehabilitation and I would give her a voiding trial when she is able to ambulate without assistance. Need to monitor a postvoid residual. If the patient has a distended bladder or an enlarged postvoid residual, management would consist of either clean intermittent catheterization three times a day or the patient can be maintained with an indwelling Haley catheter, which could be changed monthly. The patient should follow up in my office or with a urologist of her choosing for possible urodynamic evaluation. However, this does appear to be a side effect of her psychiatric medications and I do not think these can be changed or stopped, but we will need to discuss that with her psychiatrist. Reyes Jones MD
--- NOTE | 2018-02-21 09:10 | DS ---
HISTORY OF PRESENT ILLNESS: She is resting comfortably in bed. She slept fairly well. I am hoping to discharge at [facility] today. She is eating well, smiling, getting stronger. She has a Haley catheter in which will keep in until she can walk very well as per urologist and will give her voiding trial probably at a subacute rehab. She has no chest pain or shortness of breath. She is calm. She is in good spirits. She understands she needs physical therapy before she goes home. PHYSICAL EXAMINATION: VITAL SIGNS: She has a 97.3 temperature, 70 pulse, 165/81 blood pressure, 19 respiratory rate, 95% O2 sat on room air. HEENT: Head is atraumatic, normocephalic. HEART: Regular rate. LUNGS: Clear to auscultation. ABDOMEN: Soft. EXTREMITIES: No edema. She is weak. She has physical therapy. MEDICATIONS: She is on Cogentin, Desyrel, Prozac, Risperdal, IV fluids and Xanax. LABORATORY DATA: She has a 6.4 white count, 10.6 hemoglobin, 33.9 hematocrit with 251,000 platelets. Sodium 141, potassium 3.2, was replaced yesterday. BUN is 3, creatinine 0.4, GFR is greater than 60, sugar is 89, calcium is 8.4. I did not do blood test today. I thought she was going to be discharged yesterday to [facility]. I am hoping that she will be discharged today to [facility] for subacute rehab before she goes home. Hopefully, addiction social worker will let me know the plan and try and discharge her to [facility] as recommended by physical therapy. This is not a psychiatric issue, this is a physical therapy issue. Manolo Mtz DO
[2018-02-21] MEDS: Sodium Chloride 0.9% 1,000 ML IV SCH (11:59)
[2018-02-21] MEDS ORDERED: Potassium Chloride 20 mEq/15 ml LIQ UD PO STA (12:07)
[2018-02-21 19:23] VITALS: BP 141/75; PULSE 76; RESP 20; TEMP 97.6; O2SAT 93
== END 2018-02-21 20:41 | DRG 558 ==
LOC: ED 19:01 → ERH 02-14 00:14 → 3RSO 02-14 01:27 → ERH 02-14 02:02 → 3RSO 02-14 02:03
PROVIDERS: ADMIT Family Medicine; ATTEND Family Medicine
DX: M62.82 Rhabdomyolysis (principal); N13.30 Unspecified hydronephrosis; F20.9 Schizophrenia, unspecified; F03.90 Unspecified dementia, unspecified severity, without behavioral disturbance, psychotic disturbance, mood disturbance, and anxiety; J32.4 Chronic pansinusitis; S00.03XA Contusion of scalp, initial encounter; F41.9 Anxiety disorder, unspecified; F32.9 Major depressive disorder, single episode, unspecified; R29.6 Repeated falls; N32.89 Other specified disorders of bladder; R33.0 Drug induced retention of urine; E78.00 Pure hypercholesterolemia, unspecified; M17.11 Unilateral primary osteoarthritis, right knee; D64.9 Anemia, unspecified; W19.XXXA Unspecified fall, initial encounter; T44.3X5A Adverse effect of other parasympatholytics [anticholinergics and antimuscarinics] and spasmolytics, initial encounter; Y92.009 Unspecified place in unspecified non-institutional (private) residence as the place of occurrence of the external cause; Z91.81 History of falling

== ENCOUNTER 2018-03-30 11:14 | Observation (INO) | payer MEDICARE ==
--- NOTE | 2018-03-30 11:44 | ED PDOC ---
Arrival/HPI <Marlo Damon - Last Filed: 03/30/18 12:13> - General Historian: Prison EM Caveat: Altered Mental Status - History of Present Illness Narrative History of Present Illness (Text): 03/30/18 11:38 72F PMHx of Schizophrenia presents to ED from [facility], as per recommendation from her PMD Dr Mtz. Pt has not been eating or drinking for an extended period of time and is to be evaluated for a PEG tube placement. Pt unable to provide a full 12pt ROS due to AMS, catatonic, flat affect. Pt answers yes or no questions inconsistently, and cannot maintain concentration > 10 seconds. Limited ROS: Pos+ thirsty Neg- cp, sob, abd pain, headache Time/Duration: < week Symptom Onset: Gradual Symptom Course: Unchanged Activities at Onset: Light <Esdras Lugo - Last Filed: 03/30/18 12:55> - General Chief Complaint: GI Problem Time Seen by Provider: 03/30/18 11:17 Past Medical History - Provider Review Nursing Documentation Reviewed: Yes - Infectious Disease Hx of Infectious Diseases: None - Reproductive Menopause: Yes - Cardiac Hx Cardiac Disorders: No Hx Hypertension: No - Pulmonary Hx Respiratory Disorders: No Hx Tuberculosis: No - Neurological Hx Dementia: Yes - Renal Hx Renal Disorder: No - Hematological/Oncological Hx Anemia: Yes Hx Cancer: No - Musculoskeletal/Rheumatological Hx Arthritis: Yes Hx Rhabdomyolysis: Yes - Genitourinary/Gynecological Hx Sexually Transmitted Diseases: No - Psychiatric Hx Anxiety: Yes Hx Depression: Yes Hx Schizophrenia: Yes Hx Substance Use: No - Surgical History Other/Comment: "ovary" - Anesthesia Hx Anesthesia: Yes Hx Anesthesia Reactions: No <Esdras Lugo - Last Filed: 03/30/18 12:55> Family/Social History - Physician Review Nursing Documentation Reviewed: Yes Family/Social History: Unknown Family HX Smoking Status: Never Smoked Hx Alcohol Use: No Hx Substance Use: No <Esdras Lugo - Last Filed: 03/30/18 12:55> Allergies/Home Meds <Marlo Damon - Last Filed: 03/30/18 12:13> <Esdras Lugo - Last Filed: 03/30/18 12:55> Allergies/Adverse Reactions: Allergies phenytoin sodium [From Dilantin] Allergy (Intermediate, Verified 01/05/18 01:55) RASH phenytoin sodium extended [From Dilantin] Allergy (Intermediate, Verified 01/05/18 01:55) RASH Home Medications: Home Meds Medication Instructions Recorded Confirmed ALPRAZolam [Xanax] 0.25 mg PO BID PRN 03/30/18 03/30/18 Acetaminophen [Tylenol] 650 mg PO PRN PRN 03/30/18 03/30/18 Cyproheptadine HCl 4 mg PO DAILY 03/30/18 03/30/18 Mag Hydrox/Aluminum Hyd/Simeth 30 ml PO PRN PRN 03/30/18 03/30/18 [Mag-Al Plus Xs 30 ml] Magnesium Hydroxide [Milk Of 400 mg PO PRN PRN 03/30/18 03/30/18 Magnesia] Review of Systems - Physician Review All systems were reviewed & negative as marked: Yes - Review of Systems Systems not reviewed;Unavailable: Altered Mental Status <Esdras Lugo - Last Filed: 03/30/18 12:55> Physical Exam Vital Signs Temp Pulse Resp BP Pulse Ox 03/30/18 11:22 98.8 F 106 H 18 117/85 96 <Marlo Damon - Last Filed: 03/30/18 12:13> Vital Signs Temp Pulse Resp BP Pulse Ox 03/30/18 11:22 98.8 F 106 H 18 117/85 96 Temperature: Afebrile Blood Pressure: Normal Pulse: Tachycardic Respiratory Rate: Normal Appearance: Positive for: Cachectic Pain Distress: None Mental Status: Positive for: Confused (oriented to self and place) - Systems Exam Head: Present: Atraumatic, Normocephalic, Other (suborrheic dermatitis on scalp L side) Pupils: Present: PERRL Extroacular Muscles: Present: EOMI Mouth: Present: Dry Pharnyx: Present: Muffled/Hoarse Voice Respiratory/Chest: Present: Clear to Auscultation Cardiovascular: Present: Normal S1, S2. No: Murmurs Abdomen: No: Distention, Rebound, Guarding Upper Extremity: Present: NORMAL PULSES Lower Extremity: Present: NORMAL PULSES Skin: Present: Dry (skin moddled), Pale Psychiatric: No: Normal Affect (flat, catatonic, parkinsonian tremor noted- likely from antipsychotics) <Esdras Lugo - Last Filed: 03/30/18 12:55> Medical Decision Making ED Course and Treatment: 03/30/18 12:00 72 year old female presents to the ED for evaluation of decreased diet intake. In agreement with resident note which contains more details about the patient. Patient seen and evaluated with resident. Came up with plan and treatment together. - Medication Orders Current Medication Orders: Sodium Chloride (Sodium Chloride 0.45%) 1,000 mls @ 60 mls/hr IV .[id number] WHITNEY <Marlo Damon - Last Filed: 03/30/18 12:13> ED Course and Treatment: 03/30/18 11:48 #Failure to thrive #Dehydration admit for obs to Dr Mtz service consult Dr Jean Carlos black for PEg tube f/u CBC, CMP, INR, CK start / NS @ 60ml/hr - Medication Orders Current Medication Orders: Sodium Chloride (Sodium Chloride 0.45%) 1,000 mls @ 60 mls/hr IV .[id number] WHITNEY <Esdras Lugo - Last Filed: 03/30/18 12:55> - PA / INFORMATION COORDINATOR / Resident Statement MD/ has reviewed & agrees with the documentation as recorded. MD/ has examined the patient and agrees with the treatment plan. - Scribe Statement The provider has reviewed the documentation as recorded by the Scribe Sharon Smith. All medical record entries made by the Scribe were at my direction and personally dictated by me. I have reviewed the chart and agree that the record accurately reflects my personal performance of the history, physical exam, medical decision making, and the department course for this patient. I have also personally directed, reviewed, and agree with the discharge instructions and disposition. <Marlo Damon - Last Filed: 03/30/18 12:13> Disposition/Present on Arrival <Marlo Damon - Last Filed: 03/30/18 12:13> - Present on Arrival Any Indicators Present on Arrival: No History of DVT/PE: No History of Uncontrolled Diabetes: No Urinary Catheter: No History of Decub. Ulcer: No History Surgical Site Infection Following: None - Disposition Have Diagnosis and Disposition been Completed?: Yes Disposition Time: 11:51 Patient Plan: Observation <Esdras Lugo - Last Filed: 03/30/18 12:55> - Disposition Diagnosis: Schizophrenia, Failure to thrive Disposition: HOSPITALIZED Patient Problems: Current Active Problems Problem Status Onset Schizophrenia Acute Failure to thrive Acute Condition: STABLE
[2018-03-30] MEDS ORDERED: Sodium Chloride 0.45% 1,000 ML IV SCH ×2 (11:45→16:45)
[2018-03-30 12:17] LABS: BASO % 0.1 % (0.0-3.0); HEMOGLOBIN 15.3 g/dL (12.0-16.0); LYMPH % 12.2 % (22.0-35.0); MEAN CELL VOLUME 91.8 fl (80.0-105.0); MEAN CORPUSCULAR HEMOGLOBIN 28.4 pg (25.0-35.0); MEAN CORPUSCULAR HGB CONC 30.9 g/dl (31.0-37.0); MONO % 9.7 % (1.0-6.0); RBC 5.39 10^6/uL (3.5-6.1); RED CELL DISTRIBUTION WIDTH 14.4 % (11.5-14.5); WHITE BLOOD COUNT 9.4 10^3/uL (4.5-11.0)
[2018-03-30 12:18] LABS: BASO # 0.01 K/mm3 (0.0-2.0); GRAN # 7.33 (1.4-6.5); INR 1.31; LYMPH # 1.2 (1.2-3.4); MONO # 0.9 (0.1-0.6); PROTHROMBIN TIME 15.2 SECONDS (9.4-12.5)
[2018-03-30 12:21] LABS: ALBUMIN 4.1 g/dL (3.0-4.8); ALT/SGPT 20 U/L (7-56); AST/SGOT 18 U/L (14-36); BLOOD UREA NITROGEN 48 mg/dL (7-21); CALCIUM 10.4 mg/dL (8.4-10.5); GFR NON-AFRICAN AMERICAN > 60
--- NOTE | 2018-03-30 12:25 | CP.PCM.CON ---
<Jc Tanner - Last Filed: 03/30/18 12:47> History of Present Illness - History of Present Illness History of Present Illness: PGY6 GI Fellow Consult Note Patient is a 72yo female with PMHx significant for schizoaffective disorder vs schizophrenia with history of auditory/visual hallucinations, dementia, depression/anxiety who presented to the ED from [facility] for evaluation as she has stopped eating and drinking. The patient is not a reliable historian, only occasionally nodding and saying yes/no. The patient's was not able to be reached at the time of this report. According to records, the patient has stopped eating or drinking and was sent for evaluation for a PEG tube. She denies any pain, discomfort or dysphagia/odynophagia when asked directly. Stated that she stopped eating because of depression but would not elaborate. The patient was last seen in our hospital in February 2018 following a fall at home and was evaluated and treated for altered mentation by psychiatry, neurology and evaluated for urinary retention (suspected 2/2 anticholinergics) by urology. 12 system ROS limited given clinical condition PMHx: See HPI PSHx: None previously documented FHx: Unable to assess Social: No tobacco, EtOH or illicit drug use history Endo: No prior endoscopic evaluations on record Past Patient History - Infectious Disease Hx of Infectious Diseases: None - Past Social History Smoking Status: Never Smoked - CARDIAC Hx Cardiac Disorders: No Hx Hypertension: No - PULMONARY Hx Respiratory Disorders: No Hx Tuberculosis: No - NEUROLOGICAL Hx Dementia: Yes - RENAL Hx Chronic Kidney Disease: No - HEMATOLOGICAL/ONCOLOGICAL Hx Anemia: Yes Hx Cancer: No - MUSCULOSKELETAL/RHEUMATOLOGICAL Hx Arthritis: Yes Hx Rhabdomyolysis: Yes - GENITOURINARY/GYNECOLOGICAL Hx Sexually Transmitted Disorders: No - PSYCHIATRIC Hx Anxiety: Yes Hx Depression: Yes Hx Schizophrenia: Yes Hx Substance Use: No - SURGICAL HISTORY Other/Comment: "ovary" - ANESTHESIA Hx Anesthesia: Yes Hx Anesthesia Reactions: No Meds Allergies/Adverse Reactions: Allergies Allergy/AdvReac Type Severity Reaction Status Date / Time phenytoin sodium Allergy Intermediate RASH Verified 03/30/18 12:56 [From Dilantin] phenytoin sodium extended Allergy Intermediate RASH Verified 03/30/18 12:56 [From Dilantin] - Medications Medications: Current Medications Sodium Chloride (Sodium Chloride 0.45%) 1,000 mls @ 60 mls/hr IV .[id number] [facility] Last Admin: 03/30/18 12:21 Dose: 60 mls/hr Physical Exam - Constitutional Appears: Non-toxic, No Acute Distress - Eye Exam Eye Exam: PERRL - ENT Exam ENT Exam: Mucous Membranes Dry - Respiratory Exam Respiratory Exam: Clear to Auscultation Bilateral. absent: Rales, Rhonchi, Wheezes - Cardiovascular Exam Cardiovascular Exam: RRR, +S1, +S2 - GI/Abdominal Exam GI & Abdominal Exam: Normal Bowel Sounds, Soft. absent: Distended, Firm, Guarding, Organomegaly, Rigid, Tenderness Additional comments: palpable bladder - Extremities Exam Extremities exam: Positive for: normal inspection. Negative for: pedal edema - Neurological Exam Neurological exam: Altered - Psychiatric Exam Psychiatric exam: Flat Affect - Skin Skin Exam: Dry, Warm Results - Vital Signs Recent Vital Signs: Last Vital Signs Temp 98.8 F 03/30/18 11:22 Pulse 106 H 03/30/18 11:22 Resp 18 03/30/18 11:22 BP 117/85 03/30/18 11:22 Pulse Ox 96 03/30/18 11:22 - Labs Result Diagrams: 03/30/18 12:00 03/30/18 12:00 Labs: Laboratory Results - last 24 hr 03/30/18 03/30/18 03/30/18 12:00 12:00 12:00 WBC 9.4 D RBC 5.39 Hgb 15.3 D Hct 49.5 H MCV 91.8 MCH 28.4 MCHC 30.9 L RDW 14.4 Plt Count 495 H MPV 11.0 Gran % 78.0 H Lymph % (Auto) 12.2 L [place] % (Auto) 9.7 H Eos % (Auto) 0.0 L Baso % (Auto) 0.1 Gran # 7.33 H Lymph # (Auto) 1.2 [place] # (Auto) 0.9 H Eos # (Auto) 0.0 Baso # (Auto) 0.01 PT 15.2 H INR 1.31 Sodium 154 H Potassium 4.6 Chloride 115 H Carbon Dioxide 31 Anion Gap 13 BUN 48 H Creatinine 0.9 Est GFR ( Amer) > 60 Est GFR (Non-Af Amer) > 60 Random Glucose 132 H Calcium 10.4 Phosphorus 4.5 Magnesium 2.5 H Total Bilirubin 0.7 AST 18 ALT 20 Alkaline Phosphatase 91 Total Creatine Kinase 31 L Total Protein 8.0 Albumin 4.1 Globulin 3.9 Albumin/Globulin Ratio 1.0 L Assessment & Plan - Assessment and Plan (Free Text) Assessment: Patient is a 72yo female with PMHx significant for schizoaffective disorder vs schizophrenia with history of auditory/visual hallucinations, dementia, dep ression/anxiety who presented to the ED from [facility] for evaluation as she has stopped eating and drinking -Anorexia -Schizophrenia -Suspect urinary retention -Hypernatremia/Hyperchloremia/Hypermagnesemia Plan: -Recommend psychiatric evaluation to rule out exacerbation of underlying condition contributing to anorexia -Bladder scan given palpable bladder on exam - previously had retention 2/2 anticholinergic effect -Patient cannot consent for PEG procedure -Will continue to reach out to the patient's in order to discuss PEG placement and obtain consent if agreeable -Maintain NPO past midnight - Date & Time Date: 03/30/18 Time: 12:20 <Trey Evangelista - Last Filed: 03/30/18 13:22> Meds - Medications Medications: Current Medications Sodium Chloride (Sodium Chloride 0.45%) 1,000 mls @ 60 mls/hr IV .[id number] [facility] Last Admin: 03/30/18 12:21 Dose: 60 mls/hr Results - Vital Signs Recent Vital Signs: Last Vital Signs Temp 98.8 F 03/30/18 11:22 Pulse 102 H 03/30/18 12:24 Resp 18 03/30/18 12:24 BP 112/75 03/30/18 12:24 Pulse Ox 99 03/30/18 12:24 - Labs Result Diagrams: 03/30/18 12:00 03/30/18 12:00 Labs: Laboratory Results - last 24 hr 03/30/18 03/30/18 03/30/18 12:00 12:00 12:00 WBC 9.4 D RBC 5.39 Hgb 15.3 D Hct 49.5 H MCV 91.8 MCH 28.4 MCHC 30.9 L RDW 14.4 Plt Count 495 H MPV 11.0 Gran % 78.0 H Lymph % (Auto) 12.2 L [place] % (Auto) 9.7 H Eos % (Auto) 0.0 L Baso % (Auto) 0.1 Gran # 7.33 H Lymph # (Auto) 1.2 [place] # (Auto) 0.9 H Eos # (Auto) 0.0 Baso # (Auto) 0.01 PT 15.2 H INR 1.31 Sodium 154 H Potassium 4.6 Chloride 115 H Carbon Dioxide 31 Anion Gap 13 BUN 48 H Creatinine 0.9 Est GFR ( Amer) > 60 Est GFR (Non-Af Amer) > 60 Random Glucose 132 H Calcium 10.4 Phosphorus 4.5 Magnesium 2.5 H Total Bilirubin 0.7 AST 18 ALT 20 Alkaline Phosphatase 91 Total Creatine Kinase 31 L Total Protein 8.0 Albumin 4.1 Globulin 3.9 Albumin/Globulin Ratio 1.0 L Attending/Attestation - Attestation I have fully participated in the care of the patient.: Yes I have reviewed all pertinent clinical information: Yes Notes (Text): 03/30/18 13:20 Schizoaffective disorder Progressive nutritional deterioration, poor PO intake - NPO - Suggest psychiatric evaluation given sudden food aversion - Will need to carefully discuss with patient's family member regarding potential feeding tube placement risks/benefits if this is the eventual clinical course decided upon - Will await psychiatric recommendations and continue to monitor patient clinical course
[2018-03-30 16:01] VITALS: BMI 23.1
[2018-03-30] MEDS ORDERED: Influenza Vaccine 60 mcg/0.5 mL SYR (4YR UP) IM ONE (16:01)
[2018-03-30] MEDS ORDERED: Pneumococcal 23-Valent Vaccine IM ONE (16:01)
--- NOTE | 2018-03-30 19:16 | CARD ---
APPROVED REPORT Date of service: 03/30/2018 EKG Measurement Heart [id number] <Conclusion> Sinus tachycardia with short AK Otherwise normal ECG
--- NOTE | 2018-03-30 22:32 | HP ---
DATE OF EXAM: 03/30/2018 HISTORY OF PRESENT ILLNESS: I have known Jeni for many years. She is just at [place]. She stopped eating. She is now going to be going for a feeding tube as per the and if suddenly changes in the future we could always reverse the feeding tube. She is having failure to thrive, history of schizophrenia. This is a 72-year-old female who stopped eating and drinking for extended period of time. wanted to feeding tube placed. At times, she is catatonic with flat affect. No chest pain or shortness of breath or abdominal pain. No headache. Her eyes are open. She is alert, that is her baseline recently. PAST MEDICAL HISTORY: Menopause, dementia, anemia, arthritis, rhabdomyolysis history, anxiety, depression, schizophrenia, ovarian surgery. FAMILY HISTORY: Unknown family history. SOCIAL HISTORY: Never smoked. No alcohol. No drugs. REVIEW OF SYSTEMS: No acute vision or hearing changes. No chest pain. No shortness of breath or abdominal pain. She stopped eating. ALLERGIES: TO PHENYTOIN. MEDICATIONS: She is on Xanax, Tylenol, , magnesium, milk of magnesia. PHYSICAL EXAMINATION: GENERAL: She is alert, looking at me, pleasantly confused. VITAL SIGNS: Temperature 98.8, pulse 106, respiratory rate 18, blood pressure 117/85, 96% O2 sat. HEENT: Head is atraumatic, normocephalic. Seborrheic keratosis on the scalp left side. Extraocular movements are grossly intact. Pupils are equal and reactive to light. Throat is fairly moist. NECK: Text. HEART: Regular rate. Normal S1 and S2. LUNGS: Decreased breath sounds, but clear to auscultation. ABDOMEN: Soft, nontender. Positive bowel sounds. No guarding, rebound or CVA tenderness. EXTREMITIES: Have no edema. She has a flat affect, Catatonic Parkinson tremor. LABORATORY DATA: She had multiple tests done. EKG is pending. Chest x-ray is pending. INR is 1.31. She has a white count 9.4, hemoglobin 15.3, hematocrit 49.5 with 495 platelets. Sodium 154, if normal. Potassium is 4.6, BUN 48, creatinine 0.9, GFR is greater than 60, sugar is 132, calcium 10.4, phosphorous is 4.5, magnesium 2.5, total bili is 0.7, AST is 18, ALT is 20, alk phos 91. Total creatinine kinase 31. Total protein is 8, albumin is 4.1. IMPRESSION AND PLAN: She is here for failure to thrive. She is going to have an EKG and chest x-ray. There is going to be a GI consult for PEG tube placement hopefully tomorrow. She is on observation level of care. If she does well tomorrow afternoon, we will get her back to the assisted. Manolo Mtz DO MTDMelanie
[2018-03-31 06:59] LABS: HEMOGLOBIN 14.5 g/dL (12.0-16.0); MEAN CELL VOLUME 91.6 fl (80.0-105.0); MEAN CORPUSCULAR HEMOGLOBIN 27.8 pg (25.0-35.0); MEAN CORPUSCULAR HGB CONC 30.4 g/dl (31.0-37.0); MEAN PLATELET VOLUME 11.1 fl (7.0-11.0); RBC 5.21 10^6/uL (3.5-6.1); RED CELL DISTRIBUTION WIDTH 14.6 % (11.5-14.5); WHITE BLOOD COUNT 10.4 10^3/uL (4.5-11.0)
[2018-03-31] MEDS ORDERED: Propofol 10 mg/ml Inj (20 ML) ONE (07:48)
[2018-03-31] MEDS ORDERED: Etomidate 20 mg/10ml Inj IV ONE (07:53)
[2018-03-31 07:54] LABS: ALB/GLOB RATIO 1.1 (1.1-1.8); ALBUMIN 3.8 g/dL (3.0-4.8); ALT/SGPT 17 U/L (7-56); AST/SGOT 20 U/L (14-36); BLOOD UREA NITROGEN 50 mg/dL (7-21); CALCIUM 9.9 mg/dL (8.4-10.5); GFR NON-AFRICAN AMERICAN > 60
[2018-03-31] MEDS ORDERED: ceFAZolin 1 gm in NS 1 GM/100 ML BAG IVPB STA (07:59)
[2018-03-31] MEDS ORDERED: Sodium Chloride 0.9% 1,000 ML IV SCH (09:00)
[2018-03-31 09:33] VITALS: PULSE 92; RESP 18; TEMP 98; O2SAT 99
[2018-03-31 09:52] VITALS: BP 110/70
--- NOTE | 2018-03-31 10:14 | RAD ---
Date of service: 03/31/2018 HISTORY: pat COMPARISON: 02/13/2018 FINDINGS: LUNGS: No active pulmonary disease. PLEURA: No significant pleural effusion identified, no pneumothorax apparent. CARDIOVASCULAR: No aortic atherosclerotic calcification present. Normal cardiac size. No pulmonary vascular congestion. OSSEOUS STRUCTURES: No significant abnormalities. VISUALIZED UPPER ABDOMEN: Normal. OTHER FINDINGS: None. IMPRESSION: No active disease.
--- NOTE | 2018-03-31 13:12 | DS ---
HISTORY OF PRESENT ILLNESS: She is status post feeding tube placement. She has failure to thrive, schizophrenia, anxiety. She is at [facility] which rehab. PHYSICAL EXAMINATION: VITAL SIGNS: She has 98 temp, 92 pulse, 141/72 blood pressure, 18 respiratory rate, 99% O2 sat at 3 L nasal cannula. HEENT: Head is atraumatic, normocephalic. HEART: Regular rate. LUNGS: Decreased breath sounds, but clear. ABDOMEN: Soft. She has a feeding tube now in place. EXTREMITIES: Have no edema. LABORATORY DATA: She has 10.4 white count, 14.5 hemoglobin, 47.7 hematocrit, with a 472 platelets. Sodium 153, potassium 4.3, BUN 50, creatinine 0.8, GFR is greater than 60, blood sugar is 134. Calcium 9.9, total bili is 0.88. AST is 20, ALT is 17, alkaline phosphatase is 88, total protein 7.3. PLAN: The plan is going to be possibly discharge her back to [facility] today and then tomorrow we can start using the feedings, that is my plan. She is on observation, and she in the recovery room. The patient has failure to thrive, history of schizophrenia, and anxiety. Manolo Mtz DO MTDD
--- NOTE | 2018-03-31 19:55 | CON ---
DATE OF CONSULTATION: 03/31/2018 HISTORY OF PRESENT ILLNESS: In short, the patient is a 72-year-old female with history of delusional disorder. The patient has multiple medical issues for which the patient was admitted on the medical site. Psych consult was called for evaluation of the patient's mental status and the patient has history of psychosis and mental illness. This publications writer attempted to speak to the patient. Initially, the patient was in OR for PEG placement. After the patient came back on the medical site, the patient was not able to participate in interview. The patient lying flat, staring on the ceiling. This publications writer was not able to obtain any history, but this publications writer is very familiar with this patient from the multiple admissions to the psychiatric inpatient unit. The patient has history of delusional disorder. The patient was on higher dose of Risperdal. The patient has a supportive who is involved into the patient's care. Collaterals were obtained from the nursing staff. The patient is not agitated, not aggressive. As per collateral information, the patient was transferred from the longterm because the patient was not eating. LABS: Reviewed. MEDICATIONS reviewed. MENTAL STATUS EXAMINATION: As this publications writer described above. IMPRESSION: As per history, the patient has delusional disorder. PLAN: Continue current management. Continue current medications. This publications writer would suggest followup from Dr. Menendez over the weekend. She will follow up on this patient and advise accordingly. Thank you very much for letting me participate in the care of your patient. Should you have any questions, give me a call back. Essence Mulligan MD
== END 2018-03-31 18:43 | disposition home or self-care (01) ==
LOC: ED 11:14 → ERH 11:34 → 5RSO 13:27
PROVIDERS: ADMIT Family Medicine; ATTEND Family Medicine
DX: R62.7 Adult failure to thrive (principal); F41.9 Anxiety disorder, unspecified; F20.9 Schizophrenia, unspecified; F03.90 Unspecified dementia, unspecified severity, without behavioral disturbance, psychotic disturbance, mood disturbance, and anxiety; E87.8 Other disorders of electrolyte and fluid balance, not elsewhere classified; E87.0 Hyperosmolality and hypernatremia; F32.89 Other specified depressive episodes; E83.41 Hypermagnesemia; Z93.1 Gastrostomy status; D64.9 Anemia, unspecified; M19.90 Unspecified osteoarthritis, unspecified site; M62.82 Rhabdomyolysis; Z91.09 Other allergy status, other than to drugs and biological substances; K44.9 Diaphragmatic hernia without obstruction or gangrene
CPT/HCPCS: 36415; 43246; 71045; 80053; 82550; 82948; 83735; 84100; 85025; 85027; 85610; 92526; 93005; 96374; 99285; G0378; G8996; G8997; G8998; J0690; J2001; J2704; J7030; J7040

== ENCOUNTER 2018-04-06 07:38 | Inpatient (IN) | payer MEDICARE ==
[2018-04-06] MEDS ORDERED: Sodium Chloride 0.9% 1,000 ML IV ONE (07:53)
[2018-04-06] MEDS ORDERED: Cefepime IV 2 gm in NS 2 GM/100 ML BAG IVPB STA (08:03)
--- NOTE | 2018-04-06 08:09 | ED PDOC ---
Arrival/HPI - General Historian: Caregiver, Custodial, EMS - History of Present Illness Narrative History of Present Illness (Text): 04/06/18 08:06 72F past medical history of schizophrenia, catatonia presents to the Emergency department with a fever sent in [facility] [place] [facility]. Pt unable to provide ROS due to catatonic state. Pt does not answer appropriatley to questions, however opens eyes and moves to verbal and physical stimuli. Pt has blood in alexandra as well. Time/Duration: Prior to Arrival Symptom Onset: Sudden Activities at Onset: Rest Context: Home <Esdras Lugo - Last Filed: 04/06/18 09:33> <Heriberto Elmore - Last Filed: 04/06/18 09:37> - General Chief Complaint: Fever Time Seen by Provider: 04/06/18 07:42 Past Medical History - Provider Review Nursing Documentation Reviewed: Yes - Infectious Disease Hx of Infectious Diseases: None - Reproductive Menopause: Yes - Cardiac Hx Cardiac Disorders: No - Pulmonary Hx Respiratory Disorders: No - Neurological Hx Neurological Disorder: Yes Hx Dementia: Yes - HEENT Hx HEENT Disorder: No - Renal Hx Renal Disorder: No - Endocrine/Metabolic Hx Endocrine Disorders: No - Hematological/Oncological Hx Blood Transfusions: (UNKNOWN) Hx Blood Transfusion Reaction: (UNKNOWN) - Integumentary Hx Dermatological Disorder: No - Musculoskeletal/Rheumatological Hx Musculoskeletal Disorders: Yes Hx Arthritis: Yes Hx Falls: Yes Hx Rhabdomyolysis: Yes - Gastrointestinal Hx Gastrointestinal Disorders: Yes (POOR APPETITE,ADMITTED FOR PEG INSERTION 03-30-18) - Genitourinary/Gynecological Hx Genitourinary Disorders: Yes (URINARY RETENTION) Hx Incontinence: Yes Hx Sexually Transmitted Diseases: No - Psychiatric Hx Psychophysiologic Disorder: Yes (AUDITORY AND VISUAL HALLUCINATIONS) Hx Anxiety: Yes Hx Depression: Yes (REFUSING TO EAT.) Hx Schizophrenia: Yes Hx Substance Use: No (UNKNOWN) - Surgical History Other/Comment: "ovary" - Anesthesia Hx Anesthesia Reactions: No Hx Malignant Hyperthermia: No <Esdras Lugo - Last Filed: 04/06/18 09:33> Family/Social History - Physician Review Nursing Documentation Reviewed: Yes Family/Social History: Unknown Family HX Smoking Status: Unknown If Ever Smoked Hx Alcohol Use: No (UNKNOWN) Hx Substance Use: No (UNKNOWN) <Esdras Lugo - Last Filed: 04/06/18 09:33> Allergies/Home Meds <Esdras Lugo - Last Filed: 04/06/18 09:33> <Heriberto Elmore - Last Filed: 04/06/18 09:37> Allergies/Adverse Reactions: Allergies phenytoin sodium [From Dilantin] Allergy (Intermediate, Verified 03/30/18 12:56) RASH phenytoin sodium extended [From Dilantin] Allergy (Intermediate, Verified 03/30/18 12:56) RASH Home Medications: Home Meds Medication Instructions Recorded Confirmed ALPRAZolam [Xanax] 0.5 mg PO BID PRN 03/30/18 04/06/18 Mag Hydrox/Aluminum Hyd/Simeth 30 ml GT Q4 PRN 03/30/18 04/06/18 [Mag-Al Plus Xs Suspension] Acetaminophen [Tylenol] 650 mg GT PRN PRN 04/06/18 04/06/18 Benztropine [Cogentin] 1 mg GT AMHS 04/06/18 04/06/18 FLUoxetine [Prozac] 40 mg GT DAILY 04/06/18 04/06/18 Magnesium Hydroxide [Milk Of 30 ml GT PRN PRN 04/06/18 04/06/18 Magnesia] risperiDONE [RisperDAL Tab] 2 mg GT BID 04/06/18 04/06/18 traZODone [Desyrel] 50 mg GT HS 04/06/18 04/06/18 Review of Systems - Review of Systems Systems not reviewed;Unavailable: Altered Mental Status <Esdras Lugo - Last Filed: 04/06/18 09:33> Physical Exam Vital Signs Reviewed: Yes Vital Signs Temp Pulse Resp BP Pulse Ox 04/06/18 07:39 102.5 F H 115 H 20 99/60 L 93 L Temperature: Febrile Blood Pressure: Hypotensive Pulse: Tachycardic Respiratory Rate: Normal Appearance: Positive for: Ill-Appearing, Cachectic Pain Distress: None Mental Status: Positive for: other (catatonic) - Systems Exam Head: Present: Atraumatic, Normocephalic Pupils: Present: PERRL Extroacular Muscles: Present: EOMI Conjunctiva: Present: Normal Ears: Present: Normal Mouth: Present: Moist Mucous Membranes Pharnyx: No: ERYTHEMA Nose (External): Present: Atraumatic Neck: Present: Normal Range of Motion Respiratory/Chest: Present: Clear to Auscultation. No: Respiratory Distress, Wheezes, Rales Cardiovascular: Present: Regular Rate and Rhythm, Normal S1, S2. No: Murmurs Abdomen: No: Tenderness, Distention Genitourinary/Pelvic Exam: Present: Other (blood w/ pus in alexandra ) Upper Extremity: Present: NORMAL PULSES, Capillary Refill < 2s Lower Extremity: Present: NORMAL PULSES, Capillary Refill < 2 s Neurological: No: Speech Normal (catatonic) Skin: Present: Diaphoretic Psychiatric: No: Normal Affect (flat affect, catatonic) <Esdras Lugo - Last Filed: 04/06/18 09:33> Vital Signs Temp Pulse Resp BP Pulse Ox 04/06/18 09:20 95 H 18 102/49 L 99 04/06/18 08:00 101 H 18 104/56 L 93 L 04/06/18 07:39 102.5 F H 115 H 20 99/60 L 93 L <Heriberto Elmore - Last Filed: 04/06/18 09:37> Medical Decision Making ED Course and Treatment: 04/06/18 08:20 #possible sepsis, likely 2/2 to UTI -f/u CBC CMP COAGS [facility] VBGshock -2L NS Bolus / 30min -600ml/hr / 3 hrs -2g Cefepime IVPB 04/06/18 09:[address] Mtz service - RAD Interpretation Radiology Orders: 04/06/18 07:53 CHEST PORTABLE [RAD] Stat - Medication Orders Current Medication Orders: Acetaminophen (Tylenol 325mg Tab) 975 mg PO ONCE PRN PRN Reason: Fever >100.4 F Sodium Chloride (Sodium Chloride 0.9%) 1,000 mls @ 2,000 mls/hr IV .Q30M ONE Stop: 04/06/18 08:22 Cefepime HCl (Maxipime 2gm) 2 gm in 100 mls @ 100 mls/hr IVPB STAT STA; Protocol Stop: 04/06/18 09:02 <Esdras Lugo - Last Filed: 04/06/18 09:33> ED Course and Treatment: 04/06/18 09:31 Impression: 72 year old female presents to the emergency department for evaluation of fever. In agreement with resident note which contains more details about the patient. Patient seen and evaluated with resident. Came up with plan and treatment together. Plan: -- VBG -- Labs -- EKG -- Chest X-ray -- Maxipime -- IV Fluids -- Tylenol -- Blood Culture -- Urine Culture -- UA - Lab Interpretations Lab Results: 04/06/18 08:10 04/06/18 08:10 Lab Results 04/06/18 08:15: Urine Color Dark brown, Urine Appearance Turbid, Urine pH 8.5, Ur Specific [place] 1.010, Urine Protein >=300 H, Urine Glucose (UA) 500 H, Urine Ketones 15 H, Urine Blood Large H, Urine Nitrate Positive H, Urine Bilirubin Large H, Urine Urobilinogen 4.0 H, Ur Leukocyte Esterase Large H, Urine RBC Tntc H, Urine WBC Tntc H, Urine Bacteria Large 04/06/18 08:10: Sodium 147, Chloride 112 H, Potassium 4.4, Carbon Dioxide 31, Anion Gap 8 L, BUN 34 H, Creatinine 0.6 L, Est GFR ( Amer) > 60, Est GFR (Non-Af Amer) > 60, Random Glucose 175 H, Calcium 9.0, Phosphorus 1.8 L, Magnesium 2.5 H, Total Bilirubin 0.5, AST 37 H D, ALT 56, Alkaline Phosphatase 99, Troponin I < 0.01, Total Protein 6.6, Albumin 3.3, Globulin 3.3, Albumin/Globulin Ratio 1.0 L 04/06/18 08:10: pO2 187 H, VBG pH 7.47 H, VBG pCO2 43.0, VBG HCO3 31.3 H, VBG Total CO2 32.6 H, VBG O2 Sat (Calc) 99.4 H, VBG Base Excess 6.8 H, VBG Potassium 4.2, Sodium 146.0, Chloride 111.0 H, Glucose 183 H, Lactate 1.8, FiO2 21.0, Venous Blood Potassium 4.2 04/06/18 08:10: PT 14.1 H, INR 1.22, APTT 31.5 04/06/18 08:10: WBC 16.9 H D, RBC 4.81, Hgb 13.4, Hct 44.4, MCV 92.3, MCH 27.9, MCHC 30.2 L, RDW 14.7 H, Plt Count 262, MPV 12.8 H, Gran % 84.2 H, Lymph % (Auto) 8.8 L, [place] % (Auto) 6.8 H, Eos % (Auto) 0.1 L, Baso % (Auto) 0.1, Gran # 14.25 H, Lymph # (Auto) 1.5, [place] # (Auto) 1.2 H, Eos # (Auto) 0.0, Baso # (Au to) 0.01 - RAD Interpretation Radiology Orders: 04/06/18 07:53 CHEST PORTABLE [RAD] Stat - Medication Orders Current Medication Orders: Acetaminophen (Tylenol 325mg Tab) 975 mg PO ONCE PRN PRN Reason: Fever >100.4 F Sodium Chloride (Sodium Chloride 0.9%) 2,000 mls @ 600 mls/hr IV .Q3H20M STA Stop: 04/06/18 12:10 Last Admin: 04/06/18 09:00 Dose: 600 mls/hr eMAR Start Stop Document 04/06/18 09:00 SRE (Rec: 04/06/18 09:08 SRE [id number]) Intravenous Solution Start Date 04/06/18 Start Time 09:00 End Date 04/06/18 End time 10:00 Total Infusion Time 60 Discontinued Medications Sodium Chloride (Sodium Chloride 0.9%) 1,000 mls @ 2,000 mls/hr IV .Q30M ONE Stop: 04/06/18 08:22 Last Admin: 04/06/18 08:23 Dose: 2,000 mls/hr eMAR Start Stop Document 04/06/18 08:23 SRE (Rec: 04/06/18 08:24 SRE [id number]) Intravenous Solution Start Date 04/06/18 Start Time 07:55 End Date 04/06/18 End time 09:15 Total Infusion Time 80 Cefepime HCl (Maxipime 2gm) 2 gm in 100 mls @ 100 mls/hr IVPB STAT STA; Protocol Stop: 04/06/18 09:02 Last Admin: 04/06/18 08:24 Dose: 100 mls/hr eMAR Start Stop Document 04/06/18 08:24 SRE (Rec: 04/06/18 08:25 SRE [id number]) Intravenous Solution Start Date 04/06/18 Start Time 08:25 End Date 04/06/18 End time 09:25 Total Infusion Time 60 <Heriberto Elmore - Last Filed: 04/06/18 09:37> - PA / FILTER TANK TENDER HELPER HEAD / Resident Statement / has reviewed & agrees with the documentation as recorded. MD/DO has examined the patient and agrees with the treatment plan. - Scribe Statement The provider has reviewed the documentation as recorded by the Scribe Carina mendez with Sharon All medical record entries made by the Mortezaibkelvin were at my direction and personally dictated by me. I have reviewed the chart and agree that the record accurately reflects my personal performance of the history, physical exam, medical decision making, and the department course for this patient. I have also personally directed, reviewed, and agree with the discharge instructions and disposition. <Heriberto Elmore - Last Filed: 04/06/18 09:37> Disposition/Present on Arrival - Present on Arrival Any Indicators Present on Arrival: Yes History of DVT/PE: No History of Uncontrolled Diabetes: No Urinary Catheter: Yes (blood in alexandra) History of Decub. Ulcer: No History Surgical Site Infection Following: None - Disposition Have Diagnosis and Disposition been Completed?: Yes Disposition Time: 09:34 Patient Plan: Admission <Esdras Lugo - Last Filed: 04/06/18 09:33> <Heriberto Elmore - Last Filed: 04/06/18 09:37> - Disposition Diagnosis: Sepsis secondary to UTI Patient Problems: Current Active Problems Problem Status Onset Sepsis secondary to UTI Acute
[2018-04-06 08:23] LABS: VENOUS BLOOD GAS BASE EXCESS 6.8 mmol/L (0.0-2.0); VENOUS BLOOD GAS PO2 187 mm/Hg (30-55); VENOUS BLOOD PH 7.47 (7.32-7.43)
[2018-04-06 08:24] LABS: BASO # 0.01 K/mm3 (0.0-2.0); BASO % 0.1 % (0.0-3.0); EOS % 0.1 % (1.5-5.0); GRAN # 14.25 (1.4-6.5); GRAN % 84.2 % (50.0-68.0); HEMOGLOBIN 13.4 g/dL (12.0-16.0); LYMPH # 1.5 (1.2-3.4); LYMPH % 8.8 % (22.0-35.0); MEAN CELL VOLUME 92.3 fl (80.0-105.0); MEAN CORPUSCULAR HEMOGLOBIN 27.9 pg (25.0-35.0); MEAN CORPUSCULAR HGB CONC 30.2 g/dl (31.0-37.0); MEAN PLATELET VOLUME 12.8 fl (7.0-11.0); MONO # 1.2 (0.1-0.6); MONO % 6.8 % (1.0-6.0); RBC 4.81 10^6/uL (3.5-6.1); RED CELL DISTRIBUTION WIDTH 14.7 % (11.5-14.5); WHITE BLOOD COUNT 16.9 10^3/uL (4.5-11.0)
[2018-04-06 08:34] LABS: INR 1.22; PARTIAL THROMBOPLASTIN TIME 31.5 Seconds (25.1-36.5); PROTHROMBIN TIME 14.1 SECONDS (9.4-12.5)
[2018-04-06 08:41] LABS: ALBUMIN 3.3 g/dL (3.0-4.8); ALT/SGPT 56 U/L (7-56); AST/SGOT 37 U/L (14-36); BLOOD UREA NITROGEN 34 mg/dL (7-21); GFR NON-AFRICAN AMERICAN > 60
[2018-04-06 08:43] LABS: TROPONIN I < 0.01 ng/mL
[2018-04-06] MEDS ORDERED: Sodium Chloride 0.9% 2,000 ML IV STA ×2 (08:51→10:24)
[2018-04-06 08:52] LABS: PH,URINE 8.5 (4.7-8.0); URINE BILIRUBIN LARGE (NEGATIVE); URINE BLOOD LARGE (NEGATIVE); URINE GLUCOSE (UA) 500 mg/dL (NEGATIVE); URINE LEUKOCYTE ESTERASE LARGE Leu/uL (NEGATIVE); URINE PROTEIN >=300 mg/dL (<30 mg/dL)
[2018-04-06 08:53] LABS: URINE APPEARANCE TURBID (CLEAR); URINE COLOR DARK BROWN (YELLOW)
--- NOTE | 2018-04-06 08:55 | RAD ---
Date of service: 04/06/2018 HISTORY: Sepsis Patient COMPARISON: 03/31/2018 FINDINGS: LUNGS: The lungs are well inflated and clear. PLEURA: No pleural effusions or pneumothorax. CARDIOVASCULAR: The heart is normal in size. No aortic atherosclerotic calcification present. OSSEOUS STRUCTURES: Within normal limits for the patient's age. VISUALIZED UPPER ABDOMEN: Normal. OTHER FINDINGS: None. IMPRESSION: No active pulmonary disease.
[2018-04-06 08:59] LABS: URINE BACTERIA LARGE /hpf; URINE RBC TNTC /hpf (0-2); URINE WBC TNTC /hpf (0-6)
--- NOTE | 2018-04-06 11:19 | CARD ---
APPROVED REPORT Date of service: 04/06/2018 EKG Measurement Heart [id number] <Conclusion> RSR Possible Old Inferior infarct?
[2018-04-06 12:33] VITALS: BMI 22.6
--- NOTE | 2018-04-06 13:42 | CP.PCM.CON ---
<Lorenzo Ferrer - Last Filed: 04/06/18 13:59> History of Present Illness - History of Present Illness History of Present Illness: ID Consult Note 72 year old female with past medical history of dementia, anemia, arthritis, schizophrenia, and depression presents to the hospital for fever at senior care. Patient is nonverbal, medical history provided from previous medical records. Patient was found to have elevated temperature at her senior care, so she was sent to the hospital. It was also noted that patient had hematuria. Patient able to appropriately respond to commands. Patient was recently admitted to hospital last week for PEG tube placement due to failure to thrive. PMH: dementia, anemia, arthritis, schizophrenia, and depression Surgical Hx: Ovarian surgery Family Hx: Unknown Social Hx: No alcohol, tobacco, or illicit drug use Allergies: Phenytoin Medications: Reviewed, as per MAR Review of Systems - Review of Systems Review of Systems: No able to obtain ROS due to dementia and nonverbal status Past Patient History - Infectious Disease Hx of Infectious Diseases: None - Past Social History Smoking Status: Unknown If Ever Smoked - CARDIAC Hx Cardiac Disorders: No - PULMONARY Hx Respiratory Disorders: No - NEUROLOGICAL Hx Neurological Disorder: Yes Hx Dementia: Yes - HEENT Hx HEENT Problems: No - RENAL Hx Chronic Kidney Disease: No - ENDOCRINE/METABOLIC Hx Endocrine Disorders: No - HEMATOLOGICAL/ONCOLOGICAL Hx Blood Transfusions: (UNKNOWN) Hx Blood Transfusion Reaction: (UNKNOWN) - INTEGUMENTARY Hx Dermatological Problems: No - MUSCULOSKELETAL/RHEUMATOLOGICAL Hx Musculoskeletal Disorders: Yes Hx Arthritis: Yes Hx Falls: Yes Hx Rhabdomyolysis: Yes - GASTROINTESTINAL Hx Gastrointestinal Disorders: Yes (POOR APPETITE,ADMITTED FOR PEG INSERTION 03-30-18) - GENITOURINARY/GYNECOLOGICAL Hx Genitourinary Disorders: Yes (URINARY RETENTION) Hx Incontinence: Yes Hx Sexually Transmitted Disorders: No - PSYCHIATRIC Hx Psychophysiologic Disorder: Yes (AUDITORY AND VISUAL HALLUCINATIONS) Hx Anxiety: Yes Hx Depression: Yes (REFUSING TO EAT.) Hx Schizophrenia: Yes Hx Substance Use: No (UNKNOWN) - SURGICAL HISTORY Other/Comment: "ovary" - ANESTHESIA Hx Anesthesia Reactions: No Hx Malignant Hyperthermia: No Meds Allergies/Adverse Reactions: Allergies Allergy/AdvReac Type Severity Reaction Status Date / Time phenytoin sodium Allergy Intermediate RASH Verified 03/30/18 12:56 [From Dilantin] phenytoin sodium extended Allergy Intermediate RASH Verified 03/30/18 12:56 [From Dilantin] - Medications Medications: Current Medications Acetaminophen (Tylenol 325mg Tab) 975 mg PO ONCE PRN PRN Reason: Fever >100.4 F Alprazolam (Xanax) 0.5 mg PO BID PRN; Protocol PRN Reason: Anxiety Stop: 04/13/18 10:24 Benztropine Mesylate (Cogentin) 1 mg GT AMHS WHITNEY Fluoxetine HCl (Prozac) 40 mg GT DAILY WHITNEY Sodium Chloride (Sodium Chloride 0.9%) 2,000 mls @ 100 mls/hr IV .Q20H STA Stop: 04/07/18 04:50 Last Admin: 04/06/18 13:04 Dose: Not Given Risperidone (Risperdal Tab) 2 mg GT BID WHITNEY; Protocol Trazodone HCl (Desyrel) 50 mg GT HS WHITNEY Physical Exam - Constitutional Appears: Non-toxic, No Acute Distress - Head Exam Head Exam: ATRAUMATIC, NORMAL INSPECTION, NORMOCEPHALIC - ENT Exam ENT Exam: Mucous Membranes Moist, Normal Exam - Respiratory Exam Respiratory Exam: Clear to Auscultation Bilateral, NORMAL BREATHING PATTERN - Cardiovascular Exam Cardiovascular Exam: RRR, +S1, +S2 - GI/Abdominal Exam GI & Abdominal Exam: Normal Bowel Sounds, Soft, Tenderness (Suprapubic). absent: Guarding, Rebound - Extremities Exam Extremities exam: Positive for: pedal edema (Trace b/l) - Neurological Exam Neurological exam: Alert - Skin Skin Exam: Dry, Intact, Warm Results - Vital Signs Recent Vital Signs: Last Vital Signs Temp 98.4 F 04/06/18 12:15 Pulse 84 04/06/18 12:15 Resp 18 04/06/18 12:15 BP 100/53 L 04/06/18 12:15 Pulse Ox 98 04/06/18 12:15 - Labs Result Diagrams: 04/06/18 08:10 04/06/18 08:10 Labs: Laboratory Results - last 24 hr 04/06/18 04/06/18 04/06/18 08:10 08:10 08:10 WBC 16.9 H D RBC 4.81 Hgb 13.4 Hct 44.4 MCV 92.3 MCH 27.9 MCHC 30.2 L RDW 14.7 H Plt Count 262 MPV 12.8 H Gran % 84.2 H Lymph % (Auto) 8.8 L [place] % (Auto) 6.8 H Eos % (Auto) 0.1 L Baso % (Auto) 0.1 Gran # 14.25 H Lymph # (Auto) 1.5 [place] # (Auto) 1.2 H Eos # (Auto) 0.0 Baso # (Auto) 0.01 PT 14.1 H INR 1.22 APTT 31.5 pO2 187 H VBG pH 7.47 H VBG pCO2 43.0 VBG HCO3 31.3 H VBG Total CO2 32.6 H VBG O2 Sat (Calc) 99.4 H VBG Base Excess 6.8 H VBG Potassium 4.2 Sodium 146.0 Chloride 111.0 H Glucose 183 H Lactate 1.8 FiO2 21.0 Potassium Carbon Dioxide Anion Gap BUN Creatinine Est GFR ( Amer) Est GFR (Non-Af Amer) Random Glucose Calcium Phosphorus Magnesium Total Bilirubin AST ALT Alkaline Phosphatase Troponin I Total Protein Albumin Globulin Albumin/Globulin Ratio Venous Blood Potassium 4.2 Urine Color Urine Appearance Urine pH Ur Specific [place] Urine Protein Urine Glucose (UA) Urine Ketones Urine Blood Urine Nitrate Urine Bilirubin Urine Urobilinogen Ur Leukocyte Esterase Urine RBC Urine WBC Urine Bacteria 04/06/18 04/06/18 08:10 08:15 WBC RBC Hgb Hct MCV MCH MCHC RDW Plt Count MPV Gran % Lymph % (Auto) [place] % (Auto) Eos % (Auto) Baso % (Auto) Gran # Lymph # (Auto) [place] # (Auto) Eos # (Auto) Baso # (Auto) PT INR APTT pO2 VBG pH VBG pCO2 VBG HCO3 VBG Total CO2 VBG O2 Sat (Calc) VBG Base Excess VBG Potassium Sodium 147 Chloride 112 H Glucose Lactate FiO2 Potassium 4.4 Carbon Dioxide 31 Anion Gap 8 L BUN 34 H Creatinine 0.6 L Est GFR ( Amer) > 60 Est GFR (Non-Af Amer) > 60 Random Glucose 175 H Calcium 9.0 Phosphorus 1.8 L Magnesium 2.5 H Total Bilirubin 0.5 AST 37 H D ALT 56 Alkaline Phosphatase 99 Troponin I < 0.01 Total Protein 6.6 Albumin 3.3 Globulin 3.3 Albumin/Globulin Ratio 1.0 L Venous Blood Potassium Urine Color Dark brown Urine Appearance Turbid Urine pH 8.5 Ur Specific [place] 1.010 Urine Protein >=300 H Urine Glucose (UA) 500 H Urine Ketones 15 H Urine Blood Large H Urine Nitrate Positive H Urine Bilirubin Large H Urine Urobilinogen 4.0 H Ur Leukocyte Esterase Large H Urine RBC Tntc H Urine WBC Tntc H Urine Bacteria Large Assessment & Plan - Assessment and Plan (Free Text) Plan: Sepsis secondary to UTI Hx of Dementia Hx of anemia Hx of arthritis Hx of schizophrenia Hx of depression Plan: Patient will be continued on Cefepime at this time. We will await blood and urine cultures before further adjusting medications. We will also consider CT abdomen/pelvis if patient does not respond appropriately. Continue current medical management. Carissa, PGY-3 <Corby Ricci - Last Filed: 04/06/18 14:05> Meds - Medications Medications: Current Medications Acetaminophen (Tylenol 325mg Tab) 975 mg PO ONCE PRN PRN Reason: Fever >100.4 F Alprazolam (Xanax) 0.5 mg PO BID PRN; Protocol PRN Reason: Anxiety Stop: 04/13/18 10:24 Benztropine Mesylate (Cogentin) 1 mg GT AMHS WHITNEY Fluoxetine HCl (Prozac) 40 mg GT DAILY WHITNEY Sodium Chloride (Sodium Chloride 0.9%) 2,000 mls @ 100 mls/hr IV .Q20H STA Stop: 04/07/18 04:50 Last Admin: 04/06/18 13:04 Dose: Not Given Cefepime HCl (Maxipime 1gm) 1 gm in 100 mls @ 100 mls/hr IVPB Q8 WHITNEY; Protocol Risperidone (Risperdal Tab) 2 mg GT BID WHITNEY; Protocol Trazodone HCl (Desyrel) 50 mg GT HS WHITNEY Results - Vital Signs Recent Vital Signs: Last Vital Signs Temp 98.4 F 04/06/18 12:15 Pulse 84 04/06/18 12:15 Resp 18 04/06/18 12:15 BP 100/53 L 04/06/18 12:15 Pulse Ox 98 04/06/18 12:15 - Labs Result Diagrams: 04/06/18 08:10 04/06/18 08:10 Labs: Laboratory Results - last 24 hr 04/06/18 04/06/18 04/06/18 08:10 08:10 08:10 WBC 16.9 H D RBC 4.81 Hgb 13.4 Hct 44.4 MCV 92.3 MCH 27.9 MCHC 30.2 L RDW 14.7 H Plt Count 262 MPV 12.8 H Gran % 84.2 H Lymph % (Auto) 8.8 L [place] % (Auto) 6.8 H Eos % (Auto) 0.1 L Baso % (Auto) 0.1 Gran # 14.25 H Lymph # (Auto) 1.5 [place] # (Auto) 1.2 H Eos # (Auto) 0.0 Baso # (Auto) 0.01 PT 14.1 H INR 1.22 APTT 31.5 pO2 187 H VBG pH 7.47 H VBG pCO2 43.0 VBG HCO3 31.3 H VBG Total CO2 32.6 H VBG O2 Sat (Calc) 99.4 H VBG Base Excess 6.8 H VBG Potassium 4.2 Sodium 146.0 Chloride 111.0 H Glucose 183 H Lactate 1.8 FiO2 21.0 Potassium Carbon Dioxide Anion Gap BUN Creatinine Est GFR ( Amer) Est GFR (Non-Af Amer) Random Glucose Calcium Phosphorus Magnesium Total Bilirubin AST ALT Alkaline Phosphatase Troponin I Total Protein Albumin Globulin Albumin/Globulin Ratio Venous Blood Potassium 4.2 Urine Color Urine Appearance Urine pH Ur Specific [place] Urine Protein Urine Glucose (UA) Urine Ketones Urine Blood Urine Nitrate Urine Bilirubin Urine Urobilinogen Ur Leukocyte Esterase Urine RBC Urine WBC Urine Bacteria 04/06/18 04/06/18 08:10 08:15 WBC RBC Hgb Hct MCV MCH MCHC RDW Plt Count MPV Gran % Lymph % (Auto) [place] % (Auto) Eos % (Auto) Baso % (Auto) Gran # Lymph # (Auto) [place] # (Auto) Eos # (Auto) Baso # (Auto) PT INR APTT pO2 VBG pH VBG pCO2 VBG HCO3 VBG Total CO2 VBG O2 Sat (Calc) VBG Base Excess VBG Potassium Sodium 147 Chloride 112 H Glucose Lactate FiO2 Potassium 4.4 Carbon Dioxide 31 Anion Gap 8 L BUN 34 H Creatinine 0.6 L Est GFR ( Amer) > 60 Est GFR (Non-Af Amer) > 60 Random Glucose 175 H Calcium 9.0 Phosphorus 1.8 L Magnesium 2.5 H Total Bilirubin 0.5 AST 37 H D ALT 56 Alkaline Phosphatase 99 Troponin I < 0.01 Total Protein 6.6 Albumin 3.3 Globulin 3.3 Albumin/Globulin Ratio 1.0 L Venous Blood Potassium Urine Color Dark brown Urine Appearance Turbid Urine pH 8.5 Ur Specific [place] 1.010 Urine Protein >=300 H Urine Glucose (UA) 500 H Urine Ketones 15 H Urine Blood Large H Urine Nitrate Positive H Urine Bilirubin Large H Urine Urobilinogen 4.0 H Ur Leukocyte Esterase Large H Urine RBC Tntc H Urine WBC Tntc H Urine Bacteria Large Assessment & Plan - Assessment and Plan (Free Text) Plan: sepsis with urine as source /cystitis
[2018-04-06] MEDS: Cefepime 1gm in NS 100ml 1 GM/100 ML BAG IVPB SCH ×2 (14:25→21:02)
--- NOTE | 2018-04-06 15:25 | HP ---
DATE OF EXAM: 04/06/2018 HISTORY OF PRESENT ILLNESS: I have known Jeni for a long time, also been seen her at [facility]. She is now having very dark urine, I sent her into the emergency room. She is a 72-year-old white female who started having a fever and dark urine the other day, the Haley was just removed about a week ago. She also has a new PEG tube in place getting Jevity and fluids through that and that she is mildly dehydrated with the urinary tract infection I believe. PAST MEDICAL HISTORY: She has a past medical history of dementia, arthritis, falls, rhabdomyolysis, poor appetite, failure to thrive, putting feeding tube urinary retention. She has a catheter for while, she is incontinent, auditory or visual hallucinations, refuses to eat, schizophrenia, anxiety, depression, little bipolar, no substance abuse. She had an ovary removed. SOCIAL HISTORY: No alcohol, no drugs. ALLERGIES: PHENYTOIN. MEDICATIONS: She is on Xanax, Tylenol, Cogentin, Prozac, Risperdal, and Desyrel. REVIEW OF SYSTEMS: She cannot do review of systems due to altered mental status, which is now baseline. PHYSICAL EXAMINATION: GENERAL: She is ill-appearing and cachectic. VITAL SIGNS: She has a 102.5 temperature, 115 pulse, 20 respiratory rate, 99/60 blood pressure, and 90% O2 sat. HEENT: Head is atraumatic and normocephalic. Extraocular muscles are intact. Throat is dry. NECK: Supple. HEART: Regular rate. Normal S1 and S2. LUNGS: Decreased breath sounds bilaterally. No wheezes, no rhonchi, no rales. ABDOMEN: Soft and nontender. Positive bowel sounds and there is a PEG tube in place. There is a Haley cath with pus coming out. EXTREMITIES: No edema of lower extremities. NEUROLOGIC: Speech is more catatonic. LABORATORY DATA: She has multiple test done. She has urine done dark brown, positive sugar, positive nitrates, large leucocytes, large bacteria, lactate is 1.8. She has a 1.22 INR. White count is 16.9, hemoglobin 30.4, hematocrit 44.4, and platelets of 262. She should have IV fluids. Chest x-ray was normal, she will have IV fluids. They gave her cefepime 2 g in the ER. We will check her labs, consult with Infectious Disease, IV fluids. I will continue her on aggressive treatment and care on Jeni Roca who has got UTI sepsis with history of schizophrenia. Manolo Mtz DO OSMAN
[2018-04-06] MEDS ORDERED: Pneumococcal 23-Valent Vaccine IM ONE (16:04)
[2018-04-06] MEDS ORDERED: Influenza Vaccine 60 mcg/0.5 mL SYR (4YR UP) IM ONE (16:04)
[2018-04-07] MEDS: Cefepime 1gm in NS 100ml 1 GM/100 ML BAG IVPB SCH ×3 (05:52→21:56)
[2018-04-07 07:00] LABS: MEAN CELL VOLUME 94.4 fl (80.0-105.0); MEAN CORPUSCULAR HEMOGLOBIN 27.3 pg (25.0-35.0); MEAN PLATELET VOLUME 12.4 fl (7.0-11.0); RBC 3.95 10^6/uL (3.5-6.1); RED CELL DISTRIBUTION WIDTH 14.8 % (11.5-14.5); WHITE BLOOD COUNT 10.3 10^3/uL (4.5-11.0)
[2018-04-07 07:04] LABS: HEMOGLOBIN 10.8 g/dL (12.0-16.0)
[2018-04-07 07:27] LABS: ALB/GLOB RATIO 0.9 (1.1-1.8); ALBUMIN 2.5 g/dL (3.0-4.8); ALT/SGPT 36 U/L (7-56); AST/SGOT 21 U/L (14-36); BLOOD UREA NITROGEN 25 mg/dL (7-21); CALCIUM 8.5 mg/dL (8.4-10.5); GFR NON-AFRICAN AMERICAN > 60
--- NOTE | 2018-04-07 09:02 | PQF ---
PROVIDER RESPONSE TEXT: As per id REVIEWER QUERY TEXT: Cause and Effect Relationship Please clarify in documentation the relationship, if any, between and Such as: -- Conditions are due to or associated -- Unrelated to each other -- Other, please specify The patient's Clinical Indicators include: Patient admitted with sepsis due to UTI. She has a chronic alexandra catheter in place. Please specify if this is a catheter associated infection. Coding can be more specific with this info rmation. Query created by: Carlie Murphy on 04/07/2018 8:31 AM Electronically signed by: Manolo Mtz DO 04/07/2018 8:59 AM
--- NOTE | 2018-04-07 09:21 | CP.PCM.PN ---
<Lorenzo Ferrer - Last Filed: 04/07/18 14:11> Subjective - Date & Time of Evaluation Date of Evaluation: 04/07/18 Time of Evaluation: 07:15 - Subjective Subjective: Patient seen and examined at bedside. Patient able to communicate more than previous day. Admits to pain in abdomen. Denies chest pain, shortness of breath, nausea, vomiting, diarrhea, fever, chills. Objective - Vital Signs/Intake and Output Vital Signs (last 24 hours): Temp Pulse Resp BP Pulse Ox 98.6 F 74 20 124/65 100 04/07/18 06:00 04/07/18 06:00 04/07/18 06:00 04/07/18 06:00 04/07/18 06:00 Intake and Output: 04/07/18 04/07/18 06:59 18:59 Intake Total 835 Output Total 950 Balance -115 - Medications Medications: Current Medications Acetaminophen (Tylenol 325mg Tab) 975 mg PO ONCE PRN PRN Reason: Fever >100.4 F Alprazolam (Xanax) 0.5 mg PO BID PRN; Protocol PRN Reason: Anxiety Stop: 04/13/18 10:24 Benztropine Mesylate (Cogentin) 1 mg GT AMHS WHITNEY Last Admin: 04/06/18 21:01 Dose: 1 mg Fluoxetine HCl (Prozac) 40 mg GT DAILY WHITNEY Cefepime HCl (Maxipime 1gm) 1 gm in 100 mls @ 100 mls/hr IVPB Q8 WHITNEY; Protocol Last Admin: 04/07/18 05:52 Dose: 100 mls/hr Risperidone (Risperdal Tab) 2 mg GT BID WHITNEY; Protocol Last Admin: 04/06/18 17:54 Dose: 2 mg Trazodone HCl (Desyrel) 50 mg GT HS WHITNEY Last Admin: 04/06/18 21:01 Dose: 50 mg - Labs Labs: 04/07/18 06:30 04/07/18 06:30 PT 14.1 SECONDS (9.4-12.5) H 04/06/18 08:10 INR 1.22 04/06/18 08:10 APTT 31.5 Seconds (25.1-36.5) 04/06/18 08:10 - Constitutional Appears: Non-toxic, No Acute Distress - Head Exam Head Exam: ATRAUMATIC, NORMAL INSPECTION, NORMOCEPHALIC - Respiratory Exam Respiratory Exam: Decreased Breath Sounds, NORMAL BREATHING PATTERN. absent: Rales, Rhonchi, Wheezes - Cardiovascular Exam Cardiovascular Exam: RRR, +S1, +S2 - GI/Abdominal Exam GI & Abdominal Exam: Soft, Tenderness (Suprapubic), Normal Bowel Sounds. absent: Distended, Guarding, Rebound - Exam Additional comments: Haely in place. Urine in bag serosanguinous - Extremities Exam Extremities Exam: Normal Inspection. absent: Pedal Edema - Neurological Exam Neurological Exam: Alert, Awake, Oriented x3 - Psychiatric Exam Psychiatric exam: Normal Affect, Normal Mood - Skin Skin Exam: Dry, Intact, Warm Assessment and Plan - Assessment and Plan (Free Text) Plan: Sepsis secondary to UTI/cystitis Hx of dementia Hx of anemia Hx of arthritis Hx of schizophrenia Hx of depression Plan: Continue Cefepime Blood culture negative at 24 hours Urine culture pending Consider urology evaluation Continue current medical regimen Carissa, PGY-3 <Carlos Enrique Todd - Last Filed: 04/07/18 19:19> Objective - Vital Signs/Intake and Output Vital Signs (last 24 hours): Temp Pulse Resp BP Pulse Ox 98 F 79 18 112/68 100 04/07/18 18:00 04/07/18 18:00 04/07/18 18:00 04/07/18 18:00 04/07/18 06:00 Intake and Output: 04/07/18 04/08/18 18:59 06:59 Output Total 1100 Balance -1100 - Medications Medications: Current Medications Acetaminophen (Tylenol 325mg Tab) 975 mg PO ONCE PRN PRN Reason: Fever >100.4 F Alprazolam (Xanax) 0.5 mg PO BID PRN; Protocol PRN Reason: Anxiety Stop: 04/13/18 10:24 Benztropine Mesylate (Cogentin) 1 mg GT AMHS WHITNEY Last Admin: 04/07/18 10:58 Dose: 1 mg Fluoxetine HCl (Prozac) 40 mg GT DAILY WHITNEY Cefepime HCl (Maxipime 1gm) 1 gm in 100 mls @ 100 mls/hr IVPB Q8 WHITNEY; Protocol Last Admin: 04/07/18 13:58 Dose: 100 mls/hr Risperidone (Risperdal Tab) 2 mg GT BID WHITNEY; Protocol Last Admin: 04/07/18 17:51 Dose: 2 mg Trazodone HCl (Desyrel) 50 mg GT HS WHITNEY Last Admin: 04/06/18 21:01 Dose: 50 mg - Labs Labs: 04/07/18 06:30 04/07/18 06:30 PT 14.1 SECONDS (9.4-12.5) H 04/06/18 08:10 INR 1.22 04/06/18 08:10 APTT 31.5 Seconds (25.1-36.5) 04/06/18 08:10 Assessment and Plan - Assessment and Plan (Free Text) Plan: Infectious diseases Attending Physician Attestation Patient seen and examined, discussed with medical administrative. I have reviewed the patient's history of present illness, past medical, social, personal and family histories, pertinent physical exam findings, course so far in this hospital admission, pertinent laboratory and imaging results. I agree with the above findings, assessment and plan. In addition, will continue Cefepime for sepsis due to UTI with gram negative bacilli. Follow up identification and sensitivities of the gram negative bacilli in the urine. Will monitor clinically.
[2018-04-07] MEDS ORDERED: FLUoxetine Elix 20 MG/5 ML PO ONE (11:25)
--- NOTE | 2018-04-07 12:00 | PN ---
DATE: 04/07/2018 SUBJECTIVE: I saw her in bed. She is much more alert, much more talkative, looks more hydrated. The urine in the Haley is starting to clear up, not so brown. She is on Cogentin, Desyrel, cefepime, Prozac, Risperdal, IV fluids, Tylenol and Xanax. PHYSICAL EXAMINATION: VITAL SIGNS: She has a 98.6 temperature, 74 pulse, 124/65 blood pressure, 20 respiratory rate, and 100% O2 sat. HEENT: Head is atraumatic, normocephalic. GENERAL: Much more alert and talking. HEART: Regular rate. LUNGS: Decreased breath sounds, but clear. ABDOMEN: Soft. She has a feeding tube. EXTREMITIES: No edema. She is being seen by Infectious Disease; they have her on IV antibiotics. LABORATORY DATA: We are checking her labs. The white count is 10.3, hemoglobin 10.8, hematocrit 37.3, platelets 495. She has 146 sodium, potassium 4.3, BUN 25, creatinine 0.4, better; GFR is greater than 60, sugar is 124. Calcium is 8.5, total bili is 0.4. AST is 21, ALT is 36, alk phos 58, total protein 7.2, troponin I is less than 0.01. ASSESSMENT AND PLAN: As per Infectious Disease, continue with intravenous fluids and intravenous antibiotics. She is here with a very dehydration look renal insufficiency. She has schizophrenia, percutaneous endoscopic gastrostomy tube, urinary tract infection and when I get the okay from Infectious Disease, I will send her back to [facility] where she is doing subacute rehabilitation. Manolo Mtz DO MTDMelanie
[2018-04-08] MEDS: Cefepime 1gm in NS 100ml 1 GM/100 ML BAG IVPB SCH ×3 (05:23→22:31)
[2018-04-08 07:07] LABS: ALB/GLOB RATIO 0.9 (1.1-1.8); ALBUMIN 2.7 g/dL (3.0-4.8); ALT/SGPT 36 U/L (7-56); AST/SGOT 24 U/L (14-36); BLOOD UREA NITROGEN 10 mg/dL (7-21); CALCIUM 8.3 mg/dL (8.4-10.5); GFR NON-AFRICAN AMERICAN > 60
[2018-04-08 07:09] LABS: MEAN CELL VOLUME 90.1 fl (80.0-105.0); MEAN CORPUSCULAR HEMOGLOBIN 27.2 pg (25.0-35.0); MEAN CORPUSCULAR HGB CONC 30.1 g/dl (31.0-37.0); MEAN PLATELET VOLUME 12.6 fl (7.0-11.0); RBC 4.05 10^6/uL (3.5-6.1); RED CELL DISTRIBUTION WIDTH 13.5 % (11.5-14.5); WHITE BLOOD COUNT 10.1 10^3/uL (4.5-11.0)
[2018-04-08] MEDS: FLUoxetine Elix 20 MG/5 ML GT SCH (09:43)
--- NOTE | 2018-04-08 13:17 | PN ---
DATE: 04/08/2018 SUBJECTIVE: She is doing much better since she has been in the hospital. She came from [facility]. The will not let her go back there because of the situation that happened there. He wants to go to [facility], but the physical therapy will see what their recommendation is and I am hoping she can get to subacute rehab on Tuesday at [facility] if possible. I think she needs subacute rehab. She is waking up. She is doing a lot better. There is absolutely no behavioral issues with her at this time. She is very calm, comfortable, alert, smiling. She is on Cogentin, trazodone, cefepime, Prozac, Risperdal, IV fluid, Tylenol and Xanax. PHYSICAL EXAMINATION VITAL SIGNS: She has a 97.6 temperature, 77 pulse, 98/55 blood pressure, 20 respiratory rate, and 97% O2 sat on room air. GENERAL: Very alert, comfortable, smiling. HEART: Regular rate. HEAD: Atraumatic, normocephalic. LUNGS: Decreased breath sounds but clear. ABDOMEN: Soft. EXTREMITIES: No edema. ASSESSMENT AND PLAN: She is probably the best I have seen her. She has some Proteus mirabilis in the urine. She is on antibiotics per Infectious Disease. Continue intravenous fluids, Infectious Disease, out of bed to chair, physical therapy. Hopefully, subacute rehab at [facility] next week. Manolo Mtz DO
--- NOTE | 2018-04-08 13:29 | PN ---
DATE: 04/08/2018 SUBJECTIVE: The patient is in bed in no acute distress. PHYSICAL EXAMINATION: VITAL SIGNS: Temperature 97, blood pressure 98/50, respiratory rate 20, heart rate 77. HEENT: Examination of HEENT is unremarkable. NECK: Supple. LUNGS: Decreased breath sounds. HEART: Normal S1, S2. ABDOMEN: Soft, nontender. LABORATORY DATA: Laboratory examination reveals a white count of 10,000, hemoglobin of 11, platelets of 197. BUN of 10, creatinine of 0.3. Urinalysis is noted. Microbiology is reviewed. The patient does have Proteus mirabilis, relatively sensitive organism. Review of orders reveals the patient is to be on cefepime. ASSESSMENT AND PLAN: This is a 72-year-old female who was seen earlier today in [facility], bed 2 with dementia, anemia, arthritis, schizophrenia, depression from a residential, admitted with fevers and sepsis with Proteus in urine as the source, may switch to p.o. antibiotics and cystitis. Currently, on cefepime. May be able to switch to p.o. ampicillin, Proteus is pansensitive, to complete therapy upon discharge Corby Ricci MD
[2018-04-09] MEDS: Cefepime 1gm in NS 100ml 1 GM/100 ML BAG IVPB SCH ×2 (05:19→13:06)
[2018-04-09 06:26] LABS: HEMOGLOBIN 11.3 g/dL (12.0-16.0); MEAN CELL VOLUME 89.9 fl (80.0-105.0); MEAN CORPUSCULAR HEMOGLOBIN 27.2 pg (25.0-35.0); MEAN CORPUSCULAR HGB CONC 30.2 g/dl (31.0-37.0); MEAN PLATELET VOLUME 12.7 fl (7.0-11.0); RBC 4.16 10^6/uL (3.5-6.1); RED CELL DISTRIBUTION WIDTH 13.7 % (11.5-14.5); WHITE BLOOD COUNT 7.1 10^3/uL (4.5-11.0)
[2018-04-09 06:29] LABS: ALBUMIN 2.5 g/dL (3.0-4.8); ALT/SGPT 37 U/L (7-56); AST/SGOT 18 U/L (14-36); BLOOD UREA NITROGEN 12 mg/dL (7-21); CALCIUM 8.5 mg/dL (8.4-10.5); GFR NON-AFRICAN AMERICAN > 60
[2018-04-09] MEDS: FLUoxetine Elix 20 MG/5 ML GT SCH (10:21)
--- NOTE | 2018-04-09 15:02 | PN ---
DATE: 04/09/2018 SUBJECTIVE: She is definitely more alert, definitely talking more. I think we could get her out of bed to chair, discussed that with the nurse. She is on Cogentin, Desyrel, Maxipime, Prozac, Risperdal, Tylenol and Xanax. I am still hoping we can get her to subacute rehab, possibly [facility] The does not want her going to a [facility] facility. PHYSICAL EXAMINATION: VITAL SIGNS: 97.9 temperature, 63 pulse, 103/64 blood pressure, 18 respiratory rate, 96% O2 sat on room air. HEENT: Head is atraumatic, normocephalic. HEART: Regular rate. LUNGS: Decreased breath sounds. ABDOMEN: Soft. Positive PEG tube. EXTREMITIES: No edema, but there are little swellings. I am going to do venous Dopplers of both lower extremities to make sure I am not missing anything. LABORATORY DATA: She has a 7.1 white count, 11.3 hemoglobin, 37.4 hematocrit with 218 platelets. 139 sodium, potassium 3.6, BUN is 12, creatinine 0.5, GFR is greater than 60, sugar is 106, calcium 8.5, total bili is 0.3, AST is 18, ALT 37, alk phos 64, total protein is 5.2. ASSESSMENT AND PLAN: She is here for urinary tract infection, percutaneous endoscopic gastrostomy, schizophrenia, renal insufficiency, now she is going to need to go to subacute rehab. We will check her legs for venous Dopplers. Manolo Mtz DO OSMAN
[2018-04-09] MEDS: Cefpodoxime (Vantin) 200 mg Tab PO SCH (22:50)
--- NOTE | 2018-04-09 23:57 | PN ---
DATE: 04/09/2018 SUBJECTIVE: The patient is in bed, no acute distress, nontoxic. PHYSICAL EXAMINATION: VITAL SIGNS: Temperature is 98, blood pressure is 109/80, respiratory rate of 18. HEENT: Unremarkable. NECK: Supple. LUNGS: Have decreased breath sounds. HEART: Normal, S1, S2. ABDOMEN: Soft, nontender. LABORATORY DATA: Examination reveals a white count of 7.1, hemoglobin of 11, platelets of 219. Chemistry reveals BUN of 12, creatinine of 0.5. Urinalysis is noted. Microbiology reveals Proteus mirabilis, pansensitive. The blood cultures are negative. Ultrasound of the lower extremities ordered and results are pending. Review of orders . ASSESSMENT AND PLAN: A 72-year-old female with dementia, anemia, arthritis, schizophrenia, depression, fdc patient, admitted with sepsis with Proteus, pansensitive. We will complete with Vantin 200 mg p.o. b.i.d. x5 days. We will follow with you. Corby Ricci MD [facility] # [id number]
[2018-04-10 07:36] LABS: MEAN CELL VOLUME 89.8 fl (80.0-105.0); MEAN CORPUSCULAR HEMOGLOBIN 27.8 pg (25.0-35.0); MEAN CORPUSCULAR HGB CONC 30.9 g/dl (31.0-37.0); MEAN PLATELET VOLUME 12.9 fl (7.0-11.0); RBC 4.32 10^6/uL (3.5-6.1); RED CELL DISTRIBUTION WIDTH 13.9 % (11.5-14.5); WHITE BLOOD COUNT 7.2 10^3/uL (4.5-11.0)
[2018-04-10 07:59] LABS: ALT/SGPT 35 U/L (7-56); AST/SGOT 30 U/L (14-36); BLOOD UREA NITROGEN 13 mg/dL (7-21); CALCIUM 8.5 mg/dL (8.4-10.5); GFR NON-AFRICAN AMERICAN > 60
[2018-04-10] MEDS ORDERED: Potassium Chloride 20 mEq/15 ml LIQ UD PO ONE (08:23)
--- NOTE | 2018-04-10 09:47 | US ---
HISTORY: Leg pain and swelling. Evaluate for DVT PHYSICIAN(S): Dangelo Walters MD. TECHNIQUE: Duplex sonography and color-flow Doppler with graded compression were used to evaluate the deep venous systems of both lower extremities. FINDINGS: The visualized deep venous systems of both lower extremities are sonographically normal and compressible. Normal wave forms and augmentation are seen. There is no sonographic evidence for deep venous thrombosis in the visualized segments of both lower extremities. IMPRESSION: No sonographic evidence for deep venous thrombosis in the visualized segments of both lower extremities.
--- NOTE | 2018-04-10 09:50 | PN ---
DATE: 04/10/2018 SUBJECTIVE: She is resting comfortably in bed. She is quite alert. She is calm. No issues of any behavioral problems. She is very alert. She is talking. She is on IV fluids. PEG tube. She is on Cogentin, Desyrel, Prozac, Risperdal, Tylenol, Vantin and Xanax. PHYSICAL EXAMINATION: VITAL SIGNS: She has a 98.4 temperature, 81 pulse, 118/62 blood pressure, 20 respiratory rate, 96% O2 sat on room air. HEENT: Head is atraumatic, normocephalic. HEART: Regular rate. LUNGS: Decreased breath sounds, but clear. ABDOMEN: Soft. Positive PEG tube. EXTREMITIES: No edema. NEUROLOGIC: She is much more alert, aware and totally calm. MEDICATIONS: She is on Cogentin, Desyrel, Prozac, Risperdal, Tylenol, Vantin, and Xanax. She is off the Maxipime. LABORATORY DATA: She has a 7.2 white count, 12 hemoglobin, 38.8 hematocrit with 249 platelets. Sodium 139; potassium 3.4, I will give her potassium; BUN 30; creatinine 0.4, GFR is greater than 60, sugar is 117, calcium 8.5, total bili is 0.3, AST is 30, ALT is 35, alk phos 74, total protein is 6. She is getting antibiotics as per Infectious Disease. As per Content Administrator discharge planning with the , trying to find a place for her to go for subacute rehab. Manolo Mtz DO MTDD
[2018-04-10] MEDS: Cefpodoxime (Vantin) 200 mg Tab PO SCH (10:14)
[2018-04-10] MEDS: FLUoxetine Elix 20 MG/5 ML GT SCH (10:15)
--- NOTE | 2018-04-10 10:20 | CP.PCM.PN ---
<Lorenzo Ferrer - Last Filed: 04/10/18 13:49> Subjective - Date & Time of Evaluation Date of Evaluation: 04/10/18 Time of Evaluation: 09:10 - Subjective Subjective: Patient seen and examined at bedside. at bedside. No acute events overnight. Obeys command, trouble with verbal communication. Denies chest pain, shortness of breath, nausea, vomiting, diarrhea, fever, chills. Objective - Vital Signs/Intake and Output Vital Signs (last 24 hours): Temp Pulse Resp BP Pulse Ox 98.4 F 81 20 118/62 96 04/10/18 05:42 04/10/18 05:42 04/10/18 05:42 04/10/18 05:42 04/10/18 05:42 Intake and Output: 04/10/18 04/10/18 06:59 18:59 Intake Total 1400 Output Total 950 Balance 450 - Medications Medications: Current Medications Acetaminophen (Tylenol 325mg Tab) 975 mg PO ONCE PRN PRN Reason: Fever >100.4 F Alprazolam (Xanax) 0.5 mg PO BID PRN; Protocol PRN Reason: Anxiety Stop: 04/13/18 10:24 Benztropine Mesylate (Cogentin) 1 mg GT [facility] Last Admin: 04/09/18 21:24 Dose: 1 mg Cefpodoxime Proxetil (Vantin) 200 mg PO Q12 [facility]; Protocol Stop: 04/14/18 22:01 Last Admin: 04/09/18 22:50 Dose: 200 mg Fluoxetine HCl (Prozac) 40 mg GT DAILY [facility] Last Admin: 04/09/18 10:21 Dose: 40 mg Risperidone (Risperdal Tab) 2 mg GT BID [facility]; Protocol Last Admin: 04/09/18 18:05 Dose: 2 mg Trazodone HCl (Desyrel) 50 mg GT HS [facility] Last Admin: 04/09/18 21:24 Dose: 50 mg - Labs Labs: 04/10/18 06:00 04/10/18 06:00 PT 14.1 SECONDS (9.4-12.5) H 04/06/18 08:10 INR 1.22 04/06/18 08:10 APTT 31.5 Seconds (25.1-36.5) 04/06/18 08:10 - Constitutional Appears: Non-toxic, No Acute Distress - Head Exam Head Exam: ATRAUMATIC, NORMAL INSPECTION, NORMOCEPHALIC - ENT Exam ENT Exam: Mucous Membranes Moist - Respiratory Exam Respiratory Exam: Clear to Ausculation Bilateral, NORMAL BREATHING PATTERN. absent: Rales, Rhonchi, Wheezes - Cardiovascular Exam Cardiovascular Exam: RRR, +S1, +S2 - GI/Abdominal Exam GI & Abdominal Exam: Soft, Normal Bowel Sounds. absent: Tenderness - Extremities Exam Extremities Exam: Normal Inspection. absent: Pedal Edema - Neurological Exam Neurological Exam: Alert, Awake - Skin Skin Exam: Dry, Intact, Warm Assessment and Plan - Assessment and Plan (Free Text) Plan: Sepsis secondary to Proteus UTI Hx of dementia Hx of anemia Hx of arthritis Hx of schizophrenia Hx of depression Plan: Cefepime stopped Continue on Vantin for 4 more days, for total of 5 days Blood culture negative Urine cultures demonstrate Proteus mirabilis Continue current medical regimen Carissa, PGY-3 <Carlos Enrique Todd - Last Filed: 04/10/18 17:00> Objective - Vital Signs/Intake and Output Vital Signs (last 24 hours): Temp Pulse Resp BP Pulse Ox 97.9 F 84 17 104/62 98 04/10/18 12:00 04/10/18 12:00 04/10/18 12:00 04/10/18 12:00 04/10/18 12:00 Intake and Output: 04/10/18 04/10/18 06:59 18:59 Intake Total 1400 Output Total 950 Balance 450 - Medications Medications: Current Medications Acetaminophen (Tylenol 325mg Tab) 975 mg PO ONCE PRN PRN Reason: Fever >100.4 F Alprazolam (Xanax) 0.5 mg PO BID PRN; Protocol PRN Reason: Anxiety Stop: 04/13/18 10:24 Benztropine Mesylate (Cogentin) 1 mg GT [facility] Last Admin: 04/10/18 10:14 Dose: 1 mg Cefpodoxime Proxetil (Vantin) 200 mg PO Q12 [facility]; Protocol Stop: 04/14/18 22:01 Last Admin: 04/10/18 10:14 Dose: 200 mg Fluoxetine HCl (Prozac) 40 mg GT DAILY [facility] Last Admin: 01/07/19 10:15 Dose: 40 mg Risperidone (Risperdal Tab) 2 mg GT BID [facility]; Protocol Last Admin: 04/10/18 10:14 Dose: 2 mg Trazodone HCl (Desyrel) 50 mg GT HS [facility] Last Admin: 04/09/18 21:24 Dose: 50 mg - Labs Labs: 04/10/18 06:00 04/10/18 06:00 PT 14.1 SECONDS (9.4-12.5) H 04/06/18 08:10 INR 1.22 04/06/18 08:10 APTT 31.5 Seconds (25.1-36.5) 04/06/18 08:10 Assessment and Plan - Assessment and Plan (Free Text) Plan: Infectious diseases Attending Physician Attestation Patient seen and examined, discussed with associate medical director. I have reviewed the patient's history of present illness, past medical, social, personal and family histories, pertinent physical exam findings, course so far in this hospital admission, pertinent laboratory and imaging results. I agree with the above findings, assessment and plan. In addition, complete 5 more days of PO Vantin for sepsis with Proteus UTI.
[2018-04-10 12:34] VITALS: BP 104/62; PULSE 84; RESP 17; TEMP 97.9; O2SAT 98
== END 2018-04-10 17:18 | DRG 872 ==
LOC: ED 07:38 → ERH 09:19 → 2RSO 11:11
PROVIDERS: ADMIT Family Medicine; ATTEND Family Medicine
DX: A41.9 Sepsis, unspecified organism (principal); F20.2 Catatonic schizophrenia; N30.91 Cystitis, unspecified with hematuria; E86.0 Dehydration; F03.90 Unspecified dementia, unspecified severity, without behavioral disturbance, psychotic disturbance, mood disturbance, and anxiety; R63.0 Anorexia; R62.7 Adult failure to thrive; Z93.1 Gastrostomy status; F32.9 Major depressive disorder, single episode, unspecified; B96.4 Proteus (mirabilis) (morganii) as the cause of diseases classified elsewhere; D64.9 Anemia, unspecified; M19.90 Unspecified osteoarthritis, unspecified site; N28.9 Disorder of kidney and ureter, unspecified; F50.9 Eating disorder, unspecified; Z88.8 Allergy status to other drugs, medicaments and biological substances

== ENCOUNTER 2018-04-30 16:55 | Inpatient (IN) | payer MEDICARE ==
[2018-04-30 17:31] LABS: VENOUS BLOOD GAS BASE EXCESS 2.4 mmol/L (0.0-2.0); VENOUS BLOOD GAS PO2 43 mm/Hg (30-55); VENOUS BLOOD PH 7.45 (7.32-7.43)
[2018-04-30] MEDS ORDERED: Sodium Chloride 0.9% 1,000 ML IV ONE (18:07)
[2018-04-30] MEDS ORDERED: Vancomycin 1gm in NS 250ml 1 GM/250 ML BAG IVPB STA (18:07)
[2018-04-30] MEDS ORDERED: Cefepime IV 2 gm in NS 2 GM/100 ML BAG IVPB STA (18:07)
--- NOTE | 2018-04-30 18:36 | ED PDOC ---
Arrival/HPI - General Time Seen by Provider: 04/30/18 17:17 Historian: Patient - History of Present Illness Narrative History of Present Illness (Text): 04/30/18 18:33 A 72 year old female, whose past medical history includes dysphasia, hyperlipidemia, and schizophrenia, presents to the emergency department complaining of fever and lethargy since yesterday in rehab. found patient to have high fever while in rehab, and was given medication. There was no relief to fever, and called 911 to take patient to the ER. Patient is non- verbal (baseline). Past Medical History - Provider Review Nursing Documentation Reviewed: Yes - Infectious Disease Hx of Infectious Diseases: None - Cardiac Hx Cardiac Disorders: Yes - Pulmonary Hx Respiratory Disorders: No - Neurological Hx Neurological Disorder: Yes Hx Dementia: Yes - HEENT Hx HEENT Disorder: No - Renal Hx Renal Disorder: No - Endocrine/Metabolic Hx Endocrine Disorders: No - Hematological/Oncological Hx Blood Disorders: Yes Hx Anemia: Yes Hx Cancer: No - Integumentary Hx Dermatological Disorder: Yes Other/Comment: thick dry toenails, dry ad slightly red heels both feet, dry skin lle, dry tongue and lips, dry skin to face - Musculoskeletal/Rheumatological Hx Arthritis: Yes - Gastrointestinal Hx Gastrointestinal Disorders: Yes (POOR APPETITE,ADMITTED FOR PEG INSERTION 03-30-18) Other/Comment: peg tube insertion 03/30/18 - Genitourinary/Gynecological Hx Genitourinary Disorders: Yes (URINARY RETENTION) Hx Incontinence: Yes Hx Sexually Transmitted Diseases: No Other/Comment: mammo at [facility] [place] 2013 - Psychiatric Hx Substance Use: No - Surgical History Other/Comment: "ovary", peg insertion 03/30/18 - Anesthesia Hx Anesthesia Reactions: No Hx Malignant Hyperthermia: No Family/Social History - Physician Review Nursing Documentation Reviewed: Yes Family/Social History: No Known Family HX Smoking Status: Never Smoked Hx Alcohol Use: No Hx Substance Use: No Allergies/Home Meds Allergies/Adverse Reactions: Allergies phenytoin sodium [From Dilantin] Allergy (Intermediate, Verified 03/30/18 12:56) RASH phenytoin sodium extended [From Dilantin] Allergy (Intermediate, Verified 03/30/18 12:56) RASH Home Medications: Home Meds Medication Instructions Recorded Confirmed ALPRAZolam [Xanax] 0.5 mg PO BID PRN 03/30/18 04/30/18 Benztropine [Cogentin] 1 mg GT [facility] 04/06/18 04/30/18 FLUoxetine [Prozac] 40 mg GT DAILY 04/06/18 04/30/18 risperiDONE [RisperDAL Tab] 2 mg GT BID 04/06/18 04/30/18 traZODone [Desyrel] 50 mg GT HS 04/06/18 04/30/18 Cefpodoxime Proxetil 200 mg GT Q12 04/30/18 04/30/18 Review of Systems - Physician Review All systems were reviewed & negative as marked: Yes - Review of Systems Constitutional: Fevers Respiratory: absent: Cough Physical Exam Vital Signs Reviewed: Yes Vital Signs Temp 04/30/18 17:20 102.6 F H Temperature: Febrile Blood Pressure: Normal Pulse: Regular Respiratory Rate: Normal Appearance: Positive for: Well-Appearing, Non-Toxic, Comfortable Pain Distress: None Mental Status: Positive for: Lethargic, other (non-verbal (baseline), responsive to verbal/painful stimuli.) - Systems Exam Head: Present: Atraumatic, Normocephalic Pupils: Present: PERRL Extroacular Muscles: Present: EOMI Conjunctiva: Present: Normal Mouth: Present: Moist Mucous Membranes Neck: Present: Normal Range of Motion Respiratory/Chest: Present: Clear to Auscultation, Good Air Exchange. No: Respiratory Distress, Accessory Muscle Use Cardiovascular: Present: Regular Rate and Rhythm, Normal S1, S2. No: Murmurs Abdomen: Present: Other (peg tube). No: Tenderness, Distention, Peritoneal Signs Back: Present: Normal Inspection Upper Extremity: Present: Normal Inspection. No: Cyanosis, Edema Lower Extremity: Present: Normal Inspection. No: Edema Neurological: Present: GCS=15, CN II-XII Intact, Speech Normal Skin: Present: Warm, Dry, Normal Color. No: Rashes Psychiatric: Present: Alert, Oriented x 3, Normal Insight, Normal Concentration Medical Decision Making ED Course and Treatment: 04/30/18 18:38 Impression: 72 year old female with fever and lethargy. Differential Diagnosis included but are not limited to: Sepsis rule out UTI vs Pneumonia vs. Bacterium Plan: -- Labs -- EKG -- Chest X-ray -- IV Fluids -- Antibiotics -- Venous Blood Gas -- Blood Culture -- Urine Culture -- Urinalysis -- Reassess and disposition Progress Notes: - Lab Interpretations Lab Results: pO2 43 mm/Hg (30-55) 04/30/18 17:25 VBG pH 7.45 (7.32-7.43) H 04/30/18 17:25 VBG pCO2 38.0 (40-60) L 04/30/18 17:25 VBG HCO3 26.4 mmol/l (21-28) 04/30/18 17:25 VBG Total CO2 27.6 mmol.L (22-28) 04/30/18 17:25 VBG O2 Sat (Calc) 85.7 % (40-65) H 04/30/18 17:25 VBG Base Excess 2.4 mmol/L (0.0-2.0) H 04/30/18 17:25 VBG Potassium 4.1 mmol/L (3.6-5.2) 04/30/18 17:25 Sodium 136.0 mmol/L (132-148) 04/30/18 17:25 Chloride 105.0 mmol/L (98-107) 04/30/18 17:25 Glucose 162 mg/dl (65-105) H 04/30/18 17:25 Lactate 1.3 mmol/L (0.7-2.1) 04/30/18 17:25 FiO2 21.0 % 04/30/18 17:25 - RAD Interpretation Radiology Orders: 04/30/18 17:26 CHEST PORTABLE [RAD] Stat - Medication Orders Current Medication Orders: Cefepime HCl (Maxipime 2gm) 2 gm in 100 mls @ 100 mls/hr IVPB STAT STA; Protocol Stop: 04/30/18 19:06 Sodium Chloride (Sodium Chloride 0.9%) 1,000 mls @ 2,000 mls/hr IV .Q30M ONE Stop: 04/30/18 18:36 Vancomycin HCl (Vancomycin 1gm) 1 gm in 250 mls @ 167 mls/hr IVPB STAT STA; Protocol Stop: 04/30/18 19:36 - Scribe Statement The provider has reviewed the documentation as recorded by the Mortezaibkelvin Mcgrath Provider Scribe Attestation: All medical record entries made by the Scribe were at my direction and personally dictated by me. I have reviewed the chart and agree that the record accurately reflects my personal performance of the history, physical exam, medical decision making, and the department course for this patient. I have also personally directed, reviewed, and agree with the discharge instructions and disposition. Disposition/Present on Arrival - Present on Arrival Any Indicators Present on Arrival: No History of DVT/PE: No History of Uncontrolled Diabetes: No Urinary Catheter: Yes History Surgical Site Infection Following: None - Disposition Have Diagnosis and Disposition been Completed?: Yes Diagnosis: Sepsis Disposition: HOSPITALIZED Disposition Time: 19:31 Condition: FAIR
[2018-04-30 19:06] LABS: BASO # 0.03 K/mm3 (0.0-2.0); BASO % 0.2 % (0.0-3.0); HEMOGLOBIN 9.8 g/dL (12.0-16.0); LYMPH # 1.8 (1.2-3.4); LYMPH % 9.4 % (22.0-35.0); MEAN CELL VOLUME 89.9 fl (80.0-105.0); MEAN CORPUSCULAR HEMOGLOBIN 28.2 pg (25.0-35.0); MEAN CORPUSCULAR HGB CONC 31.3 g/dl (31.0-37.0); MEAN PLATELET VOLUME 10.6 fl (7.0-11.0); MONO # 1.8 (0.1-0.6); MONO % 9.5 % (1.0-6.0); RBC 3.48 10^6/uL (3.5-6.1); RED CELL DISTRIBUTION WIDTH 16.4 % (11.5-14.5); WHITE BLOOD COUNT 19.2 10^3/uL (4.5-11.0)
[2018-04-30 19:11] LABS: PH,URINE 8.5 (4.7-8.0); URINE APPEARANCE SL CLOUDY (CLEAR); URINE BILIRUBIN NEGATIVE (NEGATIVE); URINE BLOOD TRACE-INTACT (NEGATIVE); URINE COLOR YELLOW (YELLOW); URINE GLUCOSE (UA) NEGATIVE (NEGATIVE); URINE LEUKOCYTE ESTERASE LARGE Leu/uL (NEGATIVE); URINE PROTEIN 30 mg/dL (<30 mg/dL); URINE UROBILINOGEN 0.2 E.U./dL (<1 E.U./dL)
[2018-04-30 19:13] LABS: INR 1.74; PARTIAL THROMBOPLASTIN TIME 40.1 Seconds (26.9-38.3); PROTHROMBIN TIME 19.3 SECONDS (9.4-12.5)
[2018-04-30 19:14] LABS: URINE EPITHELIAL CELLS MANY /hpf (0-5)
[2018-04-30 19:21] LABS: ALB/GLOB RATIO 0.9 (1.1-1.8); ALT/SGPT 27 U/L (7-56); AST/SGOT 20 U/L (14-36); BLOOD UREA NITROGEN 34 mg/dL (7-21); CALCIUM 8.2 mg/dL (8.4-10.5); GFR NON-AFRICAN AMERICAN > 60
[2018-04-30 19:25] LABS: TROPONIN I < 0.01 ng/mL
[2018-04-30] MEDS: Sodium Chloride 0.45% 1,000 ML IV SCH (20:12)
[2018-04-30] MEDS ORDERED: Cefepime 1gm in NS 100ml 1 GM/100 ML BAG IVPB SCH (22:00)
[2018-05-01] MEDS: Meropenem IV 1 gm in NS 1 GM/50 ML BAG IVPB SCH ×4 (00:49→21:58)
[2018-05-01 02:03] VITALS: BMI 27.3
--- NOTE | 2018-05-01 04:04 | HP ---
DATE OF EXAM: 04/30/2018 HISTORY OF PRESENT ILLNESS: I have been seeing her at the [facility]. She is on antibiotics, changing her Haley catheter. She has been doing well up until Tuesday over the weekend. For some reason, she decompensated and today she started having temps and being more lethargic in the half-way, also an odor in the urine. She is a 72-year-old white female complaining of fever, lethargy from the half-way, she was found in the emergency room, little bit lethargic and called 911. Medications in the half-way did not work. PAST MEDICAL HISTORY: She has a past medical history of dysphasia, hyperlipidemia, schizophrenia. She has had a feeding tube because she was not able to swallow and also dementia, anemia , toenails dry, slightly wet heels on the feet arthritis history, poor appetite as well as PEG tube insertion, urinary retention, Haley catheter, urinary incontinence from time to time. Also, she has had urinary tract infections. She had an ovarian surgery and a PEG tube insertion. FAMILY HISTORY: Unknown family history. SOCIAL HISTORY: Nonsmoker. No drinking. No drugs. ALLERGIES: TO DILANTIN. MEDICATIONS: She is on Xanax, magnesium, Tylenol, Cogentin, Prozac, Risperdal, Desyrel. REVIEW OF SYSTEMS: She is not alert, enough to respond to questions. She has fevers, little bit of a cough and out of it mentally, 102.6 temperature, looks like she is sleeping, lethargic, nonverbal due to painful palpable stimuli. She will respond a little bit. PHYSICAL EXAMINATION: HEENT: Head is atraumatic and normocephalic. Extraocular muscles are intact. Throat is dry. NECK: Supple CARDIOPULMONARY: Regular rate. Normal S1 and S2. LUNGS: Decreased breath sounds, but clear to auscultation. Poor inspiration. ABDOMEN: Soft, nontender. Positive bowel sounds. PEG tube in place. Haley cath in place with dark urine with odor. EXTREMITIES: No edema. SKIN: For the most part is intact. NEUROLOGIC: She is not alert at this time. LABORATORY DATA: She had multiple tests. Urine is large leukocytes, many of the field cells, trace blood. She has a sodium 135, potassium 4.2, BUN 34, creatinine 0.7, GFR is greater than 60, sugar is 163, calcium 8.2, phosphorous 3.5, magnesium 1.9, total bili is 0.6, AST is 20, ALT is 27, alk phos 94. Troponin I is less than 0.01. Total protein 6.3, albumin is 3. She has a pH 7.45 with a lactate 1.3. INR 1.74. White count 19.2, hemoglobin 9.8, hematocrit 31.3 with a platelets 38. She is having a temperature 102.6 with a pulse 113, blood pressure 112/53, 95% with non-rebreather, elevated temperature, elevated white count, urine that is foul smelling and change in color. PLAN: She will be antibiotics cefepime. She will have a consult Infectious Disease, IV fluids, discussed with the and she is here for urinary tract infection, possible sepsis. Manolo Mtz DO MTDMelanie
[2018-05-01 06:53] LABS: HEMOGLOBIN 8.9 g/dL (12.0-16.0); MEAN CELL VOLUME 90.6 fl (80.0-105.0); MEAN CORPUSCULAR HGB CONC 30.9 g/dl (31.0-37.0); RBC 3.18 10^6/uL (3.5-6.1); RED CELL DISTRIBUTION WIDTH 16.7 % (11.5-14.5); WHITE BLOOD COUNT 21.4 10^3/uL (4.5-11.0)
[2018-05-01 07:25] LABS: ALB/GLOB RATIO 0.9 (1.1-1.8); ALBUMIN 2.8 g/dL (3.0-4.8); ALT/SGPT 22 U/L (7-56); AST/SGOT 21 U/L (14-36); BLOOD UREA NITROGEN 19 mg/dL (7-21); CALCIUM 7.9 mg/dL (8.4-10.5); GFR NON-AFRICAN AMERICAN > 60
--- NOTE | 2018-05-01 08:14 | RAD ---
Date of service: 04/30/2018 HISTORY: Shortness of breath COMPARISON: Comparison chest 04/06/2018 FINDINGS: LUNGS: Poor inspiration with low lung volumes, crowded bronchovascular markings and mild bibasilar atelectasis. Additionally, there also appears to be diffuse micronodular infiltrates with more confluent opacities both lung bases right greater than left. Questionable small right-sided effusion. PLEURA: As above. No pneumothorax apparent. CARDIOVASCULAR: No aortic atherosclerotic calcification present. Normal cardiac size. OSSEOUS STRUCTURES: No significant abnormalities. VISUALIZED UPPER ABDOMEN: Normal. OTHER FINDINGS: None. IMPRESSION: Poor inspiration with low lung volumes, crowded bronchovascular markings and mild bibasilar atelectasis. Additionally, there also appears to be diffuse micronodular infiltrates with more confluent opacities both lung bases right greater than left. Questionable small right-sided effusion.
--- NOTE | 2018-05-01 10:10 | CARD ---
APPROVED REPORT Date of service: 04/30/2018 EKG Measurement Heart [id number] <Conclusion> Sinus tachycardia Otherwise normal ECG
[2018-05-01] MEDS: Enoxaparin 30 mg Syringe SC SCH (10:37)
[2018-05-01] MEDS: Vancomycin 1gm in NS 250ml 1 GM/250 ML BAG IVPB SCH ×2 (11:13→22:00)
--- NOTE | 2018-05-01 11:36 | PN ---
DATE: 05/01/2018 SUBJECTIVE: I saw her resting comfortably in bed. She is more alert today, almost back to her baseline which is great. She came in with a sepsis picture, UTI infection, change in mental status. She is being seen by Infectious Disease. She is currently on IV fluids, Cogentin, Desyrel, Lovenox and Merrem IV. PHYSICAL EXAMINATION: GENERAL: She is very alert and talking, back for baseline. VITAL SIGNS: She has a 101.4 temperature last night, 97.6. When she came in, it was 102.1, 108 pulse, 112/58 blood pressure, 20 respiratory rate, 90% O2 sat on room air. HEENT: Head is atraumatic, normocephalic. HEART: Regular rate. LUNGS: Decreased breath sounds, but clear. ABDOMEN: Soft. EXTREMITIES: No edema. LABORATORY DATA: Urine is clear. She has a 21.4 white count, went up a little bit, hemoglobin is 8.9, hematocrit 28.8, platelets of 315. The white count has got to come down. 138 sodium, potassium 3.9, BUN is 19, creatinine 0.5, GFR is greater than 60, sugars 132, calcium is 7.9, total bili is 0.4, AST is 21, ALT is 22, alk phos is 80. Troponin I is less than 0.01, total protein is 5.9. Urine was large leukocytes. ASSESSMENT AND PLAN: She is being seen by Infectious Disease, she is on IV antibiotics. She is starting to improve, intravenous fluids. We have to get the white count down. We will check her labs tomorrow. I will discuss it with the . Manolo Mtz DO OSMAN
--- NOTE | 2018-05-01 13:02 | CP.PCM.CON ---
<Stu Monslave - Last Filed: 05/01/18 13:02> History of Present Illness - History of Present Illness History of Present Illness: Infectious disease consult note: 72 year old female with past medical history of dysphasia status post PEG tube placement,dementia, anemia, arthritis, schizophrenia, and depression presents to the hospital for fever and lethargy at [facility]. Patient suffers from dementia and is mainly nonverbal therefore history was taken from prior charts and nursing note. Patient was reportedly had a fever and lethargic more than usual. There was also some reported odorous urine. Infectious disease was consulted for IV antibiotics. 12 point ROS limited due to dementia. PMH: dementia, anemia, arthritis, schizophrenia, and depression Surgical Hx: Ovarian surgery, PEG tube placement Family Hx: Unknown Social Hx: No alcohol, tobacco, or illicit drug use Allergies: Phenytoin Medications: Reviewed, as per MAR Review of Systems - Review of Systems Systems not reviewed;Unavailable: Dementia Past Patient History - Infectious Disease Hx of Infectious Diseases: None - Past Social History Smoking Status: Never Smoked - CARDIAC Hx Hypercholesterolemia: Yes - PULMONARY Hx Respiratory Disorders: No - NEUROLOGICAL Hx Dementia: Yes - HEENT Hx HEENT Problems: No - RENAL Hx Chronic Kidney Disease: No - ENDOCRINE/METABOLIC Hx Endocrine Disorders: No - HEMATOLOGICAL/ONCOLOGICAL Hx Anemia: Yes - INTEGUMENTARY Hx Dermatological Problems: Yes Other/Comment: thick dry toenails, dry ad slightly red heels both feet, dry skin lle, dry tongue and lips, dry skin to face - MUSCULOSKELETAL/RHEUMATOLOGICAL Hx Falls: Yes - GASTROINTESTINAL HX Swallowing Problems: Yes (PEG) - GENITOURINARY/GYNECOLOGICAL Hx Incontinence: Yes Hx Urinary Tract Infection: Yes - PSYCHIATRIC Hx Substance Use: No - SURGICAL HISTORY Other/Comment: "ovary", peg insertion 03/30/18 - ANESTHESIA Hx Anesthesia Reactions: No Hx Malignant Hyperthermia: No Meds Allergies/Adverse Reactions: Allergies Allergy/AdvReac Type Severity Reaction Status Date / Time phenytoin sodium Allergy Intermediate RASH Verified 03/30/18 12:56 [From Dilantin] phenytoin sodium extended Allergy Intermediate RASH Verified 03/30/18 12:56 [From Dilantin] - Medications Medications: Current Medications Acetaminophen (Tylenol 650 Mg Supp) 650 mg RC Q6H PRN PRN Reason: Fever >100.4 F Last Admin: 05/01/18 02:31 Dose: 650 mg Alprazolam (Xanax) 0.5 mg PO BID PRN; Protocol PRN Reason: Anxiety Stop: 05/07/18 19:36 Last Admin: 05/01/18 11:13 Dose: 0.5 mg Benztropine Mesylate (Cogentin) 1 mg GT [facility] Last Admin: 05/01/18 10:36 Dose: 1 mg Enoxaparin Sodium (Lovenox) 30 mg SC DAILY [facility]; Protocol Last Admin: 05/01/18 10:37 Dose: 30 mg Fluoxetine HCl (Prozac) 40 mg GT DAILY [facility] Last Admin: 05/01/18 10:36 Dose: 40 mg Sodium Chloride (Sodium Chloride 0.45%) 1,000 mls @ 60 mls/hr IV .[id number] [facility] Last Admin: 04/30/18 20:12 Dose: 60 mls/hr Meropenem (Merrem Iv 1 Gm Premix) 1 gm in 50 mls @ 100 mls/hr IVPB Q8 [facility]; Protocol Stop: 05/09/18 22:01 Last Admin: 05/01/18 05:18 Dose: 100 mls/hr Vancomycin HCl (Vancomycin 1gm) 1 gm in 250 mls @ 167 mls/hr IVPB Q12H [facility]; Protocol Stop: 05/09/18 08:01 Last Admin: 05/01/18 11:13 Dose: 167 mls/hr Risperidone (Risperdal Tab) 2 mg GT BID [facility]; Protocol Last Admin: 05/01/18 10:36 Dose: 2 mg Trazodone HCl (Desyrel) 50 mg GT HS [facility] Physical Exam - Head Exam Head Exam: ATRAUMATIC, NORMOCEPHALIC - Eye Exam Eye Exam: EOMI - ENT Exam ENT Exam: Mucous Membranes Moist - Respiratory Exam Respiratory Exam: Clear to Auscultation Bilateral. absent: Rales, Wheezes - Cardiovascular Exam Cardiovascular Exam: REGULAR RHYTHM, +S1, +S2 - GI/Abdominal Exam GI & Abdominal Exam: Soft. absent: Distended - Extremities Exam Extremities exam: Negative for: calf tenderness, pedal edema - Neurological Exam Neurological exam: Alert, CN II-XII Intact, Oriented x3 - Psychiatric Exam Psychiatric exam: Normal Mood Results - Vital Signs Recent Vital Signs: Last Vital Signs Temp 97.6 F 05/01/18 07:08 Pulse 108 H 05/01/18 06:00 Resp 20 05/01/18 06:00 BP 112/58 L 05/01/18 06:00 Pulse Ox 98 05/01/18 06:00 - Labs Result Diagrams: 05/01/18 06:30 05/01/18 06:30 Labs: Laboratory Results - last 24 hr 04/30/18 04/30/18 04/30/18 17:25 17:40 17:40 WBC 19.2 H D RBC 3.48 L Hgb 9.8 L D Hct 31.3 L MCV 89.9 MCH 28.2 MCHC 31.3 RDW 16.4 H Plt Count 382 MPV 10.6 Neut % (Auto) 80.9 H Lymph % (Auto) 9.4 L [place] % (Auto) 9.5 H Eos % (Auto) 0.0 L Baso % (Auto) 0.2 Lymph # (Auto) 1.8 [place] # (Auto) 1.8 H Eos # (Auto) 0.0 Baso # (Auto) 0.03 Absolute Neuts (auto) 15.53 H PT 19.3 H INR 1.74 APTT 40.1 H pO2 43 VBG pH 7.45 H VBG pCO2 38.0 L VBG HCO3 26.4 VBG Total CO2 27.6 VBG O2 Sat (Calc) 85.7 H VBG Base Excess 2.4 H VBG Potassium 4.1 Sodium 136.0 Chloride 105.0 Glucose 162 H Lactate 1.3 FiO2 21.0 Potassium Carbon Dioxide Anion Gap BUN Creatinine Est GFR ( Amer) Est GFR (Non-Af Amer) Random Glucose Calcium Phosphorus Magnesium Total Bilirubin AST ALT Alkaline Phosphatase Troponin I Total Protein Albumin Globulin Albumin/Globulin Ratio Venous Blood Potassium 4.1 Urine Color Urine Appearance Urine pH Ur Specific [place] Urine Protein Urine Glucose (UA) Urine Ketones Urine Blood Urine Nitrate Urine Bilirubin Urine Urobilinogen Ur Leukocyte Esterase Urine RBC Urine WBC Ur Epithelial Cells Influenza Typ A,B (EIA) 04/30/18 04/30/18 04/30/18 17:40 17:50 19:36 WBC RBC Hgb Hct MCV MCH MCHC RDW Plt Count MPV Neut % (Auto) Lymph % (Auto) [place] % (Auto) Eos % (Auto) Baso % (Auto) Lymph # (Auto) [place] # (Auto) Eos # (Auto) Baso # (Auto) Absolute Neuts (auto) PT INR APTT pO2 VBG pH VBG pCO2 VBG HCO3 VBG Total CO2 VBG O2 Sat (Calc) VBG Base Excess VBG Potassium Sodium 135 Chloride 103 Glucose Lactate FiO2 Potassium 4.2 Carbon Dioxide 25 Anion Gap 12 BUN 34 H Creatinine 0.7 Est GFR ( Amer) > 60 Est GFR (Non-Af Amer) > 60 Random Glucose 163 H Calcium 8.2 L Phosphorus 3.5 Magnesium 1.9 Total Bilirubin 0.6 AST 20 ALT 27 Alkaline Phosphatase 94 Troponin I < 0.01 Total Protein 6.3 Albumin 3.0 Globulin 3.3 Albumin/Globulin Ratio 0.9 L Venous Blood Potassium Urine Color Yellow Urine Appearance Sl cloudy Urine pH 8.5 Ur Specific [place] 1.020 Urine Protein 30 H Urine Glucose (UA) Negative Urine Ketones Negative Urine Blood Trace-intact H Urine Nitrate Negative Urine Bilirubin Negative Urine Urobilinogen 0.2 Ur Leukocyte Esterase Large H Urine RBC 5 - 10 H Urine WBC 5 - 10 H Ur Epithelial Cells Many H Influenza Typ A,B (EIA) Negative for flu a/b 05/01/18 05/01/18 06:30 06:30 WBC 21.4 H RBC 3.18 L Hgb 8.9 L Hct 28.8 L MCV 90.6 MCH 28.0 MCHC 30.9 L RDW 16.7 H Plt Count 315 MPV 10.0 Neut % (Auto) Lymph % (Auto) [place] % (Auto) Eos % (Auto) Baso % (Auto) Lymph # (Auto) [place] # (Auto) Eos # (Auto) Baso # (Auto) Absolute Neuts (auto) PT INR APTT pO2 VBG pH VBG pCO2 VBG HCO3 VBG Total CO2 VBG O2 Sat (Calc) VBG Base Excess VBG Potassium Sodium 138 Chloride 108 H Glucose Lactate FiO2 Potassium 3.9 Carbon Dioxide 27 Anion Gap 7 L BUN 19 Creatinine 0.5 L Est GFR ( Amer) > 60 Est GFR (Non-Af Amer) > 60 Random Glucose 132 H Calcium 7.9 L Phosphorus Magnesium Total Bilirubin 0.4 AST 21 ALT 22 Alkaline Phosphatase 80 Troponin I Total Protein 5.9 Albumin 2.8 L Globulin 3.1 Albumin/Globulin Ratio 0.9 L Venous Blood Potassium Urine Color Urine Appearance Urine pH Ur Specific [place] Urine Protein Urine Glucose (UA) Urine Ketones Urine Blood Urine Nitrate Urine Bilirubin Urine Urobilinogen Ur Leukocyte Esterase Urine RBC Urine WBC Ur Epithelial Cells Influenza Typ A,B (EIA) Assessment & Plan - Assessment and Plan (Free Text) Assessment: 72 year old female with past medical history of dysphasia status post PEG tube placement,dementia, anemia, arthritis, schizophrenia, and depression presents to the hospital for fever and lethargy at [facility]. - Continue vancomycin and meropenem - We will start on Tamiflu due to fevers - UA seemed contaminated. Will reorder UA and culture - Follow-up septic workup - Continue to monitor for changes Case and plan was reviewed and discussed with Dr. Todd. <Carlos Enrique Todd - Last Filed: 05/01/18 15:54> Meds - Medications Medications: Current Medications Acetaminophen (Tylenol 650 Mg Supp) 650 mg RC Q6H PRN PRN Reason: Fever >100.4 F Last Admin: 05/01/18 14:34 Dose: 650 mg Alprazolam (Xanax) 0.5 mg PO BID PRN; Protocol PRN Reason: Anxiety Stop: 05/07/18 19:36 Last Admin: 05/01/18 11:13 Dose: 0.5 mg Benztropine Mesylate (Cogentin) 1 mg GT AMHS [facility] Last Admin: 05/01/18 10:36 Dose: 1 mg Enoxaparin Sodium (Lovenox) 30 mg SC DAILY [facility]; Protocol Last Admin: 05/01/18 10:37 Dose: 30 mg Fluoxetine HCl (Prozac) 40 mg GT DAILY [facility] Last Admin: 05/01/18 10:36 Dose: 40 mg Sodium Chloride (Sodium Chloride 0.45%) 1,000 mls @ 60 mls/hr IV .[id number] [facility] Last Admin: 04/30/18 20:12 Dose: 60 mls/hr Meropenem (Merrem Iv 1 Gm Premix) 1 gm in 50 mls @ 100 mls/hr IVPB Q8 [facility]; Protocol Stop: 05/09/18 22:01 Last Admin: 05/01/18 14:24 Dose: 100 mls/hr Vancomycin HCl (Vancomycin 1gm) 1 gm in 250 mls @ 167 mls/hr IVPB Q12H [facility]; Protocol Stop: 05/09/18 08:01 Last Admin: 05/01/18 11:13 Dose: 167 mls/hr Oseltamivir Phosphate (Tamiflu Cap) 75 mg PO BID [facility]; Protocol Stop: 05/06/18 13:11 Risperidone (Risperdal Tab) 2 mg GT BID [facility]; Protocol Last Admin: 05/01/18 10:36 Dose: 2 mg Trazodone HCl (Desyrel) 50 mg GT HS [facility] Results - Vital Signs Recent Vital Signs: Last Vital Signs Temp 101 F H 05/01/18 14:00 Pulse 97 H 05/01/18 14:00 Resp 20 05/01/18 14:00 BP 117/53 L 05/01/18 14:00 Pulse Ox 83 L 05/01/18 14:00 - Labs Result Diagrams: 05/01/18 06:30 05/01/18 06:30 Labs: Laboratory Results - last 24 hr 04/30/18 04/30/18 04/30/18 17:25 17:40 17:40 WBC 19.2 H D RBC 3.48 L Hgb 9.8 L D Hct 31.3 L MCV 89.9 MCH 28.2 MCHC 31.3 RDW 16.4 H Plt Count 382 MPV 10.6 Neut % (Auto) 80.9 H Lymph % (Auto) 9.4 L [place] % (Auto) 9.5 H Eos % (Auto) 0.0 L Baso % (Auto) 0.2 Lymph # (Auto) 1.8 [place] # (Auto) 1.8 H Eos # (Auto) 0.0 Baso # (Auto) 0.03 Absolute Neuts (auto) 15.53 H PT 19.3 H INR 1.74 APTT 40.1 H pO2 43 VBG pH 7.45 H VBG pCO2 38.0 L VBG HCO3 26.4 VBG Total CO2 27.6 VBG O2 Sat (Calc) 85.7 H VBG Base Excess 2.4 H VBG Potassium 4.1 Sodium 136.0 Chloride 105.0 Glucose 162 H Lactate 1.3 FiO2 21.0 Potassium Carbon Dioxide Anion Gap BUN Creatinine Est GFR ( Amer) Est GFR (Non-Af Amer) Random Glucose Calcium Phosphorus Magnesium Total Bilirubin AST ALT Alkaline Phosphatase Troponin I Total Protein Albumin Globulin Albumin/Globulin Ratio Venous Blood Potassium 4.1 Urine Color Urine Appearance Urine pH Ur Specific [place] Urine Protein Urine Glucose (UA) Urine Ketones Urine Blood Urine Nitrate Urine Bilirubin Urine Urobilinogen Ur Leukocyte Esterase Urine RBC Urine WBC Ur Epithelial Cells Influenza Typ A,B (EIA) 04/30/18 04/30/18 04/30/18 17:40 17:50 19:36 WBC RBC Hgb Hct MCV MCH MCHC RDW Plt Count MPV Neut % (Auto) Lymph % (Auto) [place] % (Auto) Eos % (Auto) Baso % (Auto) Lymph # (Auto) [place] # (Auto) Eos # (Auto) Baso # (Auto) Absolute Neuts (auto) PT INR APTT pO2 VBG pH VBG pCO2 VBG HCO3 VBG Total CO2 VBG O2 Sat (Calc) VBG Base Excess VBG Potassium Sodium 135 Chloride 103 Glucose Lactate FiO2 Potassium 4.2 Carbon Dioxide 25 Anion Gap 12 BUN 34 H Creatinine 0.7 Est GFR ( Amer) > 60 Est GFR (Non-Af Amer) > 60 Random Glucose 163 H Calcium 8.2 L Phosphorus 3.5 Magnesium 1.9 Total Bilirubin 0.6 AST 20 ALT 27 Alkaline Phosphatase 94 Troponin I < 0.01 Total Protein 6.3 Albumin 3.0 Globulin 3.3 Albumin/Globulin Ratio 0.9 L Venous Blood Potassium Urine Color Yellow Urine Appearance Sl cloudy Urine pH 8.5 Ur Specific [place] 1.020 Urine Protein 30 H Urine Glucose (UA) Negative Urine Ketones Negative Urine Blood Trace-intact H Urine Nitrate Negative Urine Bilirubin Negative Urine Urobilinogen 0.2 Ur Leukocyte Esterase Large H Urine RBC 5 - 10 H Urine WBC 5 - 10 H Ur Epithelial Cells Many H Influenza Typ A,B (EIA) Negative for flu a/b 05/01/18 05/01/18 06:30 06:30 WBC 21.4 H RBC 3.18 L Hgb 8.9 L Hct 28.8 L MCV 90.6 MCH 28.0 MCHC 30.9 L RDW 16.7 H Plt Count 315 MPV 10.0 Neut % (Auto) Lymph % (Auto) [place] % (Auto) Eos % (Auto) Baso % (Auto) Lymph # (Auto) [place] # (Auto) Eos # (Auto) Baso # (Auto) Absolute Neuts (auto) PT INR APTT pO2 VBG pH VBG pCO2 VBG HCO3 VBG Total CO2 VBG O2 Sat (Calc) VBG Base Excess VBG Potassium Sodium 138 Chloride 108 H Glucose Lactate FiO2 Potassium 3.9 Carbon Dioxide 27 Anion Gap 7 L BUN 19 Creatinine 0.5 L Est GFR ( Amer) > 60 Est GFR (Non-Af Amer) > 60 Random Glucose 132 H Calcium 7.9 L Phosphorus Magnesium Total Bilirubin 0.4 AST 21 ALT 22 Alkaline Phosphatase 80 Troponin I Total Protein 5.9 Albumin 2.8 L Globulin 3.1 Albumin/Globulin Ratio 0.9 L Venous Blood Potassium Urine Color Urine Appearance Urine pH Ur Specific [place] Urine Protein Urine Glucose (UA) Urine Ketones Urine Blood Urine Nitrate Urine Bilirubin Urine Urobilinogen Ur Leukocyte Esterase Urine RBC Urine WBC Ur Epithelial Cells Influenza Typ A,B (EIA) Assessment & Plan - Assessment and Plan (Free Text) Assessment: Infectious diseases Attending Physician Attestation Patient seen and examined, discussed with senior medical transcriptionist. I have reviewed the patient's history of present illness, past medical, social, personal and family histories, pertinent physical exam findings, course so far in this hospital admission, pertinent laboratory and imaging results. I agree with the above findings, assessment and plan. In addition, started Vancomycin and Merre mfor patient with SIRS with fevers, consider sepsis due to UTI, R/O HCAP. Follow up blood, urine cx, PCT. REviewed CXR showing basilar opacities. Will monitor clinically and trend WBC count. Will also start Tamiflu for possible Influenza infection with fevers.
[2018-05-02] MEDS: Meropenem IV 1 gm in NS 1 GM/50 ML BAG IVPB SCH ×3 (05:56→23:50)
[2018-05-02 07:42] LABS: HEMOGLOBIN 8.6 g/dL (12.0-16.0); MEAN CELL VOLUME 91.5 fl (80.0-105.0); MEAN CORPUSCULAR HGB CONC 30.6 g/dl (31.0-37.0); MEAN PLATELET VOLUME 10.2 fl (7.0-11.0); RBC 3.07 10^6/uL (3.5-6.1); RED CELL DISTRIBUTION WIDTH 16.8 % (11.5-14.5); WHITE BLOOD COUNT 23.8 10^3/uL (4.5-11.0)
[2018-05-02 08:21] LABS: ALB/GLOB RATIO 0.9 (1.1-1.8); ALBUMIN 2.7 g/dL (3.0-4.8); ALT/SGPT 17 U/L (7-56); AST/SGOT 19 U/L (14-36); BLOOD UREA NITROGEN 18 mg/dL (7-21); CALCIUM 8.3 mg/dL (8.4-10.5); GFR NON-AFRICAN AMERICAN > 60
[2018-05-02] MEDS: Vancomycin 1gm in NS 250ml 1 GM/250 ML BAG IVPB SCH ×2 (08:21→23:54)
[2018-05-02] MEDS: Enoxaparin 30 mg Syringe SC SCH (10:19)
--- NOTE | 2018-05-02 10:43 | PN ---
DATE: 05/02/2018 SUBJECTIVE: I saw Jeni resting comfortably in bed. She is more alert. She is more responsive. She is talking to me better. When she came in, she was very lethargic. She is currently on IV fluids, Cogentin, Desyrel, Lovenox, Merrem IV, Prozac, Risperdal, Tamiflu, which was added on by the Infectious Disease, Dr. Delacruz, vancomycin IV, and Xanax. PHYSICAL EXAMINATION: VITAL SIGNS: She has a 99.1 temperature, it was 101 last night, it was 101.4 night before that and when she came in, it was 102.7. She has 94 pulse, 99/60 blood pressure, 22 respiratory rate, 95% O2 sat on room air. HEENT: Head is atraumatic, normocephalic. HEART: Regular rate. LUNGS: Decreased breath sounds, but clear. ABDOMEN: Soft. PEG tube. EXTREMITIES: No edema. LABORATORY DATA: She has a 23.8 white count, it is going up, it was 19 and was 21, now is 23.8, hemoglobin is going down, it was 9.8, 8.9, now is 8.6, if falls below 8, I will transfuse her, hematocrit 28.1, platelets of 346. INR is 1.74. She has 140 sodium, potassium 4, BUN is 18, creatinine 0.8, GFR is greater than 60, sugar is 118, calcium is 8.3, total bili is 0.2, AST is 19, ALT is 17, alk phos is 102. Total protein is 5.7, troponin I was less than 0.01. Urine has large leukocytes, negative for the flu. ASSESSMENT AND PLAN: I am not sure why her white count is going up and hemoglobin is dropping. We will continue with aggressive treatment and care as per Infectious Disease. Continue with IV antibiotics and IV fluids. We will check her labs tomorrow. Clinically though, she is more alert and hopefully, she will improve and respond to the treatment. I was hoping if the white count was decreasing, I could [facility], but it is going worse. Manolo Mtz, DO
--- NOTE | 2018-05-02 10:46 | CT ---
Date of service: 05/02/2018 PROCEDURE: CT Abdomen and Pelvis without intravenous contrast HISTORY: leukocytosis, fever COMPARISON: 02/17/2018 TECHNIQUE: Technique. Contrast dose: Radiation dose: Total exam DLP = 822.89 mGy-cm. This CT exam was performed using one or more of the following dose reduction techniques: Automated exposure control, adjustment of the mA and/or kV according to patient size, and/or use of iterative reconstruction technique. FINDINGS: LOWER THORAX: Bilateral pleural effusions and consolidation at the lung bases. LIVER: Unremarkable. No gross lesion or ductal dilatation. GALLBLADDER AND BILE DUCTS: Cholelithiasis. PANCREAS: Unremarkable. No gross lesion or ductal dilatation. SPLEEN: Unremarkable. ADRENALS: Unremarkable. No mass. KIDNEYS AND URETERS: Unremarkable. No hydronephrosis. No solid mass. VASCULATURE: Unremarkable. No aortic aneurysm. No aortic atherosclerotic calcification or mural plaque present. BOWEL: Unremarkable. No obstruction. No gross mural thickening. APPENDIX: Unremarkable. Normal appendix. PERITONEUM: Unremarkable. No free fluid. No free air. LYMPH NODES: Unremarkable. No enlarged lymph nodes. BLADDER: Haley catheter in the bladder. REPRODUCTIVE: Unremarkable. BONES: No acute fracture. OTHER FINDINGS: None. IMPRESSION: Bilateral pleural effusions and consolidation at the lung bases. Cholelithiasis. Haley catheter in the bladder.
--- NOTE | 2018-05-02 11:00 | CP.PCM.APN ---
Subjective - Date & Time of Evaluation Date of Evaluation: 05/02/18 Time of Evaluation: 08:30 - Subjective Subjective: Pt seen and examined at bedside. In no acute distress. Minimally verbal. Objective - Vital Signs/Intake and Output Vital Signs (last 24 hours): Temp Pulse Resp BP Pulse Ox 99.1 F 94 H 22 99/60 L 95 05/02/18 06:01 05/02/18 06:01 05/02/18 06:01 05/02/18 06:01 05/02/18 06:01 - Medications Medications: Current Medications Acetaminophen (Tylenol 650 Mg Supp) 650 mg RC Q6H PRN PRN Reason: Fever >100.4 F Last Admin: 05/01/18 14:34 Dose: 650 mg Alprazolam (Xanax) 0.5 mg PO BID PRN; Protocol PRN Reason: Anxiety Stop: 05/07/18 19:36 Last Admin: 05/02/18 10:20 Dose: 0.5 mg Benztropine Mesylate (Cogentin) 1 mg GT AMHS [facility] Last Admin: 05/02/18 10:20 Dose: 1 mg Enoxaparin Sodium (Lovenox) 30 mg SC DAILY [facility]; Protocol Last Admin: 05/02/18 10:19 Dose: 30 mg Fluoxetine HCl (Prozac) 40 mg GT DAILY [facility] Last Admin: 05/02/18 10:19 Dose: 40 mg Sodium Chloride (Sodium Chloride 0.45%) 1,000 mls @ 60 mls/hr IV .[id number] [facility] Last Admin: 04/30/18 20:12 Dose: 60 mls/hr Meropenem (Merrem Iv 1 Gm Premix) 1 gm in 50 mls @ 100 mls/hr IVPB Q8 [facility]; Protocol Stop: 05/09/18 22:01 Last Admin: 05/02/18 05:56 Dose: 100 mls/hr Vancomycin HCl (Vancomycin 1gm) 1 gm in 250 mls @ 167 mls/hr IVPB Q12H [facility]; Protocol Stop: 05/09/18 08:01 Last Admin: 05/02/18 08:21 Dose: 167 mls/hr Oseltamivir Phosphate (Tamiflu Cap) 75 mg PO BID [facility]; Protocol Stop: 05/06/18 13:11 Last Admin: 05/02/18 10:19 Dose: 75 mg Risperidone (Risperdal Tab) 2 mg GT BID [facility]; Protocol Last Admin: 05/02/18 10:19 Dose: 2 mg Trazodone HCl (Desyrel) 50 mg GT HS [facility] Last Admin: 05/01/18 21:58 Dose: 50 mg - Labs Labs: 05/02/18 07:30 05/02/18 07:30 PT 19.3 SECONDS (9.4-12.5) H 04/30/18 17:40 INR 1.74 04/30/18 17:40 APTT 40.1 Seconds (26.9-38.3) H 04/30/18 17:40 - Constitutional Appears: No Acute Distress - Head Exam Head Exam: ATRAUMATIC - Respiratory Exam Respiratory Exam: Rhonchi - Cardiovascular Exam Cardiovascular Exam: REGULAR RHYTHM, +S1, +S2 - GI/Abdominal Exam GI & Abdominal Exam: Soft, Normal Bowel Sounds Additional comments: +PEG - Rectal Exam Rectal Exam: Deferred - Exam Additional comments: urinary retention - approx 800 cc. alexandra cath inserted by RN. - Extremities Exam Extremities Exam: Normal Inspection - Neurological Exam Neurological Exam: Alert, Awake Assessment and Plan - Assessment and Plan (Free Text) Assessment: Pt is a 72 y.o. female with pmhx of dysphasia w/ PEG, hyperlipidemia, and schizophrenia, dementia who was brought in from rehab due to fever and lethargy. ITS Impressions Chest X-Ray 04/30/18 17:26 IMPRESSION: Poor inspiration with low lung volumes, crowded bronchovascular markings and mild bibasilar atelectasis. Additionally, there also appears to be diffuse micronodular infiltrates with more confluent opacities both lung bases right greater than left. Questionable small right-sided effusion. Abdomen/Pelvis CT 05/02/18 08:55 IMPRESSION: Bilateral pleural effusions and consolidation at the lung bases. Cholelithiasis. Alexandra catheter in the bladder. Plan: On Merrem/Vanco IV per ID recs Re-insert alexandra 2/2 urinary retention approx 800ml ID on consult Trend WBCs/monitor temp Meds per MAR Will continue to follow
--- NOTE | 2018-05-02 14:21 | CP.PCM.PN ---
Subjective - Date & Time of Evaluation Date of Evaluation: 05/02/18 Time of Evaluation: 11:20 - Subjective Subjective: Still with fevers in bed, ill-appearing, no diarrhea. Objective - Vital Signs/Intake and Output Vital Signs (last 24 hours): Temp Pulse Resp BP Pulse Ox 100.7 F H 94 H 22 99/60 L 95 05/02/18 13:10 05/02/18 06:01 05/02/18 06:01 05/02/18 06:01 05/02/18 06:01 - Medications Medications: Current Medications Acetaminophen (Tylenol 650 Mg Supp) 650 mg RC Q6H PRN PRN Reason: Fever >100.4 F Last Admin: 05/02/18 13:10 Dose: 650 mg Alprazolam (Xanax) 0.5 mg PO BID PRN; Protocol PRN Reason: Anxiety Stop: 05/07/18 19:36 Last Admin: 05/02/18 10:20 Dose: 0.5 mg Benztropine Mesylate (Cogentin) 1 mg GT [facility]HS [facility] Last Admin: 05/02/18 10:20 Dose: 1 mg Enoxaparin Sodium (Lovenox) 30 mg SC DAILY [facility]; Protocol Last Admin: 05/02/18 10:19 Dose: 30 mg Fluoxetine HCl (Prozac) 40 mg GT DAILY [facility] Last Admin: 05/02/18 10:19 Dose: 40 mg Sodium Chloride (Sodium Chloride 0.45%) 1,000 mls @ 60 mls/hr IV .[id number] [facility] Last Admin: 04/30/18 20:12 Dose: 60 mls/hr Meropenem (Merrem Iv 1 Gm Premix) 1 gm in 50 mls @ 100 mls/hr IVPB Q8 [facility]; Protocol Stop: 05/09/18 22:01 Last Admin: 05/02/18 13:01 Dose: 100 mls/hr Vancomycin HCl (Vancomycin 1gm) 1 gm in 250 mls @ 167 mls/hr IVPB Q12H [facility]; Protocol Stop: 05/09/18 08:01 Last Admin: 05/02/18 08:21 Dose: 167 mls/hr Oseltamivir Phosphate (Tamiflu Cap) 75 mg PO BID [facility]; Protocol Stop: 05/06/18 13:11 Last Admin: 05/02/18 10:19 Dose: 75 mg Risperidone (Risperdal Tab) 2 mg GT BID [facility]; Protocol Last Admin: 05/02/18 10:19 Dose: 2 mg Trazodone HCl (Desyrel) 50 mg GT HS [facility] Last Admin: 05/01/18 21:58 Dose: 50 mg - Labs Labs: 05/02/18 07:30 05/02/18 07:30 PT 19.3 SECONDS (9.4-12.5) H 04/30/18 17:40 INR 1.74 04/30/18 17:40 APTT 40.1 Seconds (26.9-38.3) H 04/30/18 17:40 - Constitutional Appears: Chronically Ill - Head Exam Head Exam: NORMAL INSPECTION - Respiratory Exam Respiratory Exam: Decreased Breath Sounds - Cardiovascular Exam Cardiovascular Exam: +S1, +S2 - GI/Abdominal Exam GI & Abdominal Exam: Soft. absent: Tenderness Assessment and Plan - Assessment and Plan (Free Text) Plan: Assessment SIRS with fevers, consider sepsis due to bilateral lower lobe HCAP R/O Influenza S/P PEG tube placement chronic anemia dementia arthritis schizophrenia depression Plan continue Vancomycin, Merrem and Tamiflu day 2 and will follow up final culture results reviewed CXR, CT A/P will continue to trend WBC count and fever curve
[2018-05-02] MEDS: Sodium Chloride 0.45% 1,000 ML IV SCH ×2 (17:10→23:51)
[2018-05-02 22:34] LABS: URINE BILIRUBIN NEGATIVE (NEGATIVE); URINE BLOOD NEGATIVE (NEGATIVE); URINE GLUCOSE (UA) NEGATIVE (NEGATIVE); URINE LEUKOCYTE ESTERASE NEGATIVE Leu/uL (NEGATIVE); URINE PROTEIN 30 mg/dL (<30 mg/dL); URINE UROBILINOGEN 0.2 E.U./dL (<1 E.U./dL)
[2018-05-02 22:38] LABS: URINE APPEARANCE CLEAR (CLEAR); URINE COLOR YELLOW (YELLOW)
[2018-05-03] MEDS: Meropenem IV 1 gm in NS 1 GM/50 ML BAG IVPB SCH ×3 (05:05→22:33)
[2018-05-03 06:58] LABS: HEMOGLOBIN 8.7 g/dL (12.0-16.0); MEAN CELL VOLUME 89.6 fl (80.0-105.0); MEAN CORPUSCULAR HEMOGLOBIN 28.2 pg (25.0-35.0); MEAN CORPUSCULAR HGB CONC 31.5 g/dl (31.0-37.0); MEAN PLATELET VOLUME 10.5 fl (7.0-11.0); RBC 3.08 10^6/uL (3.5-6.1); RED CELL DISTRIBUTION WIDTH 16.2 % (11.5-14.5); WHITE BLOOD COUNT 21.6 10^3/uL (4.5-11.0)
[2018-05-03 07:30] LABS: ALB/GLOB RATIO 0.9 (1.1-1.8); ALBUMIN 2.4 g/dL (3.0-4.8); ALT/SGPT 23 U/L (7-56); AST/SGOT 19 U/L (14-36); BLOOD UREA NITROGEN 10 mg/dL (7-21); CALCIUM 7.8 mg/dL (8.4-10.5); GFR NON-AFRICAN AMERICAN > 60
[2018-05-03] MEDS: Vancomycin 1gm in NS 250ml 1 GM/250 ML BAG IVPB SCH ×2 (08:42→22:32)
[2018-05-03] MEDS: Enoxaparin 30 mg Syringe SC SCH (10:40)
--- NOTE | 2018-05-03 11:22 | PN ---
DATE: 05/03/2018 SUBJECTIVE: I saw Jeni in bed this morning. I was told that she was up most of the night, that is why she is so tired this morning, cannot really wake her up. She is breathing well. She has oxygen on. She has a feeding tube. She is on IV fluids, Cogentin, Desyrel, Lovenox, Merrem IV. I gave her 2 potassium riders for low potassium today. She is on Prozac, Risperdal, Tamiflu, vancomycin IV, and Xanax. PHYSICAL EXAMINATION: VITAL SIGNS: Temperature was 101.2 last night, it is 100.7 this morning, 112/54 blood pressure, 111 pulse, 32 respiratory rate, 91 O2 sats, but she is not doing that great yet. HEENT: Head: Atraumatic and normocephalic. HEART: Regular rate. LUNGS: Decreased breath sounds. ABDOMEN: Soft with the feeding tube. EXTREMITIES: No edema. LABORATORY DATA: She had a 135 sodium, potassium is 3.3, I gave her potassium, BUN 10, creatinine 0.4, GFR is greater than 60, sugar is 158, calcium is 7.8, total bili is less than 0.1, AST is 19, ALT is 22, alk phos is 107. White count is 21.6 though quite high, 8.7 hemoglobin, 27.6 hematocrit with a 401 platelets. Micro is Proteus mirabilis in the urine. She is being seen by Infectious Disease. She did have a CAT scan of the abdomen and pelvis. ASSESSMENT AND PLAN: Bilateral pleural effusions, consolidations at the lung bases. I think I am going to call in Pulmonary to get their opinion. I will continue aggressive treatment and care with Infectious Disease. Manolo Mtz DO
[2018-05-03] MEDS ORDERED: Iohexol 350 MG/100 ML VIAL ONE (13:09)
[2018-05-03] MEDS ORDERED: Albuterol-Ipratrop 3 mg / 0.5 (3 ml) UD IH SCH (14:00)
--- NOTE | 2018-05-03 14:08 | CP.PCM.PN ---
Subjective - Date & Time of Evaluation Date of Evaluation: 05/03/18 Time of Evaluation: 10:20 - Subjective Subjective: Patient is still having fevers and shortness of breath. Objective - Vital Signs/Intake and Output Vital Signs (last 24 hours): Temp Pulse Resp BP Pulse Ox 100.7 F H 94 H 22 99/60 L 95 05/02/18 13:10 05/02/18 06:01 05/02/18 06:01 05/02/18 06:01 05/02/18 06:01 - Medications Medications: Current Medications Acetaminophen (Tylenol 650 Mg Supp) 650 mg RC Q6H PRN PRN Reason: Fever >100.4 F Last Admin: 05/02/18 13:10 Dose: 650 mg Alprazolam (Xanax) 0.5 mg PO BID PRN; Protocol PRN Reason: Anxiety Stop: 05/07/18 19:36 Last Admin: 05/02/18 10:20 Dose: 0.5 mg Benztropine Mesylate (Cogentin) 1 mg GT AMHS [facility] Last Admin: 05/02/18 10:20 Dose: 1 mg Enoxaparin Sodium (Lovenox) 30 mg SC DAILY [facility]; Protocol Last Admin: 05/02/18 10:19 Dose: 30 mg Fluoxetine HCl (Prozac) 40 mg GT DAILY [facility] Last Admin: 05/02/18 10:19 Dose: 40 mg Sodium Chloride (Sodium Chloride 0.45%) 1,000 mls @ 60 mls/hr IV .[id number] [facility] Last Admin: 04/30/18 20:12 Dose: 60 mls/hr Meropenem (Merrem Iv 1 Gm Premix) 1 gm in 50 mls @ 100 mls/hr IVPB Q8 [facility]; Protocol Stop: 05/09/18 22:01 Last Admin: 05/02/18 13:01 Dose: 100 mls/hr Vancomycin HCl (Vancomycin 1gm) 1 gm in 250 mls @ 167 mls/hr IVPB Q12H [facility]; Protocol Stop: 05/09/18 08:01 Last Admin: 05/02/18 08:21 Dose: 167 mls/hr Oseltamivir Phosphate (Tamiflu Cap) 75 mg PO BID [facility]; Protocol Stop: 05/06/18 13:11 Last Admin: 05/02/18 10:19 Dose: 75 mg Risperidone (Risperdal Tab) 2 mg GT BID [facility]; Protocol Last Admin: 05/02/18 10:19 Dose: 2 mg Trazodone HCl (Desyrel) 50 mg GT HS [facility] Last Admin: 05/01/18 21:58 Dose: 50 mg - Labs Labs: 05/02/18 07:30 05/02/18 07:30 PT 19.3 SECONDS (9.4-12.5) H 04/30/18 17:40 INR 1.74 04/30/18 17:40 APTT 40.1 Seconds (26.9-38.3) H 04/30/18 17:40 - Constitutional Appears: Chronically Ill - Head Exam Head Exam: NORMAL INSPECTION - Neck Exam Neck Exam: absent: Lymphadenopathy, Meningismus - Respiratory Exam Respiratory Exam: Decreased Breath Sounds, Rales (scattered) - Cardiovascular Exam Cardiovascular Exam: +S1, +S2 - GI/Abdominal Exam GI & Abdominal Exam: Soft. absent: Tenderness Assessment and Plan - Assessment and Plan (Free Text) Plan: Assessment severe sepsis with respiratory failure due to bilateral lower lobe HCAP and right sided HCAP R/O Influenza S/P PEG tube placement chronic anemia dementia arthritis schizophrenia depression Plan continue Vancomycin, Merrem and Tamiflu day 3 and added Doxycycline; will not use Zithromax or Levaquin since QTc is prolonged at 503 ms; follow up final cultures, MRSA screen, urine Legionella Ag Pulmonary has been called by Dr. Mtz will ask for CT chest reviewed CXR, CT A/P will continue to trend WBC count and fever curve discussed with Dr. Mtz
--- NOTE | 2018-05-03 14:38 | CT ---
Date of service: 05/03/2018 PROCEDURE: CT Chest with contrast (Pulmonary Angiogram) HISTORY: r/o PE COMPARISON: None available. TECHNIQUE: Axial computed tomography images were obtained of the chest in the pulmonary arterial phase of enhancement. Coronal and sagittal reformatted images were created and reviewed. Intravenous contrast dose: Omnipaque 350, 100 cc Radiation dose: Total exam DLP = 537.54 mGy-cm. This CT exam was performed using one or more of the following dose reduction techniques: Automated exposure control, adjustment of the mA and/or kV according to patient size, and/or use of iterative reconstruction technique. FINDINGS: PULMONARY ARTERIES: Patient's arms generate artifacts obscuring the entire exam including the pulmonary arteries. No definitive pulmonary artery embolus is appreciated throughout the thorax nevertheless. AORTA: Non aneurysmal calcific atherosclerotic changes are seen related to the thoracic aorta. LUNGS: Restrained motion artifacts degrade the quality this exam significantly as well as artifact from the patient's arms. Right upper lobe pneumonia is moderate in severity and is not excluded affecting the bilateral lower lobes where compression atelectasis occurs. Limited infiltrate is seen at the lingula. Central airways are grossly clear as imaged. PLEURAL SPACES: Mild bilateral pleural effusions appear relatively symmetric. No pericardial effusion. No pneumothorax bilaterally. HEART: Mild cardiomegaly identified. No definite pulmonary vascular congestion. Thoracic aorta and main pulmonary artery appear normal caliber. LYMPH NODES: Mild lymphadenopathy is appreciate the mediastinum with precarinal and paratracheal lymph nodes identified measuring up to 1.4 cm greatest dimension. Subcarinal/right peribronchial lymph node measures 1.5 x 1.1 cm. BONES, CHEST WALL: Unremarkable. No fracture or destructive lesion OTHER FINDINGS: Unremarkable. IMPRESSION: Heavily artifact examination due to patient's inability to adequately position as well as respiratory motion. No definite pulmonary embolus identified. Prominent infiltrate affects right upper lobe and minimally affects the lingula. Variable pattern at the lower lobes is likely primarily related to compressive atelectasis due to mild bilateral pleural effusions. Underlying pneumonia not excluded at the lower lobes symmetrically. Mild cardiomegaly. No pulmonary vascular congestion appreciable. Mild lymphadenopathy in the mediastinum.
--- NOTE | 2018-05-03 15:33 | CON ---
DATE: 05/03/2018 PULMONARY CONSULT NOTE REFERRING PHYSICIAN: Manolo Mtz DO REASON FOR CONSULTATION: Shortness of breath, pleural effusion. HISTORY OF PRESENT ILLNESS: This is a 72-year-old female, who presented to the emergency room due to fever and lethargy. The patient lives a [facility] at [facility] receiving antibiotics and was doing well. When she decompensated became more lethargic and started having persistent fevers. PAST MEDICAL HISTORY: Dysphagia, hyperlipidemia, schizophrenia, dementia, anemia, arthritis, PEG tube, urinary incontinence, Haley catheter, urinary tract infection, and ovarian surgery. FAMILY HISTORY: Unknown. SOCIAL HISTORY: Non-smoker. No ETOH abuse. No illicit drug use. ALLERGIES: PHENYTOIN SODIUM EXTENDED. MEDICATIONS: Tylenol 650 mg rectally every 6 hours p.r.n. fever greater than 100.4, DuoNeb 3 mL inhalation every 6 hours, Xanax 0.5 mg twice a day p.r.n., Cogentin 1 mg morning and at bedtime, doxycycline 100 mg every 12 hours, Lovenox 30 mg subcutaneously daily, Prozac 40 mg daily, meropenem 1 gram every 8 hours, Tamiflu 75 mg twice a day, potassium chloride 10 mEq in 100 mL at 50 mL hours IV piggyback every 2 hours, Risperdal 2 mg twice a day, sodium chloride 0.45%, 1000 mL at 60 mL per hour, trazodone 50 mg at bedtime and vancomycin 1 gram every 12 hours. REVIEW OF SYSTEMS: Unobtainable. The patient is nonverbal. PHYSICAL EXAMINATION VITAL SIGNS: Blood pressure 112/54, pulse 111, and oxygen saturation 92% on nasal cannula. GENERAL: No acute distress. HEENT: Mucus membranes. NECK: Supple. No JVP. RESPIRATORY: breath sounds bilaterally. CARDIOVASCULAR: S1 and S2. Tachycardic. ABDOMEN: Soft and nontender. No distention. Feeding tube present. EXTREMITIES: No bilateral lower extremity edema. NEUROLOGIC: Asleep, arousable, nonverbal. LABORATORY DATA: Reviewed. WBC 21.6, RBC 3.08, hemoglobin 8.7, hematocrit 27.6, and platelets 401. Sodium 135, potassium 3.3, chloride 102, carbon dioxide 29, anion gap 7, BUN 10, creatinine 0.4, GFR is greater than 60, random glucose 158, calcium 7.8, total bilirubin 0.1, AST 19, ALT 23, alkaline phosphatase 107, total protein 5.2, albumin 2.4, globulin 2.7, albumin-globulin ratio 0.9 and procalcitonin 3.08. Influenza type A and B negative. Urine culture positive for Proteus mirabilis. Blood culture no growth after 48 hours. Chest x-ray showed poor inspiration with low long volumes, crowded bronchovascular markings and mild bibasilar atelectasis, diffuse micronodular infiltrate with more than fluid opacities both lung bases, right greater than left; questionable small right-sided effusion. EKG shows sinus tachycardia. Abdomen and pelvis CT shows bilateral pleural effusion and consolidation at the lung bases. IMPRESSION AND PLAN: Health-care associated bacterial pneumonia with positive chest x-ray showing infiltrates and positive procalcitonin, dementia, schizophrenia. Echocardiogram reviewed from 02/14/2018, showing ejection fraction 75.4, right ventricular systolic pressure 46, some diastolic dysfunction, mild to moderate pulmonary hypertension, dysphagia status post percutaneous endoscopic gastrostomy tube placement, anemia, arthritis, and depression. The patient is high risk for aspiration. Continue antibiotic therapy as per Infectious Disease. Continue deep venous thrombosis prophylaxis. We will place the patient on gastric prophylaxis. We will decrease Xanax to 0.25 mg twice a day p.r.n. We will discontinue trazodone. We will follow up the patient closely. If doing well, we will continue to decrease antipsychotic. If the patient become anxious, we will consider increasing anti-anxiety medication. At this time due to patient current condition, it demands a decrease in the antipsychotic medications. The patient is pending CAT scan of the chest today. We will change DuoNeb to p.r.n. We will add Xopenex inhaler due to patient's tachycardia. We will add Pulmicort and Mucomyst. We will start the patient on Pepcid for gastric prophylaxis. This patient is seen and examined with Dr. Girard. Discussed assessment and plan as described above. Thank you for this consult and we will follow with you. Edson Prudence, LOG MANAGER Rekha Girard MD
[2018-05-03] MEDS: Albuterol-Ipratrop 3 mg / 0.5 (3 ml) UD IH PRN (20:15)
[2018-05-03] MEDS: Budesonide 0.5 mg/2 ml Inhal Susp UD IH SCH (20:15)
[2018-05-03] MEDS: Acetylcysteine 20% Inhal Soln (4ml) IH SCH (20:15)
[2018-05-04] MEDS: Albuterol-Ipratrop 3 mg / 0.5 (3 ml) UD IH PRN ×3 (05:48→13:06)
[2018-05-04] MEDS: Meropenem IV 1 gm in NS 1 GM/50 ML BAG IVPB SCH ×3 (05:48→22:35)
--- NOTE | 2018-05-04 06:58 | CP.PCM.PN ---
Subjective - Date & Time of Evaluation Date of Evaluation: 05/04/18 Time of Evaluation: 06:58 - Subjective Subjective: # 24 angiocath was inserted in right arm. Patient has no symptoms, is stable. Objective - Vital Signs/Intake and Output Vital Signs (last 24 hours): Temp Pulse Resp BP Pulse Ox 99.3 F 115 H 23 118/71 100 05/03/18 22:27 05/03/18 22:00 05/03/18 22:00 05/03/18 22:00 05/03/18 22:00 Intake and Output: 05/03/18 05/04/18 18:59 06:59 Intake Total 0 0 Output Total 1200 700 Balance -1200 -700 - Medications Medications: Current Medications Acetaminophen (Tylenol 650 Mg Supp) 650 mg RC Q6H PRN PRN Reason: Fever >100.4 F Last Admin: 05/03/18 21:27 Dose: 650 mg Acetylcysteine (Acetylcysteine 20%) 4 ml IH BIDRESP [facility] Last Admin: 05/03/18 20:15 Dose: 4 ml Albuterol/Ipratropium (Duoneb 3 Mg/0.5 Mg (3 Ml) Ud) 3 ml IH Q2H PRN PRN Reason: Shortness of Breath Last Admin: 05/04/18 05:48 Dose: 3 ml Alprazolam (Xanax) 0.25 mg PO BID PRN; Protocol PRN Reason: Anxiety Stop: 05/07/18 19:36 Last Admin: 05/03/18 23:05 Dose: 0.25 mg Benztropine Mesylate (Cogentin) 1 mg GT AMHS [facility] Last Admin: 05/03/18 22:34 Dose: 1 mg Budesonide (Pulmicort Respules) 0.5 mg IH [id number] [facility] Last Admin: 05/03/18 20:15 Dose: 0.5 mg Enoxaparin Sodium (Lovenox) 30 mg SC DAILY [facility]; Protocol Last Admin: 05/03/18 10:40 Dose: 30 mg Famotidine (Pepcid) 40 mg PEG HS [facility] Last Admin: 05/03/18 22:32 Dose: 40 mg Fluoxetine HCl (Prozac) 40 mg GT DAILY [facility] Last Admin: 05/03/18 10:41 Dose: 40 mg Sodium Chloride (Sodium Chloride 0.45%) 1,000 mls @ 60 mls/hr IV .[id number] [facility] Last Admin: 05/02/18 23:51 Dose: 60 mls/hr Meropenem (Merrem Iv 1 Gm Premix) 1 gm in 50 mls @ 100 mls/hr IVPB Q8 [facility]; Protocol Stop: 05/09/18 22:01 Last Admin: 05/04/18 05:48 Dose: 100 mls/hr Vancomycin HCl (Vancomycin 1gm) 1 gm in 250 mls @ 167 mls/hr IVPB Q12H [facility]; Protocol Stop: 05/09/18 08:01 Last Admin: 05/03/18 22:32 Dose: 167 mls/hr Doxycycline Hyclate 100 mg/ (Sodium Chloride) 100 mls @ 100 mls/hr IVPB Q12 [facility]; Protocol Last Admin: 05/04/18 06:42 Dose: Not Given Levalbuterol HCl (Xopenex) 0.63 mg IH [id number] PRN PRN Reason: Shortness of Breath Oseltamivir Phosphate (Tamiflu Cap) 75 mg PO BID [facility]; Protocol Stop: 05/06/18 13:11 Last Admin: 05/03/18 17:27 Dose: 75 mg Risperidone (Risperdal Tab) 2 mg GT BID [facility]; Protocol Last Admin: 05/03/18 17:27 Dose: 2 mg - Labs Labs: 05/03/18 06:30 05/03/18 06:30 PT 19.3 SECONDS (9.4-12.5) H 04/30/18 17:40 INR 1.74 04/30/18 17:40 APTT 40.1 Seconds (26.9-38.3) H 04/30/18 17:40
[2018-05-04 07:05] LABS: HEMOGLOBIN 8.7 g/dL (12.0-16.0); MEAN CELL VOLUME 90.3 fl (80.0-105.0); MEAN CORPUSCULAR HEMOGLOBIN 28.1 pg (25.0-35.0); MEAN CORPUSCULAR HGB CONC 31.1 g/dl (31.0-37.0); RBC 3.1 10^6/uL (3.5-6.1); RED CELL DISTRIBUTION WIDTH 16.2 % (11.5-14.5); WHITE BLOOD COUNT 21.3 10^3/uL (4.5-11.0)
[2018-05-04 07:19] LABS: ALB/GLOB RATIO 0.9 (1.1-1.8); ALBUMIN 2.6 g/dL (3.0-4.8); ALT/SGPT 29 U/L (7-56); AST/SGOT 21 U/L (14-36); BLOOD UREA NITROGEN 9 mg/dL (7-21); CALCIUM 7.9 mg/dL (8.4-10.5); GFR NON-AFRICAN AMERICAN > 60
[2018-05-04] MEDS: Acetylcysteine 20% Inhal Soln (4ml) IH SCH ×2 (07:41→19:28)
[2018-05-04] MEDS: Budesonide 0.5 mg/2 ml Inhal Susp UD IH SCH ×2 (07:42→19:29)
[2018-05-04] MEDS: Vancomycin 1gm in NS 250ml 1 GM/250 ML BAG IVPB SCH ×2 (08:28→20:40)
[2018-05-04] MEDS: Enoxaparin 30 mg Syringe SC SCH (10:20)
[2018-05-04] MEDS: Sodium Chloride 0.45% 1,000 ML IV SCH (10:22)
--- NOTE | 2018-05-04 11:28 | PN ---
DATE: 05/04/2018 PULMONARY PROGRESS NOTE REFERRING PHYSICIAN: Manolo Mtz DO SUBJECTIVE: The patient is lying in bed. Nursing staff reports the patient was febrile last night. This morning temperature is 99.2. The patient is more awake, alert, and verbal, but mumbling most words. No hemoptysis, hematosis, hematuria, diarrhea or swelling reported. OBJECTIVE: GENERAL: No acute distress. VITAL SIGNS: Blood pressure 130/74, pulse 104, temperature 99.2 and oxygen saturation 91%. HEENT: Moist mucous membranes. NECK: Supple. No JVD. RESPIRATORY: Decreased breath sounds bilaterally. CARDIOVASCULAR: Tachycardic. S1 and S2. ABDOMEN: Soft and nontender. No distension. Feeding tube present. EXTREMITIES: No bilateral lower extremity edema. NEUROLOGIC: Awake, alert, verbal, mumbling most words. MEDICATIONS: Reviewed. Tylenol 650 mg rectally every 6 hours p.r.n. fever greater than 100.4, Mucomyst 4 mL inhalation twice a day, DuoNeb 3 mL inhalation every 2 hours p.r.n, Xanax 0.25 mg twice a day p.r.n., Cogentin 1 mg in the morning and evening, Pulmicort 0.5 mg every 12 hours, doxycycline 100 mg every 12 hours, Lovenox 30 mg subcutaneously daily, Pepcid 40 mg at bedtime, Prozac 40 mg daily, Xopenex 0.63 mg inhalation every 6 hours p.r.n., meropenem 1 g every 8 hours, Tamiflu 75 mg twice a day, Risperdal 2 mg twice a day, sodium chloride 0.45% 1000 mL at 60 mL per hour, vancomycin 1 g every 12 hours. LABORATORY DATA: Reviewed. WBC 21.3, RBC 3.1, hemoglobin 8.7, hematocrit 28, and platelets 386. Sodium 135, potassium 3.8, chloride 100, carbon dioxide 31, anion gap 7, BUN 9, creatinine 0.3, GFR is greater than 60, random glucose 148, calcium 7.9, total bilirubin 0.2, AST 21, ALT 29, alkaline phosphatase 108, total protein 5.7, albumin 2.6, globulin 3.1, albumin-globulin ratio 0.9. Vancomycin trough 8.6. Blood cultures preliminary no growth after 3 days. Urine culture final no growth. Chest CT shows no definite pulmonary embolism identified prominent infiltrate affects upper lobe and minimally affects the ligula. The variable pattern of the lower lobe is likely primarily related to compressive atelectasis distal mild bilateral pleural effusions, mild cardiomegaly, no pulmonary vascular congestion, mild lymphadenopathy in the mediastinum. Extremity ultrasound no deep venous thrombosis bilateral lower extremity. IMPRESSION AND PLAN: Health-care associated bacterial pneumonia, dementia, schizophrenia, mild to moderate pulmonary hypertension, some diastolic dysfunction, dysphagia, status post percutaneous endoscopic gastrostomy tube placement, anemia, depression and arthritis, high risk for aspiration. Continue antibiotic therapy as per Infectious Disease. Continue deep venous thrombosis, head of bed elevated at 45 degrees, aspiration precaution, continue gastric prophylaxis. The patient is more awake and alert this morning from previous visit. Continue inhaled bronchodilators. This patient is seen and examined with Dr. Girard. Discussed assessment and plan as described above. Thank you for this consult and we will follow with you. Edson Sorensen APN Rekha Girard MD [facility]
--- NOTE | 2018-05-04 13:03 | CP.PCM.APN ---
Subjective - Date & Time of Evaluation Date of Evaluation: 05/04/18 Time of Evaluation: 10:00 - Subjective Subjective: Pt seen and examined at bedside. She is more awake and verbal today. Denies chest pain or shortness of breath. Objective - Vital Signs/Intake and Output Vital Signs (last 24 hours): Temp Pulse Resp BP Pulse Ox 102.0 F H 104 H 28 H 130/74 91 L 05/04/18 10:35 05/04/18 06:00 05/04/18 06:00 05/04/18 06:00 05/04/18 06:00 Intake and Output: 05/04/18 05/04/18 06:59 18:59 Intake Total 0 Output Total 700 Balance -700 - Medications Medications: Current Medications Acetaminophen (Tylenol 650 Mg Supp) 650 mg RC Q6H PRN PRN Reason: Fever >100.4 F Last Admin: 05/04/18 10:35 Dose: 650 mg Acetylcysteine (Acetylcysteine 20%) 4 ml IH BIDRESP [facility] Last Admin: 05/04/18 07:41 Dose: 4 ml Albuterol/Ipratropium (Duoneb 3 Mg/0.5 Mg (3 Ml) Ud) 3 ml IH Q2H PRN PRN Reason: Shortness of Breath Last Admin: 05/04/18 07:40 Dose: 3 ml Alprazolam (Xanax) 0.25 mg PO BID PRN; Protocol PRN Reason: Anxiety Stop: 05/07/18 19:36 Last Admin: 05/03/18 23:05 Dose: 0.25 mg Benztropine Mesylate (Cogentin) 1 mg GT AMHS [facility] Last Admin: 05/04/18 10:20 Dose: 1 mg Budesonide (Pulmicort Respules) 0.5 mg IH [id number] [facility] Last Admin: 05/04/18 07:42 Dose: 0.5 mg Enoxaparin Sodium (Lovenox) 30 mg SC DAILY [facility]; Protocol Last Admin: 05/04/18 10:20 Dose: 30 mg Famotidine (Pepcid) 40 mg PEG HS [facility] Last Admin: 05/03/18 22:32 Dose: 40 mg Fluoxetine HCl (Prozac) 40 mg GT DAILY [facility] Last Admin: 05/04/18 10:20 Dose: 40 mg Sodium Chloride (Sodium Chloride 0.45%) 1,000 mls @ 60 mls/hr IV .[id number] [facility] Last Admin: 05/04/18 10:22 Dose: 60 mls/hr Meropenem (Merrem Iv 1 Gm Premix) 1 gm in 50 mls @ 100 mls/hr IVPB Q8 [facility]; Protocol Stop: 05/09/18 22:01 Last Admin: 05/04/18 05:48 Dose: 100 mls/hr Vancomycin HCl (Vancomycin 1gm) 1 gm in 250 mls @ 167 mls/hr IVPB Q12H [facility]; Protocol Stop: 05/09/18 08:01 Last Admin: 05/04/18 08:28 Dose: 167 mls/hr Doxycycline Hyclate 100 mg/ (Sodium Chloride) 100 mls @ 100 mls/hr IVPB Q12 [facility]; Protocol Last Admin: 05/04/18 10:23 Dose: 100 mls/hr Levalbuterol HCl (Xopenex) 0.63 mg IH [id number] PRN PRN Reason: Shortness of Breath Oseltamivir Phosphate (Tamiflu Cap) 75 mg PO BID [facility]; Protocol Stop: 05/06/18 13:11 Last Admin: 05/04/18 10:21 Dose: 75 mg Risperidone (Risperdal Tab) 2 mg GT BID [facility]; Protocol Last Admin: 05/04/18 10:21 Dose: 2 mg - Labs Labs: 05/04/18 06:30 05/04/18 06:30 PT 19.3 SECONDS (9.4-12.5) H 04/30/18 17:40 INR 1.74 04/30/18 17:40 APTT 40.1 Seconds (26.9-38.3) H 04/30/18 17:40 - Constitutional Appears: No Acute Distress - Head Exam Head Exam: ATRAUMATIC - Neck Exam Neck Exam: Normal Inspection - Respiratory Exam Respiratory Exam: Decreased Breath Sounds - Cardiovascular Exam Cardiovascular Exam: REGULAR RHYTHM, +S1, +S2 - GI/Abdominal Exam Additional comments: +PEG - Rectal Exam Rectal Exam: Deferred - Neurological Exam Neurological Exam: Alert, Awake - Skin Additional comments: +unstageable sacral wound Assessment and Plan - Assessment and Plan (Free Text) Assessment: Pt is a 72 y.o. female admitted for sepsis w/ respiratory failure secondary to HCAP. ITS Impressions Chest X-Ray 04/30/18 17:26 IMPRESSION: Poor inspiration with low lung volumes, crowded bronchovascular markings and mild bibasilar atelectasis. Additionally, there also appears to be diffuse micronodular infiltrates with more confluent opacities both lung bases right greater than left. Questionable small right-sided effusion. Abdomen/Pelvis CT 05/02/18 08:55 IMPRESSION: Bilateral pleural effusions and consolidation at the lung bases. Cholelithiasis. Haley catheter in the bladder. Extremity Ultrasound 05/03/18 10:53 IMPRESSION: No sonographic evidence for deep venous thrombosis in the visualized segments of both lower extremities. Chest CT 05/03/18 11:16 IMPRESSION: Heavily artifact examination due to patient's inability to adequately position as well as respiratory motion. No definite pulmonary embolus identified. Prominent infiltrate affects right upper lobe and minimally affects the lingula. Variable pattern at the lower lobes is likely primarily related to compressive atelectasis due to mild bilateral pleural effusions. Underlying pneumonia not excluded at the lower lobes symmetrically. Mild cardiomegaly. No pulmonary vascular congestion appreciable. Mild lymphadenopathy in the mediastinum. Plan: On Doxy IV/Merrem/Vanco per ID recs On IVFs Tmax today 102.0F - D/W ID, will repeat bcx & ordered ECHO r/o endocarditis. Pending repeat procal. Sacral wound - pending Surgery consult ID, surgery and pulm on consult Meds per MAR Will continue to follow
--- NOTE | 2018-05-04 13:37 | CP.PCM.CON ---
History of Present Illness - History of Present Illness History of Present Illness: Surgery Consult Note- Dr. Vaughan Reason for Consult: Sacral Decubitus ulcer 72F pmhx significant for dementia, schizophrenia, anemia, s/p PEG placement initially admitted to hospital w/ lethargy from correction. Patient Tmax febri le 102.7 earlier today w/ continued leukocytosis. Surgery was consulted for evaluation of Sacral decubitus ulcer. Patient was not able to answer questions completely. HPI was obtained from chart. Sacral ulcer stage II, no induration, fluctuance or active drainage. 12 pt ROS unobtainable due to mental status PMH: dementia, anemia, arthritis, schizophrenia, and depression PSH: Ovarian surgery, PEG tube placement ALL: phenytoin SocialHx: no tobacco, etoh use FH: non-contributory Review of Systems - Review of Systems All systems: reviewed and no additional remarkable complaints except - Constitutional Constitutional: As Per HPI Past Patient History - Infectious Disease Hx of Infectious Diseases: None - Past Social History Smoking Status: Never Smoked - CARDIAC Hx Cardiac Disorders: Yes - PULMONARY Hx Respiratory Disorders: No - NEUROLOGICAL Hx Neurological Disorder: Yes Hx Dementia: Yes - HEENT Hx HEENT Problems: No - RENAL Hx Chronic Kidney Disease: No - ENDOCRINE/METABOLIC Hx Endocrine Disorders: No - HEMATOLOGICAL/ONCOLOGICAL Hx Blood Disorders: Yes Hx Anemia: Yes Hx Cancer: No - INTEGUMENTARY Hx Dermatological Problems: Yes Other/Comment: thick dry toenails, dry ad slightly red heels both feet, dry skin lle, dry tongue and lips, dry skin to face - MUSCULOSKELETAL/RHEUMATOLOGICAL Hx Arthritis: Yes - GASTROINTESTINAL Hx Gastrointestinal Disorders: Yes (POOR APPETITE,ADMITTED FOR PEG INSERTION 03-30-18) Other/Comment: peg tube insertion 03/30/18 - GENITOURINARY/GYNECOLOGICAL Hx Genitourinary Disorders: Yes (URINARY RETENTION) Hx Incontinence: Yes Hx Sexually Transmitted Disorders: No Other/Comment: mammo at [facility] 2013 - PSYCHIATRIC Hx Substance Use: No - SURGICAL HISTORY Other/Comment: "ovary", peg insertion 03/30/18 - ANESTHESIA Hx Anesthesia Reactions: No Hx Malignant Hyperthermia: No Meds Allergies/Adverse Reactions: Allergies Allergy/AdvReac Type Severity Reaction Status Date / Time phenytoin sodium Allergy Intermediate RASH Verified 03/30/18 12:56 [From Dilantin] phenytoin sodium extended Allergy Intermediate RASH Verified 12/27/18 12:56 [From Dilantin] - Medications Medications: Current Medications Acetaminophen (Tylenol 650 Mg Supp) 650 mg RC Q6H PRN PRN Reason: Fever >100.4 F Last Admin: 05/04/18 10:35 Dose: 650 mg Acetylcysteine (Acetylcysteine 20%) 4 ml IH BIDRESP [facility] Last Admin: 05/04/18 07:41 Dose: 4 ml Albuterol/Ipratropium (Duoneb 3 Mg/0.5 Mg (3 Ml) Ud) 3 ml IH Q2H PRN PRN Reason: Shortness of Breath Last Admin: 05/04/18 13:06 Dose: 3 ml Alprazolam (Xanax) 0.25 mg PO BID PRN; Protocol PRN Reason: Anxiety Stop: 05/07/18 19:36 Last Admin: 05/03/18 23:05 Dose: 0.25 mg Benztropine Mesylate (Cogentin) 1 mg GT AMHS [facility] Last Admin: 05/04/18 10:20 Dose: 1 mg Budesonide (Pulmicort Respules) 0.5 mg IH [id number] [facility] Last Admin: 05/04/18 07:42 Dose: 0.5 mg Enoxaparin Sodium (Lovenox) 30 mg SC DAILY [facility]; Protocol Last Admin: 05/04/18 10:20 Dose: 30 mg Famotidine (Pepcid) 40 mg PEG HS [facility] Last Admin: 05/03/18 22:32 Dose: 40 mg Fluoxetine HCl (Prozac) 40 mg GT DAILY [facility] Last Admin: 05/04/18 10:20 Dose: 40 mg Sodium Chloride (Sodium Chloride 0.45%) 1,000 mls @ 60 mls/hr IV .[id number] [facility] Last Admin: 05/04/18 10:22 Dose: 60 mls/hr Meropenem (Merrem Iv 1 Gm Premix) 1 gm in 50 mls @ 100 mls/hr IVPB Q8 [facility]; Protocol Stop: 05/09/18 22:01 Last Admin: 05/04/18 05:48 Dose: 100 mls/hr Vancomycin HCl (Vancomycin 1gm) 1 gm in 250 mls @ 167 mls/hr IVPB Q12H [facility]; Protocol Stop: 05/09/18 08:01 Last Admin: 05/04/18 08:28 Dose: 167 mls/hr Doxycycline Hyclate 100 mg/ (Sodium Chloride) 100 mls @ 100 mls/hr IVPB Q12 [facility]; Protocol Last Admin: 05/04/18 10:23 Dose: 100 mls/hr Levalbuterol HCl (Xopenex) 0.63 mg IH [id number] PRN PRN Reason: Shortness of Breath Oseltamivir Phosphate (Tamiflu Cap) 75 mg PO BID [facility]; Protocol Stop: 05/06/18 13:11 Last Admin: 05/04/18 10:21 Dose: 75 mg Risperidone (Risperdal Tab) 2 mg GT BID [facility]; Protocol Last Admin: 05/04/18 10:21 Dose: 2 mg Physical Exam - Constitutional Appears: Non-toxic, No Acute Distress, Chronically Ill - Head Exam Head Exam: ATRAUMATIC - Eye Exam Eye Exam: EOMI. absent: Scleral icterus - ENT Exam ENT Exam: Mucous Membranes Moist - Respiratory Exam Respiratory Exam: Decreased Breath Sounds, NORMAL BREATHING PATTERN. absent: Accessory Muscle Use, Respiratory Distress - Cardiovascular Exam Cardiovascular Exam: Tachycardia. absent: Bradycardia, REGULAR RHYTHM - GI/Abdominal Exam GI & Abdominal Exam: Soft. absent: Distended, Firm, Guarding, Hernia, Rebound, Rigid, Tenderness - Extremities Exam Extremities exam: Positive for: pedal edema. Negative for: calf tenderness - Back Exam Additional comments: Sacrum ulcer stage II; no erythema, drainage measures 2x1cm - Neurological Exam Neurological exam: Altered - Psychiatric Exam Psychiatric exam: Normal Affect - Skin Skin Exam: Dry, Warm Results - Vital Signs Recent Vital Signs: Last Vital Signs Temp 102.0 F H 05/04/18 10:35 Pulse 104 H 05/04/18 06:00 Resp 28 H 05/04/18 06:00 BP 130/74 05/04/18 06:00 Pulse Ox 91 L 05/04/18 06:00 - Labs Result Diagrams: 05/04/18 06:30 05/04/18 06:30 Labs: Laboratory Results - last 24 hr 05/04/18 05/04/18 05/04/18 00:50 06:30 06:30 WBC 21.3 H RBC 3.10 L Hgb 8.7 L Hct 28.0 L MCV 90.3 MCH 28.1 MCHC 31.1 RDW 16.2 H Plt Count 386 MPV 10.0 Sodium 135 Potassium 3.8 Chloride 100 Carbon Dioxide 31 Anion Gap 7 L BUN 9 Creatinine 0.3 L Est GFR ( Amer) > 60 Est GFR (Non-Af Amer) > 60 Random Glucose 148 H Calcium 7.9 L Total Bilirubin 0.2 AST 21 ALT 29 Alkaline Phosphatase 108 Total Protein 5.7 L Albumin 2.6 L Globulin 3.1 Albumin/Globulin Ratio 0.9 L Vancomycin Trough 8.6 Assessment & Plan - Assessment and Plan (Free Text) Assessment: 72F w/ multiple co-morbidities severe sepsis w/ respiratory failure 2/2 B/L pulm HCAP; surgery consulted for sacral decubitus ulcer- Stage II Plan: - recommend optifoam - turn q2 - air mattress - no acute surgical intervention indicated at this time - medical management per primary and infectious disease team - further recs per Dr. Clement Glass PGY2
--- NOTE | 2018-05-04 14:37 | CP.PCM.PN ---
Subjective - Date & Time of Evaluation Date of Evaluation: 05/04/18 Time of Evaluation: 08:15 - Subjective Subjective: More awake today, still having fevers, less short of breath compared to previous days, no diarrhea. Objective - Vital Signs/Intake and Output Vital Signs (last 24 hours): Temp Pulse Resp BP Pulse Ox 100.7 F H 111 H 32 H 112/54 L 91 L 05/02/18 13:10 05/03/18 07:13 05/03/18 07:13 05/03/18 07:13 05/03/18 07:13 Intake and Output: 05/03/18 05/03/18 06:59 18:59 Intake Total 0 Output Total 800 1200 Balance -800 -1200 - Medications Medications: Current Medications Acetaminophen (Tylenol 650 Mg Supp) 650 mg RC Q6H PRN PRN Reason: Fever >100.4 F Last Admin: 05/03/18 03:27 Dose: 650 mg Acetylcysteine (Acetylcysteine 20%) 4 ml IH BIDRESP [facility] Albuterol/Ipratropium (Duoneb 3 Mg/0.5 Mg (3 Ml) Ud) 3 ml IH Q2H PRN PRN Reason: Shortness of Breath Alprazolam (Xanax) 0.25 mg PO BID PRN; Protocol PRN Reason: Anxiety Stop: 05/07/18 19:36 Benztropine Mesylate (Cogentin) 1 mg GT AMHS [facility] Last Admin: 05/03/18 10:40 Dose: 1 mg Budesonide (Pulmicort Respules) 0.5 mg IH [id number] [facility] Enoxaparin Sodium (Lovenox) 30 mg SC DAILY [facility]; Protocol Last Admin: 05/03/18 10:40 Dose: 30 mg Famotidine (Pepcid) 40 mg PEG HS [facility] Fluoxetine HCl (Prozac) 40 mg GT DAILY [facility] Last Admin: 05/03/18 10:41 Dose: 40 mg Sodium Chloride (Sodium Chloride 0.45%) 1,000 mls @ 60 mls/hr IV .[id number] [facility] Last Admin: 05/02/18 23:51 Dose: 60 mls/hr Meropenem (Merrem Iv 1 Gm Premix) 1 gm in 50 mls @ 100 mls/hr IVPB Q8 [facility]; Protocol Stop: 05/09/18 22:01 Last Admin: 05/03/18 05:05 Dose: 100 mls/hr Vancomycin HCl (Vancomycin 1gm) 1 gm in 250 mls @ 167 mls/hr IVPB Q12H [facility]; Pr otocol Stop: 05/09/18 08:01 Last Admin: 05/03/18 08:42 Dose: 167 mls/hr Doxycycline Hyclate 100 mg/ (Sodium Chloride) 100 mls @ 100 mls/hr IVPB Q12 [facility]; Protocol Levalbuterol HCl (Xopenex) 0.63 mg IH [id number] PRN PRN Reason: Shortness of Breath Oseltamivir Phosphate (Tamiflu Cap) 75 mg PO BID [facility]; Protocol Stop: 05/06/18 13:11 Last Admin: 05/03/18 10:42 Dose: 75 mg Risperidone (Risperdal Tab) 2 mg GT BID [facility]; Protocol Last Admin: 05/03/18 10:41 Dose: 2 mg - Labs Labs: 05/03/18 06:30 05/03/18 06:30 PT 19.3 SECONDS (9.4-12.5) H 04/30/18 17:40 INR 1.74 04/30/18 17:40 APTT 40.1 Seconds (26.9-38.3) H 04/30/18 17:40 - Constitutional Appears: Chronically Ill - Head Exam Head Exam: NORMAL INSPECTION - ENT Exam ENT Exam: Mucous Membranes Moist - Neck Exam Neck Exam: absent: Meningismus - Respiratory Exam Respiratory Exam: Decreased Breath Sounds, Rales (scattered) - Cardiovascular Exam Cardiovascular Exam: +S1, +S2 - GI/Abdominal Exam GI & Abdominal Exam: Soft. absent: Tenderness Assessment and Plan - Assessment and Plan (Free Text) Plan: Assessment severe sepsis with respiratory failure due to bilateral lower lobe HCAP and right sided HCAP R/O Influenza S/P PEG tube placement chronic anemia dementia arthritis schizophrenia depression Plan continue Vancomycin, Merrem and Tamiflu day 4 and added Doxycycline; will not use Zithromax or Levaquin since QTc is prolonged at 503 ms; cultures have been negative, follow up urine Legionella Ag Pulmonary recommendations reviewed reviewed CT chest showing multifocal infiltrates reviewed CXR, CT A/P will continue to trend WBC count and fever curve discussed with Dr. Mtz
--- NOTE | 2018-05-04 15:09 | PN ---
DATE: 05/04/2018 SUBJECTIVE: She was short of breath this morning. She is talking now much more alert than yesterday, which is good. She was yesterday so that the improvement. She is on acetylcysteine, Cogentin, doxycycline IV, DuoNeb, Lovenox, Merrem IV, Pepcid, Prozac, Pulmicort, Risperdal, IV fluids, Tamiflu, Tylenol, vancomycin IV, Xanax and Xopenex. PHYSICAL EXAMINATION: GENERAL: She does have a feeding tube in place. VITAL SIGNS: She has a 99.2 temperature, it was 100.1 the other days, now 99. So, it is coming down, the day before it was 101 and the day before that was 102. She has 104 pulse, 130/74 blood pressure, 28 respiratory rate, 91% O2 sat on room air. HEAD: Atraumatic, normocephalic. HEART: Regular rate. LUNGS: Decreased breath sounds but clear. ABDOMEN: Soft. EXTREMITIES: No edema. NEUROLOGIC: She is alert. LABORATORY DATA: Her white count is still 21.3, 8.7 hemoglobin, 28 hematocrit with 386 platelets. Sodium 135, potassium 3.8, BUN is 9, creatinine 0.3, GFR is greater than 60, sugar is 148, calcium 7.9, total bili is 0.2, AST is 21, ALT is 29, alk phos 108. ASSESSMENT AND PLAN: She does have a urinary tract infection, Proteus mirabilis, which is being treated by Infectious Disease, Pulmonary. Continue with IV antibiotics. There are prominent infiltrates in the right upper lobe and lingula. We will continue with aggressive treatment and care. Hopefully, the white count will start to drop, but mentally she is starting to come around which is good. We will try and keep her stimulated as possible. Manolo Mtz DO MTDD
--- NOTE | 2018-05-04 16:46 | CARD ---
APPROVED REPORT Date of service: 05/04/2018 EXAM: Two-dimensional and M-mode echocardiogram with Doppler and color Doppler. INDICATION Infection:Rule out subacute bacterial endocarditis 2D DIMENSIONS Left Atrium (2D)3.4 (1.6-4.0cm)IVSd1.0 (0.7-1.1cm) LVDd4.0 (3.9-5.9cm)PWd1.0 (0.7-1.1cm) LVDs2.8 (2.5-4.0cm)FS (%) 29.4 % LVEF (%)56.8 (>50%) M-Mode DIMENSIONS Aortic Root2.40 (2.2-3.7cm)Aortic Cusp Exc.1.50 (1.5-2.0cm) Aortic Valve AoV Peak Uwvdjztn425.0cm/Yvan Peak GR.12mmHg Mitral Valve MV E Tripzvkk578.0cm/sMV A Roszgzwx03.9cm/sE/A ratio1.2 TDI E/Lateral E'0.0E/Medial E'0.0 Pulmonary Valve PV Peak Ehiubqzj12.5cm/sPV Peak Grad.2mmHg Tricuspid Valve TR Peak [id number]/sRAP [id number] Peak Gr.40mmHg [id number] LEFT VENTRICLE The left ventricle is normal size. There is normal left ventricular wall thickness. The left ventricular function is normal.EF-55% There is normal LV segmental wall motion. Transmitral Doppler flow pattern is Grade II-pseudonormal filling dynamics. No left ventricle thrombus noted on this study. There is no ventricular septal defect visualized. There is no left ventricular aneurysm. There is no mass noted in the left ventricle. RIGHT VENTRICLE The right ventricle is normal size. There is normal right ventricular wall thickness. The right ventricular systolic function is normal. ATRIA The left atrium size is normal. The right atrium size is normal. The interatrial septum is intact with no evidence for an atrial septal defect. AORTIC VALVE The aortic valve is mildly thickened but opens well. The aortic valve is mildly to moderately sclerotic. There is trace aortic regurgitation. Aortic Sclerosis Vs Mild There is no aortic valvular vegetation. MITRAL VALVE The mitral valve is thickened but opens well. Mitral regurgitation is mild. There is no mitral valve stenosis. There is no evidence of mitral valve prolapse. TRICUSPID VALVE The tricuspid valve leaflets are thickened , but open well. There is mild tricuspid regurgitation.RVSP-50 mmof Hg. There is mild pulmonary hypertension. There is no tricuspid valve stenosis. There is no tricuspid valve prolapse or vegetation. PULMONIC VALVE The pulmonary valve is normal in structure. There is trace pulmonic valvular regurgitation. There is no pulmonic valvular stenosis. GREAT VESSELS The aortic root is normal in size. The ascending aorta is normal in size. The pulmonary artery is normal. The IVC is normal in size and collapses >50% with inspiration. PERICARDIAL EFFUSION There is small left pleural effusion. There is a trace pericardial effusion. <Conclusion> Normal Chamber Size. EF-55%. There is trace aortic regurgitation. Mitral regurgitation is mild. There is mild tricuspid regurgitation.RVSP-50 mmof Hg. There is mild pulmonary hypertension. There is trace pulmonic valvular regurgitation. The IVC is normal in size and collapses >50% with inspiration. There is a trace pericardial effusion. No vegetation or thrombus noted.
[2018-05-04] MEDS: Levalbuterol 0.63 MG/3 ML Inhal Soln UD IH PRN (19:29)
[2018-05-05] MEDS: Meropenem IV 1 gm in NS 1 GM/50 ML BAG IVPB SCH ×3 (05:39→22:43)
[2018-05-05 07:05] LABS: HEMOGLOBIN 8.7 g/dL (12.0-16.0); MEAN CELL VOLUME 89.7 fl (80.0-105.0); MEAN CORPUSCULAR HEMOGLOBIN 28.1 pg (25.0-35.0); MEAN CORPUSCULAR HGB CONC 31.3 g/dl (31.0-37.0); MEAN PLATELET VOLUME 9.9 fl (7.0-11.0); RBC 3.1 10^6/uL (3.5-6.1); WHITE BLOOD COUNT 18.8 10^3/uL (4.5-11.0)
[2018-05-05] MEDS: Levalbuterol 0.63 MG/3 ML Inhal Soln UD IH PRN (07:15)
[2018-05-05] MEDS: Acetylcysteine 20% Inhal Soln (4ml) IH SCH ×2 (07:15→19:18)
[2018-05-05] MEDS: Budesonide 0.5 mg/2 ml Inhal Susp UD IH SCH ×2 (07:15→19:18)
[2018-05-05 07:35] LABS: ALB/GLOB RATIO 0.8 (1.1-1.8); ALBUMIN 2.7 g/dL (3.0-4.8); ALT/SGPT 13 U/L (7-56); AST/SGOT 28 U/L (14-36); BLOOD UREA NITROGEN 7 mg/dL (7-21); CALCIUM 8.5 mg/dL (8.4-10.5); GFR NON-AFRICAN AMERICAN > 60
[2018-05-05] MEDS: Vancomycin 1gm in NS 250ml 1 GM/250 ML BAG IVPB SCH ×2 (08:37→21:00)
[2018-05-05] MEDS: Enoxaparin 30 mg Syringe SC SCH (10:44)
[2018-05-05] MEDS: Mupirocin 2% Ointment 15 GM TUBE NS SCH ×2 (10:49→17:16)
--- NOTE | 2018-05-05 12:03 | PN ---
DATE: 05/05/2018 SUBJECTIVE: She is in an isolated room. She is alert, talking better. She is on acetylcysteine, Bactroban ointment, Cogentin, doxycycline IV, DuoNeb, Lovenox, Merrem IV, Pepcid, Prozac, Pulmicort, Risperdal, IV fluids, Tamiflu, Tylenol, vancomycin IV, Xanax and Xopenex. PHYSICAL EXAMINATION: VITAL SIGNS: She has a 98 temperature, finally came down, it was 102 and is 98.6, 99.3, and 98. She has 94 pulse, 142/77 blood pressure, 16 respiratory rate, and 95% saturation on 5 liters. HEENT: Head is atraumatic and normocephalic. HEART: Regular rate. LUNGS: Decreased breath sounds but clear. ABDOMEN: Soft with a PEG tube. EXTREMITIES: No edema. LABORATORY DATA: Her white count is finally down to 18.8; it was as high as 23 the first time in a while she has been in the teens, hoping to get it under 10; 8.7 hemoglobin; 27.8 hematocrit with 451 platelets. She has a 137 sodium, potassium 4.1, BUN 7, creatinine 0.3. GFR is greater than 60. Sugar is 124, calcium 8.5, total bili is 0.1. AST is 28, ALT is 13, alk phos 107, and total protein is 6. Procalcitonin is high at 0.68, it went up from 0.3. ASSESSMENT AND PLAN: She is not out of the lieberman yet, but she is definitely improving on her own. She has Proteus mirabilis in the urine. Will continue the aggressive treatment and care as per Infectious Disease and Surgery. Still with fevers, IV antibiotics. Severe sepsis with respiratory failure, bilateral lower lobe pneumonia, influenza. Continue aggressive treatment and care as per Infectious Disease. Manolo Mtz DO
--- NOTE | 2018-05-05 12:11 | PN ---
DATE: 05/05/2018 PULMONARY PROGRESS NOTE REFERRING PHYSICIAN: Manolo Mtz DO SUBJECTIVE: The patient is lying in bed. No acute distress. Afebrile overnight. No hemoptysis, hematemesis, hematuria, diarrhea or leg swelling reported. OBJECTIVE: GENERAL: No acute distress. VITAL SIGNS: Blood pressure 142/77, pulse 94, temperature 98 and oxygen saturation 95% on nasal cannula. HEENT: Moist mucous membranes. NECK: Supple. No JVD. RESPIRATORY: Decreased breath sounds bilaterally. CARDIOVASCULAR: Tachycardic. S1 and S2. ABDOMEN: Soft and nontender. No distension. Feeding tube present. EXTREMITIES: No bilateral lower extremity edema. NEUROLOGIC: Awake, alert and nonverbal. MEDICATIONS: Reviewed. Tylenol 650 mg rectally every 6 hours p.r.n. fever greater than 100.4, Mucomyst 4 mL inhalation twice a day, DuoNeb 3 mL inhalation every 2 hours p.r.n, Xanax 0.25 mg p.o. twice a day, Cogentin 1 mg a.m. and at bedtime, Pulmicort 0.5 mg every 12 hours, doxycycline 100 mg every 12 hours, Lovenox 30 mg subcutaneously daily, Pepcid 40 mg at bedtime, Prozac 40 mg daily, Xopenex 0.63 mg inhalation every 6 hours p.r.n., meropenem 1 g every 8 hours, Bactroban nasal twice a day, Tamiflu 75 mg twice a day, Risperdal 2 mg twice a day, sodium chloride 0.45% 1000 mL at 60 mL per hour and vancomycin 1 g every 12 hours. LABORATORY DATA: Reviewed. WBC 18.8, RBC 3.1, hemoglobin 8.7, hematocrit 27.8 and platelets 451. Sodium 137, potassium 4.1, chloride 99, carbon dioxide 35, anion gap 7, BUN 7, creatinine 0.3, GFR is greater than 60, random glucose 124, calcium 8.5, total bilirubin 0.1, AST 28, ALT 30, alkaline phosphatase 107, total protein 6.0, albumin 2.7, globulin 3.3 and albumin-globulin ratio 0.8. Procalcitonin 0.68. Blood cultures preliminary no growth after 4 days. 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 Echocardiogram shows ejection fraction 55%, trace aortic regurgitation mild, mitral regurgitation is mild, mild tricuspid regurgitation, RVSP 50, mild pulmonary hypertension, trace pulmonic valvular regurgitation, trace pericardial effusion and no vegetation or thrombus noted. IMPRESSION AND PLAN: Health-care associated bacterial pneumonia, dementia, schizophrenia, mild pulmonary hypertension, some diastolic dysfunction, dysphagia, status post percutaneous endoscopic gastrostomy tube placement, anemia, depression and arthritis. The patient is high risk for aspiration. Continue antibiotic therapy as per Infectious Disease. Continue deep venous thrombosis prophylaxis. Head of bed elevated at 45 degrees, gastric prophylaxis. The patient is alert this morning. We will decrease Xanax 0.125 mg twice a day p.r.n. We will decrease Risperdal to 1 mg twice a day as patient is at increased risk for aspiration due to lethargy. Pneumonia seems to be improving clinically due to decrease in procalcitonin level. Need to monitor patient closely due to decrease in antipsychotic medication. Pressure ulcer precaution and aspiration precaution. Head of bed elevated at 45 degrees. Continue inhaled bronchodilators. This patient is seen and examined with Dr. Girard. Discussed assessment and plan as described above. Thank you for this consult. We will follow with you. Edson Sorensen APN Rekha Girard MD MTDMelanie
--- NOTE | 2018-05-05 13:09 | CP.PCM.PN ---
Subjective - Date & Time of Evaluation Date of Evaluation: 05/05/18 Time of Evaluation: 10:50 - Subjective Subjective: Patient is less tachypneic today, still had fever yesterday , but no far this morning. Objective - Vital Signs/Intake and Output Vital Signs (last 24 hours): Temp Pulse Resp BP Pulse Ox 102.0 F H 104 H 28 H 130/74 91 L 05/04/18 10:35 05/04/18 06:00 05/04/18 06:00 05/04/18 06:00 05/04/18 06:00 Intake and Output: 05/04/18 05/04/18 06:59 18:59 Intake Total 0 Output Total 700 Balance -700 - Medications Medications: Current Medications Acetaminophen (Tylenol 650 Mg Supp) 650 mg RC Q6H PRN PRN Reason: Fever >100.4 F Last Admin: 05/04/18 10:35 Dose: 650 mg Acetylcysteine (Acetylcysteine 20%) 4 ml IH BIDRESP [facility] Last Admin: 05/04/18 07:41 Dose: 4 ml Albuterol/Ipratropium (Duoneb 3 Mg/0.5 Mg (3 Ml) Ud) 3 ml IH Q2H PRN PRN Reason: Shortness of Breath Last Admin: 05/04/18 13:06 Dose: 3 ml Alprazolam (Xanax) 0.25 mg PO BID PRN; Protocol PRN Reason: Anxiety Stop: 05/07/18 19:36 Last Admin: 05/03/18 23:05 Dose: 0.25 mg Benztropine Mesylate (Cogentin) 1 mg GT AMHS [facility] Last Admin: 05/04/18 10:20 Dose: 1 mg Budesonide (Pulmicort Respules) 0.5 mg IH [id number] [facility] Last Admin: 05/04/18 07:42 Dose: 0.5 mg Enoxaparin Sodium (Lovenox) 30 mg SC DAILY [facility]; Protocol Last Admin: 05/04/18 10:20 Dose: 30 mg Famotidine (Pepcid) 40 mg PEG HS [facility] Last Admin: 05/03/18 22:32 Dose: 40 mg Fluoxetine HCl (Prozac) 40 mg GT DAILY [facility] Last Admin: 05/04/18 10:20 Dose: 40 mg Sodium Chloride (Sodium Chloride 0.45%) 1,000 mls @ 60 mls/hr IV .[id number] [facility] Last Admin: 05/04/18 10:22 Dose: 60 mls/hr Meropenem (Merrem Iv 1 Gm Premix) 1 gm in 50 mls @ 100 mls/hr IVPB Q8 [facility]; Protocol Stop: 05/09/18 22:01 Last Admin: 05/04/18 14:06 Dose: 100 mls/hr Vancomycin HCl (Vancomycin 1gm) 1 gm in 250 mls @ 167 mls/hr IVPB Q12H [facility]; Protocol Stop: 05/09/18 08:01 Last Admin: 05/04/18 08:28 Dose: 167 mls/hr Doxycycline Hyclate 100 mg/ (Sodium Chloride) 100 mls @ 100 mls/hr IVPB Q12 [facility]; Protocol Last Admin: 05/04/18 10:23 Dose: 100 mls/hr Levalbuterol HCl (Xopenex) 0.63 mg IH [id number] PRN PRN Reason: Shortness of Breath Oseltamivir Phosphate (Tamiflu Cap) 75 mg PO BID [facility]; Protocol Stop: 05/06/18 13:11 Last Admin: 05/04/18 10:21 Dose: 75 mg Risperidone (Risperdal Tab) 2 mg GT BID [facility]; Protocol Last Admin: 05/04/18 10:21 Dose: 2 mg - Labs Labs: 05/04/18 06:30 05/04/18 06:30 PT 19.3 SECONDS (9.4-12.5) H 04/30/18 17:40 INR 1.74 04/30/18 17:40 APTT 40.1 Seconds (26.9-38.3) H 04/30/18 17:40 - Constitutional Appears: No Acute Distress, Chronically Ill - Head Exam Head Exam: NORMAL INSPECTION - ENT Exam ENT Exam: Mucous Membranes Moist - Neck Exam Neck Exam: absent: Meningismus - Respiratory Exam Respiratory Exam: Decreased Breath Sounds - Cardiovascular Exam Cardiovascular Exam: +S1, +S2 - GI/Abdominal Exam GI & Abdominal Exam: Soft. absent: Tenderness Assessment and Plan - Assessment and Plan (Free Text) Plan: Assessment severe sepsis with respiratory failure due to multifocal HCAP R/O Influenza sacral decubitus ulcer S/P PEG tube placement chronic anemia dementia arthritis schizophrenia depression Plan continue Vancomycin, Merrem and Tamiflu day 5 and added Doxycycline; will not us e Zithromax or Levaquin since QTc is prolonged at 503 ms; cultures have been negative, follow up urine Legionella Ag Pulmonary recommendations reviewed reviewed CT chest showing multifocal infiltrates reviewed CXR, CT A/P will continue to trend WBC count and fever curve discussed with Dr. Mtz surgery following the decubitus ulcer
[2018-05-05] MEDS: Collagenase 250 Units/gm Ointment(30 gm) TOP SCH (17:21)
[2018-05-05] MEDS: Sodium Chloride 0.45% 1,000 ML IV SCH (22:00)
[2018-05-06] MEDS: Meropenem IV 1 gm in NS 1 GM/50 ML BAG IVPB SCH ×3 (05:57→21:03)
[2018-05-06] MEDS: Sodium Chloride 0.45% 1,000 ML IV SCH ×2 (06:03→17:35)
[2018-05-06 07:48] LABS: HEMOGLOBIN 8.6 g/dL (12.0-16.0); MEAN CELL VOLUME 89.5 fl (80.0-105.0); MEAN CORPUSCULAR HEMOGLOBIN 27.4 pg (25.0-35.0); MEAN CORPUSCULAR HGB CONC 30.6 g/dl (31.0-37.0); MEAN PLATELET VOLUME 9.6 fl (7.0-11.0); RBC 3.14 10^6/uL (3.5-6.1); RED CELL DISTRIBUTION WIDTH 15.8 % (11.5-14.5); WHITE BLOOD COUNT 13.1 10^3/uL (4.5-11.0)
[2018-05-06 08:11] LABS: ALB/GLOB RATIO 0.8 (1.1-1.8); ALBUMIN 2.8 g/dL (3.0-4.8); ALT/SGPT 30 U/L (7-56); AST/SGOT 30 U/L (14-36); BLOOD UREA NITROGEN 10 mg/dL (7-21); CALCIUM 8.5 mg/dL (8.4-10.5); GFR NON-AFRICAN AMERICAN > 60
[2018-05-06] MEDS: Acetylcysteine 20% Inhal Soln (4ml) IH SCH (08:22)
[2018-05-06] MEDS: Budesonide 0.5 mg/2 ml Inhal Susp UD IH SCH (08:22)
[2018-05-06] MEDS: Levalbuterol 0.63 MG/3 ML Inhal Soln UD IH PRN (08:23)
[2018-05-06] MEDS: Enoxaparin 30 mg Syringe SC SCH (10:41)
[2018-05-06] MEDS: Vancomycin 1gm in NS 250ml 1 GM/250 ML BAG IVPB SCH ×2 (10:43→21:02)
[2018-05-06] MEDS: Ferrous Sulfate 300 mg/5 mL Liq UD PO SCH ×2 (12:08→17:05)
[2018-05-06] MEDS: Mupirocin 2% Ointment 15 GM TUBE NS SCH ×2 (12:14→17:17)
[2018-05-06] MEDS: Collagenase 250 Units/gm Ointment(30 gm) TOP SCH (12:39)
--- NOTE | 2018-05-06 14:52 | PN ---
DATE: 05/06/2018 SUBJECTIVE: I saw her resting comfortably in her bed this morning. She is in good spirits. She is talking. She is quiet. She feels better. Overall, she looks better. PHYSICAL EXAMINATION: VITAL SIGNS: She has 98.3 temp, 97 pulse, 150/79 blood pressure, 20 respiratory rate, 96% O2 sat on 4 liters. HEENT: Head: Atraumatic and normocephalic. HEART: Regular rate. LUNGS: Clear to auscultation. ABDOMEN: Soft. Positive PEG. EXTREMITIES: No edema. MEDICATIONS: She is currently on acetylcysteine, Bactroban cream, Cogentin, doxycycline IV, DuoNeb, Lovenox, Merrem IV, Pepcid, Prozac, Pulmicort, Risperdal, Santyl, IV fluids, Tamiflu, Tylenol, vancomycin, Xanax and Xopenex. LABORATORY DATA: Her white count is finally down to 13.1, we are trying to get it under 10, hemoglobin is 8.6, hematocrit 28.1, platelets of 512. She has a 135 sodium, potassium 4.4, BUN 10, creatinine 0.3. GFR is greater than 60. Sugar is 142, calcium 8.5, total bili is 0.2. AST is 30, ALT is 30, alk phos 102, total protein is 6.2. Procalcitonin is high at 0.68, but it came down from 3, definitely a big change in her numbers. ASSESSMENT: She is being seen by Infectious Disease, Pulmonary. She has vancomycin, Merrem, Tamiflu and doxycycline. She has severe sepsis, respiratory failure, multifocal pneumonia, sacral ulcer. PLAN: Hopefully, in the next few days, if she is off the medications, we could discharge her. I am going to put her on some iron because she is a tad anemic and I will see how she does tomorrow. Manolo Mtz DO
--- NOTE | 2018-05-06 17:22 | CP.PCM.PN ---
Subjective - Date & Time of Evaluation Date of Evaluation: 05/06/18 Time of Evaluation: 09:25 - Subjective Subjective: More awake today, no fevers overnight, not in distress, still with cough. Objective - Vital Signs/Intake and Output Vital Signs (last 24 hours): Temp Pulse Resp BP Pulse Ox 98 F 94 H 16 142/77 95 05/05/18 06:00 05/05/18 06:00 05/05/18 06:00 05/05/18 06:00 05/05/18 06:00 Intake and Output: 05/05/18 05/05/18 06:59 18:59 Output Total 2200 Balance -2200 - Medications Medications: Current Medications Acetaminophen (Tylenol 650 Mg Supp) 650 mg RC Q6H PRN PRN Reason: Fever >100.4 F Last Admin: 05/04/18 10:35 Dose: 650 mg Acetylcysteine (Acetylcysteine 20%) 4 ml IH BIDRESP [facility] Last Admin: 05/05/18 07:15 Dose: 4 ml Albuterol/Ipratropium (Duoneb 3 Mg/0.5 Mg (3 Ml) Ud) 3 ml IH Q2H PRN PRN Reason: Shortness of Breath Last Admin: 05/04/18 13:06 Dose: 3 ml Alprazolam (Xanax) 0.125 mg PO BID PRN; Protocol PRN Reason: Anxiety Stop: 05/07/18 19:36 Benztropine Mesylate (Cogentin) 1 mg GT AMHS [facility] Last Admin: 05/05/18 10:45 Dose: 1 mg Budesonide (Pulmicort Respules) 0.5 mg IH [id number] [facility] Last Admin: 05/05/18 07:15 Dose: 0.5 mg Enoxaparin Sodium (Lovenox) 30 mg SC DAILY [facility]; Protocol Last Admin: 05/05/18 10:44 Dose: 30 mg Famotidine (Pepcid) 40 mg PEG HS [facility] Last Admin: 05/04/18 22:36 Dose: 40 mg Fluoxetine HCl (Prozac) 40 mg GT DAILY [facility] Last Admin: 05/05/18 10:44 Dose: 40 mg Sodium Chloride (Sodium Chloride 0.45%) 1,000 mls @ 60 mls/hr IV .[id number] [facility] Last Admin: 05/04/18 10:22 Dose: 60 mls/hr Meropenem (Merrem Iv 1 Gm Premix) 1 gm in 50 mls @ 100 mls/hr IVPB Q8 [facility]; Protocol Stop: 05/09/18 22:01 Last Admin: 05/05/18 05:39 Dose: 100 mls/hr Vancomycin HCl (Vancomycin 1gm) 1 gm in 250 mls @ 167 mls/hr IVPB Q12H [facility]; Protocol Stop: 05/09/18 08:01 Last Admin: 05/05/18 08:37 Dose: 167 mls/hr Doxycycline Hyclate 100 mg/ (Sodium Chloride) 100 mls @ 100 mls/hr IVPB Q12 [facility]; Protocol Last Admin: 05/05/18 10:44 Dose: 100 mls/hr Levalbuterol HCl (Xopenex) 0.63 mg IH [id number] PRN PRN Reason: Shortness of Breath Last Admin: 05/05/18 07:15 Dose: 0.63 mg Mupirocin (Bactroban Ointment) 0 gm NS BID [facility] Stop: 05/09/18 18:01 Last Admin: 05/05/18 10:49 Dose: 1 unit Oseltamivir Phosphate (Tamiflu Cap) 75 mg PO BID [facility]; Protocol Stop: 05/06/18 13:11 Last Admin: 05/05/18 10:45 Dose: 75 mg Risperidone (Risperdal Tab) 1 mg GT BID [facility]; Protocol - Labs Labs: 05/05/18 06:20 05/05/18 06:20 PT 19.3 SECONDS (9.4-12.5) H 04/30/18 17:40 INR 1.74 04/30/18 17:40 APTT 40.1 Seconds (26.9-38.3) H 04/30/18 17:40 - Constitutional Appears: No Acute Distress, Chronically Ill - Head Exam Head Exam: NORMAL INSPECTION - ENT Exam ENT Exam: Mucous Membranes Moist - Neck Exam Neck Exam: absent: Meningismus - Respiratory Exam Respiratory Exam: Decreased Breath Sounds - Cardiovascular Exam Cardiovascular Exam: +S1, +S2 - GI/Abdominal Exam GI & Abdominal Exam: Soft. absent: Tenderness Assessment and Plan - Assessment and Plan (Free Text) Plan: Assessment severe sepsis with respiratory failure due to multifocal HCAP R/O Influenza sacral decubitus ulcer S/P PEG tube placement chronic anemia dementia arthritis schizophrenia depression Plan continue Vancomycin, Merrem and Doxycycline day 6 for up to 7-8 days; completed course of Tamiflu Pulmonary recommendations reviewed reviewed CT chest showing multifocal infiltrates reviewed CXR, CT A/P will continue to trend WBC count and fever curve (improving and trending down) discussed with Dr. Mtz surgery following the decubitus ulcer
--- NOTE | 2018-05-07 00:16 | PN ---
DATE: 05/06/2018 PULMONARY PROGRESS NOTE REFERRING PHYSICIAN: Manolo Mtz DO SUBJECTIVE: She is lying in the bed, watching TV. is at bedside. Much more awake and alert. Cough is much better. No nausea, vomiting, or diarrhea. No leg pain or leg swelling. OBJECTIVE: GENERAL: No acute distress. VITAL SIGNS: Temperature is 99, heart is 106, respiratory rate is 20, blood pressure 126/75, pulse ox 95% on 4 L nasal cannula. HEENT: Moist mucous membranes. Crowded airway. NECK: Supple. No JVD. LUNGS: Have fair airflow with scattered rhonchi. HEART: S1 and S2. ABDOMEN: Soft, nontender. No organomegaly. EXTREMITIES: Not much edema. NEUROLOGIC: Awake, alert. Does follow simple commands but confused. MEDICATIONS: She is on Mucomyst inhaled twice a day, Bactroban ointment to the affected area, Cogentin 1 mg G-tube a.m. and at bedtime, doxycycline 100 mg twice a day, DuoNeb every 2 hours p.r.n., ferrous sulfate 300 mg twice a day, Lovenox 30 mg subcu daily, meropenem 1 g IV every 8 hours, Pepcid 40 mg daily, Prozac 40 mg daily, Pulmicort inhaled twice a day, Risperdal 1 mg twice a day, Santyl to the affected area, Tylenol p.r.n., vancomycin 1 g IV every 12 hours, Xanax 0.5 mg twice a day p.r.n., Xopenex inhaler every 6 hours p.r.n. LABORATORY DATA: Shows hemoglobin 8.6, hematocrit 28.1, WBC 13.1, platelet is 512. Sodium 135, potassium 4.4, chloride 98, bicarbonate 31, BUN 10, creatinine 0.3, glucose 142, calcium is 8.5. AST 30, ALT 30, alk phos is 102, albumin is 2.8. Microbiology: Blood culture, there is no growth. Urine originally has Proteus mirabilis. IMPRESSION AND PLAN: Healthcare-associated aspiration pneumonia, urinary tract infection, dementia, schizophrenia, mild pulmonary hypertension, cardiac diastolic dysfunction, feeding difficulty, requiring gastrostomy tube, anemia, depression, arthritis. Case was discussed with her at bedside. All their questions were answered. Pulmonary point of view, she is doing much better. Continue antibiotics. Keep her head at 45 degrees. Careful with sedation. Gastric prophylaxis. Deep venous thrombosis prophylaxis. Pressure ulcer precaution. Thank you and we will follow with you. Rekha Girard MD
[2018-05-07] MEDS: Meropenem IV 1 gm in NS 1 GM/50 ML BAG IVPB SCH (05:37)
[2018-05-07 07:56] VITALS: BP 126/80; PULSE 103; RESP 16; TEMP 98; O2SAT 97
[2018-05-07] MEDS: Acetylcysteine 20% Inhal Soln (4ml) IH SCH (08:21)
[2018-05-07] MEDS: Levalbuterol 0.63 MG/3 ML Inhal Soln UD IH PRN (08:21)
[2018-05-07] MEDS: Budesonide 0.5 mg/2 ml Inhal Susp UD IH SCH (08:21)
[2018-05-07 08:48] LABS: HEMOGLOBIN 8.8 g/dL (12.0-16.0); MEAN CELL VOLUME 88.5 fl (80.0-105.0); MEAN CORPUSCULAR HEMOGLOBIN 27.4 pg (25.0-35.0); MEAN PLATELET VOLUME 9.5 fl (7.0-11.0); RBC 3.21 10^6/uL (3.5-6.1); RED CELL DISTRIBUTION WIDTH 15.7 % (11.5-14.5)
[2018-05-07 08:58] LABS: WHITE BLOOD COUNT 9.1 10^3/uL (4.5-11.0)
[2018-05-07] MEDS: Vancomycin 1gm in NS 250ml 1 GM/250 ML BAG IVPB SCH (09:01)
[2018-05-07] MEDS: Ferrous Sulfate 300 mg/5 mL Liq UD PO SCH (09:03)
[2018-05-07] MEDS: Enoxaparin 30 mg Syringe SC SCH (09:03)
[2018-05-07 09:10] LABS: ALB/GLOB RATIO 0.8 (1.1-1.8); ALBUMIN 2.9 g/dL (3.0-4.8); ALT/SGPT 23 U/L (7-56); AST/SGOT 36 U/L (14-36); BLOOD UREA NITROGEN 12 mg/dL (7-21); CALCIUM 8.7 mg/dL (8.4-10.5); GFR NON-AFRICAN AMERICAN > 60
[2018-05-07] MEDS: Collagenase 250 Units/gm Ointment(30 gm) TOP SCH (09:15)
[2018-05-07] MEDS: Mupirocin 2% Ointment 15 GM TUBE NS SCH (09:15)
--- NOTE | 2018-05-07 18:34 | PN ---
DATE: 05/07/2018 SUBJECTIVE: The patient is seen earlier today in room 563, bed one. No fevers, no chills. No nausea. Doing well. PHYSICAL EXAMINATION: VITAL SIGNS: Temperature is 98, blood pressure is 126/80, respiratory rate of 18, heart rate of 103. HEENT: Unremarkable. NECK: Supple. CARDIOPULMONARY: Normal S1, S2. LUNGS: Have decreased breath sounds. ABDOMEN: Soft, nontender. LABORATORY DATA: Reveals the patient's white count is 9.1, hemoglobin of 8. Chemistries are noted and reviewed. Procalcitonin is noted on the and toxicology is noted and serology. Influenza is negative and Legionella is negative. Microbiology reveals the cultures are negative and blood cultures are negative and the urine culture initially had Proteus mirabilis and the sensitivity is noted, although did the urinalysis. Only initially at 5 to 10 wbc's and many epithelial cells. ASSESSMENT AND PLAN: This 72-year-old female with a severe sepsis, respiratory failure due to multifocal healthcare-associated pneumonia with sacral decubitus ulcer status post PEG tube placement and chronic anemia, dementia, arthritis, schizophrenia and depression, on 7 days of vancomycin, meropenem and doxycycline. Completed a course of Tamiflu. Case discussed with Dr. Manolo Mtz. The patient is doing well. Normal white count, afebrile, was completed 7 days of antibiotics. Would follow imaging to resolution of the infiltrates. No further antibiotics necessary after today and follow up with PMD with the pulmonary for CT and resolution of the infiltrates. The patient is doing well today. Corby Ricci MD
--- NOTE | 2018-05-08 03:12 | DS ---
HISTORY OF PRESENT ILLNESS: She is being sent back to [facility] today. I discussed this with the Infectious Disease doctor, they are stopping her antibiotics. At this time, she is in and out mentally at her baseline. PHYSICAL EXAMINATION: VITAL SIGNS: She has a 98 temp, 103 pulse, 126/80 blood pressure, 16 respiratory rate, 97% O2 sat on room air. HEENT: Head is atraumatic and normocephalic. HEART: Regular rate. LUNGS: Decreased breath sounds, but clear. ABDOMEN: Soft. Feeding tube in place. EXTREMITIES: No edema. She is now off the antibiotics. LABORATORY DATA: Her white count is now 9.1, best it has been, 8.8 hemoglobin, 28.4 hematocrit with 617 platelets. INR is 1.74. Sodium 136, potassium 4.6, BUN 12, creatinine 0.3, GFR is greater than 60, sugar is 117, calcium is 8.7, total bili is 0.2, AST is 36, ALT 43, alkaline phosphatase 92, total protein 6.6. MEDICATIONS: She will be going home or back to [facility] on Bactroban cream to the nose, Cogentin, iron, Pepcid, Prozac, Pulmicort, Risperdal, Santyl for the sacrum, Xanax, and Xopenex. ASSESSMENT AND PLAN: I will be following there tomorrow at [facility]. She was seen by Pulmonary and Infectious Disease and both feel that she is doing better and that we can be discharging her. She had severe sepsis, respiratory failure, [facility] community-acquired pneumonia, sacral decubitus ulcer. She has a percutaneous endoscopic gastrostomy tube, chronic anemia, and she is well enough to go back to her subacute rehabilitation. Manolo Mtz DO
== END 2018-05-07 13:24 | DRG 871 ==
LOC: ED 16:55 → ERH 19:31 → 5RNO 21:03
PROVIDERS: ADMIT Family Medicine; ATTEND Family Medicine
PROC: 05H533Z Insertion of Infusion Device into Right Subclavian Vein, Percutaneous Approach (ICD-10-PCS; principal; 2018-05-05)
PROC: B546ZZA Ultrasonography of Right Subclavian Vein, Guidance (ICD-10-PCS; 2018-05-05)
DX: A41.9 Sepsis, unspecified organism (principal); J15.9 Unspecified bacterial pneumonia; J69.0 Pneumonitis due to inhalation of food and vomit; J96.90 Respiratory failure, unspecified, unspecified whether with hypoxia or hypercapnia; N39.0 Urinary tract infection, site not specified; J90 Pleural effusion, not elsewhere classified; R47.02 Dysphasia; F20.9 Schizophrenia, unspecified; F03.90 Unspecified dementia, unspecified severity, without behavioral disturbance, psychotic disturbance, mood disturbance, and anxiety; Z93.1 Gastrostomy status; F32.9 Major depressive disorder, single episode, unspecified; R65.20 Severe sepsis without septic shock; I27.20 Pulmonary hypertension, unspecified; D64.9 Anemia, unspecified; E78.00 Pure hypercholesterolemia, unspecified; E78.5 Hyperlipidemia, unspecified; L89.150 Pressure ulcer of sacral region, unstageable; M19.90 Unspecified osteoarthritis, unspecified site; R13.10 Dysphagia, unspecified; R63.3 Feeding difficulties; B96.4 Proteus (mirabilis) (morganii) as the cause of diseases classified elsewhere; Y95 Nosocomial condition; Z87.440 Personal history of urinary (tract) infections

== ENCOUNTER 2018-05-08 12:32 | Inpatient (IN) | payer MEDICARE ==
--- NOTE | 2018-05-08 12:55 | ED PDOC ---
Arrival/HPI - General Chief Complaint: GI Problem Historian: Spouse, EMS - History of Present Illness Narrative History of Present Illness (Text): 05/08/18 12:51 Patient is a 72F w/ h/o multi-focal PNA, chronic anemia, dementia s/p PEG tub placement presenting to the Emergency Room for coffee ground emesis. Per EMS, patient was transported back to her correction after a prolonged hospital stay(04/30/18-05/07/18) and was found to be tachycardic, hypotensive to 80s SBP and having coffee ground emesis. The patient's contacted Dr. Mtz(PCP) who advised for immediate transfer to the emergency department for further evaluation. Patient does not appear to be actively vomiting at this time. PCP: Dr. Mtz Time/Duration: Prior to Arrival Symptom Onset: Sudden Symptom Course: Resolved Activities at Onset: Rest Context: Other (Care Home) Past Medical History - Infectious Disease Hx of Infectious Diseases: None - Cardiac Hx Pacemaker: No - Pulmonary Hx Respiratory Disorders: No - Neurological Hx Neurological Disorder: Yes Hx Dementia: Yes - HEENT Hx HEENT Disorder: No - Renal Hx Renal Disorder: No - Endocrine/Metabolic Hx Endocrine Disorders: No - Hematological/Oncological Hx Cancer: No - Integumentary Hx Dermatological Disorder: Yes Other/Comment: thick dry toenails, dry ad slightly red heels both feet, dry skin lle, dry tongue and lips, dry skin to face - Musculoskeletal/Rheumatological Hx Arthritis: Yes - Gastrointestinal Hx Gastrointestinal Disorders: Yes (POOR APPETITE,ADMITTED FOR PEG INSERTION 03-30-18) Other/Comment: peg tube insertion 03/30/18 - Genitourinary/Gynecological Hx Genitourinary Disorders: Yes (URINARY RETENTION) Hx Incontinence: Yes Hx Sexually Transmitted Diseases: No Other/Comment: mammo at [facility] 2013 - Psychiatric Hx Substance Use: No - Surgical History Hx Mastectomy: No - Anesthesia Hx Anesthesia Reactions: No Hx Malignant Hyperthermia: No Family/Social History Family/Social History: Unknown Family HX Smoking Status: Never Smoked Hx Alcohol Use: No Hx Substance Use: No Allergies/Home Meds Allergies/Adverse Reactions: Allergies phenytoin sodium [From Dilantin] Allergy (Intermediate, Verified 03/30/18 12:56) RASH phenytoin sodium extended [From Dilantin] Allergy (Intermediate, Verified 03/30/18 12:56) RASH Home Medications: Home Meds Medication Instructions Recorded Confirmed ALPRAZolam [Xanax] 0.5 mg GT BID PRN 03/30/18 05/09/18 Benztropine [Cogentin] 1 mg GT AMHS 04/06/18 05/09/18 FLUoxetine [Prozac] 40 mg GT DAILY 04/06/18 05/09/18 risperiDONE [RisperDAL Tab] 2 mg GT BID 04/06/18 05/09/18 traZODone [Desyrel] 50 mg GT HS 04/06/18 05/09/18 Acetaminophen [Tylenol 325mg tab] 650 mg PO Q6 PRN 05/08/18 05/09/18 Collagenase [Santyl] 1 applic TOP DAILY 05/08/18 05/09/18 Enoxaparin [Lovenox] 30 mg SC DAILY 05/08/18 05/09/18 Review of Systems - Review of Systems Systems not reviewed;Unavailable: Dementia Physical Exam Vital Signs Reviewed: Yes Temperature: Afebrile Blood Pressure: Hypotensive Pulse: Regular Respiratory Rate: Normal Appearance: Positive for: Well-Appearing, Non-Toxic, Comfortable Mental Status: Positive for: Alert and Oriented X 3 - Systems Exam Head: Present: Atraumatic, Normocephalic Pupils: Present: PERRL Extroacular Muscles: Present: EOMI Conjunctiva: Present: Normal Mouth: Present: Moist Mucous Membranes Respiratory/Chest: Present: Decreased Breath Sounds (decreased breath sounds b/l w/ crackles at the LLB) Cardiovascular: Present: Regular Rate and Rhythm, Other (Systolic ejection murmmur ) Abdomen: Present: Normal Bowel Sounds, Feeding Tubes (G tube noted to LUQ. No erythema or purulence noted surrounding tube). No: Tenderness, Distention, Peritoneal Signs Genitourinary/Pelvic Exam: Present: Other (Indwelling Haley catheter in place w/ clear urine w/n urine bag) Upper Extremity: Present: Normal Inspection, Capillary Refill < 2s Lower Extremity: Present: Normal Inspection. No: Edema Neurological: Present: Other (Able to open eyes and wince at noxious stimuli) Skin: Present: Warm Psychiatric: Present: Alert Medical Decision Making ED Course and Treatment: 05/08/18 14:41 Impression 72F w/ coffee ground emesis Differential Diagnoses Include But Are Not Limited To: --GI bleed --Sepsis --UTI Plan --Labs --VBG --Urinalysis --Urine Culture --Blood Culture --CXR --CT a/p --Rocephin Progress Notes 05/11/18 18:57 Labs reviewed with leukocytosis of 13 noted with associate thrombocytosis of 788. CXR reveals a left sided infiltrate worrisome for PNA. UA positive for bacteria. Patient started on Rocephin. Case discussed with Dr. Mtz(PCP) who requests Dr. Evangelista(GI) as well as Dr. Ricci(infectious disease) consulted. Patient's updated on plan for admission and is in agreement. - Lab Interpretations Lab Results: 05/08/18 13:44 05/08/18 13:44 Lab Results 05/08/18 14:34: Blood Type Confirm A POSITIVE 05/08/18 14:20: Urine Color Yellow, Urine Appearance Clear, Urine pH 6.0, Ur Specific [place] >= 1.030, Urine Protein 30 H, Urine Glucose (UA) Negative, Urine Ketones Negative, Urine Blood Trace-intact H, Urine Nitrate Negative, Urine Bilirubin Negative, Urine Urobilinogen 0.2, Ur Leukocyte Esterase Negative, Urine RBC 2 - 5 H, Urine WBC 0 - 2, Ur Epithelial Cells 4 - 5, Amorphous Sediment Small, Urine Bacteria Many, Fine Granular Casts 0 - 2, Coarse Granular Casts Trace, Urine Other Uyeast 05/08/18 13:44: Blood Type A POSITIVE, Antibody Screen Negative, BBK History Checked No verified bt 05/08/18 13:44: Sodium 137, Potassium 5.1 H, Chloride 98, Carbon Dioxide 32, Anion Gap 12, BUN 27 H, Creatinine 0.4 L, Est GFR ( Amer) > 60, Est GFR (Non-Af Amer) > 60, Random Glucose 147 H, Calcium 9.3, Total Bilirubin 0.2, AST 60 H D, ALT 19, Alkaline Phosphatase 102, Troponin I < 0.01, Total Protein 7.2, Albumin 3.2, Globulin 4.0, Albumin/Globulin Ratio 0.8 L, Lipase 21 L 05/08/18 13:44: PT 15.5 H, INR 1.37, APTT 39.5 H 05/08/18 13:44: WBC 13.5 H D, RBC 3.55, Hgb 10.1 L, Hct 31.4 L, MCV 88.5, MCH 28.5, MCHC 32.2, RDW 15.4 H, Plt Count 788 H* D, MPV 9.3, Neut % (Auto) 87.3 H, Lymph % (Auto) 9.0 L, [place] % (Auto) 3.5, Eos % (Auto) 0.1 L, Baso % (Auto) 0.1, Lymph # (Auto) 1.2, [place] # (Auto) 0.5, Eos # (Auto) 0.0, Baso # (Auto) 0.01, Absolute Neuts (auto) 11.78 H I have reviewed the lab results: Yes - RAD Interpretation Narrative RAD Interpretations (Text): 05/08/18 15:42 CT of Abdomen/Pelvis reviewed by radiologist, shows: FINDINGS: LOWER THORAX: Small pleural effusions. There is focal consolidation at the left lung base with air bronchograms LIVER: Unremarkable. No gross lesion or ductal dilatation. GALLBLADDER AND BILE DUCTS: Multiple gallstones PANCREAS: Unremarkable. No gross lesion or ductal dilatation. SPLEEN: Unremarkable. ADRENALS: Unremarkable. No mass. KIDNEYS AND URETERS: Unremarkable. No hydronephrosis. No solid mass. VASCULATURE: Unremarkable. No aortic aneurysm. Aortic calcifications BOWEL: Severe constipation with fecal impaction. The rectum is dilated to a diameter of 7.5 cm. There is a gastrostomy tube in the stomach. APPENDIX: Unremarkable. Normal appendix. PERITONEUM: Unremarkable. No free fluid. No free air. LYMPH NODES: Unremarkable. No enlarged lymph nodes. BLADDER: Haley catheter in the bladder REPRODUCTIVE: Unremarkable. BONES: No acute fracture. OTHER FINDINGS: None. IMPRESSION: Severe constipation with fecal impaction. The rectum is dilated to a diameter of 7.5 cm. There is a gastrostomy tube in the stomach. Associate Designer: Radiologist - Medication Orders Current Medication Orders: 05/11/18 18:58 Alprazolam (Xanax) 0.5 mg PO BID PRN; Protocol PRN Reason: Anxiety Stop: 05/15/18 18:45 Last Admin: 05/09/18 17:42 Dose: 0.5 mg Behavioural Document 05/09/18 17:42 (Rec: 05/09/18 17:42 [id number] Maintenance Maintenance Dose Yes Nonmedicinal Nonmedicinal Interventions Redirect Activity Behavior Behavior for Medication: Anxiety Re-Assess: Reassess Psych Meds Document 05/09/18 18:42 MF (Rec: 05/09/18 18:50 MF [id number]) Reassess Psych Med Effective Benztropine Mesylate (Cogentin) 1 mg GT AMHS [facility] Last Admin: 05/11/18 09:57 Dose: 1 mg Fluoxetine HCl (Prozac) 40 mg PO DAILY [facility] Last Admin: 05/11/18 10:00 Dose: 40 mg Sodium Chloride (Sodium Chloride 0.45%) 1,000 mls @ 40 mls/hr IV .Q24H [facility] Last Admin: 05/11/18 18:57 Dose: 40 mls/hr eMAR Start Stop Document 05/11/18 18:57 RODRIGO (Rec: 05/11/18 18:57 RODRIGO [facility] [id number]) Intravenous Solution Start Date 05/11/18 Start Time 12:00 Vancomycin HCl (Vancomycin 1gm) 1 gm in 250 mls @ 167 mls/hr IVPB Q12 [facility]; Protocol Meropenem (Merrem Iv 1 Gm Premix) 1 gm in 50 mls @ 12.5 mls/hr IVPB Q8 [facility]; Protocol Stop: 05/12/18 01:59 Last Admin: 05/11/18 13:20 Dose: 12.5 mls/hr eMAR Start Stop Document 05/11/18 13:20 DF (Rec: 05/11/18 13:20 DF [id number]) Intravenous Solution Start Date 05/11/18 Start Time 13:20 Polyethylene Glycol (Miralax) 17 gm PEG DAILY [facility] Last Admin: 05/11/18 10:00 Dose: 17 gm Risperidone (Risperdal Tab) 2 mg GT BID [facility]; Protocol Last Admin: 05/11/18 18:52 Dose: 2 mg Trazodone HCl (Desyrel) 50 mg GT HS [facility] Last Admin: 05/10/18 21:52 Dose: 50 mg Discontinued Medications Meropenem (Merrem Iv 1 Gm Premix) 1 gm in 50 mls @ 100 mls/hr IVPB Q8 [facility]; Protocol Stop: 05/15/18 17:31 Last Admin: 05/10/18 06:48 Dose: 100 mls/hr eMAR Start Stop Document 05/10/18 06:48 FG (Rec: 05/10/18 06:48 FG [id number]) Intravenous Solution Start Date 05/10/18 Start Time 06:48 Vancomycin HCl (Vancomycin 1gm) 1 gm in 250 mls @ 167 mls/hr IVPB Q12H [facility]; Protocol Last Admin: 05/09/18 05:45 Dose: 167 mls/hr eMAR Start Stop Document 05/09/18 05:45 SHARATH (Rec: 05/09/18 06:03 JOL [id number]) Intravenous Solution Start Date 05/09/18 Start Time 05:45 End Date 05/09/18 End time 07:15 Total Infusion Time 90 Influenza Virus Vaccine (Flucelvax Quad 4589-0368 Syr) 60 mcg IM .ONCE ONE Stop: 05/09/18 14:40 Pneumococcal Polyvalent Vaccine (Pneumovax 23 Vaccine) 0.5 ml IM .ONCE ONE Stop: 05/09/18 14:40 Disposition/Present on Arrival - Present on Arrival Any Indicators Present on Arrival: Yes History of DVT/PE: No History of Uncontrolled Diabetes: No Urinary Catheter: Yes History Surgical Site Infection Following: None - Disposition Have Diagnosis and Disposition been Completed?: Yes Diagnosis: PNA (pneumonia), UTI (urinary tract infection), Coffee ground emesis Disposition: HOSPITALIZED Disposition Time: 15:00 Patient Plan: Admission Patient Problems: Current Active Problems Problem Status Onset PNA (pneumonia) Acute UTI (urinary tract infection) Acute Coffee ground emesis Acute Condition: GUARDED
[2018-05-08 13:04] VITALS: BMI 23.4
[2018-05-08 13:53] LABS: BASO # 0.01 K/mm3 (0.0-2.0); BASO % 0.1 % (0.0-3.0); EOS % 0.1 % (1.5-5.0); HEMOGLOBIN 10.1 g/dL (12.0-16.0); LYMPH # 1.2 (1.2-3.4); MEAN CELL VOLUME 88.5 fl (80.0-105.0); MEAN CORPUSCULAR HEMOGLOBIN 28.5 pg (25.0-35.0); MEAN CORPUSCULAR HGB CONC 32.2 g/dl (31.0-37.0); MEAN PLATELET VOLUME 9.3 fl (7.0-11.0); MONO # 0.5 (0.1-0.6); MONO % 3.5 % (1.0-6.0); RBC 3.55 10^6/uL (3.5-6.1); RED CELL DISTRIBUTION WIDTH 15.4 % (11.5-14.5); WHITE BLOOD COUNT 13.5 10^3/uL (4.5-11.0)
[2018-05-08 14:03] LABS: INR 1.37; PARTIAL THROMBOPLASTIN TIME 39.5 Seconds (26.9-38.3); PROTHROMBIN TIME 15.5 SECONDS (9.4-12.5)
[2018-05-08 14:17] LABS: ALB/GLOB RATIO 0.8 (1.1-1.8); ALBUMIN 3.2 g/dL (3.0-4.8); ALT/SGPT 19 U/L (7-56); AST/SGOT 60 U/L (14-36); BLOOD UREA NITROGEN 27 mg/dL (7-21); CALCIUM 9.3 mg/dL (8.4-10.5); GFR NON-AFRICAN AMERICAN > 60; LIPASE 21 U/L (23-300)
[2018-05-08 14:19] LABS: TROPONIN I < 0.01 ng/mL
--- NOTE | 2018-05-08 14:32 | CT ---
Date of service: 05/08/2018 PROCEDURE: CT Abdomen and Pelvis without intravenous contrast HISTORY: coffee ground emesis COMPARISON: None. TECHNIQUE: Without contrast.. Contrast dose: Radiation dose: Total exam DLP = 702.34 mGy-cm. This CT exam was performed using one or more of the following dose reduction techniques: Automated exposure control, adjustment of the mA and/or kV according to patient size, and/or use of iterative reconstruction technique. FINDINGS: LOWER THORAX: Small pleural effusions. There is focal consolidation at the left lung base with air bronchograms LIVER: Unremarkable. No gross lesion or ductal dilatation. GALLBLADDER AND BILE DUCTS: Multiple gallstones PANCREAS: Unremarkable. No gross lesion or ductal dilatation. SPLEEN: Unremarkable. ADRENALS: Unremarkable. No mass. KIDNEYS AND URETERS: Unremarkable. No hydronephrosis. No solid mass. VASCULATURE: Unremarkable. No aortic aneurysm. Aortic calcifications BOWEL: Severe constipation with fecal impaction. The rectum is dilated to a diameter of 7.5 cm. There is a gastrostomy tube in the stomach. APPENDIX: Unremarkable. Normal appendix. PERITONEUM: Unremarkable. No free fluid. No free air. LYMPH NODES: Unremarkable. No enlarged lymph nodes. BLADDER: Haley catheter in the bladder REPRODUCTIVE: Unremarkable. BONES: No acute fracture. OTHER FINDINGS: None. IMPRESSION: Severe constipation with fecal impaction. The rectum is dilated to a diameter of 7.5 cm. There is a gastrostomy tube in the stomach.
[2018-05-08 14:47] LABS: URINE BILIRUBIN NEGATIVE (NEGATIVE); URINE BLOOD TRACE-INTACT (NEGATIVE); URINE GLUCOSE (UA) NEGATIVE (NEGATIVE); URINE LEUKOCYTE ESTERASE NEGATIVE Leu/uL (NEGATIVE); URINE PROTEIN 30 mg/dL (<30 mg/dL); URINE UROBILINOGEN 0.2 E.U./dL (<1 E.U./dL)
[2018-05-08 14:49] LABS: URINE APPEARANCE CLEAR (CLEAR); URINE COLOR YELLOW (YELLOW)
[2018-05-08 14:57] LABS: URINE BACTERIA MANY /hpf; URINE WBC 0 - 2 /hpf (0-6)
[2018-05-08 14:58] LABS: URINE AMORPHOUS SEDIMENT SMALL /hpf; URINE COARSE GRANULAR CAST TRACE /hpf; URINE FINE GRANULAR CAST 0 - 2 /hpf
--- NOTE | 2018-05-08 16:23 | RAD ---
Date of service: 05/08/2018 HISTORY: coffee ground emesis COMPARISON: 04/30/2018 FINDINGS: LUNGS: There is an infiltrate at the left lung base that obscures the diaphragmatic border. PLEURA: No significant pleural effusion identified, no pneumothorax apparent. CARDIOVASCULAR: No aortic atherosclerotic calcification present. Normal cardiac size. No pulmonary vascular congestion. OSSEOUS STRUCTURES: No significant abnormalities. VISUALIZED UPPER ABDOMEN: Normal. OTHER FINDINGS: None. IMPRESSION: There is an infiltrate at the left lung base that obscures the diaphragmatic border.
[2018-05-08] MEDS: Meropenem IV 1 gm in NS 1 GM/50 ML BAG IVPB SCH ×2 (17:44→22:50)
[2018-05-08] MEDS: Vancomycin 1gm in NS 250ml 1 GM/250 ML BAG IVPB SCH (18:40)
--- NOTE | 2018-05-08 20:18 | CARD ---
APPROVED REPORT Date of service: 05/08/2018 EKG Measurement Heart [id number] <Conclusion> Sinus tachycardia Cannot rule out Inferior infarct, age undetermined Abnormal ECG
[2018-05-09] MEDS: Vancomycin 1gm in NS 250ml 1 GM/250 ML BAG IVPB SCH (05:45)
--- NOTE | 2018-05-09 08:13 | HP ---
DATE OF EXAM: 05/08/2018 HISTORY OF PRESENT ILLNESS: I saw her this morning. She was not doing well. I sent her to the emergency room from subacute rehab. She was just discharged from hospital. She did very very well. She was taken off of IV antibiotics for sepsis. This is a 72-year-old white female who is bed-bound with a feeding tube with a history of multifocal pneumonia, chronic anemia, dementia, status post PEG tube placement with coffee ground emesis x2. It was positive for heme. Tachycardic, hypotensive in the 80s and I sent her to the emergency room. She is alert. She is talking, did threw up coffee ground. She had a PEG insertion for no appetite. Urinary retention, she has a Haley catheter in place. Nonsmoker. No drinking. No drugs. ALLERGIES: To phenytoin. MEDICATIONS: She is on Xanax, Cogentin, Prozac, Risperdal, Desyrel, and Proxetil. She has schizophrenia and bipolar also. REVIEW OF SYSTEMS: No acute vision or hearing changes. No chest pain or shortness of breath. No abdominal pain. She has a feeding tube, which she threw out coffee ground emesis x2. Weak lower extremities. Skin; no apparent rashes or ulcers, cannot really tell me anything. PHYSICAL EXAMINATION: VITAL SIGNS: Temperature 98.5, pulse 93, blood pressure 129/65, respiratory rate 20, and 95% O2 sat on room air. HEENT: Head is atraumatic, normocephalic. Extraocular muscles are intact. HEART: Regular rate. LUNGS: Decreased breath sounds, but clear. ABDOMEN: Soft. Positive feeding tube. No apparent guarding or rebound. EXTREMITIES: fairly intact. NEUROLOGIC: She is alert and confused, did speak to me today. LABORATORY DATA: She had multiple tests done. She has 1.37 INR. Sodium 137, potassium 5.1, BUN 27 and creatinine , GFR is greater than 50, sugar is 147, calcium is 9.3, total bilirubin is 0.2, AST is ALT is 19, and alk phos is . Troponin I is less than 0.01, total protein is 7.2, albumin is 3.2. Lipase is less than 21. White count 13.5 elevated, hemoglobin 10.1, hematocrit 31.4, and platelets Abdomen and pelvis CAT scan, which showed severe constipation with fecal impaction. The rectum is dilated to a diameter of 7.5 cm. There is a gastrostomy tube in the stomach. Chest x-ray shows an infiltrate in the left lung base. IMPRESSION AND PLAN: She will have a consult with Infectious Disease. She will be on IV Merrem. Her vancomycin medications and also she will be placed and we will check her labs tomorrow due to who has a gastrointestinal bleed, constipation, fecal impaction, left pneumonia, and urinary tract infection. Manolo Mtz DO MTDD
[2018-05-09 08:21] LABS: HEMOGLOBIN 8.9 g/dL (12.0-16.0); MEAN CELL VOLUME 89.8 fl (80.0-105.0); MEAN CORPUSCULAR HEMOGLOBIN 27.6 pg (25.0-35.0); MEAN CORPUSCULAR HGB CONC 30.7 g/dl (31.0-37.0); MEAN PLATELET VOLUME 9.6 fl (7.0-11.0); RBC 3.23 10^6/uL (3.5-6.1); RED CELL DISTRIBUTION WIDTH 15.8 % (11.5-14.5); WHITE BLOOD COUNT 8.6 10^3/uL (4.5-11.0)
[2018-05-09] MEDS: Meropenem IV 1 gm in NS 1 GM/50 ML BAG IVPB SCH ×2 (08:28→16:44)
[2018-05-09 08:47] LABS: ALB/GLOB RATIO 0.8 (1.1-1.8); ALT/SGPT 25 U/L (7-56); AST/SGOT 41 U/L (14-36); BLOOD UREA NITROGEN 24 mg/dL (7-21); CALCIUM 8.7 mg/dL (8.4-10.5); GFR NON-AFRICAN AMERICAN > 60
--- NOTE | 2018-05-09 09:22 | CP.PCM.CON ---
History of Present Illness - History of Present Illness History of Present Illness: Gastroenterology Fellow/PGY6 Consult Note 72 year old female with PMH of schizophrenia, dementia, depression/anxiety, and recent PEG placement 03/31/18 due to failure to thrive presenting with concern for coffee-ground emesis. at bedside provides additional history. He notes patient was being moved for changing at nursing facility when it was reported that the patient had an episode of vomiting that was characterized as having dark colored contents that was believed to be blood. He states the patient was receiving tube feeding at the time. No further episodes of vomiting noted and tube feedings have remained on hold. Family History-unable to confirm Social History- no tobacco, alcohol, illicit drug use Surgical History-none on record review Review of Systems - Review of Systems Review of Systems: 12-point review of systems negative except for as above Past Patient History - Infectious Disease Hx of Infectious Diseases: None - Past Social History Smoking Status: Never Smoked - CARDIAC Hx Pacemaker: No - PULMONARY Hx Respiratory Disorders: No - NEUROLOGICAL Hx Neurological Disorder: Yes Hx Dementia: Yes - HEENT Hx HEENT Problems: No - RENAL Hx Chronic Kidney Disease: No - ENDOCRINE/METABOLIC Hx Endocrine Disorders: No - HEMATOLOGICAL/ONCOLOGICAL Hx Cancer: No - INTEGUMENTARY Hx Dermatological Problems: Yes Other/Comment: thick dry toenails, dry ad slightly red heels both feet, dry skin lle, dry tongue and lips, dry skin to face - MUSCULOSKELETAL/RHEUMATOLOGICAL Hx Arthritis: Yes - GASTROINTESTINAL Hx Gastrointestinal Disorders: Yes (POOR APPETITE,ADMITTED FOR PEG INSERTION 03-30-18) Other/Comment: peg tube insertion 03/30/18 - GENITOURINARY/GYNECOLOGICAL Hx Genitourinary Disorders: Yes (URINARY RETENTION) Hx Incontinence: Yes Hx Sexually Transmitted Disorders: No Other/Comment: mammo at [facility] 2013 - PSYCHIATRIC Hx Substance Use: No - SURGICAL HISTORY Hx Mastectomy: No - ANESTHESIA Hx Anesthesia Reactions: No Hx Malignant Hyperthermia: No Meds Allergies/Adverse Reactions: Allergies Allergy/AdvReac Type Severity Reaction Status Date / Time phenytoin sodium Allergy Intermediate RASH Verified 03/30/18 12:56 [From Dilantin] phenytoin sodium extended Allergy Intermediate RASH Verified 03/30/18 12:56 [From Dilantin] - Medications Medications: Current Medications Alprazolam (Xanax) 0.5 mg PO BID PRN; Protocol PRN Reason: Anxiety Stop: 05/15/18 18:45 Benztropine Mesylate (Cogentin) 1 mg GT [facility] Last Admin: 05/08/18 23:37 Dose: 1 mg Fluoxetine HCl (Prozac) 40 mg PO DAILY [facility] Meropenem (Merrem Iv 1 Gm Premix) 1 gm in 50 mls @ 100 mls/hr IVPB Q8 [facility]; Protocol Stop: 05/15/18 17:31 Last Admin: 05/09/18 08:28 Dose: 100 mls/hr Vancomycin HCl (Vancomycin 1gm) 1 gm in 250 mls @ 167 mls/hr IVPB Q12H [facility]; Protocol Last Admin: 05/09/18 05:45 Dose: 167 mls/hr Sodium Chloride (Sodium Chloride 0.45%) 1,000 mls @ 40 mls/hr IV .Q24H [facility] Risperidone (Risperdal Tab) 2 mg GT BID [facility]; Protocol Trazodone HCl (Desyrel) 50 mg GT HS [facility] Last Admin: 05/08/18 22:50 Dose: 50 mg Physical Exam - Constitutional Appears: Non-toxic, No Acute Distress - Head Exam Head Exam: ATRAUMATIC, NORMOCEPHALIC - Eye Exam Eye Exam: EOMI, PERRL. absent: Scleral icterus Pupil Exam: PERRL. absent: Miosis, Mydriatic - ENT Exam ENT Exam: Mucous Membranes Moist, Normal Oropharynx - Neck Exam Neck exam: Positive for: Full Rom, Normal Inspection - Respiratory Exam Respiratory Exam: Clear to Auscultation Bilateral. absent: Rales, Rhonchi, Wheezes - Cardiovascular Exam Cardiovascular Exam: RRR, +S1, +S2. absent: Gallop, Rubs - GI/Abdominal Exam GI & Abdominal Exam: Normal Bowel Sounds, Soft. absent: Distended, Firm, Guarding, Organomegaly, Rebound, Rigid, Tenderness Additional comments: left upper quadrant PEG site C/D/I - Rectal Exam Rectal Exam: Fecal Impaction Additional comments: light brown soft stool in rectal vault - Extremities Exam Extremities exam: Positive for: normal inspection, pedal edema - Neurological Exam Neurological exam: Alert - Psychiatric Exam Additional comments: alert, responds to command - Skin Skin Exam: Dry, Intact, Normal Color, Warm Additional comments: sacral decubitus ulcer with bandage in place Results - Vital Signs Recent Vital Signs: Last Vital Signs Temp 98.5 F 05/08/18 16:19 Pulse 69 05/09/18 05:00 Resp 17 05/09/18 05:00 BP 102/62 05/09/18 05:00 Pulse Ox 94 L 05/09/18 05:00 - Labs Result Diagrams: 05/09/18 07:45 05/09/18 07:45 Labs: Laboratory Results - last 24 hr 05/08/18 05/08/18 05/08/18 13:44 13:44 13:44 WBC 13.5 H D RBC 3.55 Hgb 10.1 L Hct 31.4 L MCV 88.5 MCH 28.5 MCHC 32.2 RDW 15.4 H Plt Count 788 H* D MPV 9.3 Neut % (Auto) 87.3 H Lymph % (Auto) 9.0 L [place] % (Auto) 3.5 Eos % (Auto) 0.1 L Baso % (Auto) 0.1 Lymph # (Auto) 1.2 [place] # (Auto) 0.5 Eos # (Auto) 0.0 Baso # (Auto) 0.01 Absolute Neuts (auto) 11.78 H PT 15.5 H INR 1.37 APTT 39.5 H Sodium 137 Potassium 5.1 H Chloride 98 Carbon Dioxide 32 Anion Gap 12 BUN 27 H Creatinine 0.4 L Est GFR ( Amer) > 60 Est GFR (Non-Af Amer) > 60 Random Glucose 147 H Calcium 9.3 Total Bilirubin 0.2 AST 60 H D ALT 19 Alkaline Phosphatase 102 Troponin I < 0.01 Total Protein 7.2 Albumin 3.2 Globulin 4.0 Albumin/Globulin Ratio 0.8 L Lipase 21 L Procalcitonin Urine Color Urine Appearance Urine pH Ur Specific [place] Urine Protein Urine Glucose (UA) Urine Ketones Urine Blood Urine Nitrate Urine Bilirubin Urine Urobilinogen Ur Leukocyte Esterase Urine RBC Urine WBC Ur Epithelial Cells Amorphous Sediment Urine Bacteria Fine Granular Casts Coarse Granular Casts Urine Other Blood Type Blood Type Confirm Antibody Screen BBK History Checked 05/08/18 05/08/18 05/08/18 13:44 14:20 14:34 WBC RBC Hgb Hct MCV MCH MCHC RDW Plt Count MPV Neut % (Auto) Lymph % (Auto) [place] % (Auto) Eos % (Auto) Baso % (Auto) Lymph # (Auto) [place] # (Auto) Eos # (Auto) Baso # (Auto) Absolute Neuts (auto) PT INR APTT Sodium Potassium Chloride Carbon Dioxide Anion Gap BUN Creatinine Est GFR ( Amer) Est GFR (Non-Af Amer) Random Glucose Calcium Total Bilirubin AST ALT Alkaline Phosphatase Troponin I Total Protein Albumin Globulin Albumin/Globulin Ratio Lipase Procalcitonin Urine Color Yellow Urine Appearance Clear Urine pH 6.0 Ur Specific [place] >= 1.030 Urine Protein 30 H Urine Glucose (UA) Negative Urine Ketones Negative Urine Blood Trace-intact H Urine Nitrate Negative Urine Bilirubin Negative Urine Urobilinogen 0.2 Ur Leukocyte Esterase Negative Urine RBC 2 - 5 H Urine WBC 0 - 2 Ur Epithelial Cells 4 - 5 Amorphous Sediment Small Urine Bacteria Many Fine Granular Casts 0 - 2 Coarse Granular Casts Trace Urine Other [place]ast Blood Type A POSITIVE Blood Type Confirm A POSITIVE Antibody Screen Negative BBK History Checked No verified bt 05/08/18 05/09/18 05/09/18 18:26 07:45 07:45 WBC 8.6 D RBC 3.23 L Hgb 8.9 L Hct 29.0 L MCV 89.8 MCH 27.6 MCHC 30.7 L RDW 15.8 H Plt Count 715 H* MPV 9.6 Neut % (Auto) Lymph % (Auto) [place] % (Auto) Eos % (Auto) Baso % (Auto) Lymph # (Auto) [place] # (Auto) Eos # (Auto) Baso # (Auto) Absolute Neuts (auto) PT INR APTT Sodium 138 Potassium 4.3 Chloride 102 Carbon Dioxide 31 Anion Gap 9 L BUN 24 H Creatinine 0.4 L Est GFR ( Amer) > 60 Est GFR (Non-Af Amer) > 60 Random Glucose 103 Calcium 8.7 Total Bilirubin 0.2 AST 41 H D ALT 25 Alkaline Phosphatase 84 Troponin I Total Protein 6.7 Albumin 3.0 Globulin 3.7 Albumin/Globulin Ratio 0.8 L Lipase Procalcitonin 0.09 L Urine Color Urine Appearance Urine pH Ur Specific [place] Urine Protein Urine Glucose (UA) Urine Ketones Urine Blood Urine Nitrate Urine Bilirubin Urine Urobilinogen Ur Leukocyte Esterase Urine RBC Urine WBC Ur Epithelial Cells Amorphous Sediment Urine Bacteria Fine Granular Casts Coarse Granular Casts Urine Other Blood Type Blood Type Confirm Antibody Screen BBK History Checked Assessment & Plan - Assessment and Plan (Free Text) Assessment: 72 year old female with PMH of schizophrenia, dementia, depression/anxiety, and recent PEG placement 03/31/18 due to failure to thrive presenting with concern for coffee-ground emesis. Active treatment of vomiting in setting of constipation on CT A/P without contrast and multifocal HCAP. Plan: -low suspicion for GI bleed -likely bilious vomiting episode in setting of increased abdominal pressure during re-positioning and recent antibiotic use for HCAP -H/H at baseline -initial hemoconcentration with minimal intake in setting of tube feeds being held -rectal -light brown stool -manual disimpaction performed -provide tap water enema once -continue bowel regimen- Miralax daily -trial restart tube feeds as tolerated -will follow clinical course
[2018-05-09] MEDS: FLUoxetine Elix 20 MG/5 ML PO SCH (10:24)
[2018-05-09] MEDS: Sodium Chloride 0.45% 1,000 ML IV SCH (10:34)
--- NOTE | 2018-05-09 12:40 | PN ---
DATE: 05/09/2018 SUBJECTIVE: I saw her this morning in the emergency room. She had been out of bed upstairs yet. She is with her . She is on IV antibiotics, vancomycin, and Merrem by Infectious Disease. I will place her back on IV fluids. She also needs to restart her PEG tube feedings. PHYSICAL EXAMINATION: VITAL SIGNS: She has a 98.5 temp, 93 pulse, 112/65 blood pressure, 20 respiratory rate, 95% O2 sat on room air. HEENT: Head is atraumatic, normocephalic. She is more alert today. Talking better. Yesterday, she was very somnolent and lethargic. HEART: Regular rate. LUNGS: Decreased breath sounds, but clear. ABDOMEN: Soft. PEG tube in place. EXTREMITIES: No edema. LABORATORY DATA: Pending this morning. Yesterday's 137 sodium, potassium 5.1, BUN 27, creatinine 0.4, sugar is 147, calcium 9.3. AST is 60, ALT is 19, alk phos is 102. Troponin I is less than 0.01. White count was high at 13.5 yesterday, 10.1 hemoglobin, 31.4 hematocrit, platelets. Urine was many bacteria. PLAN: She had consults with GI, Infectious Disease, and she just left the hospital. She had coffee-ground emesis, no more since she has been in the hospital. We will probably start the PEG tube feedings and IV fluids today and see what GI has to say. She might need to be scoped. Continue with treatment and care. Check her labs tomorrow, IV antibiotics. Manolo Mtz DO MTDMelanie
--- NOTE | 2018-05-09 13:57 | CP.PCM.CON ---
<Lorenzo Ferrer - Last Filed: 05/09/18 13:58> History of Present Illness - History of Present Illness History of Present Illness: ID Consult Note 72 year old female with past medical history of dementia, anemia, arthritis, schizophrenia, and depression presents to the hospital after having an episode of coffe ground emesis at her custodial. Patient had 1 episode and was immediately sent to the hospital. Patient did not have any episodes of vomiting at the hospital. Patient was recently admitted to the hospital for multifocal pneumonia. Patient is alert and able to answer questions. She admits to having abdominal pain. Denies chest pain, shortness of breath, nausea, vomiting, diar noah, fever, chills, dysuria, numbness, tingling. Medical Hx: dementia, anemia, arthritis, schizophrenia, and depression Surgical Hx: Ovarian surgery Family Hx: Unknown Social Hx: No alcohol, tobacco, or illicit drug use Allergies: Phenytoin Medications: Reviewed, as per MAR Review of Systems - Review of Systems Review of Systems: 12 point ROS as per HPI, otherwise negative Past Patient History - Infectious Disease Hx of Infectious Diseases: None - Past Social History Smoking Status: Never Smoked - CARDIAC Hx Pacemaker: No - PULMONARY Hx Respiratory Disorders: No - NEUROLOGICAL Hx Neurological Disorder: Yes Hx Dementia: Yes - HEENT Hx HEENT Problems: No - RENAL Hx Chronic Kidney Disease: No - ENDOCRINE/METABOLIC Hx Endocrine Disorders: No - HEMATOLOGICAL/ONCOLOGICAL Hx Cancer: No - INTEGUMENTARY Hx Dermatological Problems: Yes Other/Comment: thick dry toenails, dry ad slightly red heels both feet, dry skin lle, dry tongue and lips, dry skin to face - MUSCULOSKELETAL/RHEUMATOLOGICAL Hx Arthritis: Yes - GASTROINTESTINAL Hx Gastrointestinal Disorders: Yes (POOR APPETITE,ADMITTED FOR PEG INSERTION 03-30-18) Other/Comment: peg tube insertion 03/30/18 - GENITOURINARY/GYNECOLOGICAL Hx Genitourinary Disorders: Yes (URINARY RETENTION) Hx Incontinence: Yes Hx Sexually Transmitted Disorders: No Other/Comment: mammo at [facility] 2013 - PSYCHIATRIC Hx Substance Use: No - SURGICAL HISTORY Hx Mastectomy: No - ANESTHESIA Hx Anesthesia Reactions: No Hx Malignant Hyperthermia: No Meds Allergies/Adverse Reactions: Allergies Allergy/AdvReac Type Severity Reaction Status Date / Time phenytoin sodium Allergy Intermediate RASH Verified 03/30/18 12:56 [From Dilantin] phenytoin sodium extended Allergy Intermediate RASH Verified 03/30/18 12:56 [From Dilantin] - Medications Medications: Current Medications Alprazolam (Xanax) 0.5 mg PO BID PRN; Protocol PRN Reason: Anxiety Stop: 05/15/18 18:45 Benztropine Mesylate (Cogentin) 1 mg GT [facility] Last Admin: 05/09/18 10:22 Dose: 1 mg Fluoxetine HCl (Prozac) 40 mg PO DAILY [facility] Last Admin: 05/09/18 10:24 Dose: 40 mg Meropenem (Merrem Iv 1 Gm Premix) 1 gm in 50 mls @ 100 mls/hr IVPB Q8 [facility]; Protocol Stop: 05/15/18 17:31 Last Admin: 05/09/18 08:28 Dose: 100 mls/hr Sodium Chloride (Sodium Chloride 0.45%) 1,000 mls @ 40 mls/hr IV .Q24H [facility] Last Admin: 05/09/18 10:34 Dose: 40 mls/hr Risperidone (Risperdal Tab) 2 mg GT BID [facility]; Protocol Last Admin: 05/09/18 10:22 Dose: 2 mg Trazodone HCl (Desyrel) 50 mg GT HS [facility] Last Admin: 05/08/18 22:50 Dose: 50 mg Physical Exam - Constitutional Appears: Non-toxic, No Acute Distress - Head Exam Head Exam: ATRAUMATIC, NORMAL INSPECTION, NORMOCEPHALIC - ENT Exam ENT Exam: Mucous Membranes Moist - Respiratory Exam Respiratory Exam: Clear to Auscultation Bilateral, NORMAL BREATHING PATTERN - Cardiovascular Exam Cardiovascular Exam: RRR, +S1, +S2 - GI/Abdominal Exam GI & Abdominal Exam: Normal Bowel Sounds, Soft, Tenderness (B/l lower abdomen ). absent: Guarding, Rebound - Extremities Exam Extremities exam: Positive for: normal inspection. Negative for: pedal edema - Neurological Exam Neurological exam: Alert, Oriented x3 - Psychiatric Exam Psychiatric exam: Flat Affect, Normal Mood - Skin Skin Exam: Dry, Intact, Warm Results - Vital Signs Recent Vital Signs: Last Vital Signs Temp 98.5 F 05/08/18 16:19 Pulse 69 05/09/18 05:00 Resp 17 05/09/18 05:00 BP 102/62 05/09/18 05:00 Pulse Ox 94 L 05/09/18 05:00 - Labs Result Diagrams: 05/09/18 07:45 05/09/18 07:45 Labs: Laboratory Results - last 24 hr 05/08/18 05/08/18 05/08/18 13:44 13:44 13:44 WBC 13.5 H D RBC 3.55 Hgb 10.1 L Hct 31.4 L MCV 88.5 MCH 28.5 MCHC 32.2 RDW 15.4 H Plt Count 788 H* D MPV 9.3 Neut % (Auto) 87.3 H Lymph % (Auto) 9.0 L [place] % (Auto) 3.5 Eos % (Auto) 0.1 L Baso % (Auto) 0.1 Lymph # (Auto) 1.2 Power # (Auto) 0.5 Eos # (Auto) 0.0 Baso # (Auto) 0.01 Absolute Neuts (auto) 11.78 H PT 15.5 H INR 1.37 APTT 39.5 H Sodium 137 Potassium 5.1 H Chloride 98 Carbon Dioxide 32 Anion Gap 12 BUN 27 H Creatinine 0.4 L Est GFR ( Amer) > 60 Est GFR (Non-Af Amer) > 60 Random Glucose 147 H Calcium 9.3 Total Bilirubin 0.2 AST 60 H D ALT 19 Alkaline Phosphatase 102 Troponin I < 0.01 Total Protein 7.2 Albumin 3.2 Globulin 4.0 Albumin/Globulin Ratio 0.8 L Lipase 21 L Procalcitonin Urine Color Urine Appearance Urine pH Ur Specific [place] Urine Protein Urine Glucose (UA) Urine Ketones Urine Blood Urine Nitrate Urine Bilirubin Urine Urobilinogen Ur Leukocyte Esterase Urine RBC Urine WBC Ur Epithelial Cells Amorphous Sediment Urine Bacteria Fine Granular Casts Coarse Granular Casts Urine Other Blood Type Blood Type Confirm Antibody Screen BBK History Checked 05/08/18 05/08/18 05/08/18 13:44 14:20 14:34 WBC RBC Hgb Hct MCV MCH MCHC RDW Plt Count MPV Neut % (Auto) Lymph % (Auto) [place] % (Auto) Eos % (Auto) Baso % (Auto) Lymph # (Auto) Power # (Auto) Eos # (Auto) Baso # (Auto) Absolute Neuts (auto) PT INR APTT Sodium Potassium Chloride Carbon Dioxide Anion Gap BUN Creatinine Est GFR ( Amer) Est GFR (Non-Af Amer) Random Glucose Calcium Total Bilirubin AST ALT Alkaline Phosphatase Troponin I Total Protein Albumin Globulin Albumin/Globulin Ratio Lipase Procalcitonin Urine Color Yellow Urine Appearance Clear Urine pH 6.0 Ur Specific [place] >= 1.030 Urine Protein 30 H Urine Glucose (UA) Negative Urine Ketones Negative Urine Blood Trace-intact H Urine Nitrate Negative Urine Bilirubin Negative Urine Urobilinogen 0.2 Ur Leukocyte Esterase Negative Urine RBC 2 - 5 H Urine WBC 0 - 2 Ur Epithelial Cells 4 - 5 Amorphous Sediment Small Urine Bacteria Many Fine Granular Casts 0 - 2 Coarse Granular Casts Trace Urine Other [place] Blood Type A POSITIVE Blood Type Confirm A POSITIVE Antibody Screen Negative BBK History Checked No verified bt 05/08/18 05/09/18 05/09/18 18:26 07:45 07:45 WBC 8.6 D RBC 3.23 L Hgb 8.9 L Hct 29.0 L MCV 89.8 MCH 27.6 MCHC 30.7 L RDW 15.8 H Plt Count 715 H* MPV 9.6 Neut % (Auto) Lymph % (Auto) Power % (Auto) Eos % (Auto) Baso % (Auto) Lymph # (Auto) Power # (Auto) Eos # (Auto) Baso # (Auto) Absolute Neuts (auto) PT INR APTT Sodium 138 Potassium 4.3 Chloride 102 Carbon Dioxide 31 Anion Gap 9 L BUN 24 H Creatinine 0.4 L Est GFR ( Amer) > 60 Est GFR (Non-Af Amer) > 60 Random Glucose 103 Calcium 8.7 Total Bilirubin 0.2 AST 41 H D ALT 25 Alkaline Phosphatase 84 Troponin I Total Protein 6.7 Albumin 3.0 Globulin 3.7 Albumin/Globulin Ratio 0.8 L Lipase Procalcitonin 0.09 L Urine Color Urine Appearance Urine pH Ur Specific [place] Urine Protein Urine Glucose (UA) Urine Ketones Urine Blood Urine Nitrate Urine Bilirubin Urine Urobilinogen Ur Leukocyte Esterase Urine RBC Urine WBC Ur Epithelial Cells Amorphous Sediment Urine Bacteria Fine Granular Casts Coarse Granular Casts Urine Other Blood Type Blood Type Confirm Antibody Screen BBK History Checked Assessment & Plan - Assessment and Plan (Free Text) Plan: Questionable upper GI bleed Severe fecal impaction Thrombocytosis Hx of Proteus UTI Hx of Dementia Hx of anemia Hx of arthritis Hx of schizophrenia Hx of depression Plan CT abdomen/pelvis reviewed, demonstrates severe fecal impaction Will stop Vancomycin and continue Merrem Procal negative Awaiting blood and urine cultures Follow up GI recommendations Continue to monitor patient closely Carissa, PGY-3 <Carlos Enrique Todd S - Last Filed: 05/09/18 16:09> Meds - Medications Medications: Current Medications Alprazolam (Xanax) 0.5 mg PO BID PRN; Protocol PRN Reason: Anxiety Stop: 05/15/18 18:45 Benztropine Mesylate (Cogentin) 1 mg GT [facility] Last Admin: 05/09/18 10:22 Dose: 1 mg Fluoxetine HCl (Prozac) 40 mg PO DAILY [facility] Last Admin: 05/09/18 10:24 Dose: 40 mg Meropenem (Merrem Iv 1 Gm Premix) 1 gm in 50 mls @ 100 mls/hr IVPB Q8 [facility]; Protocol Stop: 05/15/18 17:31 Last Admin: 05/09/18 08:28 Dose: 100 mls/hr Sodium Chloride (Sodium Chloride 0.45%) 1,000 mls @ 40 mls/hr IV .Q24H [facility] Last Admin: 05/09/18 10:34 Dose: 40 mls/hr Polyethylene Glycol (Miralax) 17 gm PEG DAILY [facility] Risperidone (Risperdal Tab) 2 mg GT BID [facility]; Protocol Last Admin: 05/09/18 10:22 Dose: 2 mg Trazodone HCl (Desyrel) 50 mg GT HS [facility] Last Admin: 05/08/18 22:50 Dose: 50 mg Results - Vital Signs Recent Vital Signs: Last Vital Signs Temp 98.5 F 05/08/18 16:19 Pulse 69 05/09/18 14:11 Resp 17 05/09/18 14:11 BP 102/62 05/09/18 05:00 Pulse Ox 94 L 05/09/18 05:00 - Labs Result Diagrams: 05/09/18 07:45 05/09/18 07:45 Labs: Laboratory Results - last 24 hr 05/08/18 05/09/18 05/09/18 18:26 07:45 07:45 WBC 8.6 D RBC 3.23 L Hgb 8.9 L Hct 29.0 L MCV 89.8 MCH 27.6 MCHC 30.7 L RDW 15.8 H Plt Count 715 H* MPV 9.6 Sodium 138 Potassium 4.3 Chloride 102 Carbon Dioxide 31 Anion Gap 9 L BUN 24 H Creatinine 0.4 L Est GFR ( Amer) > 60 Est GFR (Non-Af Amer) > 60 Random Glucose 103 Calcium 8.7 Total Bilirubin 0.2 AST 41 H D ALT 25 Alkaline Phosphatase 84 Total Protein 6.7 Albumin 3.0 Globulin 3.7 Albumin/Globulin Ratio 0.8 L Procalcitonin 0.09 L Assessment & Plan - Assessment and Plan (Free Text) Plan: Infectious diseases Attending Physician Attestation Patient seen and examined, discussed with medical laboratory technical officer. I have reviewed the patient's history of present illness, past medical, social, personal and family histories, pertinent physical exam findings, course so far in this hospital admission, pertinent laboratory and imaging results. I agree with the above findings, assessment and plan. In addition,started Merrem for this patient with severe fecal impaction with SIRS, R/O sepsis from intra-abdominal infection. follow up GI recommendations and follow up blood cx. PCT is low at 0.09 - patient was recently treated for multifocal HCAP.
[2018-05-09] MEDS ORDERED: Pneumococcal 23-Valent Vaccine IM ONE (14:39)
[2018-05-09] MEDS ORDERED: Influenza Vaccine 60 mcg/0.5 mL SYR (4YR UP) IM ONE (14:39)
[2018-05-09] MEDS: POLYETHYLENE GLYCOL 3350 17 GM/Dose PACKET PEG SCH (17:41)
[2018-05-10] MEDS: Meropenem IV 1 gm in NS 1 GM/50 ML BAG IVPB SCH ×2 (00:08→06:48)
[2018-05-10] MEDS: Sodium Chloride 0.45% 1,000 ML IV SCH (08:00)
[2018-05-10] MEDS: POLYETHYLENE GLYCOL 3350 17 GM/Dose PACKET PEG SCH (10:15)
[2018-05-10] MEDS: FLUoxetine Elix 20 MG/5 ML PO SCH (10:15)
--- NOTE | 2018-05-10 11:51 | PN ---
DATE: 05/10/2018 SUBJECTIVE: She is currently on Cogentin, Desyrel, Merrem IV, MiraLax, Prozac, Risperdal, IV fluids and Xanax. The is extremely upset about her being in the ER for 2 to 3 days and the care she is getting there. He wants to talk to administrators, I will help him do that. PHYSICAL EXAMINATION: GENERAL: She is alert, uncomfortable. VITAL SIGNS: 98 temperature, 76 pulse, 96/50 blood pressure, 18 respiratory rate, 95% O2 sat on room air. HEENT: Head is atraumatic, normocephalic. HEART: Regular rate. LUNGS: Decreased breath sounds. ABDOMEN: Soft with a feeding tube. EXTREMITIES: No edema. LABORATORY DATA: She has 8.6 white count, getting better. Hemoglobin is 8.9, hematocrit 29, platelets of 715. INR is 1.37. 138 sodium, potassium 4.3, BUN 24, creatinine 0.4, GFR is greater than 60, sugar is 103, calcium is 8.7, total bili is 0.2. AST is 41, ALT is 25, alk phos 84. Troponin I was less than 0.01, total protein 6.7. Procalcitonin 0.09, lipase is 21. Urine was many bacteria. ASSESSMENT AND PLAN: She is being seen by GI and by Infectious Disease. She has schizophrenia, dementia, depression, percutaneous endoscopic gastrostomy tube, she was vomiting, constipation. GI is following her for her bowels and her intestines. Infectious Disease has her on antibiotics. Questionable upper gastrointestinal bleed as per Gastroenterology, severe fecal impaction, thrombocytosis. She has severe fecal impaction, off the vanco on the Merrem IV, continue aggressive treatment and care. Hopefully, we can get her back to the [facility] when we get the okay from Infectious Disease. Manolo Mzt DO
--- NOTE | 2018-05-10 14:58 | CP.PCM.PN ---
<Lorenzo Ferrer - Last Filed: 05/10/18 14:55> Subjective - Date & Time of Evaluation Date of Evaluation: 05/10/18 Time of Evaluation: 11:30 - Subjective Subjective: ID Progress Note Patient seen and examined. Patient remains confused at this time. No fevers. Patient with at bedside. Objective - Vital Signs/Intake and Output Vital Signs (last 24 hours): Temp Pulse Resp BP Pulse Ox 98.1 F 86 18 124/68 93 L 05/10/18 12:12 05/10/18 12:12 05/10/18 12:12 05/10/18 12:12 05/10/18 12:12 Intake and Output: 05/10/18 05/10/18 06:59 18:59 Intake Total 240 Output Total 1550 Balance 240 -1550 - Medications Medications: Current Medications Alprazolam (Xanax) 0.5 mg PO BID PRN; Protocol PRN Reason: Anxiety Stop: 05/15/18 18:45 Last Admin: 05/09/18 17:42 Dose: 0.5 mg Benztropine Mesylate (Cogentin) 1 mg GT AMHS [facility] Last Admin: 05/10/18 10:15 Dose: 1 mg Fluoxetine HCl (Prozac) 40 mg PO DAILY [facility] Last Admin: 05/10/18 10:15 Dose: 40 mg Meropenem (Merrem Iv 1 Gm Premix) 1 gm in 50 mls @ 100 mls/hr IVPB Q8 [facility]; Protocol Stop: 05/15/18 17:31 Last Admin: 05/10/18 06:48 Dose: 100 mls/hr Sodium Chloride (Sodium Chloride 0.45%) 1,000 mls @ 40 mls/hr IV .Q24H [facility] Last Admin: 05/10/18 08:00 Dose: 40 mls/hr Polyethylene Glycol (Miralax) 17 gm PEG DAILY [facility] Last Admin: 05/10/18 10:15 Dose: 17 gm Risperidone (Risperdal Tab) 2 mg GT BID [facility]; Protocol Last Admin: 05/10/18 10:15 Dose: 2 mg Trazodone HCl (Desyrel) 50 mg GT HS [facility] Last Admin: 05/10/18 00:08 Dose: 50 mg - Labs Labs: 05/09/18 07:45 05/09/18 07:45 PT 15.5 SECONDS (9.4-12.5) H 05/08/18 13:44 INR 1.37 05/08/18 13:44 APTT 39.5 Seconds (26.9-38.3) H 05/08/18 13:44 - Constitutional Appears: Non-toxic, No Acute Distress - Head Exam Head Exam: ATRAUMATIC, NORMAL INSPECTION, NORMOCEPHALIC - Respiratory Exam Respiratory Exam: Decreased Breath Sounds, NORMAL BREATHING PATTERN - Cardiovascular Exam Cardiovascular Exam: RRR, +S1, +S2 - GI/Abdominal Exam GI & Abdominal Exam: Soft, Normal Bowel Sounds. absent: Tenderness - Extremities Exam Extremities Exam: absent: Tenderness - Neurological Exam Neurological Exam: Alert, Awake. absent: Oriented x3 - Psychiatric Exam Psychiatric exam: Normal Affect, Normal Mood - Skin Skin Exam: Dry, Intact, Warm Assessment and Plan - Assessment and Plan (Free Text) Plan: SIRS with severe fecal impaction Thrombocytosis Hx of Proteus UTI Hx of Dementia Hx of anemia Hx of arthritis Hx of schizophrenia Hx of depression Plan CT abdomen/pelvis reviewed Manual disimpaction by GI Enema from GI No evidence of infection at this time, will discontinue antibiotics Follow up GI recommendations Continue to monitor patient closely Carissa, PGY-3 <Carlos Enrique Todd - Last Filed: 05/10/18 15:34> Objective - Vital Signs/Intake and Output Vital Signs (last 24 hours): Temp Pulse Resp BP Pulse Ox 98.1 F 86 18 124/68 93 L 05/10/18 12:12 05/10/18 12:12 05/10/18 12:12 05/10/18 12:12 05/10/18 12:12 Intake and Output: 05/10/18 05/10/18 06:59 18:59 Intake Total 240 Output Total 1550 Balance 240 -1550 - Medications Medications: Current Medications Alprazolam (Xanax) 0.5 mg PO BID PRN; Protocol PRN Reason: Anxiety Stop: 05/15/18 18:45 Last Admin: 05/09/18 17:42 Dose: 0.5 mg Benztropine Mesylate (Cogentin) 1 mg GT AMHS [facility] Last Admin: 05/10/18 10:15 Dose: 1 mg Fluoxetine HCl (Prozac) 40 mg PO DAILY [facility] Last Admin: 05/10/18 10:15 Dose: 40 mg Sodium Chloride (Sodium Chloride 0.45%) 1,000 mls @ 40 mls/hr IV .Q24H [facility] Last Admin: 05/10/18 08:00 Dose: 40 mls/hr Polyethylene Glycol (Miralax) 17 gm PEG DAILY [facility] Last Admin: 05/10/18 10:15 Dose: 17 gm Risperidone (Risperdal Tab) 2 mg GT BID [facility]; Protocol Last Admin: 05/10/18 10:15 Dose: 2 mg Trazodone HCl (Desyrel) 50 mg GT HS [facility] Last Admin: 05/10/18 00:08 Dose: 50 mg - Labs Labs: 05/09/18 07:45 05/09/18 07:45 PT 15.5 SECONDS (9.4-12.5) H 05/08/18 13:44 INR 1.37 05/08/18 13:44 APTT 39.5 Seconds (26.9-38.3) H 05/08/18 13:44 Assessment and Plan - Assessment and Plan (Free Text) Plan: Infectious diseases Attending Physician Attestation Patient seen and examined, discussed with medical secretary receptionist. I have reviewed the patient's history of present illness, past medical, social, personal and family histories, pertinent physical exam findings, course so far in this hospital admission, pertinent laboratory and imaging results. I agree with the above findings, assessment and plan. In addition, on Merrem for SIRS with fecal impaction, no specific evidence of intra-abdominal infection. Cultures have been negative, CT A/P shows left lower lobe infiltrate but that is residual from her pneumonia on previous admission and her PCT is only 0.09 and she completed her course of HCAP therapy then. Will d/c Merrem and observe.
[2018-05-11 07:26] LABS: HEMOGLOBIN 8.7 g/dL (12.0-16.0); MEAN CELL VOLUME 88.3 fl (80.0-105.0); MEAN CORPUSCULAR HEMOGLOBIN 27.5 pg (25.0-35.0); MEAN CORPUSCULAR HGB CONC 31.2 g/dl (31.0-37.0); RBC 3.16 10^6/uL (3.5-6.1); RED CELL DISTRIBUTION WIDTH 15.1 % (11.5-14.5); WHITE BLOOD COUNT 7.7 10^3/uL (4.5-11.0)
[2018-05-11 07:46] LABS: ALB/GLOB RATIO 0.8 (1.1-1.8); ALT/SGPT 32 U/L (7-56); AST/SGOT 88 U/L (14-36); BLOOD UREA NITROGEN 13 mg/dL (7-21); CALCIUM 8.8 mg/dL (8.4-10.5); GFR NON-AFRICAN AMERICAN > 60
[2018-05-11] MEDS: FLUoxetine Elix 20 MG/5 ML PO SCH (10:00)
[2018-05-11] MEDS: POLYETHYLENE GLYCOL 3350 17 GM/Dose PACKET PEG SCH (10:00)
--- NOTE | 2018-05-11 10:17 | CP.PCM.PN ---
<Lorenzo Ferrer - Last Filed: 05/11/18 12:28> Subjective - Date & Time of Evaluation Date of Evaluation: 05/11/18 Time of Evaluation: 10:00 - Subjective Subjective: ID Progress Note Patient seen and examined. No acute events overnight. No fevers. Objective - Vital Signs/Intake and Output Vital Signs (last 24 hours): Temp Pulse Resp BP Pulse Ox 98.4 F 84 16 105/59 L 94 L 05/11/18 06:00 05/11/18 06:00 05/11/18 06:00 05/11/18 06:00 05/11/18 06:00 Intake and Output: 05/11/18 05/11/18 06:59 18:59 Intake Total 1110 Output Total 2300 Balance -1190 - Medications Medications: Current Medications Alprazolam (Xanax) 0.5 mg PO BID PRN; Protocol PRN Reason: Anxiety Stop: 05/15/18 18:45 Last Admin: 05/09/18 17:42 Dose: 0.5 mg Benztropine Mesylate (Cogentin) 1 mg GT AMHS [facility] Last Admin: 05/11/18 09:57 Dose: 1 mg Fluoxetine HCl (Prozac) 40 mg PO DAILY [facility] Last Admin: 05/10/18 10:15 Dose: 40 mg Sodium Chloride (Sodium Chloride 0.45%) 1,000 mls @ 40 mls/hr IV .Q24H [facility] Last Admin: 05/10/18 08:00 Dose: 40 mls/hr Polyethylene Glycol (Miralax) 17 gm PEG DAILY [facility] Last Admin: 05/11/18 10:00 Dose: 17 gm Risperidone (Risperdal Tab) 2 mg GT BID [facility]; Protocol Last Admin: 05/11/18 09:57 Dose: 2 mg Trazodone HCl (Desyrel) 50 mg GT HS [facility] Last Admin: 05/10/18 21:52 Dose: 50 mg - Labs Labs: 05/11/18 07:00 05/11/18 07:00 PT 15.5 SECONDS (9.4-12.5) H 05/08/18 13:44 INR 1.37 05/08/18 13:44 APTT 39.5 Seconds (26.9-38.3) H 05/08/18 13:44 - Constitutional Appears: Non-toxic, No Acute Distress - Head Exam Head Exam: ATRAUMATIC, NORMAL INSPECTION, NORMOCEPHALIC - ENT Exam ENT Exam: Mucous Membranes Moist - Respiratory Exam Respiratory Exam: Decreased Breath Sounds, NORMAL BREATHING PATTERN - Cardiovascular Exam Cardiovascular Exam: RRR, +S1, +S2 - GI/Abdominal Exam GI & Abdominal Exam: Soft, Normal Bowel Sounds. absent: Tenderness - Extremities Exam Extremities Exam: Normal Inspection. absent: Pedal Edema - Neurological Exam Neurological Exam: Alert, Awake, Oriented x3 - Psychiatric Exam Psychiatric exam: Normal Affect, Normal Mood - Skin Skin Exam: Dry, Intact, Warm Assessment and Plan - Assessment and Plan (Free Text) Plan: SIRS with severe fecal impaction Thrombocytosis Hx of Proteus UTI Hx of Dementia Hx of anemia Hx of arthritis Hx of schizophrenia Hx of depression Plan CT abdomen/pelvis reviewed No evidence of infection at this time, will discontinue antibiotics No abdominal pain Follow up GI recommendations Continue to monitor patient closely Carissa, PGY-3 <Carlos Enrique Todd - Last Filed: 05/11/18 18:25> Objective - Vital Signs/Intake and Output Vital Signs (last 24 hours): Temp Pulse Resp BP Pulse Ox 98.6 F 87 17 108/65 94 L 05/11/18 14:00 05/11/18 14:00 05/11/18 14:00 05/11/18 14:00 05/11/18 14:00 Intake and Output: 05/11/18 05/11/18 06:59 18:59 Intake Total 1110 0 Output Total 2300 500 Balance -1190 -500 - Medications Medications: Current Medications Alprazolam (Xanax) 0.5 mg PO BID PRN; Protocol PRN Reason: Anxiety Stop: 05/15/18 18:45 Last Admin: 05/09/18 17:42 Dose: 0.5 mg Benztropine Mesylate (Cogentin) 1 mg GT AMHS [facility] Last Admin: 05/11/18 09:57 Dose: 1 mg Fluoxetine HCl (Prozac) 40 mg PO DAILY [facility] Last Admin: 05/11/18 10:00 Dose: 40 mg Sodium Chloride (Sodium Chloride 0.45%) 1,000 mls @ 40 mls/hr IV .Q24H [facility] Last Admin: 05/10/18 08:00 Dose: 40 mls/hr Vancomycin HCl (Vancomycin 1gm) 1 gm in 250 mls @ 167 mls/hr IVPB Q12 [facility]; Protocol Meropenem (Merrem Iv 1 Gm Premix) 1 gm in 50 mls @ 12.5 mls/hr IVPB Q8 [facility]; Protocol Stop: 05/12/18 01:59 Last Admin: 05/11/18 13:20 Dose: 12.5 mls/hr Polyethylene Glycol (Miralax) 17 gm PEG DAILY [facility] Last Admin: 05/11/18 10:00 Dose: 17 gm Risperidone (Risperdal Tab) 2 mg GT BID [facility]; Protocol Last Admin: 05/11/18 09:57 Dose: 2 mg Trazodone HCl (Desyrel) 50 mg GT HS [facility] Last Admin: 05/10/18 21:52 Dose: 50 mg - Labs Labs: 05/11/18 07:00 05/11/18 07:00 PT 15.5 SECONDS (9.4-12.5) H 05/08/18 13:44 INR 1.37 05/08/18 13:44 APTT 39.5 Seconds (26.9-38.3) H 05/08/18 13:44 Assessment and Plan - Assessment and Plan (Free Text) Plan: Infectious diseases Attending Physician Attestation Patient seen and examined, discussed with medical imaging technologist. I have reviewed the patient's history of present illness, past medical, social, personal and family histories, pertinent physical exam findings, course so far in this hospital admission, pertinent laboratory and imaging results. I agree with the above findings, assessment and plan. In addition, patient with SIRS with fecal im paction, cultures negative, Pneumonia has resolved. Will continue to monitor off antibiotics. Discussed with Dr. Mtz.
[2018-05-11] MEDS: Meropenem IV 1 gm in NS 1 GM/50 ML BAG IVPB SCH ×2 (13:20→22:52)
[2018-05-11] MEDS ORDERED: Meropenem IV 1 gm in NS 1 GM/50 ML BAG IVPB SCH (14:00)
[2018-05-11] MEDS: Sodium Chloride 0.45% 1,000 ML IV SCH (18:57)
--- NOTE | 2018-05-11 21:21 | DS ---
HISTORY OF PRESENT ILLNESS: I want her to go back to [facility] to continue her therapy and her care. She will go on IV fluids for seven more days, Cogentin, Desyrel, MiraLax, Prozac, Risperdal, Xanax and her feedings through the feeding tube. PHYSICAL EXAMINATION: GENERAL: She is alert and aware and comfortable. No acute distress. VITAL SIGNS: Temperature 98.4, 84 pulse, 105/59 blood pressure, 16 respiratory rate, 94% O2 sat on room air. HEAD: Atraumatic and normocephalic. HEART: Regular rate. LUNGS: Clear to auscultation. ABDOMEN: Soft. Feeding tubes. Nontender. Positive bowel sounds. EXTREMITIES: No edema. LABORATORY DATA: She has sodium 136, potassium 4.2, BUN 13, creatinine 0.44, GFR is greater than 60, sugar is 125, calcium 8.8, total bili is 0.2. AST is 88, ALT 32, alk phos 91, total protein 6.7, and procalcitonin 0.09. White count 7.7, hemoglobin 8.7, hematocrit 27.9, platelets of 795 high. Urine was positive. Chest x-ray was positive. She has pneumonia and UTI. Discussed with Infectious Disease, they are happy with her how she did, she will be discharged off antibiotics and hopefully she will do well. Manolo Mtz DO
[2018-05-11] MEDS ORDERED: Vancomycin 1gm in NS 250ml 1 GM/250 ML BAG IVPB SCH (22:00)
[2018-05-12 08:32] VITALS: BP 113/80; PULSE 84; RESP 16; TEMP 98.6; O2SAT 95
[2018-05-12] MEDS: POLYETHYLENE GLYCOL 3350 17 GM/Dose PACKET PEG SCH (09:31)
[2018-05-12] MEDS: FLUoxetine Elix 20 MG/5 ML PO SCH (09:31)
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
--- NOTE | 2018-05-12 14:31 | CP.PCM.PN ---
<Lorenzo Ferrer - Last Filed: 05/12/18 14:29> Subjective - Date & Time of Evaluation Date of Evaluation: 05/12/18 Time of Evaluation: 11:00 - Subjective Subjective: ID Progress Note Patient seen and examined. Patient alert with no complaints. No fever. Objective - Vital Signs/Intake and Output Vital Signs (last 24 hours): Temp Pulse Resp BP Pulse Ox 98.6 F 84 16 113/80 95 05/12/18 06:00 05/12/18 06:00 05/12/18 06:00 05/12/18 06:00 05/12/18 06:00 Intake and Output: 05/12/18 05/12/18 06:59 18:59 Intake Total 1260 Output Total 800 900 Balance 460 -900 - Medications Medications: Current Medications Alprazolam (Xanax) 0.5 mg PO BID PRN; Protocol PRN Reason: Anxiety Stop: 05/15/18 18:45 Last Admin: 05/09/18 17:42 Dose: 0.5 mg Benztropine Mesylate (Cogentin) 1 mg GT AMHS [facility] Last Admin: 05/12/18 09:31 Dose: 1 mg Fluoxetine HCl (Prozac) 40 mg PO DAILY [facility] Last Admin: 05/12/18 09:31 Dose: 40 mg Sodium Chloride (Sodium Chloride 0.45%) 1,000 mls @ 40 mls/hr IV .Q24H [facility] Last Admin: 05/11/18 18:57 Dose: 40 mls/hr Polyethylene Glycol (Miralax) 17 gm PEG DAILY [facility] Last Admin: 05/12/18 09:31 Dose: 17 gm Risperidone (Risperdal Tab) 2 mg GT BID [facility]; Protocol Last Admin: 05/12/18 09:31 Dose: 2 mg Trazodone HCl (Desyrel) 50 mg GT HS [facility] Last Admin: 05/11/18 22:51 Dose: 50 mg - Labs Labs: 05/11/18 07:00 05/11/18 07:00 PT 15.5 SECONDS (9.4-12.5) H 05/08/18 13:44 INR 1.37 05/08/18 13:44 APTT 39.5 Seconds (26.9-38.3) H 05/08/18 13:44 - Constitutional Appears: Non-toxic, No Acute Distress - Head Exam Head Exam: ATRAUMATIC, NORMAL INSPECTION, NORMOCEPHALIC - ENT Exam ENT Exam: Mucous Membranes Dry - Respiratory Exam Respiratory Exam: Decreased Breath Sounds, NORMAL BREATHING PATTERN - Cardiovascular Exam Cardiovascular Exam: RRR, +S1, +S2 - GI/Abdominal Exam GI & Abdominal Exam: Soft, Normal Bowel Sounds. absent: Tenderness - Extremities Exam Extremities Exam: Normal Inspection. absent: Pedal Edema - Neurological Exam Neurological Exam: Alert, Awake, Oriented x3 - Psychiatric Exam Psychiatric exam: Normal Affect, Normal Mood - Skin Skin Exam: Dry, Intact, Warm Assessment and Plan - Assessment and Plan (Free Text) Plan: SIRS with severe fecal impaction Thrombocytosis Hx of Proteus UTI Hx of Dementia Hx of anemia Hx of arthritis Hx of schizophrenia Hx of depression Plan CT abdomen/pelvis reviewed Continue to monitor off antibiotics Follow up GI recommendations Continue to monitor patient closely Carissa PGY-3 <Carlos Enrique Todd S - Last Filed: 05/12/18 19:48> Objective - Vital Signs/Intake and Output Vital Signs (last 24 hours): Temp Pulse Resp BP Pulse Ox 98.6 F 84 16 113/80 95 05/12/18 06:00 05/12/18 06:00 05/12/18 06:00 05/12/18 06:00 05/12/18 06:00 Intake and Output: 05/12/18 05/13/18 18:59 06:59 Output Total 900 Balance -900 - Labs Labs: 05/11/18 07:00 05/11/18 07:00 PT 15.5 SECONDS (9.4-12.5) H 05/08/18 13:44 INR 1.37 05/08/18 13:44 APTT 39.5 Seconds (26.9-38.3) H 05/08/18 13:44 Assessment and Plan - Assessment and Plan (Free Text) Plan: Infectious diseases Attending Physician Attestation Patient seen and examined, discussed with medical review coordinator. I have reviewed the patient's history of present illness, past medical, social, personal and family histories, pertinent physical exam findings, course so far in this hospital admission, pertinent laboratory and imaging results. I agree with the above findings, assessment and plan.
== END 2018-05-12 18:27 | DRG 194 ==
LOC: ED 12:32 → ERH 14:30 → 5RSO 05-10 20:10 → ERH 05-10 20:15 → 5RSO 05-10 20:44
PROVIDERS: ADMIT Family Medicine; ATTEND Family Medicine
DX: J18.9 Pneumonia, unspecified organism (principal); R65.10 Systemic inflammatory response syndrome (SIRS) of non-infectious origin without acute organ dysfunction; K56.41 Fecal impaction; F03.90 Unspecified dementia, unspecified severity, without behavioral disturbance, psychotic disturbance, mood disturbance, and anxiety; F20.9 Schizophrenia, unspecified; R33.9 Retention of urine, unspecified; R62.7 Adult failure to thrive; F41.9 Anxiety disorder, unspecified; D64.9 Anemia, unspecified; Y95 Nosocomial condition; Z93.1 Gastrostomy status; Z74.01 Bed confinement status

== ENCOUNTER 2018-06-02 22:49 | Emergency (ER) | payer MEDICARE ==
[2018-06-02 22:49] VITALS: BMI 23.4
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
[2018-06-02] MEDS ORDERED: Sodium Chloride 0.9% 1,000 ML IV SCH (23:30)
[2018-06-02 23:48] LABS: HEMOGLOBIN 9.5 g/dL (12.0-16.0); MEAN CORPUSCULAR HEMOGLOBIN 27.2 pg (25.0-35.0); MEAN CORPUSCULAR HGB CONC 30.3 g/dl (31.0-37.0); MEAN PLATELET VOLUME 9.7 fl (7.0-11.0); RBC 3.49 {null, 10^6/uL} (3.5-6.1); RED CELL DISTRIBUTION WIDTH 15.1 % (11.5-14.5); WHITE BLOOD COUNT 12.5 {null, 10^3/uL} (4.5-11.0)
[2018-06-03] LABS: INR 1.27; PARTIAL THROMBOPLASTIN TIME 37.8 Seconds (26.9-38.3); PROTHROMBIN TIME 14.1 SECONDS (9.4-12.5)
[2018-06-03 00:13] LABS: ALBUMIN 3.6 g/dL (3.0-4.8); ALT/SGPT 14 U/L (7-56); AST/SGOT 34 U/L (14-36); BLOOD UREA NITROGEN 25 mg/dL (7-21); CALCIUM 9.1 mg/dL (8.4-10.5); GFR NON-AFRICAN AMERICAN > 60; LIPASE 32 U/L (23-300)
[2018-06-03 00:15] LABS: TROPONIN I < 0.01 ng/mL
[2018-06-03 09:21] VITALS: RESP 18; O2SAT 95
--- NOTE | 2018-06-03 10:07 | RAD ---
HISTORY: vomiting COMPARISON: Chest x-ray performed 05/08/18 TECHNIQUE: Chest, one view. FINDINGS: Examination limited by habitus, hypoinflation, and patient obliquity. Distal tip of right-sided catheter terminates at the level of the axilla. LUNGS: Hypoinflation. No focal consolidation. Please note that chest x-ray has limited sensitivity for the detection of pulmonary masses. PLEURA: No significant pleural effusion identified. No definite pneumothorax . CARDIOVASCULAR: Heart size appears within normal limits. No significant atherosclerotic calcification present. OSSEOUS STRUCTURES: No acute osseous abnormality identified. VISUALIZED UPPER ABDOMEN: Unremarkable. OTHER FINDINGS: None. IMPRESSION: Distal tip of right-sided catheter terminates at the level of the axilla. Hypoinflation. No focal consolidation.
[2018-06-03 11:07] VITALS: BP 106/94; PULSE 60; TEMP 98
--- NOTE | 2018-06-04 07:48 | CARD ---
APPROVED REPORT Date of service: 06/02/2018 EKG Measurement Heart [id number] <Conclusion> Normal sinus rhythm Normal ECG
== END 2018-06-03 10:45 ==
LOC: ED 22:49
DX: K29.70 Gastritis, unspecified, without bleeding (principal); D64.9 Anemia, unspecified; F03.90 Unspecified dementia, unspecified severity, without behavioral disturbance, psychotic disturbance, mood disturbance, and anxiety; Z93.1 Gastrostomy status
CPT/HCPCS: 71045; 80053; 82550; 83615; 83690; 84484; 85027; 85610; 85730; 86850; 86900; 93005; 96374; 96375; 99285; C9113; J2405; J7030